=== PATIENT | male | born 1935 | race Caucasian/White ===

== ENCOUNTER → 2017-06-23 | Outpatient (REF) ==
[2017-06-23 19:40] LABS: HEMATOCRIT 34.3 % (42.0-52.0); HEMOGLOBIN 10.8 g/dl (14.0-18.0); MEAN CORPUSCULAR HEMOGLOBIN 29.1 pg (27.0-33.0); MEAN CORPUSCULAR HGB CONC 31.5 g/dl (32.0-36.5); MEAN CORPUSCULAR VOLUME 92.5 fl (80.0-96.0); PLATELET COUNT, AUTOMATED 235 10^3/uL (150-450); RED BLOOD COUNT 3.71 10^6/uL (4.30-6.10); RED CELL DISTRIBUTION WIDTH 15.5 % (11.5-14.5); WHITE BLOOD COUNT 7.6 10^3/uL (4.0-10.0)
[2017-06-23 21:00] LABS: ANION GAP 10 MEQ/L (8-16); BLOOD UREA NITROGEN 21 MG/DL (7-18); CALCIUM LEVEL 7.9 MG/DL (8.8-10.2); CARBON DIOXIDE LEVEL 28 MEQ/L (21-32); CHLORIDE LEVEL 107 MEQ/L (98-107); CREATININE FOR GFR 1.18 MG/DL (0.70-1.30); GLOMERULAR FILTRATION RATE > 60.0 (>35); GLUCOSE, FASTING 94 MG/DL (83-110); POTASSIUM SERUM 3.8 MEQ/L (3.5-5.1); SODIUM LEVEL 145 MEQ/L (136-145)
== END ==
DX: R05 Cough (principal)

== ENCOUNTER → 2017-06-28 | Outpatient (REF) | payer MEDICARE, MEDICAID ==
[2017-06-28 10:37] LABS: HEMATOCRIT 34.5 % (42.0-52.0); HEMOGLOBIN 10.9 g/dl (14.0-18.0); MEAN CORPUSCULAR HEMOGLOBIN 28.5 pg (27.0-33.0); MEAN CORPUSCULAR HGB CONC 31.6 g/dl (32.0-36.5); MEAN CORPUSCULAR VOLUME 90.1 fl (80.0-96.0); PLATELET COUNT, AUTOMATED 351 10^3/uL (150-450); RED BLOOD COUNT 3.83 10^6/uL (4.30-6.10); RED CELL DISTRIBUTION WIDTH 15.1 % (11.5-14.5); WHITE BLOOD COUNT 11.4 10^3/uL (4.0-10.0)
[2017-06-28 11:06] LABS: ANION GAP 6 MEQ/L (8-16); BLOOD UREA NITROGEN 26 MG/DL (7-18); CALCIUM LEVEL 8.1 MG/DL (8.8-10.2); CARBON DIOXIDE LEVEL 30 MEQ/L (21-32); CHLORIDE LEVEL 108 MEQ/L (98-107); CREATININE FOR GFR 1.24 MG/DL (0.70-1.30); GLOMERULAR FILTRATION RATE 59.7 (>35); GLUCOSE, FASTING 81 MG/DL (70-100); POTASSIUM SERUM 4.5 MEQ/L (3.5-5.1); SODIUM LEVEL 144 MEQ/L (136-145)
== END ==
DX: I50.9 Heart failure, unspecified (principal)
CPT/HCPCS: 80048

== ENCOUNTER → 2017-07-25 | Outpatient (REF) ==
[2017-07-25 11:01] LABS: HEMATOCRIT 36.1 % (42.0-52.0); HEMOGLOBIN 11.4 g/dl (14.0-18.0); MEAN CORPUSCULAR HEMOGLOBIN 28.1 pg (27.0-33.0); MEAN CORPUSCULAR HGB CONC 31.6 g/dl (32.0-36.5); MEAN CORPUSCULAR VOLUME 89.1 fl (80.0-96.0); PLATELET COUNT, AUTOMATED 298 10^3/uL (150-450); RED BLOOD COUNT 4.05 10^6/uL (4.30-6.10); RED CELL DISTRIBUTION WIDTH 15.6 % (11.5-14.5); WHITE BLOOD COUNT 11.3 10^3/uL (4.0-10.0)
[2017-07-25 11:16] LABS: ANION GAP 7 MEQ/L (8-16); BLOOD UREA NITROGEN 22 MG/DL (7-18); CALCIUM LEVEL 7.9 MG/DL (8.8-10.2); CARBON DIOXIDE LEVEL 27 MEQ/L (21-32); CHLORIDE LEVEL 109 MEQ/L (98-107); CREATININE FOR GFR 1.39 MG/DL (0.70-1.30); GLOMERULAR FILTRATION RATE 52.3 (>35); GLUCOSE, FASTING 79 MG/DL (70-100); POTASSIUM SERUM 4.4 MEQ/L (3.5-5.1); SODIUM LEVEL 143 MEQ/L (136-145)
== END ==
DX: I50.9 Heart failure, unspecified (principal)

== ENCOUNTER → 2017-08-08 | Outpatient (REF) | DX: G47.30 Sleep apnea, unspecified (principal) ==

== ENCOUNTER 2017-08-16 15:43 | Inpatient (IN) | payer MEDICARE, MEDICAID ==
[2017-08-16 17:30] LABS: BASO # 0.1 10^3/uL (0.0-0.2); BASO % 0.4 % (0.0-1.0); EOS # 0.4 10^3/uL (0.0-0.50); EOS % 2.1 % (0.0-3.0); HEMATOCRIT 34.3 % (42.0-52.0); IMMATURE GRANULOCYTE % 0.5 % (0-3.0); LYMPH % 11.9 % (24.0-44.0); MEAN CORPUSCULAR HEMOGLOBIN 28.6 pg (27.0-33.0); MEAN CORPUSCULAR HGB CONC 32.1 g/dl (32.0-36.5); MEAN CORPUSCULAR VOLUME 89.1 fl (80.0-96.0); MONO # 1.8 10^3/uL (0.0-0.8); MONO % 10.3 % (0.0-5.0); NEUTROPHILS # 12.8 10^3/uL (1.8-7.7); NEUTROPHILS % 74.8 % (36.0-66.0); PLATELET COUNT, AUTOMATED 282 10^3/uL (150-450); RED BLOOD COUNT 3.85 10^6/uL (4.30-6.10); WHITE BLOOD COUNT 17.1 10^3/uL (4.0-10.0)
[2017-08-16 17:43] LABS: ALBUMIN 3.1 GM/DL (3.2-5.2); ALBUMIN/GLOBULIN RATIO 0.94 (1.00-1.93); ALKALINE PHOSPHATASE 82 U/L (45-117); ALT/SGPT 14 U/L (12-78); ANION GAP 4 MEQ/L (8-16); AST/SGOT 12 U/L (7-37); BILIRUBIN,DIRECT 0.1 MG/DL (0.0-0.2); BILIRUBIN,TOTAL 0.5 MG/DL (0.2-1.0); BLOOD UREA NITROGEN 25 MG/DL (7-18); CALCIUM LEVEL 8.5 MG/DL (8.8-10.2); CARBON DIOXIDE LEVEL 31 MEQ/L (21-32); CHLORIDE LEVEL 106 MEQ/L (98-107); CREATININE FOR GFR 1.51 MG/DL (0.70-1.30); GLOMERULAR FILTRATION RATE 47.6 (>35); GLUCOSE, FASTING 92 MG/DL (70-100); LIPASE 117 U/L (73-393); POTASSIUM SERUM 4.3 MEQ/L (3.5-5.1); SODIUM LEVEL 141 MEQ/L (136-145); TOTAL PROTEIN 6.4 GM/DL (6.4-8.2); TROPONIN I < 0.02 NG/ML (< 0.10)
[2017-08-16 17:49] LABS: CK-MB VALUE MASS 1.6 NG/ML (0.0-3.6); CPK CREATINE PHOSPHOKINASE 75 U/L (39-308); FREE T4 0.84 NG/DL (0.76-1.46); MB/CK RELATIVE INDEX 2.13 (< OR =4); THYROID STIMULATING HORMONE 0.899 uIU/ML (0.358-3.740)
[2017-08-16 17:55] LABS: INR 1.05; PROTHROMBIN TIME 13.8 SECONDS (12.4-14.5)
[2017-08-16 17:56] LABS: PARTIAL THROMBOPLASTIN TIME 39.9 SECONDS (26.8-37.9)
[2017-08-16] MEDS: NS 1,000 ML IV ×2 (18:33→19:00)
[2017-08-16 18:49] LABS: KETONE, URINE AUTO RFX NEGATIVE (NEGATIVE); NITRITE, URINE AUTO RFX NEGATIVE (NEGATIVE); RBC, URINE AUTO RFX 3 /HPF (0-3); SPECIFIC GRAVITY UR AUTO RFX 1.003 (1.002-1.035); SQUAM EPITHELIAL CELL UR AURFX 0 /HPF (0-6); WBC, URINE AUTO RFX 6 /HPF (0-3); YEAST LIKE CELL URINE AUTO RFX SMALL
[2017-08-16 19:00] LABS: LEUKOCYTE ESTERASE UR AUTO RFX 2+ (NEGATIVE)
[2017-08-16] MEDS: GASTROGRAFIN SOLUTION 30ML PO ×2 (19:00→19:30)
[2017-08-16] MEDS ORDERED: ISOVUE-370 76% 100ML VIAL (Q9967) As Ordered (20:16)
[2017-08-16] MEDS: OMEPRAZOLE 20 MG CAP PO (21:00)
[2017-08-16] MEDS: GABAPENTIN 400 MG CAP PO (21:00)
[2017-08-16] MEDS: METOPROLOL TART 25 MG TABLET PO (21:00)
[2017-08-16] MEDS: VANCOMYCIN HCL 1,000 MG, VIAL MATE ADAPTER 1 EACH in D5W 250 ML IV (22:00)
[2017-08-16] MEDS: PIPERACILLIN/TAZOBACTAM SOD 3.375 GM in APPROPRIATE DILUENT 1 EA IV (22:15)
[2017-08-16] MEDS ORDERED: MOM 30ML SUSPENSION UDC PO (23:45)
[2017-08-16] MEDS ORDERED: ACETAMINOPHEN TAB 650MG DOSE (2X325MG) PO (23:45)
[2017-08-16] MEDS: SYMBICORT 160/4.5MCG INHALER 6GM INH (23:59)
[2017-08-17 00:14] LABS: C REACTIVE PROTEIN QUANTITATIV 7.66 MG/DL (0.00-0.30)
[2017-08-17 00:22] LABS: ERYTHROCYTE SEDIMENTATION RATE 28 mm/hr (0-20)
[2017-08-17 04:20] LABS: HEMATOCRIT 36.2 % (42.0-52.0); HEMOGLOBIN 11.6 g/dl (14.0-18.0); MEAN CORPUSCULAR HEMOGLOBIN 28.4 pg (27.0-33.0); MEAN CORPUSCULAR VOLUME 88.7 fl (80.0-96.0); PLATELET COUNT, AUTOMATED 279 10^3/uL (150-450); RED BLOOD COUNT 4.08 10^6/uL (4.30-6.10); RED CELL DISTRIBUTION WIDTH 15.9 % (11.5-14.5); WHITE BLOOD COUNT 19.4 10^3/uL (4.0-10.0)
[2017-08-17] MEDS: PIPERACILLIN/TAZOBACTAM SOD 3.375 GM in D5W MINI-BAG PLUS 50 ML IV ×4 (04:32→22:36)
[2017-08-17] MEDS: NS 1,000 ML IV ×2 (04:32→09:32)
[2017-08-17] MEDS: LORATADINE 10 MG TAB PO ×2 (04:32→22:37)
[2017-08-17 04:42] LABS: ANION GAP 5 MEQ/L (8-16); BLOOD UREA NITROGEN 22 MG/DL (7-18); CALCIUM LEVEL 8.3 MG/DL (8.8-10.2); CARBON DIOXIDE LEVEL 29 MEQ/L (21-32); CHLORIDE LEVEL 107 MEQ/L (98-107); CREATININE FOR GFR 1.39 MG/DL (0.70-1.30); GLOMERULAR FILTRATION RATE 52.3 (>35); GLUCOSE, FASTING 94 MG/DL (70-100); POTASSIUM SERUM 4.3 MEQ/L (3.5-5.1); SODIUM LEVEL 141 MEQ/L (136-145)
[2017-08-17] MEDS: TIOTROPIUM INHALER/CAPSULE (SPIRIVA) INH (07:55)
[2017-08-17] MEDS: SYMBICORT 160/4.5MCG INHALER 6GM INH ×2 (07:55→19:38)
[2017-08-17] MEDS: IPRATROPIUM 0.5MG/ALBUTEROL 2.5MG INH SOL UD 3ML (DUONEB)(J7620) INH ×4 (07:59→19:55)
[2017-08-17] MEDS: VANCOMYCIN HCL 1,000 MG, VIAL MATE ADAPTER 1 EACH in D5W 250 ML IV (09:20)
[2017-08-17] MEDS: OMEPRAZOLE 20 MG CAP PO ×2 (09:21→22:37)
[2017-08-17] MEDS: SUCRALFATE 1 GM TAB PO ×4 (09:21→22:37)
[2017-08-17] MEDS: FINASTERIDE 5 MG TAB PO (09:21)
[2017-08-17] MEDS: METOPROLOL TART 25 MG TABLET PO ×2 (09:22→22:37)
[2017-08-17] MEDS: GABAPENTIN 400 MG CAP PO ×3 (09:22→22:37)
[2017-08-17] MEDS: ASPIRIN 81 MG CHEW TABLET PO (09:22)
[2017-08-17] MEDS: ALBUTEROL SULFATE 2.5 MG/0.5 ML INH NEB SOLN NEB (10:14)
[2017-08-17] MEDS ORDERED: PILL CUTTER/CRUSHER XX (12:45)
[2017-08-18 02:15] LABS: VANCOMYCIN LEVEL TROUGH 15.9 UG/ML (10.0-20.0)
[2017-08-18] MEDS: VANCOMYCIN HCL 1,000 MG, VIAL MATE ADAPTER 1 EACH in D5W 250 ML IV ×2 (02:28→20:49)
[2017-08-18] MEDS: PIPERACILLIN/TAZOBACTAM SOD 3.375 GM in D5W MINI-BAG PLUS 50 ML IV ×2 (04:29→10:01)
[2017-08-18 07:23] LABS: HEMATOCRIT 34.9 % (42.0-52.0); HEMOGLOBIN 11.2 g/dl (14.0-18.0); MEAN CORPUSCULAR HEMOGLOBIN 28.2 pg (27.0-33.0); MEAN CORPUSCULAR HGB CONC 32.1 g/dl (32.0-36.5); MEAN CORPUSCULAR VOLUME 87.9 fl (80.0-96.0); PLATELET COUNT, AUTOMATED 288 10^3/uL (150-450); RED BLOOD COUNT 3.97 10^6/uL (4.30-6.10); RED CELL DISTRIBUTION WIDTH 15.9 % (11.5-14.5); WHITE BLOOD COUNT 16.4 10^3/uL (4.0-10.0)
[2017-08-18 07:45] LABS: ANION GAP 6 MEQ/L (8-16); BLOOD UREA NITROGEN 21 MG/DL (7-18); CALCIUM LEVEL 8.4 MG/DL (8.8-10.2); CARBON DIOXIDE LEVEL 25 MEQ/L (21-32); CHLORIDE LEVEL 108 MEQ/L (98-107); CREATININE FOR GFR 1.47 MG/DL (0.70-1.30); GLOMERULAR FILTRATION RATE 49.1 (>35); GLUCOSE, FASTING 93 MG/DL (70-100); SODIUM LEVEL 139 MEQ/L (136-145)
[2017-08-18] MEDS: IPRATROPIUM 0.5MG/ALBUTEROL 2.5MG INH SOL UD 3ML (DUONEB)(J7620) INH ×4 (08:22→20:09)
[2017-08-18] MEDS: ASPIRIN 81 MG CHEW TABLET PO (09:59)
[2017-08-18] MEDS: OMEPRAZOLE 20 MG CAP PO ×2 (09:59→20:49)
[2017-08-18] MEDS: METOPROLOL TART 25 MG TABLET PO ×2 (10:00→20:50)
[2017-08-18] MEDS: GABAPENTIN 400 MG CAP PO ×3 (10:00→20:50)
[2017-08-18] MEDS: SUCRALFATE 1 GM TAB PO ×4 (10:00→20:49)
[2017-08-18] MEDS: FINASTERIDE 5 MG TAB PO (10:01)
[2017-08-18] MEDS: TIOTROPIUM INHALER/CAPSULE (SPIRIVA) INH (11:00)
[2017-08-18] MEDS: SYMBICORT 160/4.5MCG INHALER 6GM INH ×2 (11:00→20:00)
[2017-08-18 13:10] LABS: CPK CREATINE PHOSPHOKINASE 38 U/L (39-308); MAGNESIUM LEVEL 2.3 MG/DL (1.8-2.4); MB/CK RELATIVE INDEX 2.63 (< OR =4); TROPONIN I < 0.02 NG/ML (< 0.10)
[2017-08-18] MEDS: POLYVINYL ALCOHOL OPHTH SOLN 15 ML(LIQUITEARS) OU (16:15)
[2017-08-18] MEDS: PIPERACILLIN/TAZOBACTAM SOD 3.375 GM in APPROPRIATE DILUENT 1 EA IV (16:15)
[2017-08-18] MEDS: LORATADINE 10 MG TAB PO (20:49)
[2017-08-19] MEDS: PIPERACILLIN/TAZOBACTAM SOD 3.375 GM in APPROPRIATE DILUENT 1 EA IV ×5 (00:57→22:09)
[2017-08-19 06:42] LABS: HEMATOCRIT 35.1 % (42.0-52.0); HEMOGLOBIN 11.1 g/dl (14.0-18.0); MEAN CORPUSCULAR HEMOGLOBIN 27.8 pg (27.0-33.0); MEAN CORPUSCULAR HGB CONC 31.6 g/dl (32.0-36.5); MEAN CORPUSCULAR VOLUME 87.8 fl (80.0-96.0); PLATELET COUNT, AUTOMATED 302 10^3/uL (150-450); RED CELL DISTRIBUTION WIDTH 15.9 % (11.5-14.5); WHITE BLOOD COUNT 15.2 10^3/uL (4.0-10.0)
[2017-08-19 06:58] LABS: ANION GAP 7 MEQ/L (8-16); BLOOD UREA NITROGEN 29 MG/DL (7-18); CALCIUM LEVEL 8.3 MG/DL (8.8-10.2); CARBON DIOXIDE LEVEL 27 MEQ/L (21-32); CHLORIDE LEVEL 107 MEQ/L (98-107); CREATININE FOR GFR 1.52 MG/DL (0.70-1.30); GLOMERULAR FILTRATION RATE 47.2 (>35); GLUCOSE, FASTING 90 MG/DL (70-100); POTASSIUM SERUM 3.9 MEQ/L (3.5-5.1); SODIUM LEVEL 141 MEQ/L (136-145)
[2017-08-19] MEDS: IPRATROPIUM 0.5MG/ALBUTEROL 2.5MG INH SOL UD 3ML (DUONEB)(J7620) INH ×4 (07:15→21:08)
[2017-08-19] MEDS: SYMBICORT 160/4.5MCG INHALER 6GM INH ×2 (07:16→20:00)
[2017-08-19] MEDS: TIOTROPIUM INHALER/CAPSULE (SPIRIVA) INH (07:16)
[2017-08-19] MEDS: GABAPENTIN 400 MG CAP PO ×3 (08:39→22:06)
[2017-08-19] MEDS: METOPROLOL TART 25 MG TABLET PO ×2 (08:39→22:07)
[2017-08-19] MEDS: OMEPRAZOLE 20 MG CAP PO ×2 (08:39→22:07)
[2017-08-19] MEDS: SUCRALFATE 1 GM TAB PO ×4 (08:40→22:06)
[2017-08-19] MEDS: FINASTERIDE 5 MG TAB PO (08:42)
[2017-08-19] MEDS: ASPIRIN 81 MG CHEW TABLET PO (08:43)
[2017-08-19] MEDS: traMADol 50 MG TAB PO ×2 (10:45→15:56)
[2017-08-19] MEDS: VANCOMYCIN HCL 1,000 MG, VIAL MATE ADAPTER 1 EACH in D5W 250 ML IV (16:40)
[2017-08-19] MEDS: LORATADINE 10 MG TAB PO (22:06)
[2017-08-20] MEDS: PIPERACILLIN/TAZOBACTAM SOD 3.375 GM in APPROPRIATE DILUENT 1 EA IV ×4 (04:07→21:28)
[2017-08-20 06:25] LABS: HEMATOCRIT 32.4 % (42.0-52.0); HEMOGLOBIN 10.6 g/dl (14.0-18.0); MEAN CORPUSCULAR HEMOGLOBIN 28.8 pg (27.0-33.0); MEAN CORPUSCULAR HGB CONC 32.7 g/dl (32.0-36.5); PLATELET COUNT, AUTOMATED 297 10^3/uL (150-450); RED BLOOD COUNT 3.68 10^6/uL (4.30-6.10); RED CELL DISTRIBUTION WIDTH 15.8 % (11.5-14.5); WHITE BLOOD COUNT 12.4 10^3/uL (4.0-10.0)
[2017-08-20 06:47] LABS: ANION GAP 9 MEQ/L (8-16); BLOOD UREA NITROGEN 28 MG/DL (7-18); CALCIUM LEVEL 8.5 MG/DL (8.8-10.2); CARBON DIOXIDE LEVEL 27 MEQ/L (21-32); CHLORIDE LEVEL 105 MEQ/L (98-107); CREATININE FOR GFR 1.42 MG/DL (0.70-1.30); GLOMERULAR FILTRATION RATE 51.1 (>35); GLUCOSE, FASTING 96 MG/DL (70-100); POTASSIUM SERUM 4.4 MEQ/L (3.5-5.1); SODIUM LEVEL 141 MEQ/L (136-145)
[2017-08-20] MEDS: IPRATROPIUM 0.5MG/ALBUTEROL 2.5MG INH SOL UD 3ML (DUONEB)(J7620) INH ×4 (07:16→21:08)
[2017-08-20] MEDS: TIOTROPIUM INHALER/CAPSULE (SPIRIVA) INH (07:17)
[2017-08-20] MEDS: SYMBICORT 160/4.5MCG INHALER 6GM INH ×2 (07:17→20:00)
[2017-08-20] MEDS: GABAPENTIN 400 MG CAP PO ×3 (08:43→21:28)
[2017-08-20] MEDS: FINASTERIDE 5 MG TAB PO (08:43)
[2017-08-20] MEDS: SUCRALFATE 1 GM TAB PO ×4 (08:43→21:34)
[2017-08-20] MEDS: METOPROLOL TART 25 MG TABLET PO ×2 (08:43→21:28)
[2017-08-20] MEDS: OMEPRAZOLE 20 MG CAP PO ×2 (08:43→21:28)
[2017-08-20] MEDS: ASPIRIN 81 MG CHEW TABLET PO (08:43)
[2017-08-20 08:49] LABS: VANCOMYCIN LEVEL TROUGH 24.8 UG/ML (10.0-20.0)
[2017-08-20] MEDS: traMADol 50 MG TAB PO ×2 (10:18→21:29)
[2017-08-20] MEDS: LORATADINE 10 MG TAB PO (21:29)
[2017-08-21] MEDS: PIPERACILLIN/TAZOBACTAM SOD 3.375 GM in APPROPRIATE DILUENT 1 EA IV ×4 (05:02→21:31)
[2017-08-21 06:49] LABS: HEMATOCRIT 33.8 % (42.0-52.0); HEMOGLOBIN 10.8 g/dl (14.0-18.0); MEAN CORPUSCULAR VOLUME 87.6 fl (80.0-96.0); PLATELET COUNT, AUTOMATED 357 10^3/uL (150-450); RED BLOOD COUNT 3.86 10^6/uL (4.30-6.10); RED CELL DISTRIBUTION WIDTH 15.8 % (11.5-14.5); WHITE BLOOD COUNT 12.4 10^3/uL (4.0-10.0)
[2017-08-21 07:10] LABS: ANION GAP 8 MEQ/L (8-16); BLOOD UREA NITROGEN 25 MG/DL (7-18); CALCIUM LEVEL 8.4 MG/DL (8.8-10.2); CARBON DIOXIDE LEVEL 27 MEQ/L (21-32); CHLORIDE LEVEL 106 MEQ/L (98-107); CREATININE FOR GFR 1.37 MG/DL (0.70-1.30); GLOMERULAR FILTRATION RATE 53.2 (>35); GLUCOSE, FASTING 91 MG/DL (70-100); POTASSIUM SERUM 4.1 MEQ/L (3.5-5.1); SODIUM LEVEL 141 MEQ/L (136-145)
[2017-08-21] MEDS: SYMBICORT 160/4.5MCG INHALER 6GM INH ×2 (07:10→20:00)
[2017-08-21] MEDS: IPRATROPIUM 0.5MG/ALBUTEROL 2.5MG INH SOL UD 3ML (DUONEB)(J7620) INH ×4 (07:10→19:59)
[2017-08-21] MEDS: TIOTROPIUM INHALER/CAPSULE (SPIRIVA) INH (07:10)
[2017-08-21] MEDS: SUCRALFATE 1 GM TAB PO ×4 (09:43→21:32)
[2017-08-21] MEDS: POLYVINYL ALCOHOL OPHTH SOLN 15 ML(LIQUITEARS) OU ×4 (09:43→21:33)
[2017-08-21] MEDS: VANCOMYCIN HCL 1,000 MG, VIAL MATE ADAPTER 1 EACH in D5W 250 ML IV (09:43)
[2017-08-21] MEDS: OMEPRAZOLE 20 MG CAP PO ×2 (09:44→21:32)
[2017-08-21] MEDS: traMADol 50 MG TAB PO ×2 (09:44→21:32)
[2017-08-21] MEDS: METOPROLOL TART 25 MG TABLET PO ×2 (09:44→21:33)
[2017-08-21] MEDS: ASPIRIN 81 MG CHEW TABLET PO (09:44)
[2017-08-21] MEDS: FINASTERIDE 5 MG TAB PO (09:44)
[2017-08-21] MEDS: GABAPENTIN 400 MG CAP PO ×3 (09:44→21:32)
[2017-08-21] MEDS: LORATADINE 10 MG TAB PO (21:31)
[2017-08-22] MEDS: PIPERACILLIN/TAZOBACTAM SOD 3.375 GM in APPROPRIATE DILUENT 1 EA IV (04:38)
[2017-08-22 06:50] LABS: MEAN CORPUSCULAR HEMOGLOBIN 27.8 pg (27.0-33.0); MEAN CORPUSCULAR HGB CONC 31.4 g/dl (32.0-36.5); MEAN CORPUSCULAR VOLUME 88.4 fl (80.0-96.0); PLATELET COUNT, AUTOMATED 357 10^3/uL (150-450); RED BLOOD COUNT 3.96 10^6/uL (4.30-6.10); RED CELL DISTRIBUTION WIDTH 15.4 % (11.5-14.5); WHITE BLOOD COUNT 12.4 10^3/uL (4.0-10.0)
[2017-08-22 07:06] LABS: ANION GAP 6 MEQ/L (8-16); BLOOD UREA NITROGEN 25 MG/DL (7-18); CALCIUM LEVEL 8.5 MG/DL (8.8-10.2); CARBON DIOXIDE LEVEL 28 MEQ/L (21-32); CHLORIDE LEVEL 106 MEQ/L (98-107); CREATININE FOR GFR 1.49 MG/DL (0.70-1.30); GLOMERULAR FILTRATION RATE 48.3 (>35); GLUCOSE, FASTING 83 MG/DL (70-100); POTASSIUM SERUM 4.2 MEQ/L (3.5-5.1); SODIUM LEVEL 140 MEQ/L (136-145)
[2017-08-22] MEDS: TIOTROPIUM INHALER/CAPSULE (SPIRIVA) INH (07:16)
[2017-08-22] MEDS: IPRATROPIUM 0.5MG/ALBUTEROL 2.5MG INH SOL UD 3ML (DUONEB)(J7620) INH ×4 (07:16→21:07)
[2017-08-22] MEDS: SYMBICORT 160/4.5MCG INHALER 6GM INH ×2 (07:16→21:05)
[2017-08-22] MEDS: ASPIRIN 81 MG CHEW TABLET PO (08:30)
[2017-08-22] MEDS: SUCRALFATE 1 GM TAB PO ×4 (08:30→20:55)
[2017-08-22] MEDS: VANCOMYCIN HCL 1,000 MG, VIAL MATE ADAPTER 1 EACH in D5W 250 ML IV ×2 (08:30→09:00)
[2017-08-22] MEDS: OMEPRAZOLE 20 MG CAP PO ×2 (08:31→20:55)
[2017-08-22] MEDS: GABAPENTIN 400 MG CAP PO ×3 (08:31→20:55)
[2017-08-22] MEDS: FINASTERIDE 5 MG TAB PO (08:31)
[2017-08-22] MEDS: METOPROLOL TART 25 MG TABLET PO ×2 (08:31→20:56)
[2017-08-22] MEDS: DALIRESP 500MCG PO (09:00)
[2017-08-22] MEDS: DOXYCYCLINE HYCLATE 100 MG TAB PO ×2 (10:53→20:55)
[2017-08-22] MEDS: LORATADINE 10 MG TAB PO (20:55)
[2017-08-22] MEDS: RESTASIS OU (21:00)
[2017-08-23 06:47] LABS: HEMATOCRIT 34.4 % (42.0-52.0); HEMOGLOBIN 11.1 g/dl (14.0-18.0); MEAN CORPUSCULAR HEMOGLOBIN 28.3 pg (27.0-33.0); MEAN CORPUSCULAR HGB CONC 32.3 g/dl (32.0-36.5); MEAN CORPUSCULAR VOLUME 87.8 fl (80.0-96.0); PLATELET COUNT, AUTOMATED 379 10^3/uL (150-450); RED BLOOD COUNT 3.92 10^6/uL (4.30-6.10); RED CELL DISTRIBUTION WIDTH 15.5 % (11.5-14.5); WHITE BLOOD COUNT 11.3 10^3/uL (4.0-10.0)
[2017-08-23 07:08] LABS: ANION GAP 6 MEQ/L (8-16); BLOOD UREA NITROGEN 28 MG/DL (7-18); CALCIUM LEVEL 8.6 MG/DL (8.8-10.2); CARBON DIOXIDE LEVEL 28 MEQ/L (21-32); CHLORIDE LEVEL 108 MEQ/L (98-107); CREATININE FOR GFR 1.36 MG/DL (0.70-1.30); GLOMERULAR FILTRATION RATE 53.7 (>35); GLUCOSE, FASTING 90 MG/DL (70-100); POTASSIUM SERUM 4.3 MEQ/L (3.5-5.1); SODIUM LEVEL 142 MEQ/L (136-145)
[2017-08-23] MEDS: SYMBICORT 160/4.5MCG INHALER 6GM INH ×2 (07:37→20:00)
[2017-08-23] MEDS: IPRATROPIUM 0.5MG/ALBUTEROL 2.5MG INH SOL UD 3ML (DUONEB)(J7620) INH ×4 (07:38→22:02)
[2017-08-23] MEDS: TIOTROPIUM INHALER/CAPSULE (SPIRIVA) INH (07:38)
[2017-08-23] MEDS: SUCRALFATE 1 GM TAB PO ×4 (08:05→20:43)
[2017-08-23] MEDS: GABAPENTIN 400 MG CAP PO ×3 (10:39→20:44)
[2017-08-23] MEDS: DOXYCYCLINE HYCLATE 100 MG TAB PO ×2 (10:40→20:44)
[2017-08-23] MEDS: FINASTERIDE 5 MG TAB PO (10:40)
[2017-08-23] MEDS: METOPROLOL TART 25 MG TABLET PO ×2 (10:40→20:45)
[2017-08-23] MEDS: DALIRESP 500MCG PO (10:41)
[2017-08-23] MEDS: OMEPRAZOLE 20 MG CAP PO ×2 (10:41→20:44)
[2017-08-23] MEDS: ASPIRIN 81 MG CHEW TABLET PO (10:41)
[2017-08-23] MEDS: RESTASIS OU ×2 (10:41→20:45)
[2017-08-23] MEDS: LORATADINE 10 MG TAB PO (20:44)
[2017-08-24] MEDS: SYMBICORT 160/4.5MCG INHALER 6GM INH (07:36)
[2017-08-24] MEDS: IPRATROPIUM 0.5MG/ALBUTEROL 2.5MG INH SOL UD 3ML (DUONEB)(J7620) INH (07:36)
[2017-08-24] MEDS: TIOTROPIUM INHALER/CAPSULE (SPIRIVA) INH (07:36)
[2017-08-24] MEDS: SUCRALFATE 1 GM TAB PO ×2 (07:54→12:23)
[2017-08-24 08:54] LABS: HEMATOCRIT 37.3 % (42.0-52.0); HEMOGLOBIN 11.9 g/dl (14.0-18.0); MEAN CORPUSCULAR HEMOGLOBIN 27.7 pg (27.0-33.0); MEAN CORPUSCULAR HGB CONC 31.9 g/dl (32.0-36.5); MEAN CORPUSCULAR VOLUME 86.9 fl (80.0-96.0); PLATELET COUNT, AUTOMATED 442 10^3/uL (150-450); RED BLOOD COUNT 4.29 10^6/uL (4.30-6.10); RED CELL DISTRIBUTION WIDTH 15.4 % (11.5-14.5); WHITE BLOOD COUNT 12.5 10^3/uL (4.0-10.0)
[2017-08-24] MEDS: ASPIRIN 81 MG CHEW TABLET PO (09:01)
[2017-08-24] MEDS: DOXYCYCLINE HYCLATE 100 MG TAB PO (09:01)
[2017-08-24] MEDS: OMEPRAZOLE 20 MG CAP PO (09:01)
[2017-08-24] MEDS: GABAPENTIN 400 MG CAP PO (09:02)
[2017-08-24] MEDS: METOPROLOL TART 25 MG TABLET PO (09:02)
[2017-08-24] MEDS: FINASTERIDE 5 MG TAB PO (09:03)
[2017-08-24] MEDS: RESTASIS OU (09:03)
[2017-08-24] MEDS: DALIRESP 500MCG PO (09:03)
[2017-08-24 09:22] LABS: ANION GAP 7 MEQ/L (8-16); BLOOD UREA NITROGEN 29 MG/DL (7-18); C REACTIVE PROTEIN QUANTITATIV 4.49 MG/DL (0.00-0.30); CALCIUM LEVEL 8.6 MG/DL (8.8-10.2); CARBON DIOXIDE LEVEL 28 MEQ/L (21-32); CHLORIDE LEVEL 106 MEQ/L (98-107); CREATININE FOR GFR 1.31 MG/DL (0.70-1.30); GLUCOSE, FASTING 82 MG/DL (70-100); POTASSIUM SERUM 4.3 MEQ/L (3.5-5.1); SODIUM LEVEL 141 MEQ/L (136-145)
== END 2017-08-24 13:07 | DRG 698 ==
LOC: M ED INP 08-17 01:28 → M MS5PR 08-17 03:15 → M ED 15:43
DX: T83.518A Infection and inflammatory reaction due to other urinary catheter, initial encounter (principal); J18.9 Pneumonia, unspecified organism; N39.0 Urinary tract infection, site not specified; Z66 Do not resuscitate; I12.9 Hypertensive chronic kidney disease with stage 1 through stage 4 chronic kidney disease, or unspecified chronic kidney disease; K21.9 Gastro-esophageal reflux disease without esophagitis; G62.9 Polyneuropathy, unspecified; Z99.81 Dependence on supplemental oxygen; B95.61 Methicillin susceptible Staphylococcus aureus infection as the cause of diseases classified elsewhere; Z87.891 Personal history of nicotine dependence; Y95 Nosocomial condition; Z79.899 Other long term (current) drug therapy; Z79.82 Long term (current) use of aspirin; Z88.1 Allergy status to other antibiotic agents; N18.3 Chronic kidney disease, stage 3 (moderate); Y82.9 Unspecified medical devices associated with adverse incidents

== ENCOUNTER 2017-10-16 18:20 | Emergency (ER) | payer MEDICARE, MEDICAID ==
[2017-10-16 18:16] LABS: HEMATOCRIT 34.3 % (42.0-52.0); HEMOGLOBIN 10.8 g/dl (13.5-17.5); MEAN CORPUSCULAR HGB CONC 31.5 g/dl (32.0-36.5); MEAN CORPUSCULAR VOLUME 88.9 fl (80.0-96.0); PLATELET COUNT, AUTOMATED 277 10^3/uL (150-450); RED BLOOD COUNT 3.86 10^6/uL (4.30-6.10); RED CELL DISTRIBUTION WIDTH 15.2 % (11.5-14.5)
[~2017-10-16 18:20] MED LIST: LIDOCAINE 2% 5ML JELLY UROJET As Ordered
[2017-10-16 18:38] LABS: ANION GAP 3 MEQ/L (8-16); BLOOD UREA NITROGEN 40 MG/DL (7-18); CALCIUM LEVEL 8.3 MG/DL (8.8-10.2); CARBON DIOXIDE LEVEL 29 MEQ/L (21-32); CHLORIDE LEVEL 112 MEQ/L (98-107); CPK CREATINE PHOSPHOKINASE 80 U/L (39-308); CREATININE FOR GFR 1.63 MG/DL (0.70-1.30); GLOMERULAR FILTRATION RATE 43.6 (>35); GLUCOSE, FASTING 91 MG/DL (70-100); POTASSIUM SERUM 4.2 MEQ/L (3.5-5.1); SODIUM LEVEL 144 MEQ/L (136-145); TROPONIN I < 0.02 NG/ML (< 0.10)
== END 2017-10-16 19:36 | disposition home or self-care (01) ==
LOC: M ED 18:20
DX: T83.011A Breakdown (mechanical) of indwelling urethral catheter, initial encounter (principal); R07.89 Other chest pain; N18.3 Chronic kidney disease, stage 3 (moderate); I12.9 Hypertensive chronic kidney disease with stage 1 through stage 4 chronic kidney disease, or unspecified chronic kidney disease; J44.9 Chronic obstructive pulmonary disease, unspecified; N40.0 Benign prostatic hyperplasia without lower urinary tract symptoms; Z79.899 Other long term (current) drug therapy; Z79.82 Long term (current) use of aspirin; Z79.51 Long term (current) use of inhaled steroids; Z88.1 Allergy status to other antibiotic agents
CPT/HCPCS: 93005

== ENCOUNTER 2017-10-17 04:14 | Emergency (ER) | payer MEDICARE, MEDICAID | END 2017-10-17 05:23 | disposition home or self-care (01) | LOC: M ED 04:14 | DX: T83.098A Other mechanical complication of other urinary catheter, initial encounter (principal); N28.9 Disorder of kidney and ureter, unspecified; J44.9 Chronic obstructive pulmonary disease, unspecified; N40.0 Benign prostatic hyperplasia without lower urinary tract symptoms; K21.9 Gastro-esophageal reflux disease without esophagitis; Z88.1 Allergy status to other antibiotic agents; Z79.899 Other long term (current) drug therapy; Z79.82 Long term (current) use of aspirin | CPT/HCPCS: 99283; G0463 ==

== ENCOUNTER 2017-10-27 17:56 | Emergency (ER) | payer MEDICARE, MEDICAID ==
[2017-10-27] MEDS ORDERED: LIDOCAINE 2% 5ML JELLY UROJET As Ordered (18:44)
[2017-10-27 19:37] LABS: KETONE, URINE AUTO RFX NEGATIVE (NEGATIVE); MUCUS, URINE RFX SMALL (NEGATIVE); NITRITE, URINE AUTO RFX NEGATIVE (NEGATIVE); RBC, URINE AUTO RFX 29 /HPF (0-3); SPECIFIC GRAVITY UR AUTO RFX 1.016 (1.002-1.035); SQUAM EPITHELIAL CELL UR AURFX 0 /HPF (0-6)
[2017-10-27 19:46] LABS: LEUKOCYTE ESTERASE UR AUTO RFX 3+ (NEGATIVE); WBC, URINE AUTO RFX 56 /HPF (0-3)
[2017-10-27] MEDS: CEPHALEXIN 500 MG CAP PO (20:35)
== END 2017-10-27 21:40 | disposition home or self-care (01) ==
LOC: M ED 17:56
DX: T83.091A Other mechanical complication of indwelling urethral catheter, initial encounter (principal); R33.9 Retention of urine, unspecified; N39.0 Urinary tract infection, site not specified; Y84.6 Urinary catheterization as the cause of abnormal reaction of the patient, or of later complication, without mention of misadventure at the time of the procedure; I10 Essential (primary) hypertension; E11.9 Type 2 diabetes mellitus without complications; J44.9 Chronic obstructive pulmonary disease, unspecified; G89.29 Other chronic pain; Z85.46 Personal history of malignant neoplasm of prostate; Z88.1 Allergy status to other antibiotic agents; Z79.899 Other long term (current) drug therapy; Z79.82 Long term (current) use of aspirin; Z79.51 Long term (current) use of inhaled steroids
CPT/HCPCS: 81001

== ENCOUNTER → 2018-01-11 | Outpatient (REF) | payer MEDICARE, MEDICAID ==
[2018-01-12 10:48] LABS: APPEARANCE, URINE CLOUDY (CLEAR); BACTERIA, URINE AUTO 3+ (NEGATIVE); BILIRUBIN, URINE AUTO NEGATIVE (NEGATIVE); BLOOD, URINE BLOOD 2+ (NEGATIVE); COLOR, URINE YELLOW (YELLOW); GLUCOSE, URINE (UA) AUTO NEGATIVE (NEGATIVE); KETONE, URINE AUTO NEGATIVE (NEGATIVE); LEUKOCYTE ESTERASE, URINE AUTO 3+ (NEGATIVE); MUCUS, URINE SMALL (NEGATIVE); NITRITE, URINE AUTO NEGATIVE (NEGATIVE); PROTEIN, URINE AUTO 1+ mg/dL (NEGATIVE); RBC, URINE AUTO 12 /HPF (0-3); SPECIFIC GRAVITY URINE AUTO 1.014 (1.002-1.035); SQUAMOUS EPITHELIAL CELL UR AU 0 /HPF (0-6); UROBILINOGEN, URINE AUTO 0.2 mg/dL (0.0-2.0); WBC, URINE AUTO TNTC /HPF (0-3)
== END ==
DX: N28.89 Other specified disorders of kidney and ureter (principal)
CPT/HCPCS: 81001

== ENCOUNTER 2018-01-23 05:18 | Inpatient (IN) | payer MEDICARE, MEDICAID ==
[2018-01-23 06:37] LABS: BASO # 0.1 10^3/uL (0.0-0.2); BASO % 0.3 % (0.0-1.0); EOS # 0.6 10^3/uL (0.0-0.50); EOS % 2.7 % (0.0-3.0); HEMOGLOBIN 12.5 g/dl (13.5-17.5); IMMATURE GRANULOCYTE % 0.7 % (0-3.0); LYMPH # 0.6 10^3/uL (1.5-4.5); LYMPH % 2.9 % (24.0-44.0); MEAN CORPUSCULAR HEMOGLOBIN 28.2 pg (27.0-33.0); MEAN CORPUSCULAR HGB CONC 32.9 g/dl (32.0-36.5); MEAN CORPUSCULAR VOLUME 85.6 fl (80.0-96.0); MONO % 10.4 % (0.0-5.0); NEUTROPHILS # 17.8 10^3/uL (1.8-7.7); PLATELET COUNT, AUTOMATED 296 10^3/uL (150-450); RED BLOOD COUNT 4.44 10^6/uL (4.30-6.10); RED CELL DISTRIBUTION WIDTH 15.2 % (11.5-14.5); WHITE BLOOD COUNT 21.4 10^3/uL (4.0-10.0)
[2018-01-23 06:50] LABS: ALBUMIN 3.3 GM/DL (3.2-5.2); ALBUMIN/GLOBULIN RATIO 1.03 (1.00-1.93); ALKALINE PHOSPHATASE 90 U/L (45-117); ALT/SGPT 18 U/L (12-78); ANION GAP 10 MEQ/L (8-16); AST/SGOT 15 U/L (7-37); BILIRUBIN,DIRECT 0.3 MG/DL (0.0-0.2); BLOOD UREA NITROGEN 37 MG/DL (7-18); CALCIUM LEVEL 8.5 MG/DL (8.8-10.2); CARBON DIOXIDE LEVEL 27 MEQ/L (21-32); CHLORIDE LEVEL 101 MEQ/L (98-107); CK-MB VALUE MASS 1.5 NG/ML (<3.6); CPK CREATINE PHOSPHOKINASE 124 U/L (39-308); CREATININE FOR GFR 1.56 MG/DL (0.70-1.30); GLOMERULAR FILTRATION RATE 45.7 (>35); GLUCOSE, FASTING 111 MG/DL (70-100); LIPASE 91 U/L (73-393); POTASSIUM SERUM 4.1 MEQ/L (3.5-5.1); SODIUM LEVEL 138 MEQ/L (136-145); TOTAL PROTEIN 6.5 GM/DL (6.4-8.2); TROPONIN I < 0.02 NG/ML (< 0.10)
[2018-01-23] MEDS: NS 500 ML IV (06:53)
[2018-01-23 07:12] LABS: APPEARANCE, URINE CLOUDY (CLEAR); BACTERIA, URINE AUTO 1+ (NEGATIVE); BILIRUBIN, URINE AUTO NEGATIVE (NEGATIVE); BLOOD, URINE BLOOD 2+ (NEGATIVE); COLOR, URINE YELLOW (YELLOW); GLUCOSE, URINE (UA) AUTO NEGATIVE (NEGATIVE); KETONE, URINE AUTO NEGATIVE (NEGATIVE); LEUKOCYTE ESTERASE, URINE AUTO 3+ (NEGATIVE); MUCUS, URINE SMALL (NEGATIVE); NITRITE, URINE AUTO NEGATIVE (NEGATIVE); PROTEIN, URINE AUTO 2+ mg/dL (NEGATIVE); RBC, URINE AUTO 5 /HPF (0-3); SPECIFIC GRAVITY URINE AUTO 1.017 (1.002-1.035); SQUAMOUS EPITHELIAL CELL UR AU 1 /HPF (0-6); UROBILINOGEN, URINE AUTO 0.2 mg/dL (0.0-2.0); WBC, URINE AUTO 49 /HPF (0-3)
[2018-01-23 07:17] LABS: MONO # 2.2 10^3/uL (0.0-0.8); POSITIVE DIFF POS FLAG
[2018-01-23 08:01] LABS: C REACTIVE PROTEIN QUANTITATIV 9.73 MG/DL (0.00-0.30)
[2018-01-23] MEDS: cefTRIAXone SOD 2 GM in D5W MINI-BAG PLUS 50 ML IV (08:10)
[2018-01-23] MEDS ORDERED: ALBUTEROL SULFATE 2.5 MG/0.5 ML INH NEB SOLN INH (09:45)
[2018-01-23] MEDS ORDERED: ONDANSETRON 4MG/2ML VIAL (J2405) IV (09:45)
[2018-01-23] MEDS: PIPERACILLIN/TAZOBACTAM SOD 3.375 GM in D5W MINI-BAG PLUS 50 ML IV ×3 (11:00→22:20)
[2018-01-23] MEDS: IPRATROPIUM 0.5MG/ALBUTEROL 2.5MG INH SOL UD 3ML (DUONEB)(J7620) NEB ×3 (12:25→20:04)
[2018-01-23] MEDS: NS 1,000 ML IV (13:15)
[2018-01-23] MEDS: VANCOMYCIN HCL 1,000 MG, VIAL MATE ADAPTER 1 EACH in D5W 250 ML IV (13:15)
[2018-01-23] MEDS: ENOXAPARIN 40 MG/0.4 ML SYRINGE (J1650) SC (13:16)
[2018-01-23] MEDS: ACETAMINOPHEN TAB 650MG DOSE (2X325MG) PO (13:16)
[2018-01-23] MEDS: guaiFENesin ER 600 MG TAB PO ×2 (13:16→20:20)
[2018-01-23 14:15] LABS: HEMATOCRIT 36.7 % (42.0-52.0); HEMOGLOBIN 12.1 g/dl (13.5-17.5); MEAN CORPUSCULAR HEMOGLOBIN 28.5 pg (27.0-33.0); MEAN CORPUSCULAR VOLUME 86.4 fl (80.0-96.0); PLATELET COUNT, AUTOMATED 243 10^3/uL (150-450); RED BLOOD COUNT 4.25 10^6/uL (4.30-6.10); RED CELL DISTRIBUTION WIDTH 15.4 % (11.5-14.5)
[2018-01-23] MEDS: VANCOMYCIN HCL 750 MG, VIAL MATE ADAPTER 1 EACH in D5W 250 ML IV (14:29)
[2018-01-23] MEDS: methylPREDNISolone INJ 40 MG/1 ML VIAL (J2920) IV ×2 (14:29→22:20)
[2018-01-23 14:36] LABS: ANION GAP 9 MEQ/L (8-16); BLOOD UREA NITROGEN 31 MG/DL (7-18); CALCIUM LEVEL 8.1 MG/DL (8.8-10.2); CARBON DIOXIDE LEVEL 27 MEQ/L (21-32); CHLORIDE LEVEL 102 MEQ/L (98-107); CREATININE FOR GFR 1.48 MG/DL (0.70-1.30); GLOMERULAR FILTRATION RATE 48.6 (>35); GLUCOSE, FASTING 144 MG/DL (70-100); POTASSIUM SERUM 3.5 MEQ/L (3.5-5.1); SODIUM LEVEL 138 MEQ/L (136-145)
[2018-01-23 14:40] LABS: LACTIC ACID SEPSIS PROTOCOL 1.1 MMOL/L (0.4-2.0)
[2018-01-24] MEDS: IPRATROPIUM 0.5MG/ALBUTEROL 2.5MG INH SOL UD 3ML (DUONEB)(J7620) NEB ×6 (00:09→21:17)
[2018-01-24] MEDS: methylPREDNISolone INJ 40 MG/1 ML VIAL (J2920) IV ×3 (05:18→23:00)
[2018-01-24] MEDS: PIPERACILLIN/TAZOBACTAM SOD 3.375 GM in D5W MINI-BAG PLUS 50 ML IV ×4 (05:19→23:00)
[2018-01-24] MEDS: guaiFENesin ER 600 MG TAB PO (09:00)
[2018-01-24 09:13] LABS: BASO % 0.2 % (0.0-1.0); EOS % 0.1 % (0.0-3.0); HEMATOCRIT 37.7 % (42.0-52.0); HEMOGLOBIN 12.3 g/dl (13.5-17.5); IMMATURE GRANULOCYTE % 0.6 % (0-3.0); LYMPH # 0.6 10^3/uL (1.5-4.5); LYMPH % 3.1 % (24.0-44.0); MEAN CORPUSCULAR HGB CONC 32.6 g/dl (32.0-36.5); MEAN CORPUSCULAR VOLUME 85.9 fl (80.0-96.0); MONO # 0.4 10^3/uL (0.0-0.8); MONO % 2.1 % (0.0-5.0); NEUTROPHILS # 16.9 10^3/uL (1.8-7.7); NEUTROPHILS % 93.9 % (36.0-66.0); PLATELET COUNT, AUTOMATED 284 10^3/uL (150-450); RED BLOOD COUNT 4.39 10^6/uL (4.30-6.10); RED CELL DISTRIBUTION WIDTH 15.4 % (11.5-14.5); WHITE BLOOD COUNT 17.9 10^3/uL (4.0-10.0)
[2018-01-24] MEDS ORDERED: guaiFENesin DM LIQ 10ML UD PO (09:15)
[2018-01-24] MEDS: ENOXAPARIN 40 MG/0.4 ML SYRINGE (J1650) SC (09:16)
[2018-01-24 09:44] LABS: ANION GAP 12 MEQ/L (8-16); BLOOD UREA NITROGEN 29 MG/DL (7-18); CALCIUM LEVEL 8.2 MG/DL (8.8-10.2); CARBON DIOXIDE LEVEL 25 MEQ/L (21-32); CHLORIDE LEVEL 107 MEQ/L (98-107); CREATININE FOR GFR 1.66 MG/DL (0.70-1.30); GLOMERULAR FILTRATION RATE 42.5 (>35); GLUCOSE, FASTING 142 MG/DL (70-100); MAGNESIUM LEVEL 2.2 MG/DL (1.8-2.4); POTASSIUM SERUM 3.3 MEQ/L (3.5-5.1); SODIUM LEVEL 144 MEQ/L (136-145)
[2018-01-24 12:43] LABS: CPK CREATINE PHOSPHOKINASE 80 U/L (39-308); TROPONIN I < 0.02 NG/ML (< 0.10)
[2018-01-24 12:44] LABS: CK-MB VALUE MASS 1.4 NG/ML (<3.6); MB/CK RELATIVE INDEX 1.75 (< OR =4)
[2018-01-24] MEDS: VANCOMYCIN HCL 1,000 MG, VIAL MATE ADAPTER 1 EACH in D5W 250 ML IV (13:07)
[2018-01-24] MEDS: POTASSIUM CHLORIDE 10 MEQ SR TABLET PO (13:07)
[2018-01-24] MEDS: NYSTATIN 100,000 UNITS/GM TOPICAL PWD 15 GM TOP ×2 (17:09→23:01)
[2018-01-24 23:46] LABS: CPK CREATINE PHOSPHOKINASE 72 U/L (39-308); POTASSIUM SERUM 3.5 MEQ/L (3.5-5.1); TROPONIN I < 0.02 NG/ML (< 0.10)
[2018-01-24 23:47] LABS: CK-MB VALUE MASS 1.8 NG/ML (<3.6)
[2018-01-25] MEDS: IPRATROPIUM 0.5MG/ALBUTEROL 2.5MG INH SOL UD 3ML (DUONEB)(J7620) NEB ×6 (00:35→20:33)
[2018-01-25] MEDS: PIPERACILLIN/TAZOBACTAM SOD 3.375 GM in D5W MINI-BAG PLUS 50 ML IV ×2 (05:28→11:15)
[2018-01-25] MEDS: methylPREDNISolone INJ 40 MG/1 ML VIAL (J2920) IV (05:28)
[2018-01-25] MEDS: ENOXAPARIN 40 MG/0.4 ML SYRINGE (J1650) SC (08:54)
[2018-01-25] MEDS: NYSTATIN 100,000 UNITS/GM TOPICAL PWD 15 GM TOP ×2 (08:55→20:21)
[2018-01-25 09:07] LABS: HEMATOCRIT 36.2 % (42.0-52.0); HEMOGLOBIN 11.8 g/dl (13.5-17.5); MEAN CORPUSCULAR HGB CONC 32.6 g/dl (32.0-36.5); PLATELET COUNT, AUTOMATED 334 10^3/uL (150-450); RED BLOOD COUNT 4.21 10^6/uL (4.30-6.10); RED CELL DISTRIBUTION WIDTH 15.7 % (11.5-14.5); WHITE BLOOD COUNT 21.8 10^3/uL (4.0-10.0)
[2018-01-25 09:14] LABS: ANION GAP 11 MEQ/L (8-16); BLOOD UREA NITROGEN 37 MG/DL (7-18); CALCIUM LEVEL 8.4 MG/DL (8.8-10.2); CARBON DIOXIDE LEVEL 25 MEQ/L (21-32); CHLORIDE LEVEL 108 MEQ/L (98-107); CREATININE FOR GFR 1.86 MG/DL (0.70-1.30); GLOMERULAR FILTRATION RATE 37.3 (>35); GLUCOSE, FASTING 181 MG/DL (70-100); POTASSIUM SERUM 3.4 MEQ/L (3.5-5.1); SODIUM LEVEL 144 MEQ/L (136-145)
[2018-01-25 09:15] LABS: C REACTIVE PROTEIN QUANTITATIV 9.18 MG/DL (0.00-0.30)
[2018-01-25] MEDS: FLUCONAZOLE 100 MG TAB PO (11:13)
[2018-01-25] MEDS ORDERED: SLF 3 ML SYR IV (11:15)
[2018-01-25] MEDS ORDERED: PILL CRUSHER/CUTTER 1 EACH XX (11:30)
[2018-01-25 12:10] LABS: VANCOMYCIN LEVEL TROUGH 15.7 UG/ML (10.0-20.0)
[2018-01-25] MEDS: VANCOMYCIN HCL 1,000 MG, VIAL MATE ADAPTER 1 EACH in D5W 250 ML IV (12:31)
[2018-01-25] MEDS ORDERED: POTASSIUM CHLORIDE 10 MEQ SR TABLET PO (15:00)
[2018-01-25] MEDS: METOPROLOL TART 25 MG TABLET PO ×2 (16:05→20:21)
[2018-01-25] MEDS: SLF 3 ML SYR IV ×2 (16:06→20:23)
[2018-01-25] MEDS: NS 1,000 ML IV (16:06)
[2018-01-25] MEDS: POTASSIUM CHLORIDE 10% LIQ 20 MEQ/15 ML UDC PO (16:26)
[2018-01-25] MEDS: PIPERACILLIN/TAZOBACTAM SOD 2.25 GM in D5W MINI-BAG PLUS 50 ML IV ×2 (17:25→23:41)
[2018-01-26] MEDS: IPRATROPIUM 0.5MG/ALBUTEROL 2.5MG INH SOL UD 3ML (DUONEB)(J7620) NEB ×6 (00:37→20:57)
[2018-01-26] MEDS: PIPERACILLIN/TAZOBACTAM SOD 2.25 GM in D5W MINI-BAG PLUS 50 ML IV ×4 (05:38→23:11)
[2018-01-26] MEDS: SLF 3 ML SYR IV ×3 (05:39→21:28)
[2018-01-26 05:41] LABS: HEMATOCRIT 34.6 % (42.0-52.0); HEMOGLOBIN 11.2 g/dl (13.5-17.5); MEAN CORPUSCULAR HEMOGLOBIN 28.2 pg (27.0-33.0); MEAN CORPUSCULAR HGB CONC 32.4 g/dl (32.0-36.5); MEAN CORPUSCULAR VOLUME 87.2 fl (80.0-96.0); PLATELET COUNT, AUTOMATED 325 10^3/uL (150-450); RED BLOOD COUNT 3.97 10^6/uL (4.30-6.10); RED CELL DISTRIBUTION WIDTH 15.7 % (11.5-14.5); WHITE BLOOD COUNT 17.1 10^3/uL (4.0-10.0)
[2018-01-26 06:08] LABS: ANION GAP 8 MEQ/L (8-16); BLOOD UREA NITROGEN 36 MG/DL (7-18); C REACTIVE PROTEIN QUANTITATIV 4.09 MG/DL (0.00-0.30); CALCIUM LEVEL 8.3 MG/DL (8.8-10.2); CARBON DIOXIDE LEVEL 25 MEQ/L (21-32); CHLORIDE LEVEL 113 MEQ/L (98-107); CREATININE FOR GFR 1.63 MG/DL (0.70-1.30); GLOMERULAR FILTRATION RATE 43.4 (>35); GLUCOSE, FASTING 88 MG/DL (70-100); POTASSIUM SERUM 3.5 MEQ/L (3.5-5.1); SODIUM LEVEL 146 MEQ/L (136-145)
[2018-01-26] MEDS: predniSONE 10 MG TAB PO (09:10)
[2018-01-26] MEDS: NYSTATIN 100,000 UNITS/GM TOPICAL PWD 15 GM TOP ×2 (09:10→21:28)
[2018-01-26] MEDS: ENOXAPARIN 40 MG/0.4 ML SYRINGE (J1650) SC (09:10)
[2018-01-26] MEDS: METOPROLOL TART 25 MG TABLET PO ×2 (09:11→20:02)
[2018-01-26] MEDS: FLUCONAZOLE 100 MG TAB PO (09:12)
[2018-01-26 11:28] LABS: MAGNESIUM LEVEL 2.1 MG/DL (1.8-2.4)
[2018-01-26] MEDS: VANCOMYCIN HCL 1,000 MG, VIAL MATE ADAPTER 1 EACH in D5W 250 ML IV (11:48)
[2018-01-26] MEDS: POTASSIUM CHLORIDE 10 MEQ SR TABLET PO (16:30)
[2018-01-27] MEDS: IPRATROPIUM 0.5MG/ALBUTEROL 2.5MG INH SOL UD 3ML (DUONEB)(J7620) NEB ×6 (04:00→21:01)
[2018-01-27] MEDS: PIPERACILLIN/TAZOBACTAM SOD 2.25 GM in D5W MINI-BAG PLUS 50 ML IV (05:31)
[2018-01-27] MEDS: SLF 3 ML SYR IV ×3 (05:32→21:23)
[2018-01-27 05:37] LABS: HEMATOCRIT 36.1 % (42.0-52.0); HEMOGLOBIN 11.6 g/dl (13.5-17.5); MEAN CORPUSCULAR HEMOGLOBIN 27.4 pg (27.0-33.0); MEAN CORPUSCULAR HGB CONC 32.1 g/dl (32.0-36.5); MEAN CORPUSCULAR VOLUME 85.3 fl (80.0-96.0); PLATELET COUNT, AUTOMATED 318 10^3/uL (150-450); RED BLOOD COUNT 4.23 10^6/uL (4.30-6.10); RED CELL DISTRIBUTION WIDTH 15.8 % (11.5-14.5); WHITE BLOOD COUNT 11.3 10^3/uL (4.0-10.0)
[2018-01-27 05:48] LABS: ANION GAP 9 MEQ/L (8-16); BLOOD UREA NITROGEN 33 MG/DL (7-18); CALCIUM LEVEL 8.4 MG/DL (8.8-10.2); CARBON DIOXIDE LEVEL 25 MEQ/L (21-32); CHLORIDE LEVEL 112 MEQ/L (98-107); CREATININE FOR GFR 1.54 MG/DL (0.70-1.30); GLOMERULAR FILTRATION RATE 46.4 (>35); GLUCOSE, FASTING 86 MG/DL (70-100); POTASSIUM SERUM 3.8 MEQ/L (3.5-5.1); SODIUM LEVEL 146 MEQ/L (136-145)
[2018-01-27] MEDS: ENOXAPARIN 40 MG/0.4 ML SYRINGE (J1650) SC (08:37)
[2018-01-27] MEDS: FLUCONAZOLE 100 MG TAB PO (08:37)
[2018-01-27] MEDS: predniSONE 10 MG TAB PO (08:38)
[2018-01-27] MEDS: METOPROLOL TART 25 MG TABLET PO ×2 (08:38→21:23)
[2018-01-27] MEDS: NYSTATIN 100,000 UNITS/GM TOPICAL PWD 15 GM TOP ×2 (08:40→21:23)
[2018-01-27] MEDS: CEFDINIR 300 MG CAP (OMNICEF) PO ×2 (10:42→21:23)
[2018-01-28] MEDS: IPRATROPIUM 0.5MG/ALBUTEROL 2.5MG INH SOL UD 3ML (DUONEB)(J7620) NEB ×7 (04:00→23:39)
[2018-01-28 05:19] LABS: HEMATOCRIT 35.4 % (42.0-52.0); HEMOGLOBIN 11.5 g/dl (13.5-17.5); MEAN CORPUSCULAR HEMOGLOBIN 27.6 pg (27.0-33.0); MEAN CORPUSCULAR HGB CONC 32.5 g/dl (32.0-36.5); MEAN CORPUSCULAR VOLUME 84.9 fl (80.0-96.0); PLATELET COUNT, AUTOMATED 322 10^3/uL (150-450); RED BLOOD COUNT 4.17 10^6/uL (4.30-6.10); RED CELL DISTRIBUTION WIDTH 15.6 % (11.5-14.5); WHITE BLOOD COUNT 13.5 10^3/uL (4.0-10.0)
[2018-01-28 05:36] LABS: ANION GAP 9 MEQ/L (8-16); BLOOD UREA NITROGEN 27 MG/DL (7-18); CALCIUM LEVEL 8.3 MG/DL (8.8-10.2); CARBON DIOXIDE LEVEL 24 MEQ/L (21-32); CHLORIDE LEVEL 112 MEQ/L (98-107); CREATININE FOR GFR 1.32 MG/DL (0.70-1.30); GLOMERULAR FILTRATION RATE 55.4 (>35); GLUCOSE, FASTING 85 MG/DL (70-100); POTASSIUM SERUM 3.8 MEQ/L (3.5-5.1); SODIUM LEVEL 145 MEQ/L (136-145)
[2018-01-28] MEDS: SLF 3 ML SYR IV ×3 (06:00→20:32)
[2018-01-28] MEDS: predniSONE 10 MG TAB PO (09:10)
[2018-01-28] MEDS: ENOXAPARIN 40 MG/0.4 ML SYRINGE (J1650) SC (09:10)
[2018-01-28] MEDS: FLUCONAZOLE 100 MG TAB PO (09:10)
[2018-01-28] MEDS: CEFDINIR 300 MG CAP (OMNICEF) PO ×2 (09:10→20:28)
[2018-01-28] MEDS: METOPROLOL TART 25 MG TABLET PO ×2 (09:11→20:28)
[2018-01-28] MEDS: NYSTATIN 100,000 UNITS/GM TOPICAL PWD 15 GM TOP ×2 (09:11→20:28)
[2018-01-29] MEDS: IPRATROPIUM 0.5MG/ALBUTEROL 2.5MG INH SOL UD 3ML (DUONEB)(J7620) NEB ×5 (04:00→20:40)
[2018-01-29 05:13] LABS: HEMATOCRIT 35.9 % (42.0-52.0); HEMOGLOBIN 11.7 g/dl (13.5-17.5); MEAN CORPUSCULAR HEMOGLOBIN 27.5 pg (27.0-33.0); MEAN CORPUSCULAR HGB CONC 32.6 g/dl (32.0-36.5); MEAN CORPUSCULAR VOLUME 84.5 fl (80.0-96.0); PLATELET COUNT, AUTOMATED 342 10^3/uL (150-450); RED BLOOD COUNT 4.25 10^6/uL (4.30-6.10); RED CELL DISTRIBUTION WIDTH 15.6 % (11.5-14.5); WHITE BLOOD COUNT 15.8 10^3/uL (4.0-10.0)
[2018-01-29 05:34] LABS: ANION GAP 8 MEQ/L (8-16); BLOOD UREA NITROGEN 35 MG/DL (7-18); CALCIUM LEVEL 8.1 MG/DL (8.8-10.2); CARBON DIOXIDE LEVEL 27 MEQ/L (21-32); CHLORIDE LEVEL 110 MEQ/L (98-107); CREATININE FOR GFR 1.41 MG/DL (0.70-1.30); GLOMERULAR FILTRATION RATE 51.4 (>35); GLUCOSE, FASTING 81 MG/DL (70-100); POTASSIUM SERUM 3.8 MEQ/L (3.5-5.1); SODIUM LEVEL 145 MEQ/L (136-145)
[2018-01-29] MEDS: SLF 3 ML SYR IV ×3 (06:00→21:46)
[2018-01-29] MEDS: FLUCONAZOLE 100 MG TAB PO (08:41)
[2018-01-29] MEDS: METOPROLOL TART 25 MG TABLET PO ×2 (08:42→21:46)
[2018-01-29] MEDS: predniSONE 10 MG TAB PO (08:42)
[2018-01-29] MEDS: CEFDINIR 300 MG CAP (OMNICEF) PO ×2 (08:42→21:45)
[2018-01-29] MEDS: NYSTATIN 100,000 UNITS/GM TOPICAL PWD 15 GM TOP ×2 (08:43→21:45)
[2018-01-29] MEDS: ENOXAPARIN 40 MG/0.4 ML SYRINGE (J1650) SC (08:43)
[2018-01-29] MEDS: SUCRALFATE SUSP 1GM/10ML UD PO ×3 (11:50→21:46)
[2018-01-30] MEDS: SLF 3 ML SYR IV (05:12)
[2018-01-30 05:36] LABS: HEMATOCRIT 37.1 % (42.0-52.0); HEMOGLOBIN 11.8 g/dl (13.5-17.5); MEAN CORPUSCULAR HEMOGLOBIN 27.2 pg (27.0-33.0); MEAN CORPUSCULAR HGB CONC 31.8 g/dl (32.0-36.5); MEAN CORPUSCULAR VOLUME 85.5 fl (80.0-96.0); PLATELET COUNT, AUTOMATED 391 10^3/uL (150-450); RED BLOOD COUNT 4.34 10^6/uL (4.30-6.10); RED CELL DISTRIBUTION WIDTH 15.9 % (11.5-14.5)
[2018-01-30 05:46] LABS: ANION GAP 7 MEQ/L (8-16); BLOOD UREA NITROGEN 43 MG/DL (7-18); CALCIUM LEVEL 8.2 MG/DL (8.8-10.2); CARBON DIOXIDE LEVEL 28 MEQ/L (21-32); CHLORIDE LEVEL 110 MEQ/L (98-107); CREATININE FOR GFR 1.53 MG/DL (0.70-1.30); GLOMERULAR FILTRATION RATE 46.7 (>35); GLUCOSE, FASTING 83 MG/DL (70-100); POTASSIUM SERUM 4.3 MEQ/L (3.5-5.1); SODIUM LEVEL 145 MEQ/L (136-145)
[2018-01-30] MEDS: IPRATROPIUM 0.5MG/ALBUTEROL 2.5MG INH SOL UD 3ML (DUONEB)(J7620) NEB ×5 (08:05→20:07)
[2018-01-30] MEDS: FLUCONAZOLE 100 MG TAB PO (08:26)
[2018-01-30] MEDS: predniSONE 10 MG TAB PO (08:26)
[2018-01-30] MEDS: CEFDINIR 300 MG CAP (OMNICEF) PO ×2 (08:26→20:35)
[2018-01-30] MEDS: SUCRALFATE SUSP 1GM/10ML UD PO ×4 (08:27→20:35)
[2018-01-30] MEDS: METOPROLOL TART 25 MG TABLET PO ×2 (08:27→20:35)
[2018-01-30] MEDS: NYSTATIN 100,000 UNITS/GM TOPICAL PWD 15 GM TOP ×2 (09:00→20:37)
[2018-01-30] MEDS: NS 1,000 ML IV (16:15)
[2018-01-31] MEDS: IPRATROPIUM 0.5MG/ALBUTEROL 2.5MG INH SOL UD 3ML (DUONEB)(J7620) NEB ×6 (03:46→19:58)
[2018-01-31 06:10] LABS: HEMATOCRIT 36.5 % (42.0-52.0); HEMOGLOBIN 11.7 g/dl (13.5-17.5); MEAN CORPUSCULAR HEMOGLOBIN 28.1 pg (27.0-33.0); MEAN CORPUSCULAR HGB CONC 32.1 g/dl (32.0-36.5); MEAN CORPUSCULAR VOLUME 87.5 fl (80.0-96.0); PLATELET COUNT, AUTOMATED 325 10^3/uL (150-450); RED BLOOD COUNT 4.17 10^6/uL (4.30-6.10); WHITE BLOOD COUNT 17.7 10^3/uL (4.0-10.0)
[2018-01-31 06:16] LABS: ANION GAP 9 MEQ/L (8-16); BLOOD UREA NITROGEN 40 MG/DL (7-18); CARBON DIOXIDE LEVEL 24 MEQ/L (21-32); CHLORIDE LEVEL 111 MEQ/L (98-107); CREATININE FOR GFR 1.36 MG/DL (0.70-1.30); GLOMERULAR FILTRATION RATE 53.5 (>35); GLUCOSE, FASTING 81 MG/DL (70-100); POTASSIUM SERUM 3.7 MEQ/L (3.5-5.1); SODIUM LEVEL 144 MEQ/L (136-145)
[2018-01-31] MEDS: SUCRALFATE SUSP 1GM/10ML UD PO ×4 (08:50→21:17)
[2018-01-31] MEDS: CEFDINIR 300 MG CAP (OMNICEF) PO ×2 (08:50→21:17)
[2018-01-31] MEDS: predniSONE 20 MG TAB PO (08:51)
[2018-01-31] MEDS: METOPROLOL TART 25 MG TABLET PO ×2 (08:51→21:17)
[2018-01-31] MEDS: FLUCONAZOLE 100 MG TAB PO (08:51)
[2018-01-31] MEDS: NYSTATIN 100,000 UNITS/GM TOPICAL PWD 15 GM TOP ×2 (08:52→21:18)
[2018-02-01] MEDS: IPRATROPIUM 0.5MG/ALBUTEROL 2.5MG INH SOL UD 3ML (DUONEB)(J7620) NEB ×3 (04:00→07:13)
[2018-02-01 06:34] LABS: HEMATOCRIT 39.4 % (42.0-52.0); HEMOGLOBIN 12.5 g/dl (13.5-17.5); MEAN CORPUSCULAR HEMOGLOBIN 27.6 pg (27.0-33.0); MEAN CORPUSCULAR HGB CONC 31.7 g/dl (32.0-36.5); PLATELET COUNT, AUTOMATED 359 10^3/uL (150-450); RED BLOOD COUNT 4.53 10^6/uL (4.30-6.10); RED CELL DISTRIBUTION WIDTH 15.9 % (11.5-14.5); WHITE BLOOD COUNT 16.8 10^3/uL (4.0-10.0)
[2018-02-01 06:47] LABS: ANION GAP 10 MEQ/L (8-16); BLOOD UREA NITROGEN 35 MG/DL (7-18); CALCIUM LEVEL 8.4 MG/DL (8.8-10.2); CARBON DIOXIDE LEVEL 26 MEQ/L (21-32); CHLORIDE LEVEL 109 MEQ/L (98-107); CREATININE FOR GFR 1.34 MG/DL (0.70-1.30); GLOMERULAR FILTRATION RATE 54.5 (>35); GLUCOSE, FASTING 76 MG/DL (70-100); POTASSIUM SERUM 4.2 MEQ/L (3.5-5.1); SODIUM LEVEL 145 MEQ/L (136-145)
[2018-02-01] MEDS: SUCRALFATE SUSP 1GM/10ML UD PO (07:54)
[2018-02-01] MEDS: METOPROLOL TART 25 MG TABLET PO (07:55)
[2018-02-01] MEDS: predniSONE 20 MG TAB PO (07:55)
[2018-02-01] MEDS: FLUCONAZOLE 100 MG TAB PO (07:55)
[2018-02-01] MEDS: CEFDINIR 300 MG CAP (OMNICEF) PO (07:55)
[2018-02-01] MEDS: NYSTATIN 100,000 UNITS/GM TOPICAL PWD 15 GM TOP (07:56)
== END 2018-02-01 11:03 | DRG 698 ==
LOC: M MSPAV 01-31 18:15 → M ED 05:18 → M ED INP 09:36 → M PCU 12:38
DX: T83.518A Infection and inflammatory reaction due to other urinary catheter, initial encounter (principal); A41.9 Sepsis, unspecified organism; J18.9 Pneumonia, unspecified organism; J44.1 Chronic obstructive pulmonary disease with (acute) exacerbation; N39.0 Urinary tract infection, site not specified; I47.2 Ventricular tachycardia; N18.3 Chronic kidney disease, stage 3 (moderate); K21.9 Gastro-esophageal reflux disease without esophagitis; I12.9 Hypertensive chronic kidney disease with stage 1 through stage 4 chronic kidney disease, or unspecified chronic kidney disease; D72.829 Elevated white blood cell count, unspecified; Z79.899 Other long term (current) drug therapy; R33.9 Retention of urine, unspecified; Z87.891 Personal history of nicotine dependence; Z79.82 Long term (current) use of aspirin; Z88.8 Allergy status to other drugs, medicaments and biological substances; Y83.8 Other surgical procedures as the cause of abnormal reaction of the patient, or of later complication, without mention of misadventure at the time of the procedure

== ENCOUNTER 2018-02-04 08:23 | Inpatient (IN) | payer MEDICARE, MEDICAID ==
[2018-02-04] MEDS: TIOTROPIUM INHALER/CAPSULE (SPIRIVA) INH (08:00)
[2018-02-04] MEDS: methylPREDNISolone INJ 125 MG/2 ML VIAL (J2930) IV (09:43)
[2018-02-04 09:47] LABS: BASO % 0.2 % (0.0-1.0); EOS # 0.1 10^3/uL (0.0-0.50); EOS % 0.5 % (0.0-3.0); HEMOGLOBIN 12.7 g/dl (13.5-17.5); IMMATURE GRANULOCYTE % 1.5 % (0-3.0); LYMPH % 8.4 % (24.0-44.0); MEAN CORPUSCULAR HEMOGLOBIN 27.6 pg (27.0-33.0); MEAN CORPUSCULAR HGB CONC 31.8 g/dl (32.0-36.5); MONO # 1.9 10^3/uL (0.0-0.8); MONO % 8.2 % (0.0-5.0); NEUTROPHILS # 18.9 10^3/uL (1.8-7.7); NEUTROPHILS % 81.2 % (36.0-66.0); PLATELET COUNT, AUTOMATED 243 10^3/uL (150-450); RED CELL DISTRIBUTION WIDTH 16.5 % (11.5-14.5); WHITE BLOOD COUNT 23.3 10^3/uL (4.0-10.0)
[2018-02-04 10:00] LABS: ANION GAP 8 MEQ/L (8-16); BLOOD UREA NITROGEN 40 MG/DL (7-18); CALCIUM LEVEL 8.6 MG/DL (8.8-10.2); CARBON DIOXIDE LEVEL 25 MEQ/L (21-32); CHLORIDE LEVEL 111 MEQ/L (98-107); CPK CREATINE PHOSPHOKINASE 42 U/L (39-308); CREATININE FOR GFR 1.49 MG/DL (0.70-1.30); GLOMERULAR FILTRATION RATE 48.2 (>35); GLUCOSE, FASTING 100 MG/DL (70-100); POTASSIUM SERUM 3.8 MEQ/L (3.5-5.1); SODIUM LEVEL 144 MEQ/L (136-145); TROPONIN I < 0.02 NG/ML (< 0.10)
[2018-02-04] MEDS: IPRATROPIUM 0.5MG/ALBUTEROL 2.5MG INH SOL UD 3ML (DUONEB)(J7620) NEB ×6 (10:04→23:22)
[2018-02-04 10:06] LABS: CK-MB VALUE MASS 2.9 NG/ML (<3.6); NT-PRO BNP 784 PG/ML (<450); THYROID STIMULATING HORMONE 0.723 uIU/ML (0.358-3.740)
[2018-02-04 10:10] LABS: ABG BASE EXCESS -0.7 (-2.0-2.0); ABG HCO3 22.1 MEQ/L (22.0-26.0); ABG O2 SATURATION 90.2 % (95.0-99.0); ABG PARTIAL PRESSURE CO2 31.4 mmHg (35.0-45.0); ABG PARTIAL PRESSURE O2 55.7 mmHg (75.0-100.0); ABG STANDARD HCO3 23.7 MEQ/L (22.0-26.0); ABG TOTAL CO2 23.1 MEQ/L (23.0-31.0); ABG pH (ARTERIAL) 7.466 UNITS (7.350-7.450)
[2018-02-04 10:24] LABS: LACTIC ACID SEPSIS PROTOCOL 1.6 MMOL/L (0.4-2.0)
[2018-02-04 13:30] LABS: CPK CREATINE PHOSPHOKINASE 31 U/L (39-308); TROPONIN I < 0.02 NG/ML (< 0.10)
[2018-02-04 13:31] LABS: CK-MB VALUE MASS 2.6 NG/ML (<3.6); MB/CK RELATIVE INDEX 8.38 (< OR =4)
[2018-02-04] MEDS ORDERED: ACETAMINOPHEN TAB 650MG DOSE (2X325MG) PO (14:30)
[2018-02-04] MEDS: CEFDINIR 300 MG CAP (OMNICEF) PO (16:42)
[2018-02-04] MEDS: FLUCONAZOLE 100 MG TAB PO (16:42)
[2018-02-04] MEDS: GABAPENTIN 400 MG CAP PO ×2 (16:42→21:58)
[2018-02-04] MEDS: FINASTERIDE 5 MG TAB PO (16:42)
[2018-02-04] MEDS: MOM 30ML SUSPENSION UDC PO (16:42)
[2018-02-04] MEDS: LORATADINE 10 MG TAB PO (16:42)
[2018-02-04] MEDS: ASPIRIN 81 MG ENTERIC TAB PO (16:43)
[2018-02-04] MEDS: SUCRALFATE 1 GM TAB PO (18:22)
[2018-02-04] MEDS: traMADol 50 MG TAB PO (18:22)
[2018-02-04] MEDS: FLUTICASONE PROP 0.05% NASAL SPRAY 16 GM (FLONASE) NARES (19:06)
[2018-02-04] MEDS: SYMBICORT 160/4.5MCG INHALER 6GM INH (19:13)
[2018-02-04] MEDS: METOPROLOL TART 12.5 MG PER 1/2 TAB PO (21:55)
[2018-02-04] MEDS: TAMSULOSIN 0.4 MG CAP PO (21:55)
[2018-02-04] MEDS: OMEPRAZOLE 20 MG CAP PO (21:56)
[2018-02-04] MEDS: NYSTATIN 100,000 UNITS/GM TOPICAL PWD 15 GM TOP (21:58)
[2018-02-04] MEDS: HEPARIN SOD (PORCINE) 5000 UNITS/ML VIAL SQ (21:59)
[2018-02-05] MEDS: traMADol 50 MG TAB PO (02:53)
[2018-02-05] MEDS: HEPARIN SOD (PORCINE) 5000 UNITS/ML VIAL SQ ×3 (05:41→21:09)
[2018-02-05] MEDS: TIOTROPIUM INHALER/CAPSULE (SPIRIVA) INH (07:17)
[2018-02-05] MEDS: SYMBICORT 160/4.5MCG INHALER 6GM INH ×2 (07:17→20:05)
[2018-02-05] MEDS: IPRATROPIUM 0.5MG/ALBUTEROL 2.5MG INH SOL UD 3ML (DUONEB)(J7620) NEB ×3 (07:19→23:11)
[2018-02-05] MEDS: ALBUTEROL 90 MCG/ACT 8GM HFA INHALER INH (07:19)
[2018-02-05 07:23] LABS: HEMOGLOBIN 12.2 g/dl (13.5-17.5); MEAN CORPUSCULAR HEMOGLOBIN 28.4 pg (27.0-33.0); PLATELET COUNT, AUTOMATED 222 10^3/uL (150-450); RED CELL DISTRIBUTION WIDTH 16.7 % (11.5-14.5); WHITE BLOOD COUNT 28.5 10^3/uL (4.0-10.0)
[2018-02-05 07:39] LABS: ANION GAP 8 MEQ/L (8-16); BLOOD UREA NITROGEN 41 MG/DL (7-18); CALCIUM LEVEL 8.8 MG/DL (8.8-10.2); CARBON DIOXIDE LEVEL 25 MEQ/L (21-32); CHLORIDE LEVEL 112 MEQ/L (98-107); CREATININE FOR GFR 1.37 MG/DL (0.70-1.30); GLOMERULAR FILTRATION RATE 53.1 (>35); GLUCOSE, FASTING 115 MG/DL (70-100); POTASSIUM SERUM 4.8 MEQ/L (3.5-5.1); SODIUM LEVEL 145 MEQ/L (136-145)
[2018-02-05] MEDS: SUCRALFATE 1 GM TAB PO ×3 (08:16→18:09)
[2018-02-05] MEDS: FINASTERIDE 5 MG TAB PO (08:16)
[2018-02-05] MEDS: predniSONE 10 MG TAB PO (08:16)
[2018-02-05] MEDS: CEFDINIR 300 MG CAP (OMNICEF) PO (08:17)
[2018-02-05] MEDS: GABAPENTIN 400 MG CAP PO ×3 (08:17→21:09)
[2018-02-05] MEDS: LORATADINE 10 MG TAB PO (08:17)
[2018-02-05] MEDS: OMEPRAZOLE 20 MG CAP PO ×2 (08:17→21:09)
[2018-02-05] MEDS: METOPROLOL TART 12.5 MG PER 1/2 TAB PO ×2 (08:17→21:09)
[2018-02-05] MEDS: ASPIRIN 81 MG ENTERIC TAB PO (08:17)
[2018-02-05] MEDS: FLUCONAZOLE 100 MG TAB PO (08:17)
[2018-02-05] MEDS: FLUTICASONE PROP 0.05% NASAL SPRAY 16 GM (FLONASE) NARES (08:18)
[2018-02-05] MEDS: NYSTATIN 100,000 UNITS/GM TOPICAL PWD 15 GM TOP ×2 (08:18→21:00)
[2018-02-05 08:22] LABS: REASON FOR REVIEW WBC/LEUKEMIA/BLAST; SLIDE REVIEW Report; SOURCE PERIPHERAL SMEAR
[2018-02-05] MEDS ORDERED: PILL CRUSHER/CUTTER 1 EACH XX (08:30)
[2018-02-05 10:39] LABS: C REACTIVE PROTEIN QUANTITATIV 5.02 MG/DL (0.00-0.30)
[2018-02-05] MEDS: TAMSULOSIN 0.4 MG CAP PO (21:09)
[2018-02-06] MEDS: HEPARIN SOD (PORCINE) 5000 UNITS/ML VIAL SQ ×3 (05:39→22:03)
[2018-02-06 06:46] LABS: HEMOGLOBIN 11.8 g/dl (13.5-17.5); MEAN CORPUSCULAR HEMOGLOBIN 27.8 pg (27.0-33.0); MEAN CORPUSCULAR HGB CONC 31.9 g/dl (32.0-36.5); MEAN CORPUSCULAR VOLUME 87.3 fl (80.0-96.0); PLATELET COUNT, AUTOMATED 212 10^3/uL (150-450); RED BLOOD COUNT 4.24 10^6/uL (4.30-6.10); RED CELL DISTRIBUTION WIDTH 17.1 % (11.5-14.5); WHITE BLOOD COUNT 21.5 10^3/uL (4.0-10.0)
[2018-02-06 07:07] LABS: ANION GAP 6 MEQ/L (8-16); BLOOD UREA NITROGEN 41 MG/DL (7-18); C REACTIVE PROTEIN QUANTITATIV 2.72 MG/DL (0.00-0.30); CALCIUM LEVEL 8.7 MG/DL (8.8-10.2); CARBON DIOXIDE LEVEL 26 MEQ/L (21-32); CHLORIDE LEVEL 109 MEQ/L (98-107); CREATININE FOR GFR 1.31 MG/DL (0.70-1.30); GLOMERULAR FILTRATION RATE 55.9 (>35); GLUCOSE, FASTING 105 MG/DL (70-100); POTASSIUM SERUM 4.4 MEQ/L (3.5-5.1); SODIUM LEVEL 141 MEQ/L (136-145)
[2018-02-06] MEDS: IPRATROPIUM 0.5MG/ALBUTEROL 2.5MG INH SOL UD 3ML (DUONEB)(J7620) NEB (07:22)
[2018-02-06] MEDS: TIOTROPIUM INHALER/CAPSULE (SPIRIVA) INH (07:22)
[2018-02-06] MEDS: SYMBICORT 160/4.5MCG INHALER 6GM INH ×2 (07:22→20:49)
[2018-02-06] MEDS: FLUCONAZOLE 100 MG TAB PO (08:44)
[2018-02-06] MEDS: SUCRALFATE 1 GM TAB PO ×3 (08:44→17:18)
[2018-02-06] MEDS: METOPROLOL TART 12.5 MG PER 1/2 TAB PO ×2 (08:47→20:47)
[2018-02-06] MEDS: predniSONE 10 MG TAB PO (08:48)
[2018-02-06] MEDS: FINASTERIDE 5 MG TAB PO (08:48)
[2018-02-06] MEDS: LORATADINE 10 MG TAB PO (08:48)
[2018-02-06] MEDS: OMEPRAZOLE 20 MG CAP PO ×2 (08:48→20:45)
[2018-02-06] MEDS: CEFDINIR 300 MG CAP (OMNICEF) PO (08:48)
[2018-02-06] MEDS: ASPIRIN 81 MG ENTERIC TAB PO (08:48)
[2018-02-06] MEDS: GABAPENTIN 400 MG CAP PO ×3 (08:49→20:45)
[2018-02-06] MEDS: NYSTATIN 100,000 UNITS/GM TOPICAL PWD 15 GM TOP ×2 (08:51→20:45)
[2018-02-06] MEDS ORDERED: LEVALBUTEROL 1.25 MG/0.5 ML CONCENTRATE NEB INH (11:30)
[2018-02-06] MEDS: FLUTICASONE PROP 0.05% NASAL SPRAY 16 GM (FLONASE) NARES (12:01)
[2018-02-06] MEDS: POTASSIUM CHLORIDE 10 MEQ SR TABLET PO (13:13)
[2018-02-06] MEDS: LEVALBUTEROL 1.25 MG/0.5 ML CONCENTRATE NEB NEB (13:33)
[2018-02-06 13:44] LABS: CK-MB VALUE MASS 1.9 NG/ML (<3.6); CPK CREATINE PHOSPHOKINASE 44 U/L (39-308); MAGNESIUM LEVEL 2.3 MG/DL (1.8-2.4); MB/CK RELATIVE INDEX 4.31 (< OR =4); TROPONIN I < 0.02 NG/ML (< 0.10)
[2018-02-06 14:50] LABS: CPK CREATINE PHOSPHOKINASE 47 U/L (39-308); TROPONIN I < 0.02 NG/ML (< 0.10)
[2018-02-06 14:51] LABS: CK-MB VALUE MASS 2.3 NG/ML (<3.6); MB/CK RELATIVE INDEX 4.89 (< OR =4); NT-PRO BNP 2109 PG/ML (<450)
[2018-02-06] MEDS: LEVALBUTEROL 1.25 MG/0.5 ML CONCENTRATE NEB INH ×2 (16:10→20:00)
[2018-02-06 18:54] LABS: CPK CREATINE PHOSPHOKINASE 40 U/L (39-308); MAGNESIUM LEVEL 2.4 MG/DL (1.8-2.4); TROPONIN I < 0.02 NG/ML (< 0.10)
[2018-02-06] MEDS: TAMSULOSIN 0.4 MG CAP PO (20:45)
[2018-02-06] MEDS: traMADol 50 MG TAB PO (22:02)
[2018-02-07] MEDS: LEVALBUTEROL 1.25 MG/0.5 ML CONCENTRATE NEB INH ×7 (00:26→23:32)
[2018-02-07] MEDS: HEPARIN SOD (PORCINE) 5000 UNITS/ML VIAL SQ (05:31)
[2018-02-07 06:06] LABS: HEMATOCRIT 36.6 % (42.0-52.0); HEMOGLOBIN 11.9 g/dl (13.5-17.5); MEAN CORPUSCULAR HEMOGLOBIN 28.3 pg (27.0-33.0); MEAN CORPUSCULAR HGB CONC 32.5 g/dl (32.0-36.5); MEAN CORPUSCULAR VOLUME 87.1 fl (80.0-96.0); PLATELET COUNT, AUTOMATED 198 10^3/uL (150-450); WHITE BLOOD COUNT 16.5 10^3/uL (4.0-10.0)
[2018-02-07 06:29] LABS: ANION GAP 6 MEQ/L (8-16); BLOOD UREA NITROGEN 40 MG/DL (7-18); C REACTIVE PROTEIN QUANTITATIV 1.24 MG/DL (0.00-0.30); CALCIUM LEVEL 8.6 MG/DL (8.8-10.2); CARBON DIOXIDE LEVEL 28 MEQ/L (21-32); CHLORIDE LEVEL 109 MEQ/L (98-107); CREATININE FOR GFR 1.25 MG/DL (0.70-1.30); GLUCOSE, FASTING 100 MG/DL (70-100); MAGNESIUM LEVEL 2.2 MG/DL (1.8-2.4); POTASSIUM SERUM 4.5 MEQ/L (3.5-5.1); SODIUM LEVEL 143 MEQ/L (136-145)
[2018-02-07] MEDS: GABAPENTIN 400 MG CAP PO ×3 (08:12→20:41)
[2018-02-07] MEDS: predniSONE 10 MG TAB PO (08:12)
[2018-02-07] MEDS: OMEPRAZOLE 20 MG CAP PO ×2 (08:15→20:41)
[2018-02-07] MEDS: FLUCONAZOLE 100 MG TAB PO (08:15)
[2018-02-07] MEDS: FINASTERIDE 5 MG TAB PO (08:15)
[2018-02-07] MEDS: CEFDINIR 300 MG CAP (OMNICEF) PO (08:15)
[2018-02-07] MEDS: METOPROLOL TART 12.5 MG PER 1/2 TAB PO ×2 (08:15→20:43)
[2018-02-07] MEDS: LORATADINE 10 MG TAB PO (08:15)
[2018-02-07] MEDS: SUCRALFATE 1 GM TAB PO ×3 (08:15→17:07)
[2018-02-07] MEDS: ASPIRIN 81 MG ENTERIC TAB PO (08:16)
[2018-02-07] MEDS: NYSTATIN 100,000 UNITS/GM TOPICAL PWD 15 GM TOP ×2 (08:17→20:43)
[2018-02-07] MEDS: FLUTICASONE PROP 0.05% NASAL SPRAY 16 GM (FLONASE) NARES (08:17)
[2018-02-07] MEDS: SYMBICORT 160/4.5MCG INHALER 6GM INH ×2 (08:20→19:16)
[2018-02-07] MEDS: TIOTROPIUM INHALER/CAPSULE (SPIRIVA) INH (08:20)
[2018-02-07] MEDS ORDERED: ENOXAPARIN 80 MG/0.8 ML SYRINGE (J1650) SC (09:45)
[2018-02-07] MEDS ORDERED: ISOVUE-370 76% 100ML VIAL (Q9967) As Ordered (10:05)
[2018-02-07] MEDS: methylPREDNISolone INJ 125 MG/2 ML VIAL (J2930) IV (10:29)
[2018-02-07] MEDS: FUROSEMIDE 20 MG/2 ML VIAL (J1940) IV (10:30)
[2018-02-07] MEDS: cefTRIAXone SOD 2 GM in D5W MINI-BAG PLUS 50 ML IV (10:31)
[2018-02-07] MEDS: ENOXAPARIN 80 MG/0.8 ML SYRINGE (J1650) SC ×2 (10:32→21:45)
[2018-02-07] MEDS: TAMSULOSIN 0.4 MG CAP PO (20:41)
[2018-02-07 21:34] LABS: ANION GAP 12 MEQ/L (8-16); BLOOD UREA NITROGEN 43 MG/DL (7-18); CALCIUM LEVEL 8.7 MG/DL (8.8-10.2); CARBON DIOXIDE LEVEL 24 MEQ/L (21-32); CHLORIDE LEVEL 106 MEQ/L (98-107); CREATININE FOR GFR 1.56 MG/DL (0.70-1.30); GLOMERULAR FILTRATION RATE 45.7 (>35); GLUCOSE, FASTING 149 MG/DL (70-100); MAGNESIUM LEVEL 2.1 MG/DL (1.8-2.4); POTASSIUM SERUM 4.5 MEQ/L (3.5-5.1); SODIUM LEVEL 142 MEQ/L (136-145)
[2018-02-08] MEDS: LEVALBUTEROL 1.25 MG/0.5 ML CONCENTRATE NEB INH ×6 (04:26→20:43)
[2018-02-08 06:20] LABS: ANION GAP 11 MEQ/L (8-16); BLOOD UREA NITROGEN 47 MG/DL (7-18); C REACTIVE PROTEIN QUANTITATIV 0.74 MG/DL (0.00-0.30); CALCIUM LEVEL 8.5 MG/DL (8.8-10.2); CARBON DIOXIDE LEVEL 25 MEQ/L (21-32); CHLORIDE LEVEL 108 MEQ/L (98-107); CREATININE FOR GFR 1.49 MG/DL (0.70-1.30); GLOMERULAR FILTRATION RATE 48.2 (>35); GLUCOSE, FASTING 122 MG/DL (70-100); POTASSIUM SERUM 4.5 MEQ/L (3.5-5.1); SODIUM LEVEL 144 MEQ/L (136-145)
[2018-02-08 06:24] LABS: HEMOGLOBIN 12.4 g/dl (13.5-17.5); MEAN CORPUSCULAR HEMOGLOBIN 28.2 pg (27.0-33.0); MEAN CORPUSCULAR HGB CONC 32.6 g/dl (32.0-36.5); MEAN CORPUSCULAR VOLUME 86.4 fl (80.0-96.0); PLATELET COUNT, AUTOMATED 236 10^3/uL (150-450); RED CELL DISTRIBUTION WIDTH 16.7 % (11.5-14.5); WHITE BLOOD COUNT 16.7 10^3/uL (4.0-10.0)
[2018-02-08 06:39] LABS: INR 1.06; PROTHROMBIN TIME 13.9 SECONDS (12.1-14.4)
[2018-02-08] MEDS: TIOTROPIUM INHALER/CAPSULE (SPIRIVA) INH (07:36)
[2018-02-08] MEDS: SYMBICORT 160/4.5MCG INHALER 6GM INH ×2 (07:36→20:43)
[2018-02-08] MEDS: SUCRALFATE 1 GM TAB PO ×3 (08:39→17:00)
[2018-02-08] MEDS: GABAPENTIN 400 MG CAP PO ×3 (08:39→21:23)
[2018-02-08] MEDS: OMEPRAZOLE 20 MG CAP PO ×2 (08:40→21:22)
[2018-02-08] MEDS: FLUCONAZOLE 100 MG TAB PO (08:40)
[2018-02-08] MEDS: FINASTERIDE 5 MG TAB PO (08:40)
[2018-02-08] MEDS: METOPROLOL TART 12.5 MG PER 1/2 TAB PO ×2 (08:40→21:23)
[2018-02-08] MEDS: ENOXAPARIN 80 MG/0.8 ML SYRINGE (J1650) SC ×2 (08:40→21:22)
[2018-02-08] MEDS: LORATADINE 10 MG TAB PO (08:40)
[2018-02-08] MEDS: FLUTICASONE PROP 0.05% NASAL SPRAY 16 GM (FLONASE) NARES (08:41)
[2018-02-08] MEDS: NYSTATIN 100,000 UNITS/GM TOPICAL PWD 15 GM TOP ×2 (08:41→21:23)
[2018-02-08] MEDS: cefTRIAXone SOD 2 GM in D5W MINI-BAG PLUS 50 ML IV (11:39)
[2018-02-08] MEDS: WARFARIN SOD 5 MG TAB PO (17:00)
[2018-02-08] MEDS: TAMSULOSIN 0.4 MG CAP PO (21:22)
[2018-02-08] MEDS: NS 1,000 ML IV (23:11)
[2018-02-09] MEDS: LEVALBUTEROL 1.25 MG/0.5 ML CONCENTRATE NEB INH ×5 (04:00→21:08)
[2018-02-09 06:24] LABS: HEMATOCRIT 36.8 % (42.0-52.0); HEMOGLOBIN 12.2 g/dl (13.5-17.5); MEAN CORPUSCULAR HEMOGLOBIN 28.2 pg (27.0-33.0); MEAN CORPUSCULAR HGB CONC 33.2 g/dl (32.0-36.5); MEAN CORPUSCULAR VOLUME 85.2 fl (80.0-96.0); PLATELET COUNT, AUTOMATED 206 10^3/uL (150-450); RED BLOOD COUNT 4.32 10^6/uL (4.30-6.10); RED CELL DISTRIBUTION WIDTH 16.8 % (11.5-14.5); WHITE BLOOD COUNT 12.8 10^3/uL (4.0-10.0)
[2018-02-09 06:41] LABS: ANION GAP 11 MEQ/L (8-16); BLOOD UREA NITROGEN 41 MG/DL (7-18); C REACTIVE PROTEIN QUANTITATIV 0.41 MG/DL (0.00-0.30); CALCIUM LEVEL 8.1 MG/DL (8.8-10.2); CARBON DIOXIDE LEVEL 23 MEQ/L (21-32); CHLORIDE LEVEL 110 MEQ/L (98-107); CREATININE FOR GFR 1.41 MG/DL (0.70-1.30); GLOMERULAR FILTRATION RATE 51.4 (>35); GLUCOSE, FASTING 95 MG/DL (70-100); POTASSIUM SERUM 4.4 MEQ/L (3.5-5.1); SODIUM LEVEL 144 MEQ/L (136-145)
[2018-02-09 06:43] LABS: INR 1.12; PROTHROMBIN TIME 14.6 SECONDS (12.1-14.4)
[2018-02-09] MEDS: TIOTROPIUM INHALER/CAPSULE (SPIRIVA) INH (07:49)
[2018-02-09] MEDS: SYMBICORT 160/4.5MCG INHALER 6GM INH ×2 (07:49→21:00)
[2018-02-09] MEDS: FLUCONAZOLE 100 MG TAB PO (09:02)
[2018-02-09] MEDS: GABAPENTIN 400 MG CAP PO ×3 (09:02→20:39)
[2018-02-09] MEDS: FINASTERIDE 5 MG TAB PO (09:02)
[2018-02-09] MEDS: SUCRALFATE 1 GM TAB PO ×3 (09:02→17:08)
[2018-02-09] MEDS: LORATADINE 10 MG TAB PO (09:02)
[2018-02-09] MEDS: METOPROLOL TART 12.5 MG PER 1/2 TAB PO ×2 (09:02→20:40)
[2018-02-09] MEDS: NYSTATIN 100,000 UNITS/GM TOPICAL PWD 15 GM TOP ×2 (09:03→20:41)
[2018-02-09] MEDS: OMEPRAZOLE 20 MG CAP PO ×2 (09:03→20:40)
[2018-02-09] MEDS: FLUTICASONE PROP 0.05% NASAL SPRAY 16 GM (FLONASE) NARES (09:03)
[2018-02-09] MEDS: ENOXAPARIN 80 MG/0.8 ML SYRINGE (J1650) SC ×2 (09:04→20:41)
[2018-02-09] MEDS: cefTRIAXone SOD 2 GM in D5W MINI-BAG PLUS 50 ML IV (10:14)
[2018-02-09] MEDS: WARFARIN SOD 7.5 MG TAB PO (17:09)
[2018-02-09 20:38] LABS: ANION GAP 8 MEQ/L (8-16); BLOOD UREA NITROGEN 40 MG/DL (7-18); CALCIUM LEVEL 8.1 MG/DL (8.8-10.2); CARBON DIOXIDE LEVEL 26 MEQ/L (21-32); CHLORIDE LEVEL 110 MEQ/L (98-107); CREATININE FOR GFR 1.34 MG/DL (0.70-1.30); GLOMERULAR FILTRATION RATE 54.5 (>35); GLUCOSE, FASTING 111 MG/DL (70-100); POTASSIUM SERUM 4.4 MEQ/L (3.5-5.1); SODIUM LEVEL 144 MEQ/L (136-145)
[2018-02-09] MEDS: TAMSULOSIN 0.4 MG CAP PO (20:39)
[2018-02-10] MEDS: traMADol 50 MG TAB PO ×3 (00:29→20:16)
[2018-02-10] MEDS: LEVALBUTEROL 1.25 MG/0.5 ML CONCENTRATE NEB INH ×6 (04:00→20:00)
[2018-02-10 06:10] LABS: HEMATOCRIT 37.2 % (42.0-52.0); HEMOGLOBIN 11.9 g/dl (13.5-17.5); MEAN CORPUSCULAR HEMOGLOBIN 27.5 pg (27.0-33.0); MEAN CORPUSCULAR VOLUME 86.1 fl (80.0-96.0); PLATELET COUNT, AUTOMATED 193 10^3/uL (150-450); RED BLOOD COUNT 4.32 10^6/uL (4.30-6.10); RED CELL DISTRIBUTION WIDTH 16.8 % (11.5-14.5)
[2018-02-10 06:20] LABS: INR 1.27; PROTHROMBIN TIME 16.1 SECONDS (12.1-14.4)
[2018-02-10 06:36] LABS: ANION GAP 10 MEQ/L (8-16); BLOOD UREA NITROGEN 34 MG/DL (7-18); C REACTIVE PROTEIN QUANTITATIV 1.31 MG/DL (0.00-0.30); CALCIUM LEVEL 8.2 MG/DL (8.8-10.2); CARBON DIOXIDE LEVEL 24 MEQ/L (21-32); CHLORIDE LEVEL 110 MEQ/L (98-107); CREATININE FOR GFR 1.22 MG/DL (0.70-1.30); GLOMERULAR FILTRATION RATE > 60.0 (>35); GLUCOSE, FASTING 90 MG/DL (70-100); POTASSIUM SERUM 4.6 MEQ/L (3.5-5.1); SODIUM LEVEL 144 MEQ/L (136-145)
[2018-02-10] MEDS: TIOTROPIUM INHALER/CAPSULE (SPIRIVA) INH (07:49)
[2018-02-10] MEDS: SYMBICORT 160/4.5MCG INHALER 6GM INH ×2 (07:49→20:38)
[2018-02-10] MEDS: SUCRALFATE 1 GM TAB PO ×3 (08:00→17:04)
[2018-02-10] MEDS: NYSTATIN 100,000 UNITS/GM TOPICAL PWD 15 GM TOP ×2 (08:53→20:04)
[2018-02-10] MEDS: ENOXAPARIN 80 MG/0.8 ML SYRINGE (J1650) SC ×2 (08:54→20:05)
[2018-02-10] MEDS: FLUCONAZOLE 100 MG TAB PO (08:55)
[2018-02-10] MEDS: GABAPENTIN 400 MG CAP PO ×3 (08:55→20:01)
[2018-02-10] MEDS: METOPROLOL TART 12.5 MG PER 1/2 TAB PO ×2 (08:57→20:03)
[2018-02-10] MEDS: CEFDINIR 300 MG CAP (OMNICEF) PO ×2 (08:57→20:03)
[2018-02-10] MEDS: LORATADINE 10 MG TAB PO (08:58)
[2018-02-10] MEDS: FLUTICASONE PROP 0.05% NASAL SPRAY 16 GM (FLONASE) NARES (08:58)
[2018-02-10] MEDS: OMEPRAZOLE 20 MG CAP PO ×2 (08:58→20:04)
[2018-02-10] MEDS: FINASTERIDE 5 MG TAB PO (08:58)
[2018-02-10] MEDS: TAMSULOSIN 0.4 MG CAP PO (20:00)
[2018-02-11] MEDS: LEVALBUTEROL 1.25 MG/0.5 ML CONCENTRATE NEB INH ×7 (04:00→23:36)
[2018-02-11 06:18] LABS: HEMATOCRIT 37.6 % (42.0-52.0); HEMOGLOBIN 11.9 g/dl (13.5-17.5); MEAN CORPUSCULAR HEMOGLOBIN 27.6 pg (27.0-33.0); MEAN CORPUSCULAR HGB CONC 31.6 g/dl (32.0-36.5); MEAN CORPUSCULAR VOLUME 87.2 fl (80.0-96.0); PLATELET COUNT, AUTOMATED 192 10^3/uL (150-450); RED BLOOD COUNT 4.31 10^6/uL (4.30-6.10); RED CELL DISTRIBUTION WIDTH 16.8 % (11.5-14.5); WHITE BLOOD COUNT 15.9 10^3/uL (4.0-10.0)
[2018-02-11 06:29] LABS: INR 1.38; PROTHROMBIN TIME 17.2 SECONDS (12.1-14.4)
[2018-02-11 06:35] LABS: ANION GAP 7 MEQ/L (8-16); BLOOD UREA NITROGEN 34 MG/DL (7-18); CALCIUM LEVEL 8.4 MG/DL (8.8-10.2); CARBON DIOXIDE LEVEL 28 MEQ/L (21-32); CHLORIDE LEVEL 105 MEQ/L (98-107); CREATININE FOR GFR 1.29 MG/DL (0.70-1.30); GLOMERULAR FILTRATION RATE 56.9 (>35); GLUCOSE, FASTING 100 MG/DL (70-100); POTASSIUM SERUM 4.9 MEQ/L (3.5-5.1); SODIUM LEVEL 140 MEQ/L (136-145)
[2018-02-11] MEDS: TIOTROPIUM INHALER/CAPSULE (SPIRIVA) INH (07:48)
[2018-02-11] MEDS: SYMBICORT 160/4.5MCG INHALER 6GM INH ×2 (07:49→21:42)
[2018-02-11] MEDS: CEFDINIR 300 MG CAP (OMNICEF) PO ×2 (08:10→20:33)
[2018-02-11] MEDS: GABAPENTIN 400 MG CAP PO ×3 (08:11→20:39)
[2018-02-11] MEDS: traMADol 50 MG TAB PO ×2 (08:11→20:34)
[2018-02-11] MEDS: METOPROLOL TART 12.5 MG PER 1/2 TAB PO ×2 (08:11→20:34)
[2018-02-11] MEDS: FINASTERIDE 5 MG TAB PO (08:12)
[2018-02-11] MEDS: LORATADINE 10 MG TAB PO (08:12)
[2018-02-11] MEDS: OMEPRAZOLE 20 MG CAP PO ×2 (08:12→20:34)
[2018-02-11] MEDS: FLUCONAZOLE 100 MG TAB PO (08:12)
[2018-02-11] MEDS: SUCRALFATE 1 GM TAB PO ×3 (08:12→17:16)
[2018-02-11] MEDS: NYSTATIN 100,000 UNITS/GM TOPICAL PWD 15 GM TOP ×2 (08:13→20:35)
[2018-02-11] MEDS: FLUTICASONE PROP 0.05% NASAL SPRAY 16 GM (FLONASE) NARES (08:13)
[2018-02-11] MEDS: ENOXAPARIN 80 MG/0.8 ML SYRINGE (J1650) SC ×2 (10:27→20:35)
[2018-02-11] MEDS: WARFARIN SOD 5 MG TAB PO (17:16)
[2018-02-11] MEDS: TAMSULOSIN 0.4 MG CAP PO (20:35)
[2018-02-12] MEDS: LEVALBUTEROL 1.25 MG/0.5 ML CONCENTRATE NEB INH ×4 (04:00→20:00)
[2018-02-12 07:18] LABS: BASO % 0.2 % (0.0-1.0); EOS # 0.4 10^3/uL (0.0-0.50); EOS % 2.6 % (0.0-3.0); HEMATOCRIT 37.3 % (42.0-52.0); HEMOGLOBIN 11.6 g/dl (13.5-17.5); IMMATURE GRANULOCYTE % 1.8 % (0-3.0); LYMPH # 1.8 10^3/uL (1.5-4.5); LYMPH % 12.9 % (24.0-44.0); MEAN CORPUSCULAR HEMOGLOBIN 27.7 pg (27.0-33.0); MEAN CORPUSCULAR HGB CONC 31.1 g/dl (32.0-36.5); MONO # 1.5 10^3/uL (0.0-0.8); MONO % 10.4 % (0.0-5.0); NEUTROPHILS # 10.1 10^3/uL (1.8-7.7); NEUTROPHILS % 72.1 % (36.0-66.0); PLATELET COUNT, AUTOMATED 170 10^3/uL (150-450); RED BLOOD COUNT 4.19 10^6/uL (4.30-6.10); WHITE BLOOD COUNT 14.1 10^3/uL (4.0-10.0)
[2018-02-12 07:30] LABS: INR 1.84; PROTHROMBIN TIME 21.6 SECONDS (12.1-14.4)
[2018-02-12 07:35] LABS: ALBUMIN 2.2 GM/DL (3.2-5.2); ALBUMIN/GLOBULIN RATIO 0.59 (1.00-1.93); ALKALINE PHOSPHATASE 78 U/L (45-117); ALT/SGPT 23 U/L (12-78); ANION GAP 8 MEQ/L (8-16); AST/SGOT 9 U/L (7-37); BILIRUBIN,TOTAL 0.3 MG/DL (0.2-1.0); BLOOD UREA NITROGEN 34 MG/DL (7-18); CALCIUM LEVEL 8.4 MG/DL (8.8-10.2); CARBON DIOXIDE LEVEL 27 MEQ/L (21-32); CHLORIDE LEVEL 108 MEQ/L (98-107); CREATININE FOR GFR 1.26 MG/DL (0.70-1.30); GLOMERULAR FILTRATION RATE 58.5 (>35); GLUCOSE, FASTING 98 MG/DL (70-100); POTASSIUM SERUM 4.7 MEQ/L (3.5-5.1); SODIUM LEVEL 143 MEQ/L (136-145); TOTAL PROTEIN 5.9 GM/DL (6.4-8.2)
[2018-02-12] MEDS: TIOTROPIUM INHALER/CAPSULE (SPIRIVA) INH (08:43)
[2018-02-12] MEDS: SYMBICORT 160/4.5MCG INHALER 6GM INH ×2 (08:43→21:01)
[2018-02-12] MEDS: OMEPRAZOLE 20 MG CAP PO ×2 (08:48→20:53)
[2018-02-12] MEDS: FLUCONAZOLE 100 MG TAB PO (08:48)
[2018-02-12] MEDS: ENOXAPARIN 80 MG/0.8 ML SYRINGE (J1650) SC ×2 (08:48→21:40)
[2018-02-12] MEDS: GABAPENTIN 400 MG CAP PO ×3 (08:49→20:53)
[2018-02-12] MEDS: SUCRALFATE 1 GM TAB PO ×3 (08:49→16:53)
[2018-02-12] MEDS: METOPROLOL TART 12.5 MG PER 1/2 TAB PO (08:49)
[2018-02-12] MEDS: LORATADINE 10 MG TAB PO (08:49)
[2018-02-12] MEDS: FINASTERIDE 5 MG TAB PO (08:49)
[2018-02-12] MEDS: CEFDINIR 300 MG CAP (OMNICEF) PO ×2 (08:49→20:53)
[2018-02-12] MEDS: NYSTATIN 100,000 UNITS/GM TOPICAL PWD 15 GM TOP ×2 (08:50→20:53)
[2018-02-12] MEDS: FLUTICASONE PROP 0.05% NASAL SPRAY 16 GM (FLONASE) NARES (08:50)
[2018-02-12 18:18] LABS: LACTIC ACID SEPSIS PROTOCOL 1.4 MMOL/L (0.4-2.0)
[2018-02-12] MEDS: TAMSULOSIN 0.4 MG CAP PO (20:53)
[2018-02-13] MEDS: LEVALBUTEROL 1.25 MG/0.5 ML CONCENTRATE NEB INH ×6 (03:38→20:00)
[2018-02-13 07:06] LABS: HEMATOCRIT 36.3 % (42.0-52.0); HEMOGLOBIN 11.7 g/dl (13.5-17.5); LYMPH % 11.6 % (24.0-44.0); MEAN CORPUSCULAR HEMOGLOBIN 28.1 pg (27.0-33.0); MEAN CORPUSCULAR HGB CONC 32.2 g/dl (32.0-36.5); MEAN CORPUSCULAR VOLUME 87.1 fl (80.0-96.0); NEUTROPHILS % 75.5 % (36.0-66.0); PLATELET COUNT, AUTOMATED 185 10^3/uL (150-450); RED BLOOD COUNT 4.17 10^6/uL (4.30-6.10); RED CELL DISTRIBUTION WIDTH 16.7 % (11.5-14.5); WHITE BLOOD COUNT 13.8 10^3/uL (4.0-10.0)
[2018-02-13 07:07] LABS: BASO % 0.1 % (0.0-1.0); EOS # 0.3 10^3/uL (0.0-0.50); EOS % 2.4 % (0.0-3.0); IMMATURE GRANULOCYTE % 1.4 % (0-3.0); LYMPH # 1.6 10^3/uL (1.5-4.5); MONO # 1.2 10^3/uL (0.0-0.8); NEUTROPHILS # 10.4 10^3/uL (1.8-7.7)
[2018-02-13 07:17] LABS: INR 2.21
[2018-02-13 07:56] LABS: ALBUMIN 2.3 GM/DL (3.2-5.2); ALKALINE PHOSPHATASE 105 U/L (45-117); ALT/SGPT 23 U/L (12-78); ANION GAP 8 MEQ/L (8-16); AST/SGOT 13 U/L (7-37); BILIRUBIN,TOTAL 0.2 MG/DL (0.2-1.0); BLOOD UREA NITROGEN 36 MG/DL (7-18); CALCIUM LEVEL 8.1 MG/DL (8.8-10.2); CARBON DIOXIDE LEVEL 26 MEQ/L (21-32); CHLORIDE LEVEL 109 MEQ/L (98-107); CREATININE FOR GFR 1.37 MG/DL (0.70-1.30); GLOMERULAR FILTRATION RATE 53.1 (>35); GLUCOSE, FASTING 92 MG/DL (70-100); POTASSIUM SERUM 4.4 MEQ/L (3.5-5.1); SODIUM LEVEL 143 MEQ/L (136-145); TOTAL PROTEIN 5.4 GM/DL (6.4-8.2)
[2018-02-13 08:31] LABS: ALBUMIN/GLOBULIN RATIO 1.35 (1.00-1.93)
[2018-02-13] MEDS: SYMBICORT 160/4.5MCG INHALER 6GM INH ×2 (08:40→21:00)
[2018-02-13] MEDS: TIOTROPIUM INHALER/CAPSULE (SPIRIVA) INH (08:40)
[2018-02-13] MEDS: LORATADINE 10 MG TAB PO (09:23)
[2018-02-13] MEDS: FLUCONAZOLE 100 MG TAB PO (09:23)
[2018-02-13] MEDS: CEFDINIR 300 MG CAP (OMNICEF) PO ×2 (09:23→22:05)
[2018-02-13] MEDS: FINASTERIDE 5 MG TAB PO (09:23)
[2018-02-13] MEDS: GABAPENTIN 400 MG CAP PO ×3 (09:23→22:06)
[2018-02-13] MEDS: OMEPRAZOLE 20 MG CAP PO ×2 (09:23→22:05)
[2018-02-13] MEDS: SUCRALFATE 1 GM TAB PO ×3 (09:23→17:01)
[2018-02-13] MEDS: NYSTATIN 100,000 UNITS/GM TOPICAL PWD 15 GM TOP ×2 (09:24→22:07)
[2018-02-13] MEDS: ENOXAPARIN 80 MG/0.8 ML SYRINGE (J1650) SC ×2 (09:24→22:05)
[2018-02-13] MEDS: FLUTICASONE PROP 0.05% NASAL SPRAY 16 GM (FLONASE) NARES (09:24)
[2018-02-13] MEDS: MOM 30ML SUSPENSION UDC PO (09:24)
[2018-02-13] MEDS: WARFARIN SOD 4 MG TAB PO (17:01)
[2018-02-13] MEDS: TAMSULOSIN 0.4 MG CAP PO (22:05)
[2018-02-13] MEDS: traMADol 50 MG TAB PO (22:06)
[2018-02-14] MEDS: LEVALBUTEROL 1.25 MG/0.5 ML CONCENTRATE NEB INH ×6 (04:00→20:00)
[2018-02-14 06:16] LABS: BASO % 0.1 % (0.0-1.0); EOS # 0.5 10^3/uL (0.0-0.50); EOS % 4.5 % (0.0-3.0); HEMATOCRIT 33.6 % (42.0-52.0); HEMOGLOBIN 10.8 g/dl (13.5-17.5); IMMATURE GRANULOCYTE % 1.5 % (0-3.0); LYMPH # 2.1 10^3/uL (1.5-4.5); LYMPH % 18.6 % (24.0-44.0); MEAN CORPUSCULAR HEMOGLOBIN 28.1 pg (27.0-33.0); MEAN CORPUSCULAR HGB CONC 32.1 g/dl (32.0-36.5); MEAN CORPUSCULAR VOLUME 87.5 fl (80.0-96.0); MONO # 1.2 10^3/uL (0.0-0.8); MONO % 10.4 % (0.0-5.0); NEUTROPHILS # 7.2 10^3/uL (1.8-7.7); NEUTROPHILS % 64.9 % (36.0-66.0); PLATELET COUNT, AUTOMATED 194 10^3/uL (150-450); RED BLOOD COUNT 3.84 10^6/uL (4.30-6.10); WHITE BLOOD COUNT 11.1 10^3/uL (4.0-10.0)
[2018-02-14 06:27] LABS: INR 2.61; PROTHROMBIN TIME 28.5 SECONDS (12.1-14.4)
[2018-02-14 06:45] LABS: ALBUMIN 2.1 GM/DL (3.2-5.2); ALBUMIN/GLOBULIN RATIO 0.55 (1.00-1.93); ALKALINE PHOSPHATASE 92 U/L (45-117); ALT/SGPT 19 U/L (12-78); ANION GAP 6 MEQ/L (8-16); AST/SGOT 10 U/L (7-37); BILIRUBIN,TOTAL 0.2 MG/DL (0.2-1.0); BLOOD UREA NITROGEN 34 MG/DL (7-18); CALCIUM LEVEL 8.4 MG/DL (8.8-10.2); CARBON DIOXIDE LEVEL 27 MEQ/L (21-32); CHLORIDE LEVEL 109 MEQ/L (98-107); GLOMERULAR FILTRATION RATE 56.4 (>35); GLUCOSE, FASTING 99 MG/DL (70-100); POTASSIUM SERUM 4.3 MEQ/L (3.5-5.1); SODIUM LEVEL 142 MEQ/L (136-145); TOTAL PROTEIN 5.9 GM/DL (6.4-8.2)
[2018-02-14] MEDS: SYMBICORT 160/4.5MCG INHALER 6GM INH ×2 (08:56→21:00)
[2018-02-14] MEDS: GABAPENTIN 400 MG CAP PO ×3 (09:04→21:05)
[2018-02-14] MEDS: CEFDINIR 300 MG CAP (OMNICEF) PO ×2 (09:04→21:05)
[2018-02-14] MEDS: OMEPRAZOLE 20 MG CAP PO ×2 (09:04→21:05)
[2018-02-14] MEDS: SUCRALFATE 1 GM TAB PO ×3 (09:04→17:00)
[2018-02-14] MEDS: FLUCONAZOLE 100 MG TAB PO (09:05)
[2018-02-14] MEDS: FLUTICASONE PROP 0.05% NASAL SPRAY 16 GM (FLONASE) NARES (09:05)
[2018-02-14] MEDS: LORATADINE 10 MG TAB PO (09:05)
[2018-02-14] MEDS: FINASTERIDE 5 MG TAB PO (09:05)
[2018-02-14] MEDS: NYSTATIN 100,000 UNITS/GM TOPICAL PWD 15 GM TOP ×2 (09:05→21:06)
[2018-02-14] MEDS: TIOTROPIUM INHALER/CAPSULE (SPIRIVA) INH (11:28)
[2018-02-14] MEDS: WARFARIN SOD 3 MG TAB PO (17:00)
[2018-02-14] MEDS: ONDANSETRON 4MG/2ML VIAL (J2405) IV (18:05)
[2018-02-14] MEDS: TAMSULOSIN 0.4 MG CAP PO (21:05)
[2018-02-14] MEDS: traMADol 50 MG TAB PO (21:07)
[2018-02-15] MEDS: LEVALBUTEROL 1.25 MG/0.5 ML CONCENTRATE NEB INH ×4 (00:41→10:54)
[2018-02-15 06:24] LABS: BASO % 0.3 % (0.0-1.0); EOS # 0.5 10^3/uL (0.0-0.50); EOS % 4.5 % (0.0-3.0); HEMATOCRIT 37.4 % (42.0-52.0); HEMOGLOBIN 11.7 g/dl (13.5-17.5); IMMATURE GRANULOCYTE % 1.2 % (0-3.0); LYMPH # 1.8 10^3/uL (1.5-4.5); LYMPH % 16.1 % (24.0-44.0); MEAN CORPUSCULAR HEMOGLOBIN 27.8 pg (27.0-33.0); MEAN CORPUSCULAR HGB CONC 31.3 g/dl (32.0-36.5); MEAN CORPUSCULAR VOLUME 88.8 fl (80.0-96.0); MONO # 1.1 10^3/uL (0.0-0.8); MONO % 9.9 % (0.0-5.0); NEUTROPHILS # 7.4 10^3/uL (1.8-7.7); PLATELET COUNT, AUTOMATED 180 10^3/uL (150-450); RED BLOOD COUNT 4.21 10^6/uL (4.30-6.10); RED CELL DISTRIBUTION WIDTH 16.8 % (11.5-14.5); WHITE BLOOD COUNT 10.9 10^3/uL (4.0-10.0)
[2018-02-15 06:37] LABS: INR 2.46; PROTHROMBIN TIME 27.2 SECONDS (12.1-14.4)
[2018-02-15 06:58] LABS: ALBUMIN 2.1 GM/DL (3.2-5.2); ALBUMIN/GLOBULIN RATIO 0.66 (1.00-1.93); ALKALINE PHOSPHATASE 104 U/L (45-117); ALT/SGPT 19 U/L (12-78); ANION GAP 5 MEQ/L (8-16); AST/SGOT 8 U/L (7-37); BILIRUBIN,TOTAL 0.2 MG/DL (0.2-1.0); BLOOD UREA NITROGEN 36 MG/DL (7-18); CARBON DIOXIDE LEVEL 28 MEQ/L (21-32); CHLORIDE LEVEL 107 MEQ/L (98-107); CREATININE FOR GFR 1.32 MG/DL (0.70-1.30); GLOMERULAR FILTRATION RATE 55.4 (>35); GLUCOSE, FASTING 109 MG/DL (70-100); POTASSIUM SERUM 4.9 MEQ/L (3.5-5.1); SODIUM LEVEL 140 MEQ/L (136-145); TOTAL PROTEIN 5.3 GM/DL (6.4-8.2)
[2018-02-15] MEDS: TIOTROPIUM INHALER/CAPSULE (SPIRIVA) INH (08:05)
[2018-02-15] MEDS: SYMBICORT 160/4.5MCG INHALER 6GM INH (08:05)
[2018-02-15] MEDS: CEFDINIR 300 MG CAP (OMNICEF) PO (08:43)
[2018-02-15] MEDS: FINASTERIDE 5 MG TAB PO (08:43)
[2018-02-15] MEDS: SUCRALFATE 1 GM TAB PO ×2 (08:43→11:10)
[2018-02-15] MEDS: NYSTATIN 100,000 UNITS/GM TOPICAL PWD 15 GM TOP (08:43)
[2018-02-15] MEDS: FLUTICASONE PROP 0.05% NASAL SPRAY 16 GM (FLONASE) NARES (08:43)
[2018-02-15] MEDS: LORATADINE 10 MG TAB PO (08:43)
[2018-02-15] MEDS: OMEPRAZOLE 20 MG CAP PO (08:43)
[2018-02-15] MEDS: GABAPENTIN 400 MG CAP PO (08:43)
[2018-02-15] MEDS: LIDOCAINE 2% 5ML JELLY UROJET TOP (11:32)
== END 2018-02-15 12:06 | DRG 175 ==
LOC: M MSPAV 02-05 09:40 → M ED 08:23 → M ED INP 14:19 → M MS5PR 15:55
DX: I26.99 Other pulmonary embolism without acute cor pulmonale (principal); J18.9 Pneumonia, unspecified organism; J44.1 Chronic obstructive pulmonary disease with (acute) exacerbation; I47.2 Ventricular tachycardia; N17.9 Acute kidney failure, unspecified; J96.11 Chronic respiratory failure with hypoxia; I13.0 Hypertensive heart and chronic kidney disease with heart failure and stage 1 through stage 4 chronic kidney disease, or unspecified chronic kidney disease; N18.3 Chronic kidney disease, stage 3 (moderate); N40.0 Benign prostatic hyperplasia without lower urinary tract symptoms; K21.9 Gastro-esophageal reflux disease without esophagitis; M54.5 Low back pain; Z79.01 Long term (current) use of anticoagulants; N28.1 Cyst of kidney, acquired; Z79.82 Long term (current) use of aspirin; Z79.899 Other long term (current) drug therapy; Z88.8 Allergy status to other drugs, medicaments and biological substances; Z87.891 Personal history of nicotine dependence; D72.829 Elevated white blood cell count, unspecified

== ENCOUNTER → 2018-02-19 | Outpatient (REF) ==
[2018-02-19 11:23] LABS: INR 4.39
== END ==
DX: Z79.01 Long term (current) use of anticoagulants (principal)

== ENCOUNTER → 2018-02-20 | Outpatient (REF) ==
[2018-02-20 10:59] LABS: HEMATOCRIT 35.8 % (42.0-52.0); HEMOGLOBIN 11.1 g/dl (13.5-17.5); MEAN CORPUSCULAR HEMOGLOBIN 28.2 pg (27.0-33.0); MEAN CORPUSCULAR VOLUME 91.1 fl (80.0-96.0); PLATELET COUNT, AUTOMATED 347 10^3/uL (150-450); RED BLOOD COUNT 3.93 10^6/uL (4.30-6.10); RED CELL DISTRIBUTION WIDTH 16.4 % (11.5-14.5); WHITE BLOOD COUNT 10.3 10^3/uL (4.0-10.0)
[2018-02-20 11:11] LABS: PROTHROMBIN TIME 35.2 SECONDS (12.1-14.4)
[2018-02-20 11:18] LABS: ANION GAP 9 MEQ/L (8-16); BLOOD UREA NITROGEN 32 MG/DL (7-18); CALCIUM LEVEL 8.1 MG/DL (8.8-10.2); CARBON DIOXIDE LEVEL 26 MEQ/L (21-32); CHLORIDE LEVEL 109 MEQ/L (98-107); CREATININE FOR GFR 1.44 MG/DL (0.70-1.30); GLOMERULAR FILTRATION RATE 50.1 (>35); GLUCOSE, FASTING 97 MG/DL (70-100); POTASSIUM SERUM 4.3 MEQ/L (3.5-5.1); SODIUM LEVEL 144 MEQ/L (136-145)
== END ==
DX: I10 Essential (primary) hypertension (principal); Z86.711 Personal history of pulmonary embolism

== ENCOUNTER → 2018-02-21 | Outpatient (REF) ==
[2018-02-21 09:59] LABS: INR 2.73; PROTHROMBIN TIME 29.5 SECONDS (12.1-14.4)
== END ==
DX: Z79.01 Long term (current) use of anticoagulants (principal)

== ENCOUNTER → 2018-02-22 | Outpatient (REF) ==
[2018-02-22 14:12] LABS: INR 2.57; PROTHROMBIN TIME 28.1 SECONDS (12.1-14.4)
== END ==
DX: Z79.01 Long term (current) use of anticoagulants (principal)

== ENCOUNTER → 2018-02-27 | Outpatient (REF) | payer MEDICARE, MEDICAID ==
[2018-02-27 09:52] LABS: HEMOGLOBIN 10.9 g/dl (13.5-17.5); MEAN CORPUSCULAR HEMOGLOBIN 27.7 pg (27.0-33.0); MEAN CORPUSCULAR HGB CONC 30.3 g/dl (32.0-36.5); MEAN CORPUSCULAR VOLUME 91.4 fl (80.0-96.0); PLATELET COUNT, AUTOMATED 704 10^3/uL (150-450); RED BLOOD COUNT 3.94 10^6/uL (4.30-6.10); RED CELL DISTRIBUTION WIDTH 16.6 % (11.5-14.5); WHITE BLOOD COUNT 9.9 10^3/uL (4.0-10.0)
[2018-02-27 10:31] LABS: ANION GAP 9 MEQ/L (8-16); BLOOD UREA NITROGEN 23 MG/DL (7-18); CALCIUM LEVEL 8.7 MG/DL (8.8-10.2); CARBON DIOXIDE LEVEL 25 MEQ/L (21-32); CHLORIDE LEVEL 112 MEQ/L (98-107); CREATININE FOR GFR 1.15 MG/DL (0.70-1.30); GLOMERULAR FILTRATION RATE > 60.0 (>35); GLUCOSE, FASTING 73 MG/DL (70-100); POTASSIUM SERUM 4.6 MEQ/L (3.5-5.1); SODIUM LEVEL 146 MEQ/L (136-145)
== END ==
DX: I10 Essential (primary) hypertension (principal)
CPT/HCPCS: 80048

== ENCOUNTER → 2018-03-01 | Outpatient (REF) ==
[2018-03-01 13:05] LABS: INR 1.43; PROTHROMBIN TIME 17.7 SECONDS (12.1-14.4)
== END ==
DX: J18.9 Pneumonia, unspecified organism (principal); I26.99 Other pulmonary embolism without acute cor pulmonale

== ENCOUNTER → 2018-03-13 | Outpatient (REF) ==
[2018-03-13 11:18] LABS: ANION GAP 6 MEQ/L (8-16); BLOOD UREA NITROGEN 25 MG/DL (7-18); CARBON DIOXIDE LEVEL 30 MEQ/L (21-32); CHLORIDE LEVEL 109 MEQ/L (98-107); GLOMERULAR FILTRATION RATE 51.8 (>35); GLUCOSE, FASTING 80 MG/DL (70-100); POTASSIUM SERUM 3.9 MEQ/L (3.5-5.1); SODIUM LEVEL 145 MEQ/L (136-145)
[2018-03-13 18:35] LABS: HEMATOCRIT 37.2 % (42.0-52.0); HEMOGLOBIN 11.5 g/dl (13.5-17.5); MEAN CORPUSCULAR HGB CONC 30.9 g/dl (32.0-36.5); MEAN CORPUSCULAR VOLUME 90.7 fl (80.0-96.0); PLATELET COUNT, AUTOMATED 283 10^3/uL (150-450); RED CELL DISTRIBUTION WIDTH 16.1 % (11.5-14.5)
[2018-03-13 19:41] LABS: NT-PRO BNP 311 PG/ML (<450)
== END ==
DX: R05 Cough (principal)

== ENCOUNTER → 2018-03-14 | Outpatient (REF) ==
[2018-03-14 13:40] LABS: HEMATOCRIT 32.7 % (42.0-52.0); HEMOGLOBIN 10.3 g/dl (13.5-17.5); MEAN CORPUSCULAR HEMOGLOBIN 28.2 pg (27.0-33.0); MEAN CORPUSCULAR HGB CONC 31.5 g/dl (32.0-36.5); MEAN CORPUSCULAR VOLUME 89.6 fl (80.0-96.0); PLATELET COUNT, AUTOMATED 233 10^3/uL (150-450); RED BLOOD COUNT 3.65 10^6/uL (4.30-6.10); RED CELL DISTRIBUTION WIDTH 16.4 % (11.5-14.5)
[2018-03-14 14:23] LABS: INFLUENZA A AMPLIFICATION NEGATIVE (NEGATIVE); INFLUENZA B AMPLIFICATION NEGATIVE (NEGATIVE)
== END ==
DX: D72.829 Elevated white blood cell count, unspecified (principal)

== ENCOUNTER → 2018-03-27 | Outpatient (REF) ==
[2018-03-27 10:22] LABS: HEMATOCRIT 35.2 % (42.0-52.0); HEMOGLOBIN 11.1 g/dl (13.5-17.5); MEAN CORPUSCULAR HEMOGLOBIN 28.1 pg (27.0-33.0); MEAN CORPUSCULAR HGB CONC 31.5 g/dl (32.0-36.5); MEAN CORPUSCULAR VOLUME 89.1 fl (80.0-96.0); PLATELET COUNT, AUTOMATED 273 10^3/uL (150-450); RED BLOOD COUNT 3.95 10^6/uL (4.30-6.10); RED CELL DISTRIBUTION WIDTH 16.3 % (11.5-14.5); WHITE BLOOD COUNT 11.1 10^3/uL (4.0-10.0)
[2018-03-27 10:42] LABS: ANION GAP 7 MEQ/L (8-16); BLOOD UREA NITROGEN 29 MG/DL (7-18); CALCIUM LEVEL 8.4 MG/DL (8.8-10.2); CARBON DIOXIDE LEVEL 28 MEQ/L (21-32); CHLORIDE LEVEL 110 MEQ/L (98-107); CREATININE FOR GFR 1.47 MG/DL (0.70-1.30); GLOMERULAR FILTRATION RATE 48.9 (>35); GLUCOSE, FASTING 109 MG/DL (70-100); POTASSIUM SERUM 4.1 MEQ/L (3.5-5.1); SODIUM LEVEL 145 MEQ/L (136-145)
== END ==
DX: I10 Essential (primary) hypertension (principal)

== ENCOUNTER → 2018-03-30 | Outpatient (REF) | payer MEDICARE, MEDICAID ==
[2018-03-30 12:53] LABS: APPEARANCE, URINE MANUAL CLOUDY (CLEAR); COLOR, URINE MANUAL DK YELLOW (YELLOW)
[2018-03-30 12:54] LABS: MICROSCOPIC INDICATED? MAN YES (NO)
[2018-03-30 12:55] LABS: BILIRUBIN, URINE MANUAL NEGATIVE (NEGATIVE); BLOOD URINE MANUAL POSITIVE (NEGATIVE); GLUCOSE, URINE (UA) MANUAL NEGATIVE (NEGATIVE); KETONE, URINE MANUAL NEGATIVE (NEGATIVE); LEUKOCYTE ESTERASE, URINE MAN POSITIVE (NEGATIVE); NITRITE, URINE MANUAL NEGATIVE (NEGATIVE); PROTEIN, URINE MANUAL 2+ mg/dL (NEGATIVE); SPECIFIC GRAVITY,URINE MANUAL 1.025 (1.002-1.035); UROBILINOGEN, URINE MANUAL NORMAL (NORMAL)
[2018-03-30 12:57] LABS: BACTERIA, URINE SMALL AMOUNT; MUCUS, URINE SMALL AMOUNT (NEGATIVE); WBC, URINE TNTC /hpf (0-3); YEAST, URINE MOD AMOUNT
[2018-03-30 12:59] LABS: SQUAMOUS EPITHELIAL CELL URINE NONE SEEN /hpf (SMALL AMT)
[2018-03-30 13:00] LABS: HYALINE CAST, URINE 0-1 /lpf (0-1); MICROSCOPIC EXAM UNSPUN
== END ==
LOC: M SMT 11:42
DX: R82.90 Unspecified abnormal findings in urine (principal)
CPT/HCPCS: 81000

== ENCOUNTER 2018-04-27 23:29 | Emergency (ER) | payer MEDICARE, MEDICAID ==
[2018-04-28 00:23] LABS: BASO # 0.1 10^3/uL (0.0-0.2); BASO % 0.7 % (0.0-1.0); EOS # 0.7 10^3/uL (0.0-0.50); EOS % 6.1 % (0.0-3.0); HEMATOCRIT 35.2 % (42.0-52.0); IMMATURE GRANULOCYTE % 0.6 % (0-3.0); LYMPH # 2.6 10^3/uL (1.5-4.5); LYMPH % 22.5 % (24.0-44.0); MEAN CORPUSCULAR HEMOGLOBIN 28.1 pg (27.0-33.0); MEAN CORPUSCULAR HGB CONC 31.3 g/dl (32.0-36.5); MONO # 1.2 10^3/uL (0.0-0.8); MONO % 10.2 % (0.0-5.0); NEUTROPHILS % 59.9 % (36.0-66.0); PLATELET COUNT, AUTOMATED 295 10^3/uL (150-450); RED BLOOD COUNT 3.91 10^6/uL (4.30-6.10); RED CELL DISTRIBUTION WIDTH 15.6 % (11.5-14.5); WHITE BLOOD COUNT 11.7 10^3/uL (4.0-10.0)
[2018-04-28 00:33] LABS: INR 1.51; PROTHROMBIN TIME 18.5 SECONDS (12.1-14.4)
[2018-04-28 00:34] LABS: PARTIAL THROMBOPLASTIN TIME 40.1 SECONDS (25.4-37.6)
[2018-04-28 00:55] LABS: ANION GAP 6 MEQ/L (8-16); BLOOD UREA NITROGEN 34 MG/DL (7-18); CALCIUM LEVEL 8.5 MG/DL (8.8-10.2); CARBON DIOXIDE LEVEL 28 MEQ/L (21-32); CHLORIDE LEVEL 112 MEQ/L (98-107); GLOMERULAR FILTRATION RATE 47.8 (>35); GLUCOSE, FASTING 100 MG/DL (70-100); POTASSIUM SERUM 4.9 MEQ/L (3.5-5.1); SODIUM LEVEL 146 MEQ/L (136-145)
[2018-04-28 01:32] LABS: APPEARANCE, URINE CLOUDY (CLEAR); BACTERIA, URINE AUTO 1+ (NEGATIVE); BILIRUBIN, URINE AUTO NEGATIVE (NEGATIVE); BLOOD, URINE BLOOD 3+ (NEGATIVE); COLOR, URINE YELLOW (YELLOW); GLUCOSE, URINE (UA) AUTO NEGATIVE (NEGATIVE); KETONE, URINE AUTO NEGATIVE (NEGATIVE); LEUKOCYTE ESTERASE, URINE AUTO 2+ (NEGATIVE); MUCUS, URINE SMALL (NEGATIVE); NITRITE, URINE AUTO NEGATIVE (NEGATIVE); PROTEIN, URINE AUTO 1+ mg/dL (NEGATIVE); RBC, URINE AUTO TNTC /HPF (0-3); SPECIFIC GRAVITY URINE AUTO 1.021 (1.002-1.035); SQUAMOUS EPITHELIAL CELL UR AU 0 /HPF (0-6); UROBILINOGEN, URINE AUTO 0.2 mg/dL (0.0-2.0); WBC, URINE AUTO 54 /HPF (0-3)
== END 2018-04-28 02:49 | disposition home or self-care (01) ==
LOC: M ED 23:29
DX: S30.812A Abrasion of penis, initial encounter (principal); Z96.0 Presence of urogenital implants; X58.XXXA Exposure to other specified factors, initial encounter; Y92.098 Other place in other non-institutional residence as the place of occurrence of the external cause; N18.9 Chronic kidney disease, unspecified; I48.91 Unspecified atrial fibrillation; N40.0 Benign prostatic hyperplasia without lower urinary tract symptoms; Z88.1 Allergy status to other antibiotic agents; Z79.899 Other long term (current) drug therapy; Z79.01 Long term (current) use of anticoagulants; Z79.82 Long term (current) use of aspirin; Z79.51 Long term (current) use of inhaled steroids
CPT/HCPCS: 80048

== ENCOUNTER 2018-08-03 05:58 | Emergency (ER) | payer MEDICARE, MEDICAID ==
[~2018-08-03] VITALS: Ht 170.2 cm; Wt 77.7 kg
[~2018-08-03 05:58] MED LIST changes: +ACET1TAB55 PO; +AMPI500C9 PO; +ASPI81CH PO; +CEFD300CAP PO; +COUM1TAB19 PO; +DALI1TAB2 PO; +DOXY100T PO; +FINA5TAB2 PO; +FLOM0.4C39; +FLOM0.4C39 PO; +FLON1SPR; +FLUC10TA PO; +GABA-845 PO; +HYDR12.55 PO; +IPRA0.00 INH; +KEFL500C17 PO; -LIDOCAINE 2% 5ML JELLY UROJET As Ordered; +LORA-243 PO; +LORA10TA3 PO; +MACR100C43 PO; +METO25TA4 PO; +MILK120011 PO; +NYST1POW9 TOP; +OMEP20CA3 PO; +OMEP40CA2 PO; +PRED10TA2 PO; +REST0.05 OU; +SPIR1CAP INH; +SUCR1TAB56 PO; +SULFAMETHOXAZOLE-TMP; +SYMB16INH INH; +TRAM50TA2 PO; +VENTAER INH; +VITMTA PO; +XARE15TA PO; +XARE20TA PO
[2018-08-03] MEDS ORDERED: ASPI81TAEC PO (06:50)
[2018-08-03] MEDS ORDERED: TUMS500C PO (06:50)
[2018-08-03] MEDS ORDERED: XARE15TA PO (06:50)
[2018-08-03 07:21] LABS: HEMATOCRIT 36.2 % (42.0-52.0); HEMOGLOBIN 11.6 g/dl (13.5-17.5); MEAN CORPUSCULAR HEMOGLOBIN 28.4 pg (27.0-33.0); MEAN CORPUSCULAR VOLUME 88.7 fl (80.0-96.0); PLATELET COUNT, AUTOMATED 257 10^3/uL (150-450); RED BLOOD COUNT 4.08 10^6/uL (4.30-6.10); WHITE BLOOD COUNT 11.6 10^3/uL (4.0-10.0)
[2018-08-03 07:35] LABS: INR 1.19; PROTHROMBIN TIME 15.3 SECONDS (12.1-14.4)
[2018-08-03 07:36] LABS: BILIRUBIN, URINE MANUAL OBSCURED (NEGATIVE); GLUCOSE, URINE (UA) MANUAL NEGATIVE (NEGATIVE); KETONE, URINE MANUAL OBSCURED mg/dL (NEGATIVE); UROBILINOGEN, URINE MANUAL OBSCURED mg/dl (NORMAL)
[2018-08-03 07:36] LABS: PARTIAL THROMBOPLASTIN TIME 37.1 SECONDS (25.4-37.6)
[2018-08-03 07:40] LABS: RBC, URINE TNTC /hpf (0-3)
[2018-08-03 07:42] LABS: AMORPHOUS SEDIMENT, URINE MOD AMOUNT (NEGATIVE); BACTERIA, URINE LARGE AMOUNT; HYALINE CAST, URINE NONE SEEN /lpf (0-1); RENAL EPITHELIAL CELLS, URINE SMALL AMOUNT /hpf; SQUAMOUS EPITHELIAL CELL URINE NONE SEEN /hpf (SMALL AMT); TRIPLE PHOSPHATE CRYSTAL,URINE MOD AMOUNT /hpf
[2018-08-03 07:42] LABS: CALCIUM LEVEL 8.3 MG/DL (8.8-10.2); CREATININE FOR GFR 1.39 MG/DL (0.70-1.30); GLOMERULAR FILTRATION RATE 52.2 (>35); POTASSIUM SERUM 4.3 MEQ/L (3.5-5.1)
[2018-08-03] MEDS ORDERED: MACR100C43 PO (07:57)
[2018-08-03 09:30] VITALS: BP 152/74
== END 2018-08-03 09:44 | disposition home or self-care (01) ==
LOC: M ED 05:58
DX: N39.0 Urinary tract infection, site not specified (principal); Z96.0 Presence of urogenital implants; J44.9 Chronic obstructive pulmonary disease, unspecified; I11.0 Hypertensive heart disease with heart failure; I50.9 Heart failure, unspecified; F03.90 Unspecified dementia, unspecified severity, without behavioral disturbance, psychotic disturbance, mood disturbance, and anxiety; K21.9 Gastro-esophageal reflux disease without esophagitis; Z79.899 Other long term (current) drug therapy; Z79.82 Long term (current) use of aspirin; Z88.1 Allergy status to other antibiotic agents; Z87.891 Personal history of nicotine dependence

== ENCOUNTER 2018-08-05 15:06 | Inpatient (IN) | payer MEDICARE, MEDICAID ==
[~2018-08-05] VITALS: Ht 170.2 cm; Wt 74.1 kg
[~2018-08-05 15:06] MED LIST changes: +ASPI81TAEC PO; +TUMS500C PO
[2018-08-05] MEDS ORDERED: KEFL500C17 PO (15:28)
[2018-08-05] MEDS ORDERED: MACR100C43 PO (16:04)
[2018-08-05] MEDS ORDERED: REST0.057 OU (16:04)
--- NOTE | 2018-08-05 16:07 | REP ---
Clinical: Cough and dyspnea. Comparison: 03/13/2018. Findings: Mediastinum and cardiac silhouette are normal. Trace bibasilar atelectasis and possible small left pleural reaction are suggested. No pneumothorax. Skeletal structures stable. Impression: Subtle bibasilar atelectasis and suspected small pleural reaction Electronically Signed by Edinson Hernandez MD 08/05/2018 03:58 P
[2018-08-05 16:32] LABS: BASO # 0.1 10^3/uL (0.0-0.2); BASO % 0.2 % (0.0-1.0); EOS # 0.3 10^3/uL (0.0-0.50); EOS % 0.8 % (0.0-3.0); HEMATOCRIT 39.5 % (42.0-52.0); HEMOGLOBIN 12.5 g/dl (13.5-17.5); LYMPH # 0.5 10^3/uL (1.5-4.5); LYMPH % 1.5 % (24.0-44.0); MEAN CORPUSCULAR HEMOGLOBIN 28.2 pg (27.0-33.0); MEAN CORPUSCULAR HGB CONC 31.6 g/dl (32.0-36.5); MONO # 1.6 10^3/uL (0.0-0.8); NEUTROPHILS % 91.6 % (36.0-66.0); PLATELET COUNT, AUTOMATED 251 10^3/uL (150-450); RED BLOOD COUNT 4.44 10^6/uL (4.30-6.10)
[2018-08-05] MEDS ORDERED: NS 2,340 ML in APPROPRIATE DILUENT 1 EA IV ONE (16:45)
[2018-08-05] MEDS: SYMBICORT 160/4.5MCG INHALER 6GM INH SCH (17:00)
[2018-08-05] MEDS ORDERED: cefTRIAXone SOD 2 GM in D5W MINI-BAG PLUS 50 ML IV ONE (17:00)
[2018-08-05 17:05] LABS: INFLUENZA A AMPLIFICATION NEGATIVE (NEGATIVE); INFLUENZA B AMPLIFICATION NEGATIVE (NEGATIVE)
[2018-08-05 17:09] LABS: NEUTROPHILS # 29.2 10^3/uL (1.8-7.7); WHITE BLOOD COUNT 31.9 10^3/uL (4.0-10.0)
[2018-08-05 17:11] LABS: ALBUMIN 3.3 GM/DL (3.2-5.2); ALT/SGPT 18 U/L (12-78); BILIRUBIN,DIRECT 0.2 MG/DL (0.0-0.2); BILIRUBIN,TOTAL 0.5 MG/DL (0.2-1.0); BLOOD UREA NITROGEN 33 MG/DL (7-18); CALCIUM LEVEL 8.3 MG/DL (8.8-10.2); CARBON DIOXIDE LEVEL 22 MEQ/L (21-32); CHLORIDE LEVEL 108 MEQ/L (98-107); CREATININE FOR GFR 1.92 MG/DL (0.70-1.30); GLUCOSE, FASTING 129 MG/DL (70-100); NT-PRO BNP 2596 PG/ML (<450); POTASSIUM SERUM 4.1 MEQ/L (3.5-5.1); SODIUM LEVEL 141 MEQ/L (136-145); THYROID STIMULATING HORMONE 0.336 uIU/ML (0.358-3.740); THYROXINE (T4) 7.9 UG/DL (4.5-12.0); TOTAL PROTEIN 6.1 GM/DL (6.4-8.2)
--- NOTE | 2018-08-05 17:37 | REP ---
Clinical: Fever. Technique: Axial noncontrast images from the thoracic inlet to the upper abdomen with coronal and sagittal re-formations. Findings: Chronic interstitial changes noted along with mild bibasilar atelectasis (left greater than right) and right middle lobe atelectasis. No significant effusion. No pneumothorax. Tracheobronchial tree is patent. No significant adenopathy. Atherosclerotic changes to the thoracic aorta and coronary arteries noted without cardiomegaly or pericardial effusion. Surrounding musculoskeletal structures are intact. Impression: Mild right middle lobe and bibasilar (left greater than right) atelectasis. Electronically Signed by Edinson Hernandez MD 08/05/2018 05:28 P
--- NOTE | 2018-08-05 17:45 | REP ---
Clinical: Fever. Technique: Axial noncontrast images from the lung bases to the pubic symphysis with coronal and sagittal re-formations. Comparison: 08/16/2017 Findings: Liver, spleen, pancreas, gallbladder, bilateral adrenal glands appear normal. These demonstrate hypodensities most compatible with cysts. There is a large 5.7 cm exophytic isointense lesion along the lateral margin of the left kidney which likely represents complex proteinaceous cyst and may be followed by ultrasound. The enteric system is without obstruction or acute inflammatory process. Colonic diverticulosis noted without acute diverticulitis. Dang catheter in collapsed bladder. Prostate gland is mildly enlarged. No ascites. No free air. No adenopathy. Atherosclerotic changes to the aorta and vasculature noted. Ischial skeletal structures demonstrate degenerative changes without focal osseous abnormality. Lung bases demonstrate mild right middle lobe and bibasilar atelectasis. Impression: 1. No obvious acute abdominopelvic pathology appreciated. 2. 5.7 cm left isointense renal lesion likely complex cyst may be followed by ultrasound. 3. Diverticulosis without acute diverticulitis. 4. No ascites, focal adenopathy, or inflammatory changes noted. 5. Further chronic changes as noted above. Electronically Signed by Edinson Hernandez MD 08/05/2018 05:36 P
[2018-08-05 17:59] LABS: CPK CREATINE PHOSPHOKINASE 97 U/L (39-308); MB/CK RELATIVE INDEX 1.96 (< OR =4); TROPONIN I < 0.02 NG/ML (< 0.10)
[2018-08-05] MEDS ORDERED: traMADol 50 MG TAB PO PRN (18:00)
[2018-08-05] MEDS ORDERED: CALCIUM CARBONATE 500 MG CHEW U/D PO PRN (18:00)
[2018-08-05] MEDS ORDERED: MOM 30ML SUSPENSION UDC PO PRN (18:00)
[2018-08-05] MEDS ORDERED: IPRATROPIUM 0.5MG/ALBUTEROL 2.5MG INH SOL UD 3ML (DUONEB)(J7620) INH PRN (18:00)
--- NOTE | 2018-08-05 20:07 | HPE ---
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 Patient was started on Macrobid on Monday, urinalysis and culture was sent and the cultures came back actually today positive for Proteus mirabilis greater than 100,000, sensitive to Rocephin. Patient was given a dose of IV Rocephin in the emergency room (ER). He is afebrile, vital signs are stable, and he will be admitted for further management. Patient denies any subjective feeling of fever, aches, or chills. He denies any abdominal pain, nausea, or vomiting. Again, past medical history of bilateral PE, history of non-oxygen dependent COPD, CKD stage III, hypertension, BPH requiring chronic indwelling Dang recently changed on 08/03/2018 by urology, gastroesophageal reflux disease (GERD), chronic low back pain. ALLERGIES: He has drug allergies to CLARITHROMYCIN and LEVOFLOXACIN. FAMILY HISTORY: Noncontributory. SOCIAL HISTORY: Patient denies tobacco, alcohol, or illicit drugs. MEDICATIONS: He takes at home are as follows: - Tylenol as needed - DuoNebs via nebulizer as needed - aspirin 81 mg orally daily - Symbicort two puffs inhaled twice daily - calcium carbonate 500 mg orally daily - finasteride 5 mg orally daily - fluticasone two sprays each nostril nightly - gabapentin 400 mg orally twice daily - metoprolol 12.5 mg orally twice daily - multivitamin one tablet orally daily - nitrofurantoin 100 mg orally twice daily - omeprazole 40 mg orally twice daily - rivaroxaban 50 mg orally at bedtime - roflumilast 500 mcg orally daily - sucralfate 1 gram orally three times a day - tamsulosin 0.8 mg orally at bedtime - tiotropium 18 mcg inhaled nightly - tramadol 50 mg orally three times a day as needed Review of systems is negative for all ten major systems except what is mentioned in history of present illness (HPI). Vital signs: Blood pressure is 94/55, heart rate is 60, regular, respiratory rate 18, temperature 98.4, oxygen saturation 96% on room air. Head is atraumatic, normocephalic. Neck is supple, no jugular venous distention (JVD). Lungs are clear to auscultation. S1, S2 audible, no murmurs appreciated. Abdomen is soft, positive bowel sounds. No pedal edema. Skin intact. Neurologic examination: Patient is awake, alert, oriented times two. LABORATORY DATA: Sodium 141, potassium 4.1, chloride 108, CO2 22, BUN 33, creatinine 1.92, glucose 129, lactic acid 3.7, troponin is pending, TSH is 0.336. Flu swab is negative. CT chest only showed bilateral atelectasis. IMPRESSION: 1. Urinary tract infection (UTI). 2. Generalized weakness. 3. Acute kidney injury (LYNNE). PLAN: Patient is to be admitted to medical/surgical floor. Will continue patient on IV Rocephin 1 gram daily. Will see how his appetite improves over the course of the next few days. As far as his acute kidney injury (LYNNE) is concerned, the patient is likely in acute kidney injury (LYNNE) from poor oral intake. Will give him IV fluids normal saline at 125 mL/hour. Will get a basic metabolic panel (BMP) in the morning and follow BUN and creatinine trends. Will continue all his preadmission medications and continue his care in the medical/surgical floor.
--- NOTE | 2018-08-05 20:10 | ECGEPIP ---
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
[2018-08-05 20:30] VITALS: BP 95/55
[2018-08-05] MEDS: METOPROLOL TART 12.5 MG PER 1/2 TAB PO SCH (21:00)
[2018-08-05] MEDS: TIOTROPIUM INHALER/CAPSULE (SPIRIVA) INH SCH (21:00)
[2018-08-05] MEDS: RIVAROXABAN 15 MG TAB (XARELTO) PO SCH (21:06)
[2018-08-05] MEDS: TAMSULOSIN 0.4 MG CAP PO SCH (21:06)
[2018-08-05] MEDS: NS 1,000 ML IV SCH (21:06)
[2018-08-05] MEDS: OMEPRAZOLE 20 MG CAP PO SCH (21:06)
[2018-08-05] MEDS: GABAPENTIN 400 MG CAP PO SCH (21:06)
[2018-08-05] MEDS: FLUTICASONE PROP 0.05% NASAL SPRAY 16 GM (FLONASE) SCH (22:26)
[2018-08-06] MEDS: NS 1,000 ML IV SCH (04:45)
[2018-08-06 06:00] VITALS: BP 117/68
[2018-08-06 06:13] LABS: BASO # 0.1 10^3/uL (0.0-0.2); BASO % 0.3 % (0.0-1.0); EOS # 0.9 10^3/uL (0.0-0.50); EOS % 4.6 % (0.0-3.0); HEMATOCRIT 33.5 % (42.0-52.0); HEMOGLOBIN 10.7 g/dl (13.5-17.5); LYMPH # 0.5 10^3/uL (1.5-4.5); LYMPH % 2.7 % (24.0-44.0); MEAN CORPUSCULAR HEMOGLOBIN 28.5 pg (27.0-33.0); MEAN CORPUSCULAR HGB CONC 31.9 g/dl (32.0-36.5); MEAN CORPUSCULAR VOLUME 89.3 fl (80.0-96.0); MONO # 1.4 10^3/uL (0.0-0.8); MONO % 6.9 % (0.0-5.0); NEUTROPHILS # 16.6 10^3/uL (1.8-7.7); NEUTROPHILS % 84.7 % (36.0-66.0); PLATELET COUNT, AUTOMATED 262 10^3/uL (150-450); RED BLOOD COUNT 3.75 10^6/uL (4.30-6.10); WHITE BLOOD COUNT 19.6 10^3/uL (4.0-10.0)
[2018-08-06 06:27] LABS: CALCIUM LEVEL 7.2 MG/DL (8.8-10.2); CREATININE FOR GFR 1.65 MG/DL (0.70-1.30); GLOMERULAR FILTRATION RATE 42.8 (>35); POTASSIUM SERUM 3.8 MEQ/L (3.5-5.1)
[2018-08-06] MEDS: SYMBICORT 160/4.5MCG INHALER 6GM INH SCH ×2 (08:40→21:01)
[2018-08-06] MEDS: TIOTROPIUM INHALER/CAPSULE (SPIRIVA) INH SCH (08:40)
[2018-08-06] MEDS: METOPROLOL TART 12.5 MG PER 1/2 TAB PO SCH ×2 (09:00→22:01)
[2018-08-06] MEDS: ASPIRIN 81 MG ENTERIC TAB PO SCH (09:17)
[2018-08-06] MEDS: FINASTERIDE 5 MG TAB PO SCH (09:17)
[2018-08-06] MEDS: MULTIVITAMINS/MINERALS THERAP 1 TAB PO SCH (09:17)
[2018-08-06] MEDS: cefTRIAXone SOD 1 GM in D5W MINI-BAG PLUS 50 ML IV SCH (09:17)
[2018-08-06] MEDS: OMEPRAZOLE 20 MG CAP PO SCH ×2 (09:18→21:59)
[2018-08-06] MEDS: GABAPENTIN 400 MG CAP PO SCH ×3 (09:18→21:59)
--- NOTE | 2018-08-06 13:31 | IPNPDOC ---
Text Note Date of Service The patient was seen on 08/06/18. NOTE SUBJECTIVE: pateint alert oriented to place and person, Complains of severe low back pain , says uses a brace for years which helps with the pain. He is from [facility]. He also complains of generalized abdominal soreness. Denies any SOB or cough, denies any nausea or vomiting . No fever this am . Had low grade temp last night. PHYSICAL EXAM: Vital signs: As Below Head is atraumatic, normocephalic. Neck is supple, no jugular venous distention (JVD). Lungs are clear to auscultation. Heart: S1, S2 audible, no murmurs appreciated. Abdomen is soft, positive bowel sounds. No pedal edema. Skin intact. Neurologic examination: Patient is awake, alert, oriented times two. Labs and Radiology: Reviewed. 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 Patient was started on Macrobid on Monday for an UTI after the martínez cath change on 08/02/18. Urinalysis and culture was sent and the cultures came back actually today positive for Proteus mirabilis greater than 100,000, sensitive to Rocephin. Patient was given a dose of IV ceftriaxone in [place] and sent to the ED. Pateint was admitted for UTI with sepsis. Urinary tract infection related to indwelling martínez catheter has recent catheter change on 08/02/18 urine culture form 08/03 growing Proteus was getting macrobid in [place] but then as resistent to macrobid. Pateint is allergic to levofloxacinand now with worsening creatinnine bactrim cannot be safely give so was sent to hospital continue ceftriazone. Sepsis as indicated by SBP< 100, some altered mentation but this is difficult to application consultant as patient has some dementia worsening kidney function, BPH with chronic indwelling martínez Martínez changed on 08/02/18. patient started with symptoms of UTi on 08/03/18 continue flomax and finasteride. COPD not in exacerbation continue nebs CKD stage 3 with baseline creatinine of about 1.5 now slight elevation from baseline probably due to the infection Hypotension with lactic acidosis on admission Lactate improved after hydration due to infection , sepsis all antihypertensives held H/o Bilateral Pulmonary embolism on xarelto GERD continue omeprazole Chronic back pain. continue tramadol and gabapentin Brace if available Dementia not on any meds. DVT prophylaxis patient on xarelto VS,Fishbone, I+O VS, Fishbone, I+O Laboratory Tests 08/05/18 16:24 Red Blood Count 4.44, Mean Corpuscular Volume 89.0, Mean Corpuscular Hemoglobin 28.2, Mean Corpuscular Hemoglobin Concent 31.6 L, Red Cell Distribution Width 15.8 H, Neutrophils (%) (Auto) 91.6 H, Lymphocytes (%) (Auto) 1.5 L, Monocytes (%) (Auto) 5.0, Eosinophils (%) (Auto) 0.8, Basophils (%) (Auto) 0.2, Neutrophils # (Auto) 29.2 H, Lymphocytes # (Auto) 0.5 L, Monocytes # (Auto) 1.6 H, Eosinophils # (Auto) 0.3, Basophils # (Auto) 0.1 Vital Signs Date Time Temp Pulse Resp B/P (MAP) Pulse Ox O2 Delivery O2 Flow Rate FiO2 08/05/18 21:00 114 95/55 08/05/18 20:30 100.1 17 91 08/05/18 17:51 Room Air I&O- Last 24 Hours up to 6 AM 08/06/18 06:00 Intake Total 2050 ml Output Total 200 ml Balance 1850 ml SCOOBY BANERJEE MD Aug 06, 2018 03:10
[2018-08-06 14:00] VITALS: BP 128/69
[2018-08-06] MEDS: TAMSULOSIN 0.4 MG CAP PO SCH (21:59)
[2018-08-06] MEDS: RIVAROXABAN 15 MG TAB (XARELTO) PO SCH (21:59)
[2018-08-06 22:00] VITALS: BP 133/72
[2018-08-06] MEDS: ACETAMINOPHEN TAB 650MG DOSE (2X325MG) PO PRN (22:00)
[2018-08-06] MEDS: FLUTICASONE PROP 0.05% NASAL SPRAY 16 GM (FLONASE) SCH (22:00)
[2018-08-07 05:35] LABS: BASO % 0.2 % (0.0-1.0); EOS # 1.1 10^3/uL (0.0-0.50); EOS % 9.6 % (0.0-3.0); HEMATOCRIT 31.7 % (42.0-52.0); HEMOGLOBIN 10.3 g/dl (13.5-17.5); LYMPH # 0.8 10^3/uL (1.5-4.5); LYMPH % 7.2 % (24.0-44.0); MEAN CORPUSCULAR HEMOGLOBIN 28.2 pg (27.0-33.0); MEAN CORPUSCULAR HGB CONC 32.5 g/dl (32.0-36.5); MEAN CORPUSCULAR VOLUME 86.8 fl (80.0-96.0); MONO % 8.4 % (0.0-5.0); NEUTROPHILS # 8.6 10^3/uL (1.8-7.7); NEUTROPHILS % 74.1 % (36.0-66.0); PLATELET COUNT, AUTOMATED 272 10^3/uL (150-450); RED BLOOD COUNT 3.65 10^6/uL (4.30-6.10); WHITE BLOOD COUNT 11.6 10^3/uL (4.0-10.0)
[2018-08-07 06:00] VITALS: BP 121/63
[2018-08-07 06:02] LABS: CALCIUM LEVEL 7.5 MG/DL (8.8-10.2); CREATININE FOR GFR 1.36 MG/DL (0.70-1.30); GLOMERULAR FILTRATION RATE 53.5 (>35); POTASSIUM SERUM 3.7 MEQ/L (3.5-5.1)
[2018-08-07] MEDS: SYMBICORT 160/4.5MCG INHALER 6GM INH SCH ×2 (08:03→21:19)
[2018-08-07] MEDS: TIOTROPIUM INHALER/CAPSULE (SPIRIVA) INH SCH (08:31)
[2018-08-07 09:00] VITALS: BP 122/62
[2018-08-07] MEDS: cefTRIAXone SOD 1 GM in D5W MINI-BAG PLUS 50 ML IV SCH (10:23)
[2018-08-07] MEDS: METOPROLOL TART 12.5 MG PER 1/2 TAB PO SCH ×2 (11:01→20:31)
[2018-08-07] MEDS: GABAPENTIN 400 MG CAP PO SCH ×3 (11:02→20:31)
[2018-08-07] MEDS: ASPIRIN 81 MG ENTERIC TAB PO SCH (11:02)
[2018-08-07] MEDS: OMEPRAZOLE 20 MG CAP PO SCH ×2 (11:03→20:31)
[2018-08-07] MEDS: MULTIVITAMINS/MINERALS THERAP 1 TAB PO SCH (11:04)
[2018-08-07] MEDS: FINASTERIDE 5 MG TAB PO SCH (11:04)
--- NOTE | 2018-08-07 13:18 | IPNPDOC ---
Date Seen The patient was seen on 08/07/18. Progress Note SUBJECTIVE: left hand iv infiltrated and pt c/o pain and requests removal. iv abx for uti continued. he denies any fever, dysuria, urgency , frequency or chills OBJECTIVE: PHYSICAL EXAM: Vital signs: As Below Head is atraumatic, normocephalic. Neck is supple, no jugular venous distention (JVD). Lungs are clear to auscultation. Heart: S1, S2 audible, no murmurs appreciated. Abdomen is soft, positive bowel sounds. No pedal edema. Skin intact. Neurologic examination: Patient is awake, alert, oriented times two. Labs and Radiology: Reviewed. 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 Patient was started on Macrobid on Monday for an UTI after the martínez cath change on 08/02/18. Urinalysis and culture was sent and the cultures came back actually today positive for Proteus mirabilis greater than 100,000, sensitive to Rocephin. Patient was given a dose of IV ceftriaxone in [place] and sent to the ED. Pateint was admitted for UTI with sepsis. Urinary tract infection related to indwelling martínez catheter has recent catheter change on 08/02/18 urine culture form 08/03 growing Proteus was getting macrobid in [place] but then as resistent to macrobid. Pateint is allergic to levofloxacinand now with worsening creatinnine bactrim cannot be safely give so was sent to hospital continue ceftriazone. Sepsis as indicated by SBP< 100, some altered mentation but this is difficult to dress designer as patient has some dementia worsening kidney function, BPH with chronic indwelling martínez Martínez changed on 08/02/18. patient started with symptoms of UTi on 08/03/18 continue flomax and finasteride. COPD not in exacerbation continue nebs CKD stage 3 with baseline creatinine of about 1.5 now slight elevation from baseline probably due to the infection Hypotension with lactic acidosis on admission Lactate improved after hydration due to infection , sepsis all antihypertensives held H/o Bilateral Pulmonary embolism on xarelto GERD continue omeprazole Chronic back pain. continue tramadol and gabapentin Brace if available Dementia not on any meds. IV infiltrated 08/07/18 replaced warm compression and elevate DVT prophylaxis patient on xarelto VS, I&O, 24H, Fishbone Vital Signs/I&O Vital Signs Date Time Temp Pulse Resp B/P (MAP) Pulse Ox O2 Delivery O2 Flow Rate FiO2 08/06/18 22:30 98.2 08/06/18 22:01 106 133/72 08/06/18 22:00 20 96 08/05/18 17:51 Room Air I&O- Last 24 Hours up to 6 AM 08/07/18 06:00 Intake Total 780 ml Output Total 725 ml Balance 55 ml Laboratory Data 24H LABS Laboratory Tests 2 08/06/18 05:41: Immature Granulocyte % (Auto) 0.8, White Blood Count 19.6H, Red Blood Count 3.75L, Hemoglobin 10.7L, Hematocrit 33.5L, Mean Corpuscular Volume 89.3, Mean Corpuscular Hemoglobin 28.5, Mean Corpuscular Hemoglobin Concent 31.9L, Red Cell Distribution Width 16.0H, Platelet Count 262, Neutrophils (%) (Auto) 84.7H, Lymphocytes (%) (Auto) 2.7L, Monocytes (%) (Auto) 6.9H, Eosinophils (%) (Auto) 4.6H, Basophils (%) (Auto) 0.3, Neutrophils # (Auto) 16.6H, Lymphocytes # (Auto) 0.5L, Monocytes # (Auto) 1.4H, Eosinophils # (Auto) 0.9H, Basophils # (Auto) 0.1, Nucleated Red Blood Cells % (auto) 0.0, Anion Gap 8, Glomerular Filtration Rate 42.8, Blood Urea Nitrogen 28H, Creatinine 1.65H, Sodium Level 145, Potassium Level 3.8, Chloride Level 113H, Carbon Dioxide Level 24, Calcium Level 7.2L CBC/BMP Laboratory Tests 08/06/18 05:41 Red Blood Count 3.75 L, Mean Corpuscular Volume 89.3, Mean Corpuscular Hemoglobin 28.5, Mean Corpuscular Hemoglobin Concent 31.9 L, Red Cell Distribution Width 16.0 H, Neutrophils (%) (Auto) 84.7 H, Lymphocytes (%) (Auto) 2.7 L, Monocytes (%) (Auto) 6.9 H, Eosinophils (%) (Auto) 4.6 H, Basophils (%) (Auto) 0.3, Neutrophils # (Auto) 16.6 H, Lymphocytes # (Auto) 0.5 L, Monocytes # (Auto) 1.4 H, Eosinophils # (Auto) 0.9 H, Basophils # (Auto) 0.1, Calcium Level 7.2 L Microbiology Microbiology 08/05/18 Blood Culture - Preliminary, Resulted No growth after 24 hours . All specim... 08/05/18 Blood Culture - Preliminary, Resulted No growth after 24 hours . All specim... GARCÍA GOLDBERG MD Aug 07, 2018 04:30
[2018-08-07 14:00] VITALS: BP 122/70
[2018-08-07] MEDS: RIVAROXABAN 15 MG TAB (XARELTO) PO SCH (20:30)
[2018-08-07] MEDS: TAMSULOSIN 0.4 MG CAP PO SCH (20:31)
[2018-08-07] MEDS: FLUTICASONE PROP 0.05% NASAL SPRAY 16 GM (FLONASE) SCH (20:32)
[2018-08-07 22:00] VITALS: BP 122/63
[2018-08-08 06:00] VITALS: BP 116/65
[2018-08-08 06:30] LABS: BASO % 0.4 % (0.0-1.0); EOS # 1.1 10^3/uL (0.0-0.50); EOS % 11.4 % (0.0-3.0); HEMATOCRIT 32.2 % (42.0-52.0); HEMOGLOBIN 10.4 g/dl (13.5-17.5); LYMPH # 1.3 10^3/uL (1.5-4.5); LYMPH % 13.1 % (24.0-44.0); MEAN CORPUSCULAR HEMOGLOBIN 28.3 pg (27.0-33.0); MEAN CORPUSCULAR HGB CONC 32.3 g/dl (32.0-36.5); MEAN CORPUSCULAR VOLUME 87.5 fl (80.0-96.0); MONO # 0.9 10^3/uL (0.0-0.8); NEUTROPHILS # 6.4 10^3/uL (1.8-7.7); NEUTROPHILS % 65.6 % (36.0-66.0); PLATELET COUNT, AUTOMATED 290 10^3/uL (150-450); RED BLOOD COUNT 3.68 10^6/uL (4.30-6.10); WHITE BLOOD COUNT 9.7 10^3/uL (4.0-10.0)
[2018-08-08 06:52] LABS: BLOOD UREA NITROGEN 21 MG/DL (7-18); CALCIUM LEVEL 8.3 MG/DL (8.8-10.2); CARBON DIOXIDE LEVEL 24 MEQ/L (21-32); CHLORIDE LEVEL 114 MEQ/L (98-107); CREATININE FOR GFR 1.17 MG/DL (0.70-1.30); GLOMERULAR FILTRATION RATE > 60.0 (>35); GLUCOSE, FASTING 87 MG/DL (70-100); POTASSIUM SERUM 3.9 MEQ/L (3.5-5.1); SODIUM LEVEL 145 MEQ/L (136-145)
[2018-08-08 07:55] VITALS: BP 130/76
[2018-08-08] MEDS: cefTRIAXone SOD 1 GM in D5W MINI-BAG PLUS 50 ML IV SCH (08:58)
[2018-08-08] MEDS: SYMBICORT 160/4.5MCG INHALER 6GM INH SCH ×2 (09:00→21:13)
[2018-08-08] MEDS: MULTIVITAMINS/MINERALS THERAP 1 TAB PO SCH (09:00)
[2018-08-08] MEDS: OMEPRAZOLE 20 MG CAP PO SCH ×2 (09:01→20:54)
[2018-08-08] MEDS: ASPIRIN 81 MG ENTERIC TAB PO SCH (09:01)
[2018-08-08] MEDS: FINASTERIDE 5 MG TAB PO SCH (09:01)
[2018-08-08] MEDS: GABAPENTIN 400 MG CAP PO SCH ×3 (09:01→20:54)
[2018-08-08] MEDS: METOPROLOL TART 12.5 MG PER 1/2 TAB PO SCH ×2 (09:06→20:54)
[2018-08-08] MEDS: NS 1,000 ML IV SCH ×2 (11:41→22:11)
--- NOTE | 2018-08-08 11:47 | IPNPDOC ---
Date Seen The patient was seen on 08/08/18. Progress Note SUBJECTIVE: not passed HSE by physical therapy "1-2 more sessions." Urine cx : proteus sensitive to augmentin, bactrim, levaquin, resistant to nitrofurantoin. allergic to levaquin, and acute kidney injury. therefore, bactrim cannot be used. pt is anxious to go back to assisted living, but concerned about recurrent UTI. left hand iv infiltrated 08/07/18 and pt c/o pain and requests removal. iv abx for uti continued. he denies any fever, dysuria, urgency , frequency or chills OBJECTIVE: PHYSICAL EXAM: Vital signs: As Below Head is atraumatic, normocephalic. Neck is supple, no jugular venous distention (JVD). Lungs are clear to auscultation. Heart: S1, S2 audible, no murmurs appreciated. Abdomen is soft, positive bowel sounds. No pedal edema. Skin intact. Neurologic examination: Patient is awake, alert, oriented times two. Labs and Radiology: Reviewed. 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 Patient was started on Macrobid on Monday for an UTI after the martínez cath change on 08/02/18. Urinalysis and culture was sent and the cultures came back actually today positive for Proteus mirabilis greater than 100,000, sensit petra to Rocephin. Patient was given a dose of IV ceftriaxone in [place] and sent to the ED. Pateint was admitted for UTI with sepsis. Urinary tract infection related to indwelling martínez catheter has recent catheter change on 08/02/18 urine culture form 08/03 growing Proteus was getting macrobid in [place] but then as resistent to macrobid. Pateint is allergic to levofloxacinand now with worsening creatinnine bactrim cannot be safely give so was sent to hospital continue ceftriazone. Sepsis as indicated by SBP< 100, some altered mentation but this is difficult to family sociologist as patient has some dementia worsening kidney function, BPH with chronic indwelling martínez Martínez changed on 08/02/18. patient started with symptoms of UTi on 08/03/18 continue flomax and finasteride. COPD not in exacerbation continue nebs CKD stage 3 with baseline creatinine of about 1.5 now slight elevation from baseline probably due to the infection Hypotension with lactic acidosis on admission Lactate improved after hydration due to infection , sepsis all antihypertensives held H/o Bilateral Pulmonary embolism on xarelto GERD continue omeprazole Chronic back pain. continue tramadol and gabapentin Brace if available Dementia not on any meds. IV infiltrated 08/07/18 replaced warm compression and elevate DVT prophylaxis patient on xarelto VS, I&O, 24H, Fishbone Vital Signs/I&O Vital Signs Date Time Temp Pulse Resp B/P (MAP) Pulse Ox O2 Delivery O2 Flow Rate FiO2 08/07/18 22:00 97.8 79 20 122/63 (82) 94 08/05/18 17:51 Room Air I&O- Last 24 Hours up to 6 AM 08/08/18 06:00 Intake Total 530 ml Output Total 900 ml Balance -370 ml Laboratory Data 24H LABS Laboratory Tests 2 08/08/18 06:10: Immature Granulocyte % (Auto) 0.5, White Blood Count 9.7, Red Blood Count 3.68L, Hemoglobin 10.4L, Hematocrit 32.2L, Mean Corpuscular Volume 87.5, Mean Corpus cular Hemoglobin 28.3, Mean Corpuscular Hemoglobin Concent 32.3, Red Cell Distribution Width 15.9H, Platelet Count 290, Neutrophils (%) (Auto) 65.6, Lymphocytes (%) (Auto) 13.1L, Monocytes (%) (Auto) 9.0H, Eosinophils (%) (Auto) 11.4H, Basophils (%) (Auto) 0.4, Neutrophils # (Auto) 6.4, Lymphocytes # (Auto) 1.3L, Monocytes # (Auto) 0.9H, Eosinophils # (Auto) 1.1H, Basophils # (Auto) 0.0, Nucleated Red Blood Cells % (auto) 0.0, Anion Gap 7L, Glomerular Filtration Rate > 60.0, Blood Urea Nitrogen 21H, Creatinine 1.17, Sodium Level 145, Potassium Level 3.9, Chloride Level 114H, Carbon Dioxide Level 24, Calcium Level 8.3L CBC/BMP Laboratory Tests 08/08/18 06:10 Red Blood Count 3.68 L, Mean Corpuscular Volume 87.5, Mean Corpuscular Hemoglobin 28.3, Mean Corpuscular Hemoglobin Concent 32.3, Red Cell Distribution Width 15.9 H, Neutrophils (%) (Auto) 65.6, Lymphocytes (%) (Auto) 13.1 L, Monocytes (%) (Auto) 9.0 H, Eosinophils (%) (Auto) 11.4 H, Basophils (%) (Auto) 0.4, Neutrophils # (Auto) 6.4, Lymphocytes # (Auto) 1.3 L, Monocytes # (Auto) 0.9 H, Eosinophils # (Auto) 1.1 H, Basophils # (Auto) 0.0, Calcium Level 8.3 L Microbiology Microbiology 08/05/18 Blood Culture - Preliminary, Resulted No Growth after 48 hours. All Specime... 08/05/18 Blood Culture - Preliminary, Resulted No Growth after 48 hours. All Specime... GARCÍA GOLDBERG MD Aug 08, 2018 07:32
[2018-08-08 14:00] VITALS: BP 131/70
[2018-08-08] MEDS: TAMSULOSIN 0.4 MG CAP PO SCH (20:54)
[2018-08-08] MEDS: RIVAROXABAN 15 MG TAB (XARELTO) PO SCH (20:54)
[2018-08-08] MEDS: FLUTICASONE PROP 0.05% NASAL SPRAY 16 GM (FLONASE) SCH (20:55)
[2018-08-08] MEDS: TIOTROPIUM INHALER/CAPSULE (SPIRIVA) INH SCH ×2 (21:13→21:14)
[2018-08-08 22:00] VITALS: BP 132/68
[2018-08-09 06:00] VITALS: BP 113/71
[2018-08-09 07:12] LABS: BASO # 0.1 10^3/uL (0.0-0.2); BASO % 0.4 % (0.0-1.0); EOS % 7.4 % (0.0-3.0); HEMATOCRIT 39.5 % (42.0-52.0); LYMPH # 0.8 10^3/uL (1.5-4.5); LYMPH % 6.3 % (24.0-44.0); MEAN CORPUSCULAR HEMOGLOBIN 27.9 pg (27.0-33.0); MEAN CORPUSCULAR HGB CONC 31.4 g/dl (32.0-36.5); MEAN CORPUSCULAR VOLUME 88.8 fl (80.0-96.0); MONO % 7.5 % (0.0-5.0); NEUTROPHILS # 10.4 10^3/uL (1.8-7.7); PLATELET COUNT, AUTOMATED 320 10^3/uL (150-450); RED BLOOD COUNT 4.45 10^6/uL (4.30-6.10); WHITE BLOOD COUNT 13.3 10^3/uL (4.0-10.0)
[2018-08-09 07:23] LABS: HEMOGLOBIN 12.4 g/dl (13.5-17.5)
[2018-08-09 07:38] LABS: BLOOD UREA NITROGEN 20 MG/DL (7-18); CALCIUM LEVEL 8.1 MG/DL (8.8-10.2); CARBON DIOXIDE LEVEL 24 MEQ/L (21-32); CHLORIDE LEVEL 115 MEQ/L (98-107); CREATININE FOR GFR 1.13 MG/DL (0.70-1.30); GLOMERULAR FILTRATION RATE > 60.0 (>35); GLUCOSE, FASTING 77 MG/DL (70-100); POTASSIUM SERUM 3.9 MEQ/L (3.5-5.1); SODIUM LEVEL 146 MEQ/L (136-145)
[2018-08-09] MEDS: METOPROLOL TART 12.5 MG PER 1/2 TAB PO SCH ×2 (09:00→22:30)
[2018-08-09] MEDS: NS 1,000 ML IV SCH (09:39)
[2018-08-09] MEDS: FINASTERIDE 5 MG TAB PO SCH (09:40)
[2018-08-09] MEDS: cefTRIAXone SOD 1 GM in D5W MINI-BAG PLUS 50 ML IV SCH (09:40)
[2018-08-09] MEDS: MULTIVITAMINS/MINERALS THERAP 1 TAB PO SCH (09:41)
[2018-08-09] MEDS: OMEPRAZOLE 20 MG CAP PO SCH ×2 (09:41→22:26)
[2018-08-09] MEDS: ASPIRIN 81 MG ENTERIC TAB PO SCH (09:41)
[2018-08-09] MEDS: GABAPENTIN 400 MG CAP PO SCH ×3 (09:41→22:31)
[2018-08-09] MEDS: SYMBICORT 160/4.5MCG INHALER 6GM INH SCH ×2 (10:22→21:45)
--- NOTE | 2018-08-09 13:05 | IPNPDOC ---
Date Seen The patient was seen on 08/09/18. Progress Note SUBJECTIVE: c/o profuse diarrhea this morning upon awakening, soiling his bedsheets and clothes. no abdominal pain, fever, chills, no nausea/vomiting. discharge postponed. OBJECTIVE: PHYSICAL EXAM: Vital signs: As Below Head is atraumatic, normocephalic. Neck is supple, no jugular venous distention (JVD). Lungs are clear to auscultation. Heart: S1, S2 audible, no murmurs appreciated. Abdomen is soft, positive bowel sounds. No pedal edema. Skin intact. Neurologic examination: Patient is awake, alert, oriented times two. Labs and Radiology: Reviewed. 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 Patient was started on Macrobid on Monday for an UTI after the martínez cath change on 08/02/18. Urinalysis and culture was sent and the cultures came back actually today positive for Proteus mirabilis greater than 100,000, sensitive to Rocephin. Patient was given a dose of IV ceftriaxone in [place] and sent to the ED. Pateint was admitted for UTI with sepsis. diarrhea ddx: antibiotic induced vs. cdiff bacid and yogurt tid w meals and hs pcr cdiff po vanco q6hrs x 7days Urinary tract infection related to indwelling martínez catheter has recent catheter change on 08/02/18 urine culture form 08/03 growing Proteus was getting macrobid in [place] but then as resistent to macrobid. Pateint is allergic to levofloxacinand now with worsening creatinnine bactrim cannot be safely give so was sent to hospital continue ceftriazone. Sepsis as indicated by SBP< 100, some altered mentation but this is difficult to justice court judge as patient has some dementia worsening kidney function, BPH with chronic indwelling martínez Martínez changed on 08/02/18. patient started with symptoms of UTi on 08/03/18 continue flomax and finasteride. COPD not in exacerbation continue nebs CKD stage 3 with baseline creatinine of about 1.5 now slight elevation from baseline probably due to the infection Hypotension with lactic acidosis on admission Lactate improved after hydration due to infection , sepsis all antihypertensives held H/o Bilateral Pulmonary embolism on xarelto GERD continue omeprazole Chronic back pain. continue tramadol and gabapentin Brace if available Dementia not on any meds. IV infiltrated 08/07/18 replaced warm compression and elevate DVT prophylaxis patient on xarelto VS, I&O, 24H, Fishbone Vital Signs/I&O Vital Signs Date Time Temp Pulse Resp B/P (MAP) Pulse Ox O2 Delivery O2 Flow Rate FiO2 08/09/18 09:00 85 113/71 08/09/18 06:00 98.4 18 95 08/05/18 17:51 Room Air I&O- Last 24 Hours up to 6 AM 08/09/18 06:00 Intake Total 1800 ml Output Total 1300 ml Balance 500 ml Laboratory Data 24H LABS Laboratory Tests 2 08/09/18 06:51: Immature Granulocyte % (Auto) 0.4, White Blood Count 13.3H, Red Blood Count 4.45, Hemoglobin 12.4#L, Hematocrit 39.5L, Mean Corpuscular Volume 88.8, Mean Corpuscular Hemoglobin 27.9, Mean Corpuscular Hemoglobin Concent 31.4L, Red Cell Distribution Width 16.0H, Platelet Count 320, Neutrophils (%) (Auto) 78.0H, Lymphocytes (%) (Auto) 6.3L, Monocytes (%) (Auto) 7.5H, Eosinophils (%) (Auto) 7.4H, Basophils (%) (Auto) 0.4, Neutrophils # (Auto) 10.4H, Lymphocytes # (Auto) 0.8L, Monocytes # (Auto) 1.0H, Eosinophils # (Auto) 1.0H, Basophils # (Auto) 0.1, Nucleated Red Blood Cells % (auto) 0.0, Anion Gap 7L, Glomerular Filtration Rate > 60.0, Blood Urea Nitrogen 20H, Creatinine 1.13, Sodium Level 146H, Potassium Level 3.9, Chloride Level 115H, Carbon Dioxide Level 24, Calcium Level 8.1L CBC/BMP Laboratory Tests 08/09/18 06:51 Red Blood Count 4.45, Mean Corpuscular Volume 88.8, Mean Corpuscular Hemoglobin 27.9, Mean Corpuscular Hemoglobin Concent 31.4 L, Red Cell Distribution Width 16.0 H, Neutrophils (%) (Auto) 78.0 H, Lymphocytes (%) (Auto) 6.3 L, Monocytes (%) (Auto) 7.5 H, Eosinophils (%) (Auto) 7.4 H, Basophils (%) (Auto) 0.4, Neutrophils # (Auto) 10.4 H, Lymphocytes # (Auto) 0.8 L, Monocytes # (Auto) 1.0 H, Eosinophils # (Auto) 1.0 H, Basophils # (Auto) 0.1, Calcium Level 8.1 L Microbiology Microbiology 08/05/18 Blood Culture - Preliminary, Resulted No Growth after 72 hours. All specime... 08/05/18 Blood Culture - Preliminary, Resulted No Growth after 72 hours. All specime... GARCÍA GOLDBERG MD Aug 09, 2018 13:05
[2018-08-09] MEDS: LACTOBACILLUS ACIDOPHILUS CAP (BACID) PO SCH ×3 (13:53→22:30)
[2018-08-09 14:00] VITALS: BP 138/77
[2018-08-09 17:58] LABS: CLOSTRIDIUM DIFFICILE PCR NEGATIVE (NEGATIVE)
[2018-08-09] MEDS: TIOTROPIUM INHALER/CAPSULE (SPIRIVA) INH SCH (21:00)
[2018-08-09 22:00] VITALS: BP 138/68
[2018-08-09] MEDS: TAMSULOSIN 0.4 MG CAP PO SCH (22:31)
[2018-08-09] MEDS: FLUTICASONE PROP 0.05% NASAL SPRAY 16 GM (FLONASE) SCH (22:31)
[2018-08-09] MEDS: RIVAROXABAN 15 MG TAB (XARELTO) PO SCH (22:31)
[2018-08-09] MEDS: ACETAMINOPHEN TAB 650MG DOSE (2X325MG) PO PRN (22:37)
[2018-08-10 06:00] VITALS: BP 146/70
[2018-08-10 06:25] LABS: BASO # 0.1 10^3/uL (0.0-0.2); BASO % 0.9 % (0.0-1.0); EOS # 1.1 10^3/uL (0.0-0.50); EOS % 11.6 % (0.0-3.0); HEMATOCRIT 33.5 % (42.0-52.0); HEMOGLOBIN 10.8 g/dl (13.5-17.5); LYMPH # 1.7 10^3/uL (1.5-4.5); LYMPH % 18.8 % (24.0-44.0); MEAN CORPUSCULAR HEMOGLOBIN 28.6 pg (27.0-33.0); MEAN CORPUSCULAR HGB CONC 32.2 g/dl (32.0-36.5); MEAN CORPUSCULAR VOLUME 88.9 fl (80.0-96.0); MONO % 11.3 % (0.0-5.0); NEUTROPHILS # 5.3 10^3/uL (1.8-7.7); NEUTROPHILS % 56.9 % (36.0-66.0); PLATELET COUNT, AUTOMATED 304 10^3/uL (150-450); RED BLOOD COUNT 3.77 10^6/uL (4.30-6.10); WHITE BLOOD COUNT 9.2 10^3/uL (4.0-10.0)
[2018-08-10 06:52] LABS: BLOOD UREA NITROGEN 23 MG/DL (7-18); CALCIUM LEVEL 7.6 MG/DL (8.8-10.2); CARBON DIOXIDE LEVEL 22 MEQ/L (21-32); CHLORIDE LEVEL 116 MEQ/L (98-107); CREATININE FOR GFR 1.15 MG/DL (0.70-1.30); GLOMERULAR FILTRATION RATE > 60.0 (>35); GLUCOSE, FASTING 81 MG/DL (70-100); POTASSIUM SERUM 3.5 MEQ/L (3.5-5.1); SODIUM LEVEL 145 MEQ/L (136-145)
[2018-08-10] MEDS: OMEPRAZOLE 20 MG CAP PO SCH (07:40)
[2018-08-10] MEDS: ASPIRIN 81 MG ENTERIC TAB PO SCH (07:40)
[2018-08-10] MEDS: LACTOBACILLUS ACIDOPHILUS CAP (BACID) PO SCH (07:40)
[2018-08-10] MEDS ORDERED: BACT800T5 PO (07:40)
[2018-08-10] MEDS: FINASTERIDE 5 MG TAB PO SCH (07:40)
[2018-08-10] MEDS: GABAPENTIN 400 MG CAP PO SCH (07:40)
[2018-08-10] MEDS: MULTIVITAMINS/MINERALS THERAP 1 TAB PO SCH (07:40)
[2018-08-10 07:41] VITALS: BP 146/70
[2018-08-10] MEDS: METOPROLOL TART 12.5 MG PER 1/2 TAB PO SCH (07:41)
[2018-08-10] MEDS: cefTRIAXone SOD 1 GM in D5W MINI-BAG PLUS 50 ML IV SCH (07:41)
[2018-08-10] MEDS: TIOTROPIUM INHALER/CAPSULE (SPIRIVA) INH SCH (07:59)
[2018-08-10] MEDS: SYMBICORT 160/4.5MCG INHALER 6GM INH SCH (08:00)
--- NOTE | 2018-08-10 14:04 | DS.PDOC ---
Discharge Summary General Date of Admission Aug 05, 2018 at 17:54 Date of Discharge 08/10/18 Discharge Summary DISCHARGE DIAGNOSES: diarrhea antibiotic induced Urinary tract infection related to indwelling martínez catheter Sepsis BPH with chronic indwelling martínez COPD CKD stage 3 with baseline creatinine of about 1.5 Hypotension with lactic acidosis on admission H/o Bilateral Pulmonary embolism GERD Chronic back pain. 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 Patient was started on Macrobid on Monday for an UTI after the martínez cath change on 08/02/18. Urinalysis and culture was sent and the cultures came back actually today positive for Proteus mirabilis greater than 100,000, sensitive to Rocephin. Patient was given a dose of IV [place] in [place] and sent to the ED. Pateint was admitted for UTI with sepsis. HOSPITAL COURSE: diarrhea, resolved ddx: antibiotic induced vs. cdiff bacid and yogurt tid w meals and hs pcr cdiff negative Urinary tract infection related to indwelling martínez catheter has recent catheter change on 08/02/18 urine culture form 08/03 growing Proteus was getting macrobid in [place] but then as resistent to macrobid. Pateint is allergic to levofloxacinand now with worsening creatinnine bactrim cannot be safely give so was sent to hospital continue ceftriazone. 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 patient started with symptoms of UTi on 08/03/18 continue flomax and finasteride. COPD not in exacerbation continue nebs CKD stage 3 with baseline creatinine of about 1.5 now slight elevation from baseline probably due to the infection Hypotension with lactic acidosis on admission Lactate improved after hydration due to infection , sepsis all antihypertensives held H/o Bilateral Pulmonary embolism on xarelto GERD continue omeprazole Chronic back pain. continue tramadol and gabapentin Brace if available Dementia not on any meds. IV infiltrated 08/07/18 replaced warm compression and elevate DVT prophylaxis patient on xarelto DISCHARGE PHYSICAL EXAM: Vital signs: As Below Head is atraumatic, normocephalic. Neck is supple, no jugular venous distention (JVD). Lungs are clear to auscultation. Heart: S1, S2 audible, no murmurs appreciated. Abdomen is soft, positive bowel sounds. No pedal edema. Skin intact. Neurologic examination: Patient is awake, alert, oriented times two. DISCHARGE Labs, MICROBIOLOGY and Radiology: PLS SEE BELOW TIME SPENT ON DISCHARGE: 30 MIN Vital Signs/I&Os Vital Signs Date Time Temp Pulse Resp B/P (MAP) Pulse Ox O2 Delivery O2 Flow Rate FiO2 08/10/18 07:41 67 146/70 08/10/18 06:00 98.3 20 96 08/05/18 17:51 Room Air I&O- Last 24 Hours up to 6 AM 08/10/18 06:00 Intake Total 1480 ml Output Total 950 ml Balance 530 ml Laboratory Data Labs 24H Laboratory Tests 2 08/09/18 17:01: Stool Clostridium difficile Result NEGATIVE, Clostridium difficile (PCR)(LAB) NEGATIVE 08/10/18 06:13: Immature Granulocyte % (Auto) 0.5, White Blood Count 9.2, Red Blood Count 3.77L, Hemoglobin 10.8L, Hematocrit 33.5L, Mean Corpuscular Volume 88.9, Mean Co rpuscular Hemoglobin 28.6, Mean Corpuscular Hemoglobin Concent 32.2, Red Cell Distribution Width 16.1H, Platelet Count 304, Neutrophils (%) (Auto) 56.9, Lymphocytes (%) (Auto) 18.8L, Monocytes (%) (Auto) 11.3H, Eosinophils (%) (Auto) 11.6H, Basophils (%) (Auto) 0.9, Neutrophils # (Auto) 5.3, Lymphocytes # (Auto) 1.7, Monocytes # (Auto) 1.0H, Eosinophils # (Auto) 1.1H, Basophils # (Auto) 0.1, Nucleated Red Blood Cells % (auto) 0.0, Anion Gap 7L, Glomerular Filtration Rate > 60.0, Blood Urea Nitrogen 23H, Creatinine 1.15, Sodium Level 145, Potassium Level 3.5, Chloride Level 116H, Carbon Dioxide Level 22, Calcium Level 7.6L CBC/BMP Laboratory Tests 08/10/18 06:13 Red Blood Count 3.77 L, Mean Corpuscular Volume 88.9, Mean Corpuscular Hemoglobin 28.6, Mean Corpuscular Hemoglobin Concent 32.2, Red Cell Distribution Width 16.1 H, Neutrophils (%) (Auto) 56.9, Lymphocytes (%) (Auto) 18.8 L, Monocytes (%) (Auto) 11.3 H, Eosinophils (%) (Auto) 11.6 H, Basophils (%) (Auto) 0.9, Neutrophils # (Auto) 5.3, Lymphocytes # (Auto) 1.7, Monocytes # (Auto) 1.0 H, Eosinophils # (Auto) 1.1 H, Basophils # (Auto) 0.1, Calcium Level 7.6 L Microbiology Microbiology 08/05/18 Blood Culture - Preliminary, Resulted No Growth after 72 hours. All specime... 08/05/18 Blood Culture - Preliminary, Resulted No Growth after 72 hours. All specime... 08/09/18 Urine Culture - Final, Complete Discharge Medications Scheduled (Restasis Multidose) 0.05 % Emu, 1 DROP OU BID, (Reported) Albuterol/Ipratropium (Ipratropium [place]/Albut 0.5-2.5 (3) mg/3Ml) 1 Zelda Zelda, 1 NEB INH QID, (Reported) 0000, 0600, 1200, 1800 Aspirin (Aspirin EC) 81 Mg Tabec, 81 MG PO DAILY, (Reported) Budesonide/Formoterol (Symbicort 160-4.5 Mcg/Act) 60 Puff/Inhaler Aers, 2 PUFF INH BID, (Reported) 0900, 1700 Finasteride (Finasteride) 5 Mg Tab, 5 MG PO DAILY, (Reported) Fluticasone Propionate (Flonase Allergy Relief) 50 Mcg/Act Spr, 2 SPRAYS NA QHS, (Reported) Gabapentin (Gabapentin) 400 Mg Cap, 400 MG PO TID, (Reported) Metoprolol Tartrate (Metoprolol Tartrate) 25 Mg Tab, 12.5 MG PO BID, (Reported) Multivitamins *[facility]OCK[facility]* (Thera M Plus *[facility]*) 1 Tab Tab, 1 TAB PO DAILY, (Reported) Nitrofurantoin Monohydrate Mac (Macrobid) 100 Mg Cap, 100 MG PO BID, (Reported) FOR 7 DAYS, STARTED 3/2 Omeprazole (Omeprazole) 40 Mg Cap, 40 MG PO BID, (Reported) 0600, 1600 Rivaroxaban (Xarelto) 15 Mg Tab, 15 MG PO QHS, (Reported) Roflumilast (Daliresp) 500 Mcg Tab, 500 MCG PO DAILY, (Reported) Sucralfate (Sucralfate) 1 Gm Tab, 1 GM PO TID, (Reported) 0600, 1200, 1600 Tamsulosin Hydrochloride (Flomax) 0.4 Mg Cap, 0.8 MG PO QHS, (Reported) Tiotropium [place] Monohydrate (Spiriva Handihaler) 18 Mcg Cap, 1 CAP INH QHS, (Reported) Trimethoprim/Sulfamethoxazole (Bactrim Ds 800-160 mg) 1 Tab Tab, 1 TAB PO BID Scheduled PRN Acetaminophen (Acetaminophen) 325 Mg Tab, 650 MG PO Q4H PRN for PAIN, (Reported) Albuterol/Ipratropium (Ipratropium [place]/Albut 0.5-2.5 (3) mg/3Ml) 1 Zelda Zelda, 1 NEB INH for SHORTNESS OF BREATH, (Reported) Calcium Carbonate (Tums) 500 Mg Chw, 500 MG PO DAILY PRN for GERD, (Reported) Milk Of Magnesia (Milk of Magnesia) 1,200 Mg/15 Ml Leia, 30 ML PO DAILY PRN for CONSTIPATION, (Reported) Tramadol HCl (Tramadol HCl) 50 Mg Tab, 50 MG PO TID PRN for PAIN, (Reported) Allergies Coded Allergies: Clarithromycin (Verified Allergy, Unknown, unknown, 01/23/18) Levofloxacin (Verified Allergy, Unknown, unknown, 01/23/18) GARCÍA GOLDBERG MD Aug 10, 2018 14:04
== END 2018-08-10 11:55 | DRG 698 ==
LOC: M ED 15:06 → EDBD 15:06 → M ED INP 17:54 → M MSPAV 20:22
PROVIDERS: ADMIT Internal Medicine; ATTEND General Practice
DX: T83.511A Infection and inflammatory reaction due to indwelling urethral catheter, initial encounter (principal); A41.9 Sepsis, unspecified organism; E87.2 Acidosis; N17.9 Acute kidney failure, unspecified; N18.3 Chronic kidney disease, stage 3 (moderate); F03.90 Unspecified dementia, unspecified severity, without behavioral disturbance, psychotic disturbance, mood disturbance, and anxiety; K21.9 Gastro-esophageal reflux disease without esophagitis; M54.5 Low back pain; J44.9 Chronic obstructive pulmonary disease, unspecified; N40.0 Benign prostatic hyperplasia without lower urinary tract symptoms; R19.7 Diarrhea, unspecified; N39.0 Urinary tract infection, site not specified; I95.9 Hypotension, unspecified; Z86.711 Personal history of pulmonary embolism; I12.9 Hypertensive chronic kidney disease with stage 1 through stage 4 chronic kidney disease, or unspecified chronic kidney disease; B96.4 Proteus (mirabilis) (morganii) as the cause of diseases classified elsewhere; Z79.899 Other long term (current) drug therapy; Z79.82 Long term (current) use of aspirin; Z88.1 Allergy status to other antibiotic agents; Z88.8 Allergy status to other drugs, medicaments and biological substances; Y84.6 Urinary catheterization as the cause of abnormal reaction of the patient, or of later complication, without mention of misadventure at the time of the procedure

== ENCOUNTER → 2018-10-25 | Outpatient (REF) | payer MEDICARE, MEDICAID ==
[~2018-10-25] MED LIST changes: -ASPI81CH PO; +ASPI81CH49 PO; +BACT800T5 PO; +REST0.057 OU
== END ==
LOC: M LAB REF 16:34
PROVIDERS: ATTEND Internal Medicine
DX: J44.1 Chronic obstructive pulmonary disease with (acute) exacerbation (principal)
CPT/HCPCS: 51701; 86140; G0463

== ENCOUNTER 2018-11-30 20:01 | Emergency (ER) | payer MEDICARE, MEDICAID ==
[~2018-11-30 20:01] MED LIST changes: -OMEP20CA3 PO; +OMEP20CA4 PO
[2018-11-30] MEDS ORDERED: ACET1TAB55 PO (20:45)
[2018-11-30] MEDS ORDERED: AMLO5TAB6 PO (20:45)
[2018-11-30 22:22] VITALS: BP 140/69
== END 2018-11-30 22:26 | disposition home or self-care (01) ==
LOC: M ED 20:01
DX: T83.091A Other mechanical complication of indwelling urethral catheter, initial encounter (principal); Y73.2 Prosthetic and other implants, materials and accessory gastroenterology and urology devices associated with adverse incidents; R33.9 Retention of urine, unspecified; N32.89 Other specified disorders of bladder; I11.9 Hypertensive heart disease without heart failure; J44.9 Chronic obstructive pulmonary disease, unspecified; N40.0 Benign prostatic hyperplasia without lower urinary tract symptoms; K21.9 Gastro-esophageal reflux disease without esophagitis; Z88.1 Allergy status to other antibiotic agents; Z79.899 Other long term (current) drug therapy; Z79.51 Long term (current) use of inhaled steroids; Z79.01 Long term (current) use of anticoagulants; Z79.82 Long term (current) use of aspirin

== ENCOUNTER → 2018-12-03 | Outpatient (REF) | payer MEDICARE, MEDICAID ==
[~2018-12-03] MED LIST changes: +AMLO5TAB6 PO; +OMEP20CA3 PO; -OMEP20CA4 PO
[2018-12-03 18:03] LABS: APPEARANCE, URINE TURBID (CLEAR); BACTERIA, URINE AUTO 2+ (NEGATIVE); BILIRUBIN, URINE AUTO NEGATIVE (NEGATIVE); BLOOD, URINE BLOOD 2+ (NEGATIVE); COLOR, URINE YELLOW (YELLOW); GLUCOSE, URINE (UA) AUTO NEGATIVE (NEGATIVE); KETONE, URINE AUTO NEGATIVE (NEGATIVE); LEUKOCYTE ESTERASE, URINE AUTO 3+ (NEGATIVE); NITRITE, URINE AUTO POSITIVE (NEGATIVE); PROTEIN, URINE AUTO 1+ mg/dL (NEGATIVE); RBC, URINE AUTO 83 /HPF (0-3); SPECIFIC GRAVITY URINE AUTO 1.013 (1.002-1.035); SQUAMOUS EPITHELIAL CELL UR AU 0 /HPF (0-6); UROBILINOGEN, URINE AUTO 0.2 mg/dL (0.0-2.0); WBC, URINE AUTO TNTC /HPF (0-3)
== END ==
LOC: M SMT 17:03
PROVIDERS: ATTEND Nurse Practitioner Women's Health
DX: R30.0 Dysuria (principal)

== ENCOUNTER → 2018-12-28 | Outpatient (REF) | payer MEDICARE, MEDICAID ==
[~2018-12-28] MED LIST changes: -OMEP20CA3 PO; +OMEP20CA4 PO
== END ==
LOC: M SMT 16:53
PROVIDERS: ATTEND Nurse Practitioner Women's Health
DX: N39.0 Urinary tract infection, site not specified (principal)

== ENCOUNTER → 2019-01-31 | Outpatient (REF) | payer MEDICARE, MEDICAID | LOC: M SMT 14:55 | PROVIDERS: ATTEND Nurse Practitioner Family | DX: R31.9 Hematuria, unspecified (principal) ==

== ENCOUNTER → 2019-02-15 | Outpatient (REF) | payer MEDICARE, MEDICAID | LOC: M LAB REF 16:48 | PROVIDERS: ATTEND Internal Medicine | DX: R05 Cough (principal) ==

== ENCOUNTER → 2019-02-20 | Outpatient (CLI) | payer MEDICARE, MEDICAID ==
--- NOTE | 2019-02-20 12:44 | REP ---
PA and lateral chest: Comparison is 08/16/2017. The right hemidiaphragm is elevated. This is unchanged. There is a loop of colon interposed between the right hemidiaphragm and dome of the liver. There is atelectasis in the right lower lobe adjacent to the right hemidiaphragm. The lung pak otherwise clear. Cardiac size normal. The hoda, mediastinum and skeletal structures are unremarkable. There is an unusual curvilinear density superimposed over the upper mid abdomen on the frontal view the of uncertain significance, possibly artifact from gowning. Impression: Atelectasis adjacent to the dome of the right hemidiaphragm. Elevated right hemidiaphragm. Electronically Signed by Gaston Ochoa MD 02/20/2019 12:35 P
== END ==
LOC: M SMT 10:02
PROVIDERS: ATTEND Internal Medicine
DX: R05 Cough (principal)

== ENCOUNTER → 2019-03-14 | Outpatient (REF) | payer MEDICARE, MEDICAID ==
[~2019-03-14] MED LIST changes: +LEVA1TAB2 PO; -OMEP40CA2 PO; +OMEP40CA97 PO; +TORS10TA3 PO; +TYLE650T38 PO
[2019-03-14 13:37] LABS: APPEARANCE, URINE TURBID (CLEAR); BACTERIA, URINE AUTO 1+ (NEGATIVE); BILIRUBIN, URINE AUTO NEGATIVE (NEGATIVE); BLOOD, URINE BLOOD 3+ (NEGATIVE); COLOR, URINE YELLOW (YELLOW); GLUCOSE, URINE (UA) AUTO NEGATIVE (NEGATIVE); KETONE, URINE AUTO NEGATIVE (NEGATIVE); LEUKOCYTE ESTERASE, URINE AUTO 2+ (NEGATIVE); NITRITE, URINE AUTO NEGATIVE (NEGATIVE); PROTEIN, URINE AUTO 2+ mg/dL (NEGATIVE); RBC, URINE AUTO 75 /HPF (0-3); SPECIFIC GRAVITY URINE AUTO 1.018 (1.002-1.035); SQUAMOUS EPITHELIAL CELL UR AU 4 /HPF (0-6); UROBILINOGEN, URINE AUTO 0.2 mg/dL (0.0-2.0); WBC, URINE AUTO TNTC /HPF (0-3)
== END ==
LOC: M LAB REF 12:47
PROVIDERS: ATTEND Nurse Practitioner Family
DX: N25.89 Other disorders resulting from impaired renal tubular function (principal)
CPT/HCPCS: 51702; 81001; 87088; 87186; G0463

== ENCOUNTER 2019-03-21 09:42 | Emergency (ER) | payer MEDICARE, MEDICAID ==
[~2019-03-21 09:42] MED LIST changes: -LEVA1TAB2 PO; -TORS10TA3 PO; -TYLE650T38 PO
[2019-03-21] MEDS ORDERED: LEVA1TAB2 PO (10:43)
[2019-03-21] MEDS ORDERED: TORS10TA3 PO (10:43)
[2019-03-21] MEDS ORDERED: TYLE650T38 PO (10:43)
[2019-03-21 10:53] LABS: BASO # 0.1 10^3/uL (0.0-0.2); BASO % 0.4 % (0.0-1.0); EOS # 0.4 10^3/uL (0.0-0.5); EOS % 2.8 % (0.0-3.0); HEMATOCRIT 37.5 % (42.0-52.0); HEMOGLOBIN 11.7 g/dl (13.5-17.5); LYMPH # 2.4 10^3/uL (1.5-5.0); LYMPH % 17.4 % (24.0-44.0); MEAN CORPUSCULAR HEMOGLOBIN 28.5 pg (27.0-33.0); MEAN CORPUSCULAR HGB CONC 31.2 g/dl (32.0-36.5); MEAN CORPUSCULAR VOLUME 91.2 fl (80.0-96.0); MONO # 1.1 10^3/uL (0.0-0.8); MONO % 8.2 % (0.0-5.0); NEUTROPHILS # 9.7 10^3/uL (1.5-8.5); NEUTROPHILS % 70.5 % (36.0-66.0); PLATELET COUNT, AUTOMATED 491 10^3/uL (150-450); RED BLOOD COUNT 4.11 10^6/uL (4.30-6.10); WHITE BLOOD COUNT 13.8 10^3/uL (4.0-10.0)
[2019-03-21 11:23] LABS: ALBUMIN 3.1 GM/DL (3.2-5.2); ALT/SGPT 17 U/L (12-78); BILIRUBIN,DIRECT < 0.1 MG/DL (0.0-0.2); BILIRUBIN,TOTAL 0.2 MG/DL (0.2-1.0); BLOOD UREA NITROGEN 34 MG/DL (7-18); CALCIUM LEVEL 8.8 MG/DL (8.8-10.2); CARBON DIOXIDE LEVEL 26 MEQ/L (21-32); CHLORIDE LEVEL 110 MEQ/L (98-107); CK-MB VALUE MASS 3.2 NG/ML (<3.6); CPK CREATINE PHOSPHOKINASE 149 U/L (39-308); CREATININE FOR GFR 1.66 MG/DL (0.70-1.30); FREE T4 0.93 NG/DL (0.76-1.46); GLOMERULAR FILTRATION RATE 42.4 (>35); GLUCOSE, FASTING 92 MG/DL (70-100); LIPASE 80 U/L (73-393); MB/CK RELATIVE INDEX 2.15 (< OR =4); NT-PRO BNP 380 PG/ML (<450); POTASSIUM SERUM 3.5 MEQ/L (3.5-5.1); SODIUM LEVEL 142 MEQ/L (136-145); THYROID STIMULATING HORMONE 0.861 uIU/ML (0.358-3.740); TOTAL PROTEIN 6.3 GM/DL (6.4-8.2); TROPONIN I < 0.02 NG/ML (< 0.10)
--- NOTE | 2019-03-21 11:25 | REP ---
Single view chest: 03/21/2019. Indication: Chest pain. Comparison: 02/20/2019. Findings: Compared to last month study, no significant changes are present. Elevation of the right hemidiaphragm and bibasilar atelectasis are redemonstrated. No significant pleural fluid is present. There is no pneumothorax detected. Cardiac silhouette is unremarkable. Impression: No acute changes compared to last month. Electronically Signed by Daniele Gallardo DO 03/21/2019 11:17 A
[2019-03-21 12:32] LABS: INR 1.22; PROTHROMBIN TIME 15.1 SECONDS (11.8-14.0)
[2019-03-21 12:33] LABS: PARTIAL THROMBOPLASTIN TIME 38.6 SECONDS (25.0-38.4)
--- NOTE | 2019-03-21 15:42 | ECGEPIP ---
[facility] [place] - ED Test Date: 2019-03-21 Pat Name: MIC CASTRO Department: Room: - Gender: Male Meterman: : 1935 Requested By: Maddie Vergara Order Number: [id number] Reading MD: Betsy Coppola Measurements Intervals [place] Rate: 83 P: 15 ME: 166 QRS: -28 QRSD: 88 T: 0 QT: 372 QTc: 438 Interpretive Statements SINUS RHYTHM INFERIOR MYOCARDIAL INFARCTION, PROBABLY OLD NSTTW abnormalities DECREASED RATE 08/05/18 Electronically Signed on 03-21-2019 15:41:46 EDT by Betsy Coppola
[2019-03-21 17:03] LABS: CK-MB VALUE MASS 2.8 NG/ML (<3.6); CPK CREATINE PHOSPHOKINASE 122 U/L (39-308); TROPONIN I < 0.02 NG/ML (< 0.10)
[2019-03-21 18:17] VITALS: BP 158/81
--- NOTE | 2019-03-22 19:37 | ECGEPIP ---
[facility] - ED Test Date: 2019-03-21 Pat Name: MIC CASTRO Department: Room: - Gender: Male Molder Shoulder Pad: : 1935 Requested By: Maddie Vergara Order Number: [id number] Reading MD: Maddie Vergara Measurements Intervals [place] Rate: 73 P: 16 DC: 168 QRS: -24 QRSD: 80 T: -5 QT: 379 QTc: 420 Interpretive Statements SINUS RHYTHM INFERIOR MYOCARDIAL INFARCTION, PROBABLY OLD NONSPECIFIC ST T WAVE CHANGES DELAYED R WAVE PROGRESSION CW 03/21/[address] T WAVE CHANGES Electronically Signed on 03-22-2019 19:36:42 EDT by Maddie Vergara
== END 2019-03-21 18:23 | disposition home or self-care (01) ==
LOC: EDBD 09:42 → M ED 09:42
DX: R68.84 Jaw pain (principal); M79.602 Pain in left arm; I25.10 Atherosclerotic heart disease of native coronary artery without angina pectoris; I50.9 Heart failure, unspecified; I10 Essential (primary) hypertension; F03.90 Unspecified dementia, unspecified severity, without behavioral disturbance, psychotic disturbance, mood disturbance, and anxiety; J44.9 Chronic obstructive pulmonary disease, unspecified; K21.9 Gastro-esophageal reflux disease without esophagitis; Z87.448 Personal history of other diseases of urinary system; Z87.891 Personal history of nicotine dependence; Z79.82 Long term (current) use of aspirin; Z79.899 Other long term (current) drug therapy; Z88.1 Allergy status to other antibiotic agents; Z88.8 Allergy status to other drugs, medicaments and biological substances

== ENCOUNTER 2019-05-11 17:11 | Inpatient (IN) | payer MEDICARE, MEDICAID ==
[~2019-05-11] VITALS: Ht 170.2 cm; Wt 66.1 kg
[2019-05-11] MEDS: GABAPENTIN 400 MG CAP PO SCH (01:59)
[2019-05-11] MEDS: FLUTICASONE PROP 0.05% NASAL SPRAY 16 GM (FLONASE) SCH (02:06)
[~2019-05-11 17:11] MED LIST changes: +LEVA1TAB2 PO; +OMEP-172 PO; -OMEP20CA4 PO; +TORS10TA3 PO; +TYLE650T38 PO
[2019-05-11 18:06] LABS: BASO # 0.1 10^3/uL (0.0-0.2); BASO % 0.3 % (0.0-1.0); EOS % 0.2 % (0.0-3.0); HEMATOCRIT 36.8 % (42.0-52.0); HEMOGLOBIN 11.2 g/dl (13.5-17.5); LYMPH # 1.8 10^3/uL (1.5-5.0); LYMPH % 6.7 % (24.0-44.0); MEAN CORPUSCULAR HEMOGLOBIN 27.7 pg (27.0-33.0); MEAN CORPUSCULAR HGB CONC 30.4 g/dl (32.0-36.5); MEAN CORPUSCULAR VOLUME 91.1 fl (80.0-96.0); MONO % 9.3 % (0.0-5.0); NEUTROPHILS # 21.9 10^3/uL (1.5-8.5); NEUTROPHILS % 82.9 % (36.0-66.0); PLATELET COUNT, AUTOMATED 332 10^3/uL (150-450); RED BLOOD COUNT 4.04 10^6/uL (4.30-6.10); WHITE BLOOD COUNT 26.5 10^3/uL (4.0-10.0)
--- NOTE | 2019-05-11 18:29 | ECGEPIP ---
[facility] - ED Test Date: 2019-05-11 Pat Name: MIC CASTRO Department: Room: - Gender: Male Warp Tester: kelechi : 1935 Requested By: JESUS Martinez PA-C Order Number: [id number] Reading MD: Betsy Coppola Measurements Intervals [place] Rate: 86 P: 31 ME: 168 QRS: -29 QRSD: 77 T: 3 QT: 371 QTc: 445 Interpretive Statements SINUS RHYTHM INFERIOR MYOCARDIAL INFARCTION, PROBABLY OLD NSTTW abnormalities INCREASED RATE 03/21/19 Electronically Signed on 05-11-2019 18:29:33 EST by Betsy Coppola
[2019-05-11 18:33] LABS: ALBUMIN 3.3 GM/DL (3.2-5.2); ALT/SGPT 16 U/L (12-78); BILIRUBIN,DIRECT 0.1 MG/DL (0.0-0.2); BILIRUBIN,TOTAL 0.4 MG/DL (0.2-1.0); CK-MB VALUE MASS 2.5 NG/ML (<3.6); CPK CREATINE PHOSPHOKINASE 54 U/L (39-308); LIPASE 58 U/L (73-393); MB/CK RELATIVE INDEX 4.63 (< OR =4); NT-PRO BNP 1529 PG/ML (<450); TOTAL PROTEIN 6.2 GM/DL (6.4-8.2); TROPONIN I < 0.02 NG/ML (< 0.10)
[2019-05-11 18:35] LABS: MONO # 2.5 10^3/uL (0.0-0.8)
[2019-05-11] MEDS ORDERED: cefTRIAXone SOD 1 GM in D5W MINI-BAG PLUS 50 ML IV ONE (20:00)
[2019-05-11] MEDS ORDERED: NS 1,000 ML IV ONE (20:00)
[2019-05-11] MEDS ORDERED: MAALOX 30 ML SUSP *UDC PO PRN (21:15)
[2019-05-11] MEDS ORDERED: MOM 30ML SUSPENSION UDC PO PRN (21:15)
--- NOTE | 2019-05-11 22:15 | HPEPDOC ---
[facility] Medical History & Physical Date of Admission May 11, 2019 Date of Service: May 11, 2019 Primary Care Physician: JANINA HERRERA DO Attending Physician: HANS BOGGS MD History and Physical TIME OF SERVICE: 9:25 PM CHIEF COMPLAINT: Lower extremity weakness HISTORY OF PRESENT ILLNESS: This is an 83-year-old male who presents with complaints of bilateral lower extremity weakness. He reports that his "legs felt like rubber". He lives at [facility] and was sent here by because he was unable to get out of bed without assistance. At his baseline he uses a walker to ambulate. He does admit to feeling a bit congested. He denies having fevers, chills, runny nose, worseni ng of his chronic cough, chest pain, headaches, or any other acute complaints complaints. 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 Does not smoke FAMILY HISTORY: He denies having family history of diabetes, lung problems, or CAD ALLERGIES: Please see below. HOME MEDICATIONS: Please see below. PHYSICAL EXAMINATION: VITAL SIGNS: Please see below GEN: well nourished / well developed/ NAD INTEGUMENT: not flushed/ not jaundice HEENT: normocephalic / atraumatic / lips acyanotic /mucus membranes slightly dry/ sclera anicteric CVS: RRR/NMRG/ no lower extremity edema LUNGS: lungs are clear to auscultation bilaterally on room air / able to speak full sentences without stopping to take a breath / no coughing / ABDOMEN: bowel sounds are present / the abdomen is soft & not tender with palpation MSK/EXTREMITIES: range of motion intact in all 4 extremities / strength -5 out of 5 except in the left lower extremity where it is -4/5 NEURO: speech is not dysarthric PSYCH: alert and oriented / able to understand and answer questions after repeated questioning LABORATORY DATA: See below. IMAGING: Chest x-ray today appears to be cephalization of the pulmonary vasculature, otherwise has no acute process. The final read is pending MICROBIOLOGY: Please see below. ASSESSMENT: Mr. Flannery is an 83-year-old with a past medical history of COPD, CKD 3, BPH, history of PEs, chronic lower back pain with unsteady gait will be admitted for management of UTI and evaluation of weakness. PLAN: 1. Weakness, likely due to UTI Despite having an elevated lactic acid he did not meet the criteria to be diagnosed with sepsis Plan: Continue ceftriaxone/follow-up urine cultures and blood cultures from/PT eval 2. Stable COPD Plan: Symbicort, DuoNeb's, Spiriva, roflumilast 3. CKD 3 / BPH with chronic indwelling Dang Plan: Continue with Dang 4. Mild dementia ? He had difficulty answering questions Plan: May require hearing test which can be done on outpatient basis 5. History of bilateral PE Plan: Xarelto 6 GERD Plan: PPI No need for DVT prophylaxis and since he is on Xarelto Disposition likely back to shelter after one to midnight stay Vital Signs Vital Signs Date Time Temp Pulse Resp B/P (MAP) Pulse Ox O2 Delivery O2 Flow Rate FiO2 05/11/19 21:30 65 14 125/63 (83) 95 Room Air 05/11/19 17:21 98.2 Laboratory Data Labs 24H Laboratory Tests 2 05/11/19 17:55: Urine Color YELLOW, Urine Appearance CLOUDYH, Urine pH 5.0, Urine Specific [place] 1.017, Urine Protein 1+H, Urine Glucose (UA) NEGATIVE, Urine Ketones NEGATIVE, Urine Blood 2+H, Urine Nitrite POSITIVEH, Urine Bilirubin NEGATIVE, Urine Urobilinogen 0.2, Urine Leukocyte Esterase 3+H, Urine WBC (Auto) 152H, Urine RBC (Auto) 11H, Urine Hyaline Casts (Auto) 2, Urine Bacteria (Auto) 2+H, Urine Squamous Epithelial Cells 0, Urine Amorphous Sediment SMALLH, Urine Mucus (Auto) SMALL, Urine Sperm (Auto) , Lactic Acid Level 3.3*H 05/11/19 17:56: Immature Granulocyte % (Auto) 0.6, Neutrophils (%) (Auto) 82.9H, Lymphocytes (%) (Auto) 6.7L, Monocytes (%) (Auto) 9.3H, Eosinophils (%) (Auto) 0.2, Basophils (%) (Auto) 0.3, Neutrophils # (Auto) 21.9H, Lymphocytes # (Auto) 1.8, Monocytes # (Auto) 2.5H, Eosinophils # (Auto) 0.0, Basophils # (Auto) 0.1, Nucleated Red Blood Cells % (auto) 0.0, Total Bilirubin 0.4, Direct Bilirubin 0.1, Aspartate Amino Transf (AST/SGOT) 7, Alanine Aminotransferase (ALT/SGPT) 16, Alkaline Phosphatase 69, Total Creatine Kinase 54, Creatine Kinase MB 2.5, Creatine Kinase MB Relative Index 4.63H, Troponin I < 0.02, SS-Rki-[id number]-Type Natriuretic Peptide 1529H, Total Protein 6.2L, Albumin 3.3, Albumin/Globulin Ratio 1.14, Lipase 58L 05/11/19 17:57: POC Glucose (Misc Panel) 116H, POC Sodium (Misc Panel) 143, POC Potassium (Misc Panel) 3.4L, POC Chloride (Misc Panel) 103, POC Total CO2 (Misc Panel) 28.0H, POC Blood Urea Nitrogen (Misc Panel 31H, POC Ionized Calcium (Misc Panel) 4.7, POC Creatinine (Misc Panel) 1.8H, POC Hematocrit (Misc Panel) 34.0L CBC/BMP Laboratory Tests 05/11/19 17:56 Microbiology Microbiology 05/11/19 Blood Culture, Received Pending 05/11/19 Blood Culture, Received Pending 05/11/19 Urine Culture, Received Pending Home Medications Scheduled Acetaminophen (Acetaminophen) 325 Mg Tablet, 650 MG PO TID 0800,1400, 2000 Aspirin (Aspirin EC) 81 Mg Tabec, 81 MG PO DAILY Budesonide/Formoterol (Symbicort 160-4.5 Mcg Inhaler) 60 Puff/Inhaler Aers, 2 PUFF INH BID 0900, 1700 Cefepime in Iso-Osm Dextrose (Cefepime 1 gm Injection) 1 Gm/50 Ml Froz.piggy, 1 GM IV BID Cyclosporine (Restasis Multidose) 0.05 % Emu, 1 DROP OU BID Fluticasone Propionate (Flonase Allergy Relief) 50 Mcg/Act Spr, 2 SPRAYS NA QHS Gabapentin (Gabapentin) 400 Mg Cap, 400 MG PO TID Ipratropium/Albuterol Sulfate (Iprat-Albut 0.5-3(2.5) mg/3 ml) 1 Zelda Zelda, 1 NEB INH QID 0000, 0600, 1200, 1800 Multivitamins (Thera M Plus Tablet) 1 Tab Tab, 1 TAB PO DAILY Omeprazole (Omeprazole) 40 Mg Cap, 40 MG PO BID 0600, 1600 Rivaroxaban (Xarelto) 15 Mg Tab, 15 MG PO QHS Roflumilast (Daliresp) 500 Mcg Tab, 500 MCG PO DAILY Sucralfate (Sucralfate) 1 Gm Tab, 1 GM PO TID 0600, 1200, 1600 Tiotropium [place] (Spiriva) 18 Mcg Cap, 1 CAP INH QHS Torsemide (Torsemide) 10 Mg Tablet, 10 MG PO DAILY Scheduled PRN Acetaminophen (Tylenol 8 Hour) 650 Mg Tablet.er, 650 MG PO Q8H PRN for PAIN Allergies Coded Allergies: clarithromycin (Verified Adverse Reaction, Mild, diarrhea, 05/17/19) levofloxacin (Verified Adverse Reaction, Mild, tendinopathy, 05/17/19) A-FIB/CHADSVASC A-FIB History Current/History of A-Fib/PAF?: No Current PO Anticoag Therapy: No HANS BOGGS MD May 11, 2019 22:15
[2019-05-11 22:35] VITALS: BP 126/51
[2019-05-12] MEDS: TIOTROPIUM INHALER/CAPSULE (SPIRIVA) INH SCH ×2 (01:16→20:29)
[2019-05-12] MEDS: RIVAROXABAN 15 MG TAB (XARELTO) PO SCH ×2 (02:07→20:02)
[2019-05-12] MEDS: SUCRALFATE 1 GM TAB PO SCH ×3 (05:30→16:41)
[2019-05-12] MEDS: OMEPRAZOLE 20 MG CAP PO SCH ×2 (05:30→16:40)
[2019-05-12 06:00] VITALS: BP 125/53
[2019-05-12 06:34] LABS: HEMATOCRIT 31.7 % (42.0-52.0); MEAN CORPUSCULAR HGB CONC 31.5 g/dl (32.0-36.5); MEAN CORPUSCULAR VOLUME 88.8 fl (80.0-96.0); PLATELET COUNT, AUTOMATED 293 10^3/uL (150-450); RED BLOOD COUNT 3.57 10^6/uL (4.30-6.10); WHITE BLOOD COUNT 19.9 10^3/uL (4.0-10.0)
[2019-05-12 07:04] LABS: CALCIUM LEVEL 8.3 MG/DL (8.8-10.2); CREATININE FOR GFR 1.29 MG/DL (0.70-1.30); GLOMERULAR FILTRATION RATE 56.8 (>35); POTASSIUM SERUM 3.2 MEQ/L (3.5-5.1)
[2019-05-12] MEDS: IPRATROPIUM 0.5MG/ALBUTEROL 2.5MG INH SOL UD 3ML (DUONEB)(J7620) INH SCH ×3 (08:31→20:00)
[2019-05-12] MEDS: SYMBICORT 160/4.5MCG INHALER 6GM INH SCH ×2 (09:00→20:29)
--- NOTE | 2019-05-12 09:46 | REP ---
CHEST AP LATERAL: 05/11/2019. COMPARISON: AP chest 03/21/2019, two-view 02/20/2019. CLINICAL HISTORY: Weakness, cough, hypotension. Two-view show eventration of the diaphragms anteriorly on both sides, more on the right than left. Appears to be some calcification paramedian to the left of midline that may be a pericardial calcification, unchanged. A zipper density overlies the heart on this study. There is left ventricular configuration and some left atrial enlargement. The aorta is mildly tortuous. Airway intact. Some basilar linear atelectatic change. This is on the left and a small amount of chronic left pleural thickening at the CP angle. No definite effusion. Colonic interposition noted on the right with bowel loops under the diaphragm interposed between it and the liver as anatomic variation. Demineralization. Degenerative changes in the spine. IMPRESSION: 1. Some mild cardiomegaly with left atrial and ventricular enlargement. 2. Some chronic basilar fibrotic changes and lateral pleural thickening of CP angle with some linear atelectatic or fibrotic change, left base. 3. Eventration of the diaphragms anteriorly on both sides, right slightly greater than left. No definite acute infiltrate, effusion, or edema. Electronically Signed by Perfecto Vann MD 05/12/2019 10:21 A
[2019-05-12] MEDS: GABAPENTIN 400 MG CAP PO SCH ×3 (10:00→20:02)
[2019-05-12] MEDS: ASPIRIN 81 MG ENTERIC TAB PO SCH (10:01)
[2019-05-12] MEDS: TORSEMIDE 10 MG TABLET PO SCH (10:01)
--- NOTE | 2019-05-12 14:02 | IPNPDOC ---
Text Note Date of Service The patient was seen on 05/12/19. NOTE SUBJECTIVE: -No acute complaints this AM, looking forward to returning to [facility] -PT was just arriving in his room when I got there PHYSICAL EXAMINATION: VITAL SIGNS: HDS and afebrile, see below GEN: well nourished / well developed/ NAD HEENT: normocephalic / atraumatic / MMM CVS: RRR /No MRG/ no lower extremity edema LUNGS: lungs are clear to auscultation bilaterally on room air / able to speak in full sentences without stopping to take a breath / no coughing ABDOMEN: bowel sounds are normoactive / the abdomen is soft & not tender with palpation MSK/EXTREMITIES: range of motion intact in all 4 extremities / strength -5 out of 5 except in the left lower extremity where it remains -4/5 NEURO: speech is not dysarthric PSYCH: alert and oriented / able to understand and answer questions after repeated questioning LABORATORY DATA: See below. IMAGING: Chest x-ray with some pulmonary congestion MICROBIOLOGY: Please see below. ASSESSMENT: 83-year-old man with COPD, CKD 3, BPH, history of PEs, chronic lower back pain who presented with acute weakness and unsteady gait and found to have a UTI with ongoing PT evaluation. PLAN: 1. Weakness, likely due to UTI. -continue ceftriaxone and follow-up urine cultures and blood cultures - PT eval and treat 2. Stable COPD -continue Symbicort, DuoNeb's, Spiriva, roflumilast 3. CKD 3 / BPH with chronic indwelling Dang - Continue with Dang 4. Mild dementia? -Doing well this morning, monitor 5. History of bilateral PE -continue Xarelto 6 GERD -continue his home PPI DVT prophylaxis: on Xarelto Disposition: likely back to [facility] tomorrow VS,Fishbone, I+O VS, Fishbone, I+O Laboratory Tests 05/11/19 17:56 05/12/19 05:50 Vital Signs Date Time Temp Pulse Resp B/P (MAP) Pulse Ox O2 Delivery O2 Flow Rate FiO2 05/12/19 06:00 98.2 80 18 125/53 (77) 99 Room Air I&O- Last 24 Hours up to 6 AM 05/12/19 06:00 Intake Total 1290 ml Output Total 450 ml Balance 840 ml LEI ALSTON MD May 12, 2019 09:54
[2019-05-12 16:00] VITALS: BP 122/54
[2019-05-12] MEDS ORDERED: POTASSIUM CHLORIDE 10 MEQ SR TABLET PO ONE (20:00)
[2019-05-12] MEDS: FLUTICASONE PROP 0.05% NASAL SPRAY 16 GM (FLONASE) SCH (20:02)
[2019-05-12] MEDS: cefTRIAXone SOD 1 GM in D5W MINI-BAG PLUS 50 ML IV SCH (20:02)
[2019-05-12 22:00] VITALS: BP 144/75
[2019-05-13] MEDS: SUCRALFATE 1 GM TAB PO SCH ×3 (05:48→16:45)
[2019-05-13] MEDS: OMEPRAZOLE 20 MG CAP PO SCH ×2 (05:48→16:46)
[2019-05-13] MEDS: ACETAMINOPHEN TAB 650MG DOSE (2X325MG) PO PRN ×2 (05:56→20:12)
[2019-05-13 06:00] VITALS: BP 137/73
[2019-05-13 06:47] LABS: HEMATOCRIT 33.9 % (42.0-52.0); HEMOGLOBIN 10.8 g/dl (13.5-17.5); MEAN CORPUSCULAR HEMOGLOBIN 28.1 pg (27.0-33.0); MEAN CORPUSCULAR HGB CONC 31.9 g/dl (32.0-36.5); MEAN CORPUSCULAR VOLUME 88.3 fl (80.0-96.0); PLATELET COUNT, AUTOMATED 314 10^3/uL (150-450); RED BLOOD COUNT 3.84 10^6/uL (4.30-6.10)
[2019-05-13 07:10] LABS: CALCIUM LEVEL 8.5 MG/DL (8.8-10.2); CREATININE FOR GFR 1.33 MG/DL (0.70-1.30); GLOMERULAR FILTRATION RATE 54.8 (>35); POTASSIUM SERUM 3.9 MEQ/L (3.5-5.1)
[2019-05-13] MEDS: IPRATROPIUM 0.5MG/ALBUTEROL 2.5MG INH SOL UD 3ML (DUONEB)(J7620) INH SCH ×4 (08:00→21:13)
[2019-05-13] MEDS: SYMBICORT 160/4.5MCG INHALER 6GM INH SCH ×2 (08:34→17:00)
[2019-05-13] MEDS: TORSEMIDE 10 MG TABLET PO SCH (09:31)
[2019-05-13] MEDS: ASPIRIN 81 MG ENTERIC TAB PO SCH (09:31)
[2019-05-13] MEDS: GABAPENTIN 400 MG CAP PO SCH ×3 (09:31→20:12)
[2019-05-13 14:00] VITALS: BP 140/71
--- NOTE | 2019-05-13 19:21 | IPNPDOC ---
Date Seen The patient was seen on 05/13/19. Progress Note SUBJECTIVE: Patient offered no complaints today. No acute events reported overnight. Afebrile with downtrending leukocytosis WBC 19->18. OBJECTIVE PHYSICAL EXAMINATION: VITAL SIGNS: Please see below. General: Alert Eyes: Normal sclera HENT: Atraumatic Cardiovascular: Normal rate, normal rhythm. Pulmonary: Clear to auscultation b/l, no wheezing GI: Soft, nontender, nondistended Skin: Warm and dry Neuro: CN grossly intact. No focal deficits. Psych: oriented x 3 LABORATORY DATA, IMAGING STUDIES, MICROBIOLOGY: Please see below. DVT prophylaxis ordered?: On Xarelto ASSESSMENT AND PLAN: 1. Weakness - Likely 2/2 UTI. c/w Rocephin until discharge. - Urine culture + Pseudomonas. - Still with significant leukocytosis but downtrending WBC 18 today. - c/w PT. 2. COPD - c/w home meds and Nebs PRN. 3. CKD 3 and BPH - chronic indwelling martínez catheter. Recent change about 1 week prior. 4. hx b/l PE - c/w Xarelto 5. GERD - c/w PPI DISPOSITION: [facility] once medically cleared, waiting for leukocytosis to further improve, still very elevated. VS, I&O, 24H, Fishbone Vital Signs/I&O Vital Signs Date Time Temp Pulse Resp B/P (MAP) Pulse Ox O2 Delivery O2 Flow Rate FiO2 05/13/19 14:00 97.8 73 17 140/71 (94) 98 Room Air I&O- Last 24 Hours up to 6 AM 05/13/19 06:00 Intake Total 1180 ml Output Total 1950 ml Balance -770 ml Laboratory Data 24H LABS Laboratory Tests 2 05/13/19 06:32: Nucleated Red Blood Cells % (auto) 0.0, Anion Gap 7L, Glomerular Filtration Rate 54.8, Calcium Level 8.5L CBC/BMP Laboratory Tests 05/13/19 06:32 Microbiology Microbiology 05/11/19 Blood Culture - Preliminary, Resulted No growth after 24 hours . All specim... 05/11/19 Blood Culture - Preliminary, Resulted No growth after 24 hours . All specim... 05/11/19 Urine Culture - Final, Complete Pseudomonas Aeruginosa ULISES OBRIEN MD May 13, 2019 19:21
[2019-05-13] MEDS: FLUTICASONE PROP 0.05% NASAL SPRAY 16 GM (FLONASE) SCH (20:12)
[2019-05-13] MEDS: RIVAROXABAN 15 MG TAB (XARELTO) PO SCH (20:12)
[2019-05-13] MEDS: cefTRIAXone SOD 1 GM in D5W MINI-BAG PLUS 50 ML IV SCH (20:13)
[2019-05-13] MEDS: TIOTROPIUM INHALER/CAPSULE (SPIRIVA) INH SCH (21:13)
[2019-05-13 22:00] VITALS: BP 138/70
[2019-05-14 05:57] LABS: HEMATOCRIT 33.5 % (42.0-52.0); HEMOGLOBIN 10.4 g/dl (13.5-17.5); MEAN CORPUSCULAR VOLUME 90.3 fl (80.0-96.0); PLATELET COUNT, AUTOMATED 314 10^3/uL (150-450); RED BLOOD COUNT 3.71 10^6/uL (4.30-6.10); WHITE BLOOD COUNT 13.3 10^3/uL (4.0-10.0)
[2019-05-14 06:00] VITALS: BP 102/57
[2019-05-14 06:20] LABS: CALCIUM LEVEL 8.7 MG/DL (8.8-10.2); CREATININE FOR GFR 1.35 MG/DL (0.70-1.30); GLOMERULAR FILTRATION RATE 53.9 (>35); POTASSIUM SERUM 3.6 MEQ/L (3.5-5.1)
[2019-05-14] MEDS: SUCRALFATE 1 GM TAB PO SCH ×3 (06:35→17:06)
[2019-05-14] MEDS: OMEPRAZOLE 20 MG CAP PO SCH ×2 (06:36→17:06)
[2019-05-14] MEDS: SYMBICORT 160/4.5MCG INHALER 6GM INH SCH ×2 (07:27→17:00)
[2019-05-14] MEDS: IPRATROPIUM 0.5MG/ALBUTEROL 2.5MG INH SOL UD 3ML (DUONEB)(J7620) INH SCH ×4 (07:27→20:00)
[2019-05-14] MEDS: ASPIRIN 81 MG ENTERIC TAB PO SCH (08:19)
[2019-05-14] MEDS: TORSEMIDE 10 MG TABLET PO SCH (08:19)
[2019-05-14] MEDS: GABAPENTIN 400 MG CAP PO SCH ×3 (08:19→20:52)
[2019-05-14] MEDS: CEFEPIME HCL 2 GM in D5W MINI-BAG PLUS 50 ML IV SCH (12:30)
[2019-05-14] MEDS ORDERED: CEFE1INJ2 IV (13:30)
[2019-05-14 14:00] VITALS: BP 143/64
[2019-05-14] MEDS ORDERED: LIDOCAINE 1% MDV 20ML VIAL As Ordered ONE (15:12)
[2019-05-14 16:41] LABS: C REACTIVE PROTEIN QUANTITATIV 7.61 MG/DL (0.00-0.30)
[2019-05-14 20:00] VITALS: BP 130/74
--- NOTE | 2019-05-14 20:02 | IPNPDOC ---
Date Seen The patient was seen on 05/14/19. Progress Note SUBJECTIVE: Patient states that he feels well. Afebrile overnight. WBC 18->13 today. OBJECTIVE PHYSICAL EXAMINATION: VITAL SIGNS: Please see below. General: Alert Eyes: Normal sclera HENT: Atraumatic Cardiovascular: Normal rate, normal rhythm. Pulmonary: Clear to auscultation b/l, no wheezing GI: Soft, nontender, nondistended Skin: Warm and dry Neuro: CN grossly intact. No focal deficits. Psych: oriented x 3 LABORATORY DATA, IMAGING STUDIES, MICROBIOLOGY: Please see below. DVT prophylaxis ordered?: On Xarelto ASSESSMENT AND PLAN: 1. Weakness with UTI - Likely 2/2 UTI. Previously on Rocephin. Urine culture + pseudomonas. - Abx changed to cefepime and urinary catheter changed out today 05/14. - Discussed with urology, will f/u in 4 weeks. - Patient has allergy to Levaquin. To place PICC for prolong IV Abx, tentatively discharge tomorrow. 2. COPD - c/w home meds and Nebs PRN. 3. CKD 3 and BPH - chronic indwelling martínez catheter. Recent change about 1 week prior. 4. hx b/l PE - c/w Xarelto 5. GERD - c/w PPI DISPOSITION: [facility] likely tomorrow when PICC placed. [facility] Vital Signs/I&O Vital Signs Date Time Temp Pulse Resp B/P (MAP) Pulse Ox O2 Delivery O2 Flow Rate FiO2 05/14/19 15:42 83 18 95 Room Air 05/14/19 14:53 98.5 05/14/19 14:00 143/64 (90) I&O- Last 24 Hours up to 6 AM 05/14/19 06:00 Intake Total 1270 ml Output Total 400 ml Balance 870 ml Laboratory Data 24H LABS Laboratory Tests 2 05/14/19 05:24: Nucleated Red Blood Cells % (auto) 0.0, Anion Gap 7L, Glomerular Filtration Rate 53.9, Calcium Level 8.7L, C-Reactive Protein, Quantitative 7.61H 05/14/19 18:18: Urine Color YELLOW, Urine Appearance CLOUDYH, Urine pH 5.0, Urine Specific [place] 1.012, Urine Protein NEGATIVE, Urine Glucose (UA) NEGATIVE, Urine Ketones NEGATIVE, Urine Blood 1+H, Urine Nitrite NEGATIVE, Urine Bilirubin NEGATIVE, Urine Urobilinogen 0.2, Urine Leukocyte Esterase 3+H, Urine WBC (Auto) 40H, Urine RBC (Auto) 5H, Urine Hyaline Casts (Auto) 2, Urine Bacteria (Auto) 1+H, Urine Squamous Epithelial Cells 0, Urine Mucus (Auto) SMALL, Urine Sperm (Auto) CBC/BMP Laboratory Tests 05/14/19 05:24 Microbiology Microbiology 05/14/19 Urine Culture, Received Pending 05/11/19 Blood Culture - Preliminary, Resulted No Growth after 48 hours. All Specime... 05/11/19 Blood Culture - Preliminary, Resulted No Growth after 72 hours. All specime... 05/11/19 Urine Culture - Final, Complete Pseudomonas Aeruginosa ULISES OBRIEN MD May 14, 2019 20:02
[2019-05-14] MEDS: RIVAROXABAN 15 MG TAB (XARELTO) PO SCH (20:52)
[2019-05-14] MEDS: ACETAMINOPHEN TAB 650MG DOSE (2X325MG) PO PRN (20:53)
[2019-05-14] MEDS: FLUTICASONE PROP 0.05% NASAL SPRAY 16 GM (FLONASE) SCH (20:53)
--- NOTE | 2019-05-14 22:14 | CR ---
DATE OF CONSULTATION: 05/14/2019 INFECTIOUS DISEASE CONSULTATION Asked to consult by hospitalist for urinary tract infection and antibiotic choice. HISTORY OF PRESENT ILLNESS: Mr. Flannery is an 83-year-old gentleman with a history of BPH, urinary retention with a chronic Dang catheter. The patient had his catheters changed on 05/09/2019 and a couple days later he developed sudden onset of weakness with bilateral lower extremity difficulty getting out of his bed. He lives at the [facility] where he is mostly independent, uses a walker because of chronic back pain and a history of fall, but for the most part he is independent. He denied having any fever or chills, runny nose, any worsening of his chronic cough. No chest pain. No headache. No dysuria, hematuria or flank pain. The patient has chronic back pain. He had no nausea, vomiting or diarrhea. PAST MEDICAL HISTORY: Significant for chronic obstructive pulmonary disease(COPD), chronic kidney disease, stage III, BPH with a chronic indwelling Dang catheter for urinary retention. He follows up at Dr. Jordan's office and had his catheter changed on 05/09/2019. History of recurrent urinary tract infection (UTIs). Bilateral pulmonary emboli (PEs), on Xarelto. Moderate aortic valve sclerosis without stenosis, gastroesophageal reflux disease. SOCIAL HISTORY: He lives at the [facility]. He does not smoke or drink. His daughter, Pura, is his healthcare proxy. She was called. ALLERGIES: LEVAQUIN is listed as tendinopathy - the patient is not allergic to Levaquin; he stated he has taken it in the past but not does not know why it is listed as an allergy. BIAXIN - he has abdominal pain, which is also not an allergy. PHYSICAL EXAMINATION: On physical exam, he is a healthy, pleasant gentleman, definitely slightly demented, forgetful, asked me about my name three times, in no acute distress. Temperature is 98.6, pulse 83, respirations 17, blood pressure 130/74, oxygen saturation 95% on room air. Maximum temperature (T max) 98.2 on admission. Heart: Normal S1, S2 with a systolic ejection murmur 2/6 at the left upper sternal border. Lungs: Clear without wheezes, rales or rhonchi. Abdomen: Soft, nontender, no hepatosplenomegaly. Back: No costovertebral angle (CVA) or lumbosacral tenderness. Extremities: No clubbing, cyanosis or edema. Back: Mild lumbosacral tenderness. He has difficulty getting from a laying down position to sitting without pain. Neurologic Exam: Alert, oriented times three, moves all extremities, appropriate. Chest x-ray showed some cephalization. No acute infiltrate. Blood cultures were negative. Urine culture had more than 100,000 Pseudomonas, which were sensitive to levofloxacin and all other antibiotics listed, cefepime, meropenem, Zosyn, with culture more than 100,000 colonies. Urinalysis had 152 white cells, +3 leukocyte esterase, positive nitrite. MEDICATIONS: Cefepime 2 grams IV every 12 hours. The patient had received ceftriaxone on 05/12/2019 and 05/13/2019, which has no coverage for Pseudomonas, but the patient clinically improved in spite of being on antibiotic that has no coverage. Symbicort two puffs twice a day, torsemide 10 mg by mouth daily, albuterol/Atrovent nebs every 6 hours as needed, Carafate 1 gram by mouth three times a day, Tylenol as needed, Milk of Magnesia as needed, fluticasone propionate two sprays inhaled daily, gabapentin 400 mg by mouth three times a day, Xarelto 15 mg by mouth nightly and Spiriva HandiHaler 18 mcg, inhalation nightly. LABORATORY: White count on admission was 26.5, 82% neutrophils, 7% lymphocytes, 9% monocytes. Today, white count was 13.3, hemoglobin 10.4, hematocrit 33.5, platelets 314. Sodium 142, potassium 3.6, chloride 107, bicarbonate 28, BUN 23, creatinine 1.35, glucose 92, calcium 8.7, CRP 7.61, BNP 1520, lipase 58, AST 7, ALT 16. IMPRESSION: This is an 83-year-old gentleman who has a history of recurrent urinary tract infection, BPH and urinary retention with a Dang catheter, who was admitted 48 hours after his catheter was changed with leukocytosis. The patient had a white count of 26,000. He was treated with Rocephin, which has no cover for Pseudomonas, and his white count improved to 13.3 and resolution of his weakness. His lactic acid on admission was 3.3 with a followup within 4 hours was 0.7. I am not sure if this patient had a symptomatic urinary tract infection with leukocytosis as he clinically improved 48 hours later without really any appropriate antibiotics for Pseudomonas. Also, the patient has tendinopathy with quinolones, but this is not a contraindication for a short course of Levaquin. He already had a peripherally inserted central catheter (PICC) line placed today. Plan would be do a urine culture to see if he still has Pseudomonas in his urine. I would treat him with a very short course of antibiotic as he did not bacteremia. He is currently asymptomatic. His white count is only 13.3. He could be discharged to the [facility] tomorrow with cefepime or ceftazidime 1 gram IV every 12 hours for a 7-day course or he could be on Levaquin for a 7-day course as well as his allergy is only a tendinopathy which is not really an allergy. I also discussed the case with his daughter who does not recall his allergy to Levaquin. Thank you for the consultation. Edited 05/14/2019 wes
[2019-05-15] MEDS: CEFEPIME HCL 2 GM in D5W MINI-BAG PLUS 50 ML IV SCH ×2 (01:53→12:15)
[2019-05-15] MEDS ORDERED: SODIUM CHLORIDE 0.9% INJ 10 ML SYR IV PRN (05:00)
[2019-05-15 05:20] VITALS: BP 130/74
[2019-05-15] MEDS: SUCRALFATE 1 GM TAB PO SCH ×2 (05:43→12:01)
[2019-05-15] MEDS: OMEPRAZOLE 20 MG CAP PO SCH (05:43)
[2019-05-15] MEDS ORDERED: SODIUM CHLORIDE 0.9% INJ 10 ML SYR IV SCH (06:00)
[2019-05-15 07:05] LABS: HEMATOCRIT 34.9 % (42.0-52.0); MEAN CORPUSCULAR HEMOGLOBIN 27.9 pg (27.0-33.0); MEAN CORPUSCULAR HGB CONC 31.5 g/dl (32.0-36.5); MEAN CORPUSCULAR VOLUME 88.6 fl (80.0-96.0); PLATELET COUNT, AUTOMATED 340 10^3/uL (150-450); RED BLOOD COUNT 3.94 10^6/uL (4.30-6.10); WHITE BLOOD COUNT 13.3 10^3/uL (4.0-10.0)
--- NOTE | 2019-05-15 07:10 | REPVR ---
PROCEDURE INFORMATION: Exam: US Retroperitoneal Limited, Kidneys Exam date and time: 05/14/2019 6:31 AM Age: 83 years old Clinical history: Condition or disease; Other: UTI; Additional info: UTI pseudomonas TECHNIQUE: Imaging protocol: Real-time ultrasound of the retroperitoneum with image documentation. Examination was focused on the kidneys. COMPARISON: CT ABD PELVIS W/O CONTRAST 08/05/2018 5:09 PM FINDINGS: Right kidney: The right kidney measures 8.5 cm in its cephalocaudad dimension and 4.3 x 5.2 cm in diameter. Upper pole cyst measuring 12 mm. No mass or hydronephrosis. Left kidney: The left kidney measures 9.0 cm in its cephalocaudad dimension and 4.8 x 3.7 cm in diameter. Cyst measuring 4.7 x 4.8 x 4.6 cm. No mass or hydronephrosis. Bladder: The bladder is collapsed due to a Dang catheter. IMPRESSION: 1. Bilateral renal cysts measuring up to 4.8 cm on the left. 2. Otherwise negative renal sonogram. No hydronephrosis. Electronically signed by: Parmjit Leon On 05/15/2019 07:10:30 AM
[2019-05-15] MEDS: SYMBICORT 160/4.5MCG INHALER 6GM INH SCH (07:19)
[2019-05-15] MEDS: IPRATROPIUM 0.5MG/ALBUTEROL 2.5MG INH SOL UD 3ML (DUONEB)(J7620) INH SCH ×2 (07:19→11:19)
[2019-05-15 07:29] LABS: CREATININE FOR GFR 1.43 MG/DL (0.70-1.30); GLOMERULAR FILTRATION RATE 50.4 (>35); POTASSIUM SERUM 3.5 MEQ/L (3.5-5.1)
[2019-05-15] MEDS: TORSEMIDE 10 MG TABLET PO SCH (08:18)
[2019-05-15] MEDS: GABAPENTIN 400 MG CAP PO SCH (08:19)
[2019-05-15] MEDS: ASPIRIN 81 MG ENTERIC TAB PO SCH (08:19)
[2019-05-15] MEDS: ACETAMINOPHEN TAB 650MG DOSE (2X325MG) PO PRN (08:19)
--- NOTE | 2019-05-15 08:56 | DS.PDOC ---
Discharge Summary General Date of Admission May 11, 2019 at 21:09 Date of Discharge 05/15/19 Discharge Summary PROCEDURES PERFORMED DURING STAY: [None]. ADMITTING DIAGNOSES: 1. Weakness likely 2/2 chronic indwelling martínez catheter associated UTI- Pseudomonas 2. Lactic acidosis on admission s/p IVF and repeat labs 3. COPD 4. CKD 3 5. Mild dementia 6. hx b/l PE on Xarelto 7. GERD DISCHARGE DIAGNOSES: 1. Weakness likely 2/2 chronic indwelling martínez catheter associated UTI- Pseudomonas 2. Lactic acidosis on admission s/p IVF and repeat labs 3. COPD 4. CKD 3 5. Mild dementia 6. hx b/l PE on Xarelto 7. GERD COMPLICATIONS/CHIEF COMPLAINT: Uti, Weakness Of Lower Extremity. HISTORY OF PRESENT ILLNESS: "Is is an 83-year-old male who presents with complaints of bilateral lower extremity weakness. He reports that his "legs felt like rubber". He lives at [facility] and was sent here by because he was unable to get out of bed without assistance. At his baseline he uses a walker to ambulate. He does admit to feeling a bit congested. He denies having fevers, chills, runny nose, worsening of his chronic cough, chest pain, headaches, or any other acute complaints complaints." HOSPITAL COURSE: Patient was treated for UTI initially with Rocephin. Urine culture subsequently grew Pseudomonas a. and antibiotics was switched to cefepime. Urology were contacted, recommended changing martínez and complete course of Abx per ID recommendations and to follow up in 4 weeks. Was seen by ID and recommended 7 day course of IV Abx vs. Levaquin. Given documented allergy to Levaquin listed as tendinopathy, opt to use IV abx given risk of tendon rupture and other potential side effects in patients with advanced age. Patient had been working with PT with improvement. Will discharge patient back to [facility] and to f/u PCP and Urology. DISCHARGE MEDICATIONS: Please see below. ALLERGIES: Please see below. PHYSICAL EXAMINATION ON DISCHARGE: VITAL SIGNS: Please see below. General: Alert Eyes: Normal sclera HENT: Atraumatic Cardiovascular: Normal rate, normal rhythm. Pulmonary: Clear to auscultation b/l, no wheezing GI: Soft, nontender, nondistended Skin: Warm and dry Neuro: CN grossly intact. No focal deficits. LABORATORY DATA: Please see below. IMAGING: CXR- IMPRESSION: 1. Some mild cardiomegaly with left atrial and ventricular enlargement. 2. Some chronic basilar fibrotic changes and lateral pleural thickening of CP angle with some linear atelectatic or fibrotic change, left base. 3. Eventration of the diaphragms anteriorly on both sides, right slightly greater than left. No definite acute infiltrate, effusion, or edema. Renal US- IMPRESSION: 1. Bilateral renal cysts measuring up to 4.8 cm on the left. 2. Otherwise negative renal sonogram. No hydronephrosis. ACTIVITY: [As tolerated]. DIET: 2G Sodium diet DISCHARGE PLAN: complete 7 day course of IV cefepime f/u Urine culture F/u PCP within 1 week and urology in 4 weeks DISPOSITION: [facility]. DISCHARGE INSTRUCTIONS: complete 7 day course of IV cefepime f/u Urine culture F/u PCP within 1 week and urology in 4 weeks ITEMS TO FOLLOWUP ON ON OUTPATIENT: Urine culture DISCHARGE CONDITION: [Stable]. TIME SPENT ON DISCHARGE: 40 minutes. Vital Signs/I&Os Vital Signs Date Time Temp Pulse Resp B/P (MAP) Pulse Ox O2 Delivery O2 Flow Rate FiO2 05/15/19 05:20 98.2 78 18 130/74 (92) 93 Room Air I&O- Last 24 Hours up to 6 AM 05/15/19 06:00 Intake Total 1070 ml Output Total 275 ml Balance 795 ml Laboratory Data Labs 24H Laboratory Tests 2 05/14/19 18:18: Urine Color YELLOW, Urine Appearance CLOUDYH, Urine pH 5.0, Urine Specific [place] 1.012, Urine Protein NEGATIVE, Urine Glucose (UA) NEGATIVE, Urine Ketones NEGATIVE, Urine Blood 1+H, Urine Nitrite NEGATIVE, Urine Bilirubin NEGATIVE, Urine Urobilinogen 0.2, Urine Leukocyte Esterase 3+H, Urine WBC (Auto) 40H, Urine RBC (Auto) 5H, Urine Hyaline Casts (Auto) 2, Urine Bacteria (Auto) 1+H, Urine Squamous Epithelial Cells 0, Urine Mucus (Auto) SMALL, Urine Sperm (Auto) 05/15/19 06:54: Nucleated Red Blood Cells % (auto) 0.0, Anion Gap 6L, Glomerular Filtration Rate 50.4, Calcium Level 9.0 CBC/BMP Laboratory Tests 05/15/19 06:54 Microbiology Microbiology 05/14/19 Urine Culture, Received Pending 05/11/19 Blood Culture - Preliminary, Resulted No Growth after 72 hours. All specime... 05/11/19 Blood Culture - Preliminary, Resulted No Growth after 72 hours. All specime... 05/11/19 Urine Culture - Final, Complete Pseudomonas Aeruginosa Discharge Medications Scheduled Acetaminophen (Acetaminophen) 325 Mg Tablet, 650 MG PO TID, (Reported) 0800,1400, 2000 Aspirin (Aspirin EC) 81 Mg Tabec, 81 MG PO DAILY, (Reported) Budesonide/Formoterol (Symbicort 160-4.5 Mcg Inhaler) 60 Puff/Inhaler Aers, 2 PUFF INH BID, (Reported) 0900, 1700 Cefepime in Iso-Osm Dextrose (Cefepime 1 gm Injection) 1 Gm/50 Ml Froz.piggy, 1 GM IV BID Cyclosporine (Restasis Multidose) 0.05 % Emu, 1 DROP OU BID, (Reported) Fluticasone Propionate (Flonase Allergy Relief) 50 Mcg/Act Spr, 2 SPRAYS NA QHS, (Reported) Gabapentin (Gabapentin) 400 Mg Cap, 400 MG PO TID, (Reported) Ipratropium/Albuterol Sulfate (Iprat-Albut 0.5-3(2.5) mg/3 ml) 1 Zelda Zelda, 1 NEB INH QID, (Reported) 0000, 0600, 1200, 1800 Multivitamins (Thera M Plus Tablet) 1 Tab Tab, 1 TAB PO DAILY, (Reported) Omeprazole (Omeprazole) 40 Mg Cap, 40 MG PO BID, (Reported) 0600, 1600 Rivaroxaban (Xarelto) 15 Mg Tab, 15 MG PO QHS, (Reported) Roflumilast (Daliresp) 500 Mcg Tab, 500 MCG PO DAILY, (Reported) Sucralfate (Sucralfate) 1 Gm Tab, 1 GM PO TID, (Reported) 0600, 1200, 1600 Tiotropium Sharples (Spiriva) 18 Mcg Cap, 1 CAP INH QHS, (Reported) Torsemide (Torsemide) 10 Mg Tablet, 10 MG PO DAILY, (Reported) Scheduled PRN Acetaminophen (Tylenol 8 Hour) 650 Mg Tablet.er, 650 MG PO Q8H PRN for PAIN, (Reported) Allergies Coded Allergies: clarithromycin (Verified Allergy, Unknown, 05/11/19) levofloxacin (Verified Allergy, Unknown, 05/11/19) ULISES OBRIEN MD May 15, 2019 08:56
--- NOTE | 2019-05-15 10:30 | REP ---
Procedure: PICC line insertion with Mirna The procedure was performed under the direct supervision of Dr. Yan. The risks and benefits of the procedure were explained to the patient and informed consent was obtained. The right basilic vein was localized using ultrasound guidance. The skin was prepped and draped in a sterile fashion. 2% lidocaine was used as a local anesthetic. Using ultrasound guidance the basilic vein was cannulated and a 0.018 guidewire was inserted and advanced to the SVC using fluoroscopic guidance. The needle was removed and a 4.5 Singaporean dilator and peel-away sheath was inserted over the guide wire. A 4.5 Singaporean single lumen catheter was cut to length of 38 cm. The dilator was removed and the catheter was inserted over the guide wire with the tip ending in the SVC. The peel-away sheath was removed and the catheter was flushed with heparinized saline as per Hospital protocol. The catheter was affixed to the skin and a sterile dressing was applied. The patient tolerated the procedure well and there were no immediate complications. 0.2 minutes of fluoro time was utilized for this procedure. Electronically Signed by ONEYDA Law 05/14/2019 04:05 P Electronically Signed by Gaston Yan MD 05/15/2019 10:20 A
== END 2019-05-15 13:45 | DRG 699 ==
LOC: EDBD 17:11 → M ED 17:11 → M ED INP 21:09 → M MS5PR 22:28
PROVIDERS: ADMIT Internal Medicine; ATTEND Student in an Organized Health Care Education/Training Program
PROC: 02HV33Z Insertion of Infusion Device into Superior Vena Cava, Percutaneous Approach (ICD-10-PCS; principal; 2019-05-14 15:00)
DX: T83.511A Infection and inflammatory reaction due to indwelling urethral catheter, initial encounter (principal); E87.2 Acidosis; J44.9 Chronic obstructive pulmonary disease, unspecified; N18.3 Chronic kidney disease, stage 3 (moderate); N40.1 Benign prostatic hyperplasia with lower urinary tract symptoms; N39.0 Urinary tract infection, site not specified; K21.9 Gastro-esophageal reflux disease without esophagitis; F03.90 Unspecified dementia, unspecified severity, without behavioral disturbance, psychotic disturbance, mood disturbance, and anxiety; B96.5 Pseudomonas (aeruginosa) (mallei) (pseudomallei) as the cause of diseases classified elsewhere; Z86.711 Personal history of pulmonary embolism; Z79.82 Long term (current) use of aspirin; Z79.899 Other long term (current) drug therapy; Z88.8 Allergy status to other drugs, medicaments and biological substances; Y83.3 Surgical operation with formation of external stoma as the cause of abnormal reaction of the patient, or of later complication, without mention of misadventure at the time of the procedure

== ENCOUNTER → 2019-05-21 | Outpatient (REF) ==
[~2019-05-21] MED LIST changes: +CEFE1INJ2 IV
[2019-05-21 12:27] LABS: HEMATOCRIT 38.4 % (42.0-52.0); HEMOGLOBIN 11.6 g/dl (13.5-17.5); MEAN CORPUSCULAR HEMOGLOBIN 27.5 pg (27.0-33.0); MEAN CORPUSCULAR HGB CONC 30.2 g/dl (32.0-36.5); PLATELET COUNT, AUTOMATED 417 10^3/uL (150-450); RED BLOOD COUNT 4.22 10^6/uL (4.30-6.10); WHITE BLOOD COUNT 13.3 10^3/uL (4.0-10.0)
[2019-05-21 12:52] LABS: CALCIUM LEVEL 8.9 MG/DL (8.8-10.2); CREATININE FOR GFR 1.95 MG/DL (0.70-1.30); GLOMERULAR FILTRATION RATE 35.2 (>35)
== END ==
PROVIDERS: ATTEND Internal Medicine
DX: I48.91 Unspecified atrial fibrillation (principal)

== ENCOUNTER → 2019-05-23 | Outpatient (REF) ==
[2019-05-23 10:27] LABS: CALCIUM LEVEL 9.3 MG/DL (8.8-10.2); CREATININE FOR GFR 2.01 MG/DL (0.70-1.30); POTASSIUM SERUM 4.3 MEQ/L (3.5-5.1)
== END ==
PROVIDERS: ATTEND Physician Assistant
DX: N18.9 Chronic kidney disease, unspecified (principal)

== ENCOUNTER → 2019-05-28 | Outpatient (REF) ==
[2019-05-28 14:16] LABS: HEMATOCRIT 36.9 % (42.0-52.0); HEMOGLOBIN 11.2 g/dl (13.5-17.5); MEAN CORPUSCULAR HEMOGLOBIN 28.1 pg (27.0-33.0); MEAN CORPUSCULAR HGB CONC 30.4 g/dl (32.0-36.5); MEAN CORPUSCULAR VOLUME 92.5 fl (80.0-96.0); PLATELET COUNT, AUTOMATED 450 10^3/uL (150-450); RED BLOOD COUNT 3.99 10^6/uL (4.30-6.10)
[2019-05-28 14:34] LABS: CALCIUM LEVEL 9.5 MG/DL (8.8-10.2); CREATININE FOR GFR 1.66 MG/DL (0.70-1.30); GLOMERULAR FILTRATION RATE 42.4 (>35); POTASSIUM SERUM 4.3 MEQ/L (3.5-5.1)
== END ==
PROVIDERS: ATTEND Internal Medicine
DX: I48.91 Unspecified atrial fibrillation (principal)

== ENCOUNTER → 2019-07-24 | Outpatient (REF) | payer MEDICARE, MEDICAID ==
[~2019-07-24] MED LIST changes: +MACR100C42 PO; +MILKSUS3 PO; -OMEP-172 PO; +OMEP1CAP73 PO
[2019-07-24 09:27] LABS: BASO # 0.1 10^3/uL (0.0-0.2); BASO % 0.6 % (0.0-1.0); EOS # 0.2 10^3/uL (0.0-0.5); EOS % 1.4 % (0.0-3.0); HEMOGLOBIN 11.2 g/dl (13.5-17.5); LYMPH # 1.3 10^3/uL (1.5-5.0); LYMPH % 12.3 % (24.0-44.0); MEAN CORPUSCULAR HEMOGLOBIN 27.2 pg (27.0-33.0); MONO # 1.3 10^3/uL (0.0-0.8); MONO % 12.3 % (0.0-5.0); NEUTROPHILS # 7.7 10^3/uL (1.5-8.5); NEUTROPHILS % 72.9 % (36.0-66.0); PLATELET COUNT, AUTOMATED 305 10^3/uL (150-450); RED BLOOD COUNT 4.12 10^6/uL (4.30-6.10); WHITE BLOOD COUNT 10.6 10^3/uL (4.0-10.0)
[2019-07-24 10:06] LABS: ALBUMIN 3.3 GM/DL (3.2-5.2); BILIRUBIN,TOTAL 0.3 MG/DL (0.2-1.0); CALCIUM LEVEL 8.7 MG/DL (8.8-10.2); CREATININE FOR GFR 1.85 MG/DL (0.70-1.30); GLOMERULAR FILTRATION RATE 37.4 (>35); POTASSIUM SERUM 4.2 MEQ/L (3.5-5.1); TOTAL PROTEIN 6.2 GM/DL (6.4-8.2)
== END ==
PROVIDERS: ATTEND Nurse Practitioner Family
DX: D64.9 Anemia, unspecified (principal); N39.0 Urinary tract infection, site not specified; N18.3 Chronic kidney disease, stage 3 (moderate)

== ENCOUNTER → 2019-07-24 | Outpatient (REF) | payer MEDICARE, MEDICAID ==
[2019-07-24 22:14] LABS: APPEARANCE, URINE TURBID (CLEAR); BACTERIA, URINE AUTO NEGATIVE (NEGATIVE); BILIRUBIN, URINE AUTO NEGATIVE (NEGATIVE); BLOOD, URINE BLOOD 2+ (NEGATIVE); COLOR, URINE YELLOW (YELLOW); GLUCOSE, URINE (UA) AUTO NEGATIVE (NEGATIVE); KETONE, URINE AUTO NEGATIVE (NEGATIVE); LEUKOCYTE ESTERASE, URINE AUTO 3+ (NEGATIVE); MUCUS, URINE SMALL (NEGATIVE); NITRITE, URINE AUTO POSITIVE (NEGATIVE); PROTEIN, URINE AUTO 1+ mg/dL (NEGATIVE); RBC, URINE AUTO 18 /HPF (0-3); SPECIFIC GRAVITY URINE AUTO 1.015 (1.002-1.035); SQUAMOUS EPITHELIAL CELL UR AU 0 /HPF (0-6); UROBILINOGEN, URINE AUTO 0.2 mg/dL (0.0-2.0); WBC, URINE AUTO TNTC /HPF (0-3)
== END ==
PROVIDERS: ATTEND Nurse Practitioner Family
DX: D64.9 Anemia, unspecified (principal); N39.0 Urinary tract infection, site not specified; N18.3 Chronic kidney disease, stage 3 (moderate)

== ENCOUNTER 2019-07-28 15:21 | Inpatient (IN) | payer MEDICARE, MEDICAID ==
[~2019-07-28] VITALS: Ht 170.2 cm; Wt 67.1 kg
[~2019-07-28 15:21] MED LIST changes: -MACR100C42 PO; -MILKSUS3 PO
[2019-07-28] MEDS ORDERED: NS 500 ML IV ONE (15:45)
[2019-07-28 15:56] LABS: BASO # 0.1 10^3/uL (0.0-0.2); BASO % 0.3 % (0.0-1.0); EOS # 0.8 10^3/uL (0.0-0.5); EOS % 2.4 % (0.0-3.0); HEMATOCRIT 36.1 % (42.0-52.0); HEMOGLOBIN 11.3 g/dl (13.5-17.5); LYMPH # 0.9 10^3/uL (1.5-5.0); LYMPH % 2.6 % (24.0-44.0); MEAN CORPUSCULAR HEMOGLOBIN 26.5 pg (27.0-33.0); MEAN CORPUSCULAR HGB CONC 31.3 g/dl (32.0-36.5); MEAN CORPUSCULAR VOLUME 84.5 fl (80.0-96.0); MONO # 1.3 10^3/uL (0.0-0.8); MONO % 3.7 % (0.0-5.0); NEUTROPHILS % 89.8 % (36.0-66.0); PLATELET COUNT, AUTOMATED 404 10^3/uL (150-450); RED BLOOD COUNT 4.27 10^6/uL (4.30-6.10)
[2019-07-28] MEDS ORDERED: MACR100C42 PO (16:06)
[2019-07-28] MEDS ORDERED: MILKSUS3 PO (16:06)
--- NOTE | 2019-07-28 16:06 | REP ---
Portable chest, 03:46 p.m., single AP view with the patient semi upright: Comparison is the sitting AP and lateral chest of 05/11/2019. 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 The lung pak are clear. Cardiac size is normal. The hoda, mediastinum, skeletal structures are unremarkable except for degenerative changes in the shoulders. Impression: No acute cardiopulmonary findings. Bilateral diaphragmatic eventration. Electronically Signed by Gaston Ochoa MD 07/28/2019 03:57 P
--- NOTE | 2019-07-28 16:18 | REPVR ---
PROCEDURE INFORMATION: Exam: CT Head Without Contrast Exam date and time: 07/28/2019 3:41 PM Age: 83 years old Clinical indication: Other: Weakness TECHNIQUE: Imaging protocol: Computed tomography of the head without contrast. Radiation optimization: All CT scans at this facility use at least one of these dose optimization techniques: automated exposure control; mA and/or kV adjustment per patient size (includes targeted exams where dose is matched to clinical indication); or iterative reconstruction. COMPARISON: No relevant prior studies available. FINDINGS: Brain: There is moderate, diffuse parenchymal volume loss. There is moderate diffuse heterogeneity of the white matter attenuation, consistent with chronic white matter ischemic changes. The cortical/white matter interfaces are preserved throughout the brain. There is no evidence of intracranial hemorrhage. Ventricles: The ventricular system demonstrates moderate diffuse compensatory enlargement. Bones/joints: No acute fractures of the skull are identified. Sinuses: The visualized paranasal sinuses are clear. Mastoid air cells: The visualized mastoid air cells are clear. Soft tissues: The soft tissues appear unremarkable. Vasculature: Atherosclerotic calcifications are seen in the cerebral arteries at the skull base. IMPRESSION: 1. Diffuse parenchymal volume loss and associated enlargement of the ventricles. Low attenuation in the white matter most consistent with chronic small vessel ischemic disease. 2. No evidence of acute infarct, hemorrhage, or mass lesion. Electronically signed by: Latricia Duffy On 07/28/2019 16:17:51 PM
[2019-07-28 16:19] LABS: ALBUMIN 3.3 GM/DL (3.2-5.2); ALT/SGPT 20 U/L (12-78); BILIRUBIN,DIRECT 0.2 MG/DL (0.0-0.2); BILIRUBIN,TOTAL 0.5 MG/DL (0.2-1.0); BLOOD UREA NITROGEN 39 MG/DL (7-18); CALCIUM LEVEL 8.8 MG/DL (8.8-10.2); CARBON DIOXIDE LEVEL 25 MEQ/L (21-32); CHLORIDE LEVEL 105 MEQ/L (98-107); CK-MB VALUE MASS 2.6 NG/ML (<3.6); CPK CREATINE PHOSPHOKINASE 62 U/L (39-308); CREATININE FOR GFR 2.37 MG/DL (0.70-1.30); FREE T4 1.13 NG/DL (0.76-1.46); GLOMERULAR FILTRATION RATE 28.1 (>35); GLUCOSE, FASTING 84 MG/DL (70-100); LIPASE 607 U/L (73-393); MB/CK RELATIVE INDEX 4.19 (< OR =4); POTASSIUM SERUM 4.1 MEQ/L (3.5-5.1); SODIUM LEVEL 138 MEQ/L (136-145); THYROID STIMULATING HORMONE 0.925 uIU/ML (0.358-3.740); TOTAL PROTEIN 6.4 GM/DL (6.4-8.2); TROPONIN I < 0.02 NG/ML (< 0.10)
[2019-07-28 16:24] LABS: INR 1.31
[2019-07-28 16:25] LABS: PARTIAL THROMBOPLASTIN TIME 47.3 SECONDS (25.0-38.4)
[2019-07-28 16:43] LABS: NEUTROPHILS # 30.3 10^3/uL (1.5-8.5)
[2019-07-28 16:44] LABS: WHITE BLOOD COUNT 33.8 10^3/uL (4.0-10.0)
[2019-07-28] MEDS ORDERED: NS 1,390 ML in IV 1 EA IV ONE (17:00)
[2019-07-28] MEDS ORDERED: cefTRIAXone SOD 2 GM in D5W MINI-BAG PLUS 50 ML IV ONE (17:00)
[2019-07-28 17:12] LABS: APPEARANCE, URINE TURBID (CLEAR); BACTERIA, URINE AUTO 3+ (NEGATIVE); BILIRUBIN, URINE AUTO NEGATIVE (NEGATIVE); BLOOD, URINE BLOOD 2+ (NEGATIVE); COLOR, URINE AMBER (YELLOW); GLUCOSE, URINE (UA) AUTO NEGATIVE (NEGATIVE); GRANULAR CAST, URINE AUTO 4 /LPF; KETONE, URINE AUTO NEGATIVE (NEGATIVE); LEUKOCYTE ESTERASE, URINE AUTO 2+ (NEGATIVE); MUCUS, URINE SMALL (NEGATIVE); NITRITE, URINE AUTO NEGATIVE (NEGATIVE); PROTEIN, URINE AUTO 3+ mg/dL (NEGATIVE); RBC, URINE AUTO 9 /HPF (0-3); SPECIFIC GRAVITY URINE AUTO 1.017 (1.002-1.035); SQUAMOUS EPITHELIAL CELL UR AU 1 /HPF (0-6); UROBILINOGEN, URINE AUTO 0.2 mg/dL (0.0-2.0); WBC, URINE AUTO 67 /HPF (0-3)
--- NOTE | 2019-07-28 17:19 | REP ---
CT of the abdomen pelvis without IV or bowel contrast for generalized abdominal pain: Comparisons are the abdomen/pelvis CT dated 08/05/2098 and renal ultrasound dated 05/15/2019. The visualized lung pak demonstrate pericardial calcification along the inferomedial and inferior margins of the heart. This is unchanged from the prior study. The visualized lung pak otherwise are. dependent atelectasis but are otherwise unremarkable. The unenhanced hepatic parenchyma, gallbladder, pancreas and spleen are unremarkable. The adrenals are unremarkable. There is a 5.7 cm right renal exophytic Bosniak type 1 cyst. On the comparison CT this cyst measured 5.7 cm. On the comparison ultrasound of this cyst measured 4.7 cm. The abdominal aorta demonstrates an aneurysm distally measuring 3.3 cm in diameter. This measured 3.1 cm previously. There is no periaortic hematoma. The bowel and mesentery are unremarkable. There is a tiny fat containing umbilical hernia. Pelvis: There is a bladder catheter. The prostate is enlarged but unchanged. There is no ascites or adenopathy. There is multilevel degenerative disc disease in the lumbar spine. There is descending colon -/sigmoid colon diverticulosis without diverticulitis. Impression: Enlarged prostate. Bladder catheter. The Exophytic large left renal cyst, not significantly changed. Pericardial calcification. No hydronephrosis. No renal, ureteral or bladder calculi. Diverticulosis without diverticulitis. To 3.3 cm distal abdominal aortic aneurysm without periaortic hematoma. Electronically Signed by Gaston Ochoa MD 07/28/2019 05:10 P
[2019-07-28 17:23] LABS: INFLUENZA A AMPLIFICATION NEGATIVE (NEGATIVE); INFLUENZA B AMPLIFICATION NEGATIVE (NEGATIVE)
[2019-07-28] MEDS ORDERED: MOM 30ML SUSPENSION UDC PO PRN (18:30)
--- NOTE | 2019-07-28 18:43 | HPEPDOC ---
[facility] Medical History & Physical Date of Admission Jul 28, 2019 Date of Service: Jul 28, 2019 Attending Physician: CARRIE MERCADO MD History and Physical CHIEF COMPLAINT: Sent from facility for fever and dizziness HISTORY OF PRESENT ILLNESS: 83-year-old male with past medical history of COPD, BPH, urinary retention, status post chronic Dang, recurrent UTIs, pulmonary embolism (on Xarelto), GERD and chronic kidney disease presents from facility with weakness, dizziness and fever. Patient reports feeling like this for the past week, worsening over the past 2-3 days, to the point that he could not get out of bed earlier today. He has a history of recurrent UTIs, usually presents similarly with significant fatigue and dizziness. Patient had a urine culture done 3 days ago which grew pansensitive Escherichia coli, has had a UTI in May 2019, which grew Pseudomonas. In the ED, patient was found to have significantly elevated white count, elevated lactate, slightly hypotensive and labs consistent with acute on chronic kidney disease. Patient was given IV fluids and antibiotics. Patient comfortable in bed at this time, reports slight improvement in dizziness, having penile discomfort because Dang was changed in the ED, poor historian, unknown if secondary to current infection or baseline. Most of the information was obtained from ED staff and chart review. Patient denies any shortness of breath, chest pain, nausea, vomiting or diarrhea. 10 point review of system is negative except for above PAST MEDICAL HISTORY: 1. COPD. 2. Chronic kidney disease. 3. Urinary retention. 4. Pulmonary embolism. 5. Recurrent UTIs. 6. BPH. 7. GERD PAST SURGICAL HISTORY: 1. Patient unsure. SOCIAL HISTORY: Previous smoker, quit many years ago. Denies alcohol use. Denies drug use FAMILY HISTORY: Father had [place] ALLERGIES: Please see below. HOME MEDICATIONS: Please see below. PHYSICAL EXAMINATION: VITAL SIGNS: Please see below. GENERAL: No distress HEENT: Normocephalic, atraumatic, dry mucous membranes NECK: Supple CARDIOVASCULAR EXAMINATION: S1, S2, no murmurs RESPIRATORY EXAMINATION: Clear to auscultation, no wheezing ABDOMINAL EXAMINATION: Soft, mild diffuse abdominal tenderness, nondistended, positive bowel sounds EXTREMITIES: Range of motion intact SKIN: No rash NEUROLOGICAL EXAMINATION: no focal deficits PSYCHIATRIC EXAMINATION: Calm and cooperative LABORATORY DATA: See below. IMAGING: CT abdomen and pelvis without acute pathology, no hydronephrosis MICROBIOLOGY: Please see below. ASSESSMENT: 83-year-old male with multiple medical comorbidities, is being admi tted for sepsis secondary to UTI. PLAN: 1. Sepsis secondary to UTI. History of recurrent UTIs, status post IV fluid bolus in the ED, continue maintenance fluids, recent urine culture grew pansensitive Escherichia coli, previous cultures grew Pseudomonas, continue cefepime, urine and blood cultures pending, lactate elevated, will trend. 2. COPD Stable, continue home regimen 3. Pulmonary embolism. Continue Xarelto 15 mg at bedtime 4. Acute on chronic kidney disease Likely due to poor oral intake, fever and home diuretics, CT abdomen and pelvis without hydronephrosis, status post IV fluid bolus in the ED, continue management, as well as, will monitor. 5. GERD. Continue Protonix and Carafate. 6. BPH. History of urinary retention, has chronic Dang catheter, switched in the ED. DVT prophylaxis: On Xarelto GI prophylaxis: Home PPI and Carafate Vital Signs Vital Signs Date Time Temp Pulse Resp B/P (MAP) Pulse Ox O2 Delivery O2 Flow Rate FiO2 07/28/19 18:04 99.3 74 20 119/76 (90) 100 Room Air Laboratory Data Labs 24H Laboratory Tests 2 07/28/19 15:41: Immature Granulocyte % (Auto) 1.2, Neutrophils (%) (Auto) 89.8H, Lymphocytes (%) (Auto) 2.6L, Monocytes (%) (Auto) 3.7, Eosinophils (%) (Auto) 2.4, Basophils (%) (Auto) 0.3, Neutrophils # (Auto) 30.3H, Lymphocytes # (Auto) 0.9L, Monocytes # (Auto) 1.3H, Eosinophils # (Auto) 0.8H, Basophils # (Auto) 0.1, Nucleated Red Blood Cells % (auto) 0.0, Prothrombin Time 16.0H, Prothromb Time International Ratio 1.31, Activated Partial Thromboplast Time 47.3H, Anion Gap 8, Glomerular Filtration Rate 28.1L, Lactic Acid Level 2.6*H, Calcium Level 8.8, Total Bilirubin 0.5, Direct Bilirubin 0.2, Aspartate Amino Transf (AST/SGOT) 16, Alanine Aminotransferase (ALT/SGPT) 20, Alkaline Phosphatase 90, Total Creatine Kinase 62, Creatine Kinase MB 2.6, Creatine Kinase MB Relative Index 4.19H, Troponin I < 0.02, Total Protein 6.4, Albumin 3.3, Albumin/Globulin Ratio 1.06, Lipase 607H, Thyroid Stimulating Hormone (TSH) 0.925, Free Thyroxine 1.13, Influenza Type A (RT-PCR) NEGATIVE, Influenza Type B (RT-PCR) NEGATIVE 07/28/19 16:49: Urine Color CECILIO, Urine Appearance TURBIDH, Urine pH 5.0, Urine Specific [place] 1.017, Urine Protein 3+H, Urine Glucose (Auto)(UA) NEGATIVE, Urine Ketones (Auto) NEGATIVE, Urine Blood 2+H, Urine Nitrite NEGATIVE, Urine Bilirubin NEGATIVE, Urine Urobilinogen 0.2, Urine Leukocyte Esterase (Auto) 2+H, Urine WBC (Auto) 67H, Urine RBC (Auto) 9H, Urine Hyaline Casts (Auto) 15, Urine Bacteria (Auto) 3+H, Urine Squamous Epithelial Cells 1, Urine Granular Casts (Auto) 4, Urine Mucus (Auto) SMALL, Urine Yeast-Like Cells (Auto) LARGEH, Urine Sperm (Auto) CBC/BMP Laboratory Tests 07/28/19 15:41 Microbiology Microbiology 07/28/19 Urine Culture, Received Pending 07/28/19 Blood Culture, Received Pending 07/28/19 Blood Culture, Received Pending Home Medications Scheduled Acetaminophen (Acetaminophen) 325 Mg Tablet, 650 MG PO TID 0800,1400, 2000 Budesonide/Formoterol (Symbicort 160-4.5 Mcg Inhaler) 60 Puff/Inhaler Aers, 2 PUFF INH BID 0900, 1700 Cyclosporine (Restasis Multidose) 0.05 % Emu, 1 DROP OU BID 2ND @ 1700 Fluticasone Propionate (Flonase Allergy Relief) 50 Mcg/Act Spr, 2 SPRAYS NA QHS Gabapentin (Gabapentin) 400 Mg Cap, 400 MG PO TID Ipratropium/Albuterol Sulfate (Iprat-Albut 0.5-3(2.5) mg/3 ml) 1 Zelda Zelda, 1 NEB INH QID 0000, 0600, 1200, 1800 Multivitamins (Thera M Plus Tablet) 1 Tab Tab, 1 TAB PO DAILY Nitrofurantoin Macrocrystal (Macrodantin) 100 Mg Capsule, 100 MG PO BID STARTED ON 07/27/19 Omeprazole (Omeprazole) 40 Mg Cap, 40 MG PO BID 0600, 1600 Rivaroxaban (Xarelto) 15 Mg Tab, 15 MG PO QHS Roflumilast (Daliresp) 500 Mcg Tab, 500 MCG PO DAILY Sucralfate (Sucralfate) 1 Gm Tab, 1 GM PO TID 0600, 1200, 1600 Tiotropium [place] (Spiriva) 18 Mcg Cap, 1 CAP INH QHS Torsemide (Torsemide) 10 Mg Tablet, 10 MG PO DAILY Scheduled PRN Magnesium Hydroxide (Milk of Magnesia) 400 Mg/5 Ml Oral.susp, 10 ML PO DAILY PRN for CONSTIPATION Allergies Coded Allergies: clarithromycin (Verified Adverse Reaction, Mild, diarrhea, 05/17/19) levofloxacin (Verified Adverse Reaction, Mild, tendinopathy, 05/17/19) A-FIB/CHADSVASC A-FIB History Current/History of A-Fib/PAF?: CARRIE Odell MD Jul 28, 2019 18:43
[2019-07-28] MEDS: NS 1,000 ML IV SCH (19:31)
[2019-07-28] MEDS: IPRATROPIUM 0.5MG/ALBUTEROL 2.5MG INH SOL UD 3ML (DUONEB)(J7620) INH SCH (20:00)
[2019-07-28] MEDS ORDERED: NS 1,000 ML IV SCH (20:30)
[2019-07-28] MEDS: FLUTICASONE PROP 0.05% NASAL SPRAY 16 GM (FLONASE) SCH (21:00)
--- NOTE | 2019-07-28 21:01 | ECGEPIP ---
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
[2019-07-28] MEDS: GABAPENTIN 400 MG CAP PO SCH (23:01)
[2019-07-28] MEDS: RIVAROXABAN 15 MG TAB (XARELTO) PO SCH (23:01)
[2019-07-28] MEDS: CEFEPIME HCL 1 GM in D5W MINI-BAG PLUS 50 ML IV SCH (23:02)
[2019-07-28] MEDS: OMEPRAZOLE 20 MG CAP PO SCH (23:02)
[2019-07-28] MEDS: ACETAMINOPHEN TAB 650MG DOSE (2X325MG) PO SCH (23:04)
[2019-07-28] MEDS: SUCRALFATE 1 GM TAB PO SCH (23:04)
[2019-07-28] MEDS ORDERED: NOREPINEPHRINE BITARTRATE 8 MG in D5W 492 ML IV SCH (23:45)
[2019-07-29] VITALS (23 sets, daily range): BP systolic 82–113; BP diastolic 49–62
[2019-07-29] MEDS: TIOTROPIUM INHALER/CAPSULE (SPIRIVA) INH SCH ×2 (01:54→08:22)
[2019-07-29] MEDS: SYMBICORT 160/4.5MCG INHALER 6GM INH SCH ×3 (01:54→20:30)
[2019-07-29] MEDS: NS 1,000 ML IV SCH (04:00)
[2019-07-29 05:49] LABS: HEMATOCRIT 28.2 % (42.0-52.0); MEAN CORPUSCULAR HGB CONC 31.9 g/dl (32.0-36.5); MEAN CORPUSCULAR VOLUME 84.7 fl (80.0-96.0); PLATELET COUNT, AUTOMATED 370 10^3/uL (150-450); RED BLOOD COUNT 3.33 10^6/uL (4.30-6.10)
[2019-07-29 06:14] LABS: ALBUMIN 2.4 GM/DL (3.2-5.2); BILIRUBIN,TOTAL 0.2 MG/DL (0.2-1.0); CREATININE FOR GFR 1.79 MG/DL (0.70-1.30); GLOMERULAR FILTRATION RATE 38.9 (>35); MAGNESIUM LEVEL 1.7 MG/DL (1.8-2.4); TOTAL PROTEIN 5.4 GM/DL (6.4-8.2)
[2019-07-29] MEDS ORDERED: MAG SULF 1GM/100ML (MAG RUN) 1 GM in IV 1 EA IV ONE ×2 (06:30→09:00)
--- NOTE | 2019-07-29 07:31 | IPNPDOC ---
Date Seen The patient was seen on 07/29/19. Progress Note INDICATION: Hypotension PROCEDURE PACKING CHECKER: Dr. Mercado CONSENT: The procedure was performed emergently and the permission was implied because of the emergent nature. PROCEDURE SUMMARY: My hands were washed immediately prior to the procedure. I wore a surgical cap, mask with protective eyewear, full gown and sterile gloves throughout the procedure. The patient was placed in Trendelenburg position. Right chest region was prepped using chlorhexidine scrub and draped in sterile fashion using a full drape and sterile probe cover employed. The medial and lateral heads of the sternocleidomastoid muscle were identified as was the carotid pulse. The Internal Jugular vein was identified using the ultrasound. Anesthesia was achieved over the vein using 1% lidocaine. Using real-time out of plane guidance, the introducer needle was inserted into the Internal Jugular vein under direct ultrasound visualization. Venous blood was withdrawn. The syringe was removed and a guidewire was advanced into the introducer needle. The guidewire was visualized in the Internal Jugular Vein by ultrasound. A small incision was made at the skin surface with a scalpel and the introducer needle was exchanged for a dilator over the guidewire. After appropriate dilation was obtained, the dilator was exchanged over the wire for a 20 cm central venous catheter. The wire was removed and the catheter was sutured in place at 16 cm. A sterile sorbaview shield was placed over the catheter at the insertion site. The patient tolerated the procedure without any hemodynamic compromise. At time of procedure completion, all ports aspirated and flushed properly. Post-procedure chest x-ray shows appropriate placement. Estimated blood loss is <5 ml. VS, I&O, 24H, Fishbone Vital Signs/I&O Vital Signs Date Time Temp Pulse Resp B/P (MAP) Pulse Ox O2 Delivery O2 Flow Rate FiO2 07/29/19 06:01 86 113/59 (77) Room Air 07/29/19 04:01 98.1 20 96 I&O- Last 24 Hours up to 6 AM 07/29/19 06:00 Intake Total 2716 ml Output Total 1200 ml Balance 1516 ml Laboratory Data 24H LABS Laboratory Tests 2 07/28/19 15:41: Immature Granulocyte % (Auto) 1.2, Neutrophils (%) (Auto) 89.8H, Lymphocytes (%) (Auto) 2.6L, Monocytes (%) (Auto) 3.7, Eosinophils (%) (Auto) 2.4, Basophils (%) (Auto) 0.3, Neutrophils # (Auto) 30.3H, Lymphocytes # (Auto) 0.9L, Monocytes # (Auto) 1.3H, Eosinophils # (Auto) 0.8H, Basophils # (Auto) 0.1, Nucleated Red Blood Cells % (auto) 0.0, Prothrombin Time 16.0H, Prothromb Time International Ratio 1.31, Activated Partial Thromboplast Time 47.3H, Anion Gap 8, Glomerular Filtration Rate 28.1L, Lactic Acid Level 2.6*H, Calcium Level 8.8, Total Bilirubin 0.5, Direct Bilirubin 0.2, Aspartate Amino Transf (AST/SGOT) 16, Alanine Aminotransferase (ALT/SGPT) 20, Alkaline Phosphatase 90, Total Creatine Kinase 62, Creatine Kinase MB 2.6, Creatine Kinase MB Relative Index 4.19H, Troponin I < 0.02, Total Protein 6.4, Albumin 3.3, Albumin/Globulin Ratio 1.06, Lipase 607H, Thyroid Stimulating Hormone (TSH) 0.925, Free Thyroxine 1.13, Influenza Type A (RT-PCR) NEGATIVE, Influenza Type B (RT-PCR) NEGATIVE 07/28/19 16:49: Urine Color CECILIO, Urine Appearance TURBIDH, Urine pH 5.0, Urine Specific [place] 1.017, Urine Protein 3+H, Urine Glucose (Auto)(UA) NEGATIVE, Urine Ketones (Auto) NEGATIVE, Urine Blood 2+H, Urine Nitrite NEGATIVE, Urine Bilirubin NEGATIVE, Urine Urobilinogen 0.2, Urine Leukocyte Esterase (Auto) 2+H, Urine WBC (Auto) 67H, Urine RBC (Auto) 9H, Urine Hyaline Casts (Auto) 15, Urine Bacteria (Auto) 3+H, Urine Squamous Epithelial Cells 1, Urine Granular Casts (Auto) 4, Urine Mucus (Auto) SMALL, Urine Yeast-Like Cells (Auto) LARGEH, Urine Sperm (Auto) 07/28/19 20:06: Lactic Acid Followup at 4 Hours 1.5 07/29/19 05:33: Nucleated Red Blood Cells % (auto) 0.0, Anion Gap 6L, Glomerular Filtration Rate 38.9, Calcium Level 8.0L, Total Bilirubin 0.2#, Aspartate Amino Transf (AST/SGOT) 9, Alanine Aminotransferase (ALT/SGPT) 14, Alkaline Phosphatase 68, Total Protein 5.4L, Albumin 2.4#L, Albumin/Globulin Ratio 0.80L, Magnesium Level 1.7L CBC/BMP Laboratory Tests 07/28/19 15:41 07/29/19 05:33 Microbiology Microbiology 07/28/19 Urine Culture, Received Pending 07/28/19 Blood Culture, Received Pending 07/28/19 Blood Culture, Received Pending CARRIE MERCADO MD Jul 29, 2019 07:31
--- NOTE | 2019-07-29 07:40 | REP ---
Portable chest, 12:24 a.m., single AP view with the patient semi upright: Comparison is 07/28/2019. There has been interval placement of a right IJ central venous catheter with the tip in the superior vena cava in satisfactory position. The patient is rotated. The left hemidiaphragm is obscured, suggestive of a left pleural effusion/infiltrate. The right cardiac margin is obscured by patient rotation. Cardiac size cannot be assessed. Right lung is clear. Impression: New IJ central venous catheter with the tip in the superior vena cava. The patient is rotated. Left hemidiaphragm is obscured, artifact from patient rotation versus left lower lobe infiltrate/effusion. Electronically Signed by Gaston Ochoa MD 07/29/2019 07:31 A
[2019-07-29] MEDS ORDERED: POTASSIUM CHLORIDE 10 MEQ SR TABLET PO SCH (08:00)
[2019-07-29] MEDS: IPRATROPIUM 0.5MG/ALBUTEROL 2.5MG INH SOL UD 3ML (DUONEB)(J7620) INH SCH ×4 (08:00→20:00)
[2019-07-29] MEDS: KCL 20MEQ IN 100ML SWI (KRUN) 20 MEQ in IV 1 EA IV SCH ×4 (08:12→09:06)
[2019-07-29] MEDS: CEFEPIME HCL 1 GM in D5W MINI-BAG PLUS 50 ML IV SCH ×2 (08:16→22:04)
[2019-07-29] MEDS: OMEPRAZOLE 20 MG CAP PO SCH ×2 (08:16→22:03)
[2019-07-29] MEDS: ASPIRIN 81 MG ENTERIC TAB PO SCH (08:16)
[2019-07-29] MEDS: GABAPENTIN 400 MG CAP PO SCH ×3 (08:16→22:03)
[2019-07-29] MEDS: SUCRALFATE 1 GM TAB PO SCH ×3 (08:16→17:05)
[2019-07-29] MEDS: MULTIVITAMINS/MINERALS THERAP 1 TAB PO SCH (08:16)
[2019-07-29] MEDS: ACETAMINOPHEN TAB 650MG DOSE (2X325MG) PO SCH ×3 (08:26→22:03)
[2019-07-29] MEDS ORDERED: POTASSIUM CHLORIDE 10 MEQ SR TABLET PO ONE (09:00)
--- NOTE | 2019-07-29 16:30 | IPNPDOC ---
Date Seen The patient was seen on 07/29/19. Progress Note HISTORY OF PRESENT ILLNESS: 83-year-old male with past medical history of COPD, BPH, urinary retention, status post chronic Dang, recurrent UTIs, pulmonary embolism (on Xarelto), GERD and chronic kidney disease presents from facility with weakness, dizziness and fever. Patient reports feeling like this for the past week, worsening over the past 2-3 days, to the point that he could not get out of bed earlier today. He has a history of recurrent UTIs, usually presents similarly with significant fatigue and dizziness. Patient had a urine culture done 3 days ago which grew pansensitive Escherichia coli, has had a UTI in May 2019, which grew Pseudomonas. In the ED, patient was found to have significantly elevated white count, elevated lactate, slightly hypotensive and labs consistent with acute on chronic kidney disease. Patient was given IV fluids and antibiotics. Patient comfortable in bed at this time, reports slight improvement in dizziness, having penile discomfort because Dang was changed in the ED, poor historian, unknown if secondary to current infection or baseline. Most of the information was obtained from ED staff and chart review. Patient denies any shortness of breath, chest pain, nausea, vomiting or diarrhea. 07/29/19 Patient developed septic shock overnight, central line was placed in the right IJ and Levothroid was started, remained in ICU overnight, currently on 3 mcg/m of Levophed. Significant clinical improvement from last night, reports chronic pain, no other complaints at this time. He denies any short of breath, chest pain, nausea, vomiting or diarrhea. 10 point review of system is negative except for above PHYSICAL EXAMINATION: VITAL SIGNS: Please see below. GENERAL: No distress HEENT: Normocephalic, atraumatic, moist mucous membranes NECK: Supple CARDIOVASCULAR EXAMINATION: S1, S2, no murmurs RESPIRATORY EXAMINATION: Clear to auscultation, no wheezing ABDOMINAL EXAMINATION: Soft, nontender, nondistended, positive bowel sounds EXTREMITIES: Range of motion intact SKIN: No rash NEUROLOGICAL EXAMINATION: no focal deficits PSYCHIATRIC EXAMINATION: Calm and cooperative LABORATORY DATA: See below. IMAGING: CT abdomen and pelvis without acute pathology, no hydronephrosis MICROBIOLOGY: Please see below. ASSESSMENT: 83-year-old male with multiple medical comorbidities, is being admitted for sepsis secondary to UTI. PLAN: 1. Septic shock, likely secondary to UTI History of recurrent UTIs, failed IV fluid resuscitation, started on the Levophed overnight via right IJ central line, currently on low-dose of 3 mcg/m, will attempt to titrate off and downgrade to MedSurg if blood pressure remains stable off of Levothroid, urine cultures and blood cultures pending, continue cefepime. 2. COPD Stable, continue home regimen 3. Pulmonary embolism. Continue Xarelto 15 mg at bedtime 4. Acute on chronic kidney disease Likely due to poor oral intake, fever and home diuretics, CT abdomen and pelvis without hydronephrosis, resolved with IV fluids, creatinine back to baseline, will monitor. 5. GERD. Continue Protonix and Carafate. 6. BPH. History of urinary retention, has chronic Dang catheter, switched in the ED. DVT prophylaxis: On Xarelto GI prophylaxis: Home PPI and Carafate VS, I&O, 24H, Fishbone Vital Signs/I&O Vital Signs Date Time Temp Pulse Resp B/P (MAP) Pulse Ox O2 Delivery O2 Flow Rate FiO2 07/29/19 15:00 84 17 100/56 (71) 95 Room Air 07/29/19 12:00 98.2 I&O- Last 24 Hours up to 6 AM 07/29/19 05:59 Intake Total 2511 ml Output Total 1050 ml Balance 1461 ml Laboratory Data 24H LABS Laboratory Tests 2 07/28/19 16:49: Urine Color CECILIO, Urine Appearance TURBIDH, Urine pH 5.0, Urine Specific [place] 1.017, Urine Protein 3+H, Urine Glucose (Auto)(UA) NEGATIVE, Urine Ketones (Auto) NEGATIVE, Urine Blood 2+H, Urine Nitrite NEGATIVE, Urine Bilirubin NEGATIVE, Urine Urobilinogen 0.2, Urine Leukocyte Esterase (Auto) 2+H, Urine WBC (Auto) 67H, Urine RBC (Auto) 9H, Urine Hyaline Casts (Auto) 15, Urine Bacteria (Auto) 3+H, Urine Squamous Epithelial Cells 1, Urine Granular Casts (Auto) 4, Urine Mucus (Auto) SMALL, Urine Yeast-Like Cells (Auto) LARGEH, Urine Sperm (Auto) 07/28/19 20:06: Lactic Acid Followup at 4 Hours 1.5 07/29/19 05:33: Nucleated Red Blood Cells % (auto) 0.0, Anion Gap 6L, Glomerular Filtration Rate 38.9, Calcium Level 8.0L, Magnesium Level 1.7L, Total Bilirubin 0.2#, Aspartate Amino Transf (AST/SGOT) 9, Alanine Aminotransferase (ALT/SGPT) 14, Alkaline Phosphatase 68, Total Protein 5.4L, Albumin 2.4#L, Albumin/Globulin Ratio 0.80L CBC/BMP Laboratory Tests 07/29/19 05:33 Microbiology Microbiology 07/28/19 Urine Culture - Final, Complete Yeast Like Organism 07/28/19 Blood Culture, Received Pending 07/28/19 Blood Culture - Preliminary, Resulted No growth after 24 hours . All specim... CARRIE MERCADO MD Jul 29, 2019 16:30
[2019-07-29] MEDS: FLUTICASONE PROP 0.05% NASAL SPRAY 16 GM (FLONASE) SCH (21:00)
[2019-07-29] MEDS: RIVAROXABAN 15 MG TAB (XARELTO) PO SCH (22:03)
[2019-07-29] MEDS ORDERED: SODIUM CHLORIDE 0.9% INJ 10 ML SYR IV PRN (22:30)
[2019-07-30 06:00] VITALS: BP 100/63
[2019-07-30] MEDS ORDERED: SODIUM CHLORIDE 0.9% INJ 10 ML SYR IV SCH (06:00)
[2019-07-30] MEDS: TIOTROPIUM INHALER/CAPSULE (SPIRIVA) INH SCH (07:49)
[2019-07-30] MEDS: SYMBICORT 160/4.5MCG INHALER 6GM INH SCH ×2 (07:49→20:31)
[2019-07-30] MEDS: IPRATROPIUM 0.5MG/ALBUTEROL 2.5MG INH SOL UD 3ML (DUONEB)(J7620) INH SCH ×4 (07:50→20:00)
[2019-07-30] MEDS: CEFEPIME HCL 1 GM in D5W MINI-BAG PLUS 50 ML IV SCH ×2 (08:49→21:55)
[2019-07-30] MEDS: SUCRALFATE 1 GM TAB PO SCH ×3 (08:49→16:31)
[2019-07-30] MEDS: MULTIVITAMINS/MINERALS THERAP 1 TAB PO SCH (08:50)
[2019-07-30] MEDS: ASPIRIN 81 MG ENTERIC TAB PO SCH (08:50)
[2019-07-30] MEDS: GABAPENTIN 400 MG CAP PO SCH ×3 (08:50→21:55)
[2019-07-30] MEDS: ACETAMINOPHEN TAB 650MG DOSE (2X325MG) PO SCH ×3 (08:50→21:57)
[2019-07-30] MEDS: OMEPRAZOLE 20 MG CAP PO SCH ×2 (08:51→21:56)
[2019-07-30 09:32] LABS: HEMATOCRIT 32.2 % (42.0-52.0); HEMOGLOBIN 10.1 g/dl (13.5-17.5); MEAN CORPUSCULAR HEMOGLOBIN 26.9 pg (27.0-33.0); MEAN CORPUSCULAR HGB CONC 31.4 g/dl (32.0-36.5); MEAN CORPUSCULAR VOLUME 85.9 fl (80.0-96.0); PLATELET COUNT, AUTOMATED 230 10^3/uL (150-450); RED BLOOD COUNT 3.75 10^6/uL (4.30-6.10)
[2019-07-30 10:35] LABS: CALCIUM LEVEL 8.7 MG/DL (8.8-10.2); CREATININE FOR GFR 1.44 MG/DL (0.70-1.30); MAGNESIUM LEVEL 2.4 MG/DL (1.8-2.4); PHOSPHORUS LEVEL 2.1 MG/DL (2.5-4.9); POTASSIUM SERUM 4.3 MEQ/L (3.5-5.1)
[2019-07-30] MEDS: K-PHOS NEUTRAL 250MG TABLET (SOD.PHOSPHATE/POT.PHOSPHATE) PO SCH ×3 (12:21→21:55)
[2019-07-30 14:00] VITALS: BP 123/64
--- NOTE | 2019-07-30 20:01 | IPNPDOC ---
Date Seen The patient was seen on 07/30/19. Progress Note HISTORY OF PRESENT ILLNESS: 83-year-old male with past medical history of COPD, BPH, urinary retention, status post chronic Dang, recurrent UTIs, pulmonary embolism (on Xarelto), GERD and chronic kidney disease presents from facility with weakness, dizziness and fever. Patient reports feeling like this for the past week, worsening over the past 2-3 days, to the point that he could not get out of bed earlier today. He has a history of recurrent UTIs, usually presents similarly with significant fatigue and dizziness. Patient had a urine culture done 3 days ago which grew pansensitive Escherichia coli, has had a UTI in May 2019, which grew Pseudomonas. In the ED, patient was found to have significantly elevated white count, elevated lactate, slightly hypotensive and labs consistent with acute on chronic kidney disease. Patient was given IV fluids and antibiotics. Patient comfortable in bed at this time, reports slight improvement in dizziness, having penile discomfort because Dang was changed in the ED, poor historian, unknown if secondary to current infection or baseline. Most of the information was obtained from ED staff and chart review. Patient denies any shortness of breath, chest pain, nausea, vomiting or diarrhea. 07/29/19 Patient developed septic shock overnight, central line was placed in the right IJ and Levothroid was started, remained in ICU overnight, currently on 3 mcg/m of Levophed. Significant clinical improvement from last night, reports chronic pain, no other complaints at this time. He denies any short of breath, chest pain, nausea, vomiting or diarrhea. 07/30/19 Patient with significant clinical improvement, nearly at baseline, without complaints at this time. 10 point review of system is negative except for above PHYSICAL EXAMINATION: VITAL SIGNS: Please see below. GENERAL: No distress HEENT: Normocephalic, atraumatic, moist mucous membranes NECK: RIJ in place CARDIOVASCULAR EXAMINATION: S1, S2, no murmurs RESPIRATORY EXAMINATION: Clear to auscultation, no wheezing ABDOMINAL EXAMINATION: Soft, nontender, nondistended, positive bowel sounds EXTREMITIES: Range of motion intact SKIN: No rash NEUROLOGICAL EXAMINATION: no focal deficits PSYCHIATRIC EXAMINATION: Calm and cooperative LABORATORY DATA: See below. MICROBIOLOGY: Please see below. ASSESSMENT: 83-year-old male with multiple medical comorbidities, is being admitted for sepsis secondary to UTI. PLAN: 1. Septic shock, likely secondary to UTI Now resolved w/ IV fluids (temporarily required vasopressors), history of recurrent UTIs, has previously grown Pseudomonas, urine cultures growing yeast and blood cultures negative, continue cefepime. 2. COPD Stable, continue home regimen 3. Pulmonary embolism. Continue Xarelto 15 mg at bedtime 4. Acute on chronic kidney disease Likely due to poor oral intake, fever and diuretics, CT abdomen and pelvis without hydronephrosis, resolved with IV fluids, creatinine at baseline, will monitor. 5. GERD. Continue Protonix and Carafate. 6. BPH. History of urinary retention, has chronic Dang catheter, switched in the ED. DVT prophylaxis: On Xarelto GI prophylaxis: Home PPI and Carafate VS, I&O, 24H, Fishbone Vital Signs/I&O Vital Signs Date Time Temp Pulse Resp B/P (MAP) Pulse Ox O2 Delivery O2 Flow Rate FiO2 07/30/19 14:00 96.2 102 17 123/64 (83) 100 Room Air I&O- Last 24 Hours up to 6 AM 07/30/19 05:59 Intake Total 1365 ml Output Total 1465 ml Balance -100 ml Laboratory Data 24H LABS Laboratory Tests 2 07/30/19 09:22: Nucleated Red Blood Cells % (auto) 0.0, Anion Gap 7L, Glomerular Filtration Rate 50.0, Calcium Level 8.7L, Phosphorus Level 2.1L, Magnesium Level 2.4 CBC/BMP Laboratory Tests 07/30/19 09:22 Microbiology Microbiology 07/28/19 Urine Culture - Final, Complete Yeast Like Organism 07/28/19 Blood Culture - Preliminary, Resulted No Growth after 48 hours. All Specime... 07/28/19 Blood Culture - Preliminary, Resulted No Growth after 48 hours. All Specime... CARRIE MERCADO MD Jul 30, 2019 20:01
[2019-07-30] MEDS: FLUTICASONE PROP 0.05% NASAL SPRAY 16 GM (FLONASE) SCH (21:00)
[2019-07-30] MEDS: RIVAROXABAN 15 MG TAB (XARELTO) PO SCH (21:56)
[2019-07-30 22:00] VITALS: BP 98/48
[2019-07-31 05:38] LABS: HEMATOCRIT 28.8 % (42.0-52.0); HEMOGLOBIN 9.2 g/dl (13.5-17.5); MEAN CORPUSCULAR HEMOGLOBIN 26.9 pg (27.0-33.0); MEAN CORPUSCULAR HGB CONC 31.9 g/dl (32.0-36.5); MEAN CORPUSCULAR VOLUME 84.2 fl (80.0-96.0); RED BLOOD COUNT 3.42 10^6/uL (4.30-6.10); WHITE BLOOD COUNT 11.2 10^3/uL (4.0-10.0)
[2019-07-31 05:39] LABS: PLATELET COUNT, AUTOMATED 346 10^3/uL (150-450)
[2019-07-31 06:00] VITALS: BP 128/69
[2019-07-31 06:01] LABS: BLOOD UREA NITROGEN 24 MG/DL (7-18); CALCIUM LEVEL 8.3 MG/DL (8.8-10.2); CARBON DIOXIDE LEVEL 25 MEQ/L (21-32); CHLORIDE LEVEL 115 MEQ/L (98-107); CREATININE FOR GFR 1.14 MG/DL (0.70-1.30); GLOMERULAR FILTRATION RATE > 60.0 (>35); GLUCOSE, FASTING 87 MG/DL (70-100); POTASSIUM SERUM 3.9 MEQ/L (3.5-5.1); SODIUM LEVEL 142 MEQ/L (136-145)
[2019-07-31] MEDS: IPRATROPIUM 0.5MG/ALBUTEROL 2.5MG INH SOL UD 3ML (DUONEB)(J7620) INH SCH ×2 (07:31→11:27)
[2019-07-31] MEDS: SYMBICORT 160/4.5MCG INHALER 6GM INH SCH (07:33)
[2019-07-31] MEDS: ASPIRIN 81 MG ENTERIC TAB PO SCH (08:52)
[2019-07-31] MEDS: SUCRALFATE 1 GM TAB PO SCH ×2 (08:52→12:59)
[2019-07-31] MEDS: MULTIVITAMINS/MINERALS THERAP 1 TAB PO SCH (08:53)
[2019-07-31] MEDS: ACETAMINOPHEN TAB 650MG DOSE (2X325MG) PO SCH (08:53)
[2019-07-31] MEDS: OMEPRAZOLE 20 MG CAP PO SCH (08:53)
[2019-07-31] MEDS: GABAPENTIN 400 MG CAP PO SCH (08:53)
[2019-07-31] MEDS: CEFEPIME HCL 1 GM in D5W MINI-BAG PLUS 50 ML IV SCH (09:00)
[2019-07-31] MEDS ORDERED: BACT800T5 PO (11:01)
--- NOTE | 2019-07-31 15:06 | DS.PDOC ---
Discharge Summary General Date of Admission Jul 28, 2019 at 18:26 Date of Discharge 07/31/19 Attending Physician: CARRIE MERCADO MD Discharge Summary PROCEDURES PERFORMED DURING STAY: None. ADMITTING DIAGNOSES: 1. Acute kidney injury, UTI. DISCHARGE DIAGNOSES: 1. Acute kidney injury, UTI. COMPLICATIONS/CHIEF COMPLAINT: Alhaji;Bph;Copd;Pe;Urinary Retention;Uti. HISTORY OF PRESENT ILLNESS: 9-year-old male with past medical history of recurrent UTIs, BPH, urinary retention, status post chronic Dang catheter was admitted for UTI and acute kidney injury. Acute kidney injury, resolved with IV fluids, creatinine back to baseline. Dang catheter was exchanged in the emergency department, cultures negative, recent cultures grew pansensitive Escherichia coli, patient will be discharged on oral antibiotics to complete his regimen. Patient is clinically back to his baseline, evaluated by physical therapy and cleared for discharge back to [facility]. Hemodynamically stable for discharge at this time. HOSPITAL COURSE: As above. DISCHARGE MEDICATIONS: Please see below. ALLERGIES: Please see below. PHYSICAL EXAMINATION: VITAL SIGNS: Please see below. GENERAL: No distress HEENT: Normocephalic, atraumatic, moist mucous membranes NECK: Supple CARDIOVASCULAR EXAMINATION: S1, S2, no murmurs RESPIRATORY EXAMINATION: Clear to auscultation, no wheezing ABDOMINAL EXAMINATION: Soft, nontender, nondistended, positive bowel sounds EXTREMITIES: Range of motion intact SKIN: No rash NEUROLOGICAL EXAMINATION: Alert and oriented 3, no focal deficits PSYCHIATRIC EXAMINATION: Calm and cooperative LABORATORY DATA: Please see below. PROGNOSIS: Fair ACTIVITY: As tolerated. DIET: Cardiac DISCHARGE PLAN: Follow with PCP in 1-2 weeks DISPOSITION: [facility]. DISCHARGE INSTRUCTIONS: 1. As above. DISCHARGE CONDITION: Stable. TIME SPENT ON DISCHARGE: Greater than 32 minutes. Vital Signs/I&Os Vital Signs Date Time Temp Pulse Resp B/P (MAP) Pulse Ox O2 Delivery O2 Flow Rate FiO2 07/31/19 06:00 97.9 75 18 128/69 (88) 99 Room Air I&O- Last 24 Hours up to 6 AM 07/31/19 06:00 Intake Total 480 ml Output Total 1400 ml Balance -920 ml Laboratory Data Labs 24H Laboratory Tests 2 07/31/19 05:17: Nucleated Red Blood Cells % (auto) 0.0, Anion Gap 2L, Glomerular Filtration Rate > 60.0, Calcium Level 8.3L CBC/BMP Laboratory Tests 07/31/19 05:17 Microbiology Microbiology 07/28/19 Urine Culture - Final, Complete Yeast Like Organism 07/28/19 Blood Culture - Preliminary, Resulted No Growth after 48 hours. All Specime... 07/28/19 Blood Culture - Preliminary, Resulted No Growth after 48 hours. All Specime... Discharge Medications Scheduled Acetaminophen (Acetaminophen) 325 Mg Tablet, 650 MG PO TID, (Reported) 0800,1400, 2000 Aspirin (Aspirin EC) 81 Mg Tabec, 81 MG PO DAILY, (Reported) Budesonide/Formoterol (Symbicort 160-4.5 Mcg Inhaler) 60 Puff/Inhaler Aers, 2 PUFF INH BID, (Reported) 0900, 1700 Cyclosporine (Restasis Multidose) 0.05 % Emu, 1 DROP OU BID, (Reported) 2ND @ 1700 Fluticasone Propionate (Flonase Allergy Relief) 50 Mcg/Act Spr, 2 SPRAYS NA QHS, (Reported) Gabapentin (Gabapentin) 400 Mg Cap, 400 MG PO TID, (Reported) Ipratropium/Albuterol Sulfate (Iprat-Albut 0.5-3(2.5) mg/3 ml) 1 Zelda Zelda, 1 NEB INH QID, (Reported) 0000, 0600, 1200, 1800 Multivitamins (Thera M Plus Tablet) 1 Tab Tab, 1 TAB PO DAILY, (Reported) Nitrofurantoin Macrocrystal (Macrodantin) 100 Mg Capsule, 100 MG PO BID, (Reported) STARTED ON 07/27/19 Omeprazole (Omeprazole) 40 Mg Cap, 40 MG PO BID, (Reported) 0600, 1600 Rivaroxaban (Xarelto) 15 Mg Tab, 15 MG PO QHS, (Reported) Roflumilast (Daliresp) 500 Mcg Tab, 500 MCG PO DAILY, (Reported) Sucralfate (Sucralfate) 1 Gm Tab, 1 GM PO TID, (Reported) 0600, 1200, 1600 Sulfamethoxazole/Trimethoprim (Bactrim Ds Tablet) 1 Each Tablet, 1 TAB PO BID Tiotropium Hanna (Spiriva) 18 Mcg Cap, 1 CAP INH QHS, (Reported) Torsemide (Torsemide) 10 Mg Tablet, 10 MG PO DAILY, (Reported) Scheduled PRN Magnesium Hydroxide (Milk of Magnesia) 400 Mg/5 Ml Oral.susp, 10 ML PO DAILY PRN for CONSTIPATION, (Reported) Allergies Coded Allergies: clarithromycin (Verified Adverse Reaction, Mild, diarrhea, 05/17/19) levofloxacin (Verified Adverse Reaction, Mild, tendinopathy, 05/17/19) CARRIE MERCADO MD Jul 31, 2019 15:06
[2019-08-01] MEDS ORDERED: BACT800T5 PO (11:43)
== END 2019-07-31 13:33 | DRG 871 ==
LOC: EDBD 15:21 → M ED 15:21 → M ED INP 18:26 → ENRESERV 23:32 → M ICU 07-29 00:38 → M MSPAV 07-29 19:30
PROVIDERS: ADMIT Internal Medicine; ATTEND Internal Medicine
PROC: 02HV33Z Insertion of Infusion Device into Superior Vena Cava, Percutaneous Approach (ICD-10-PCS; principal; 2019-07-29)
DX: A41.9 Sepsis, unspecified organism (principal); R65.21 Severe sepsis with septic shock; N39.0 Urinary tract infection, site not specified; N17.9 Acute kidney failure, unspecified; J44.9 Chronic obstructive pulmonary disease, unspecified; N40.0 Benign prostatic hyperplasia without lower urinary tract symptoms; R33.9 Retention of urine, unspecified; Z79.899 Other long term (current) drug therapy; Z79.82 Long term (current) use of aspirin; Z88.8 Allergy status to other drugs, medicaments and biological substances; K21.9 Gastro-esophageal reflux disease without esophagitis; Z79.01 Long term (current) use of anticoagulants; Z86.711 Personal history of pulmonary embolism; N18.9 Chronic kidney disease, unspecified; B96.29 Other Escherichia coli [E. coli] as the cause of diseases classified elsewhere; Z87.891 Personal history of nicotine dependence

== ENCOUNTER 2019-08-01 10:49 | Inpatient (IN) | payer MEDICARE, MEDICAID ==
[~2019-08-01] VITALS: Ht 170.2 cm; Wt 67.1 kg
[2019-08-01] MEDS: SYMBICORT 160/4.5MCG INHALER 6GM INH SCH ×2 (08:00→19:33)
[~2019-08-01 10:49] MED LIST changes: +MACR100C42 PO; +MILKSUS3 PO
[2019-08-01] MEDS ORDERED: NS 500 ML IV ONE (11:15)
[2019-08-01 11:37] LABS: HEMATOCRIT 33.7 % (42.0-52.0); HEMOGLOBIN 10.6 g/dl (13.5-17.5); MEAN CORPUSCULAR HGB CONC 31.5 g/dl (32.0-36.5); MEAN CORPUSCULAR VOLUME 85.8 fl (80.0-96.0); PLATELET COUNT, AUTOMATED 391 10^3/uL (150-450); RED BLOOD COUNT 3.93 10^6/uL (4.30-6.10)
[2019-08-01] MEDS ORDERED: BACT800T5 PO (11:43)
[2019-08-01 11:44] LABS: WHITE BLOOD COUNT 32.7 10^3/uL (4.0-10.0)
--- NOTE | 2019-08-01 12:00 | REP ---
PORTABLE CHEST X-RAY: SINGLE VIEW. HISTORY: Hypotension. COMPARISON STUDY: July 29, 2019 FINDINGS: Monitoring electrodes are seen. The radiograph is exposed at a somewhat lordotic angle. There is a blunting of the left lateral pleural angle, which appears to be unchanged. There is colonic bowel loop under the right hemidiaphragm, also unchanged. No new focal infiltrate is seen. Heart is not enlarged. Pulmonary vasculature is not increased. IMPRESSION: Blunted left pleural angle, question small effusion, unchanged. Otherwise no acute disease. Electronically Signed by Karan Shepard MD 08/01/2019 02:33 P
[2019-08-01 12:03] LABS: ATYPICAL LYMPH 1 % (0-5); BLOOD UREA NITROGEN 28 MG/DL (7-18); CALCIUM LEVEL 8.8 MG/DL (8.8-10.2); CARBON DIOXIDE LEVEL 26 MEQ/L (21-32); CHLORIDE LEVEL 109 MEQ/L (98-107); CK-MB VALUE MASS 2.2 NG/ML (<3.6); CPK CREATINE PHOSPHOKINASE 53 U/L (39-308); CREATININE FOR GFR 1.65 MG/DL (0.70-1.30); EOSINOPHILS 3 % (0-3); GLOMERULAR FILTRATION RATE 42.7 (>35); GLUCOSE, FASTING 79 MG/DL (70-100); LYMPHOCYTES 3 % (16-44); MB/CK RELATIVE INDEX 4.15 (< OR =4); MONOCYTES 3 % (0-5); NEUTROPHILS 89 % (28-66); POIKILOCYTOSIS 1+; POTASSIUM SERUM 4.2 MEQ/L (3.5-5.1); SODIUM LEVEL 143 MEQ/L (136-145); TROPONIN I < 0.02 NG/ML (< 0.10)
[2019-08-01 12:04] LABS: OVALOCYTES 1+; SCHISTOCYTES 1+
[2019-08-01 12:05] LABS: ANISOCYTOSIS 1+
[2019-08-01 12:06] LABS: PLATELET ESTIMATE NORMAL (NORMAL)
[2019-08-01] MEDS ORDERED: CEFEPIME HCL 2 GM in D5W MINI-BAG PLUS 50 ML IV ONE (12:15)
[2019-08-01] MEDS ORDERED: NS 2,010 ML in IV 1 EA IV ONE (12:15)
[2019-08-01 12:41] LABS: ALBUMIN 2.8 GM/DL (3.2-5.2); ALT/SGPT 16 U/L (12-78); AMYLASE 95 U/L (25-115); BILIRUBIN,DIRECT 0.1 MG/DL (0.0-0.2); BILIRUBIN,TOTAL 0.5 MG/DL (0.2-1.0); C REACTIVE PROTEIN QUANTITATIV 6.89 MG/DL (0.00-0.30); TOTAL PROTEIN 5.7 GM/DL (6.4-8.2)
[2019-08-01 12:53] LABS: INR 1.2
[2019-08-01 12:54] LABS: PARTIAL THROMBOPLASTIN TIME 26.2 SECONDS (25.0-38.4)
[2019-08-01] MEDS ORDERED: MOM 30ML SUSPENSION UDC PO PRN (13:15)
[2019-08-01] MEDS: GABAPENTIN 400 MG CAP PO SCH ×3 (14:04→20:12)
[2019-08-01] MEDS: ACETAMINOPHEN 325 MG TAB PO SCH ×2 (14:05→16:00)
--- NOTE | 2019-08-01 14:08 | HPEPDOC ---
[facility] Medical History & Physical Date of Admission Aug 01, 2019 Date of Service: Aug 01, 2019 Attending Physician: CARRIE MERCADO MD History and Physical CHIEF COMPLAINT: Sent from facility for fever and dizziness HISTORY OF PRESENT ILLNESS: 83-year-old male with past medical history of COPD, BPH, urinary retention, status post chronic Dang, recurrent UTIs, pulmonary embolism (on Xarelto), GERD and chronic kidney disease presents from assisted living with fatigue and weakness. Patient was just admitted for UTI, acute on chronic kidney disease and discharged yesterday to assisted living. It seems the patient has not had anything to eat or drink since then, felt fatigued in the morning, low blood pressure and sent to the hospital. Patient with systolic blood pressure in the 80s, acute kidney injury and elevated white count in the ED. Patient received IV fluid bolus antibiotics. Patient is comfortable and in bed, no complaints other than feeling fatigued, denies shortness of breath, c hest pain, nausea, vomiting, abdominal pain or diarrhea. 10 point review of system is negative except for above PAST MEDICAL HISTORY: 1. COPD. 2. Chronic kidney disease. 3. Urinary retention. 4. Pulmonary embolism. 5. Recurrent UTIs. 6. BPH. 7. GERD PAST SURGICAL HISTORY: 1. Patient unsure. SOCIAL HISTORY: Previous smoker, quit many years ago. Denies alcohol use. Denies drug use FAMILY HISTORY: Father had ID ALLERGIES: Please see below. HOME MEDICATIONS: Please see below. PHYSICAL EXAMINATION: VITAL SIGNS: Please see below. GENERAL: No distress HEENT: Normocephalic, atraumatic, dry mucous membranes NECK: Supple CARDIOVASCULAR EXAMINATION: S1, S2, no murmurs RESPIRATORY EXAMINATION: Diminished in the bases, scattered rhonchi, no wheezing ABDOMINAL EXAMINATION: Soft, nontender, nondistended, positive bowel sounds EXTREMITIES: Range of motion intact SKIN: No rash NEUROLOGICAL EXAMINATION: no focal deficits PSYCHIATRIC EXAMINATION: Calm and cooperative LABORATORY DATA: See below. MICROBIOLOGY: Please see below. ASSESSMENT: 83-year-old male with multiple medical comorbidities, is being admitted for acute kidney injury and dehydration. PLAN: 1. Acute kidney injury Secondary to dehydration from poor oral intake, status post IV fluid bolus in the ED, continue maintenance fluids, will monitor renal function. 2. COPD Stable, continue home regimen 3. Pulmonary embolism. Continue Xarelto 15 mg at bedtime 4. Recurrent UTIs. Currently being treated for UTI, continue cefepime. 5. GERD. Continue Protonix and Carafate. 6. BPH. History of urinary retention, has chronic Dang catheter, switched a few days ago. DVT prophylaxis: On Xarelto GI prophylaxis: Home PPI and Carafate Vital Signs Vital Signs Date Time Temp Pulse Resp B/P (MAP) Pulse Ox O2 Delivery O2 Flow Rate FiO2 08/01/19 13:19 79 95 08/01/19 13:15 95/50 (65) 08/01/19 11:46 Room Air 08/01/19 11:11 98.8 19 Laboratory Data Labs 24H Laboratory Tests 2 08/01/19 11:20: Neutrophils (%) (Auto) , Neutrophils # (Auto) , Nucleated Red Blood Cells % (auto) 0.0, Neutrophils 89H, Band Neutrophils 1, Lymphocytes (Manual) 3L, Monocytes (Manual) 3, Eosinophils (Manual) 3, Atypical Lymphocytes 1, Poikilocytosis 1+, Anisocytosis 1+, Schistocytes 1+, Ovalocytes 1+, Platelet Estimate NORMAL, Anion Gap 8, Glomerular Filtration Rate 42.7, Lactic Acid Level 2.6*H, Calcium Level 8.8, Total Bilirubin 0.5, Direct Bilirubin 0.1, Aspartate Amino Transf (AST/SGOT) 13, Alanine Aminotransferase (ALT/SGPT) 16, Alkaline Phosphatase 77, Total Creatine Kinase 53, Creatine Kinase MB 2.2, Creatine Kinase MB Relative Index 4.15H, Troponin I < 0.02, C-Reactive Protein, Quantitative 6.89H, Total Protein 5.7L, Albumin 2.8L, Albumin/Globulin Ratio 0.97L, Amylase Level 95 08/01/19 12:13: Prothrombin Time 15.0H, Prothromb Time International Ratio 1.20, Activated Partial Thromboplast Time 26.2 CBC/BMP Laboratory Tests 08/01/19 11:20 Microbiology Microbiology 08/01/19 Blood Culture, Received Pending 08/01/19 Blood Culture, Received Pending Home Medications Scheduled Acetaminophen (Acetaminophen) 325 Mg Tablet, 650 MG PO TID 0800,1400, 2000 Aspirin (Aspirin EC) 81 Mg Tabec, 81 MG PO DAILY Budesonide/Formoterol (Symbicort 160-4.5 Mcg Inhaler) 60 Puff/Inhaler Aers, 2 PUFF INH BID 0900, 1700 Cyclosporine (Restasis Multidose) 0.05 % Emu, 1 DROP OU BID 2ND @ 1700 Fluticasone Propionate (Flonase Allergy Relief) 50 Mcg/Act Spr, 2 SPRAYS NA QHS Gabapentin (Gabapentin) 400 Mg Cap, 400 MG PO TID Ipratropium/Albuterol Sulfate (Iprat-Albut 0.5-3(2.5) mg/3 ml) 1 Zelda Zelda, 1 NEB INH QID 0000, 0600, 1200, 1800 Multivitamins (Thera M Plus Tablet) 1 Tab Tab, 1 TAB PO DAILY Nitrofurantoin Macrocrystal (Macrodantin) 100 Mg Capsule, 100 MG PO BID STARTED ON 07/31/19 FOR 3 DAYS Omeprazole (Omeprazole) 40 Mg Cap, 40 MG PO BID 0600, 1600 Rivaroxaban (Xarelto) 15 Mg Tab, 15 MG PO QHS Roflumilast (Daliresp) 500 Mcg Tab, 500 MCG PO DAILY Sucralfate (Sucralfate) 1 Gm Tab, 1 GM PO TID 0600, 1200, 1600 Sulfamethoxazole/Trimethoprim (Bactrim Ds Tablet) 1 Each Tablet, 1 TAB PO BID START 08/01/19 FOR 4 DAYS Tiotropium Kinsman (Spiriva) 18 Mcg Cap, 1 CAP INH QHS Torsemide (Torsemide) 10 Mg Tablet, 10 MG PO DAILY Scheduled PRN Magnesium Hydroxide (Milk of Magnesia) 400 Mg/5 Ml Oral.susp, 10 ML PO DAILY PRN for CONSTIPATION Allergies Coded Allergies: clarithromycin (Verified Adverse Reaction, Mild, diarrhea, 08/01/19) levofloxacin (Verified Adverse Reaction, Mild, tendinopathy, 08/01/19) A-FIB/CHADSVASC A-FIB History Current/History of A-Fib/PAF?: No CARRIE MERCADO MD Aug 01, 2019 13:36
[2019-08-01] MEDS: NS 1,000 ML IV SCH (14:56)
[2019-08-01] MEDS: SUCRALFATE 1 GM TAB PO SCH ×2 (16:20→20:11)
[2019-08-01] MEDS: TIOTROPIUM INHALER/CAPSULE (SPIRIVA) INH SCH (19:33)
[2019-08-01] MEDS: IPRATROPIUM 0.5MG/ALBUTEROL 2.5MG INH SOL UD 3ML (DUONEB)(J7620) INH SCH (19:33)
[2019-08-01] MEDS: RIVAROXABAN 15 MG TAB (XARELTO) PO SCH (20:12)
[2019-08-01] MEDS: ACETAMINOPHEN TAB 650MG DOSE (2X325MG) PO SCH (20:12)
[2019-08-01] MEDS: OMEPRAZOLE 20 MG CAP PO SCH (20:12)
[2019-08-01] MEDS: FLUTICASONE PROP 0.05% NASAL SPRAY 16 GM (FLONASE) SCH (20:13)
[2019-08-01 22:00] VITALS: BP 113/60
--- NOTE | 2019-08-01 23:07 | ECGEPIP ---
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
[2019-08-02] MEDS: NS 1,000 ML IV SCH (01:45)
[2019-08-02 06:00] VITALS: BP 113/61
[2019-08-02 06:06] LABS: HEMATOCRIT 28.1 % (42.0-52.0); MEAN CORPUSCULAR HEMOGLOBIN 27.4 pg (27.0-33.0); MEAN CORPUSCULAR VOLUME 85.7 fl (80.0-96.0); PLATELET COUNT, AUTOMATED 324 10^3/uL (150-450); RED BLOOD COUNT 3.28 10^6/uL (4.30-6.10); WHITE BLOOD COUNT 23.3 10^3/uL (4.0-10.0)
[2019-08-02 06:35] LABS: ALBUMIN 2.2 GM/DL (3.2-5.2); BILIRUBIN,TOTAL 0.3 MG/DL (0.2-1.0); CALCIUM LEVEL 7.7 MG/DL (8.8-10.2); CREATININE FOR GFR 1.35 MG/DL (0.70-1.30); GLOMERULAR FILTRATION RATE 53.9 (>35); MAGNESIUM LEVEL 1.7 MG/DL (1.8-2.4); POTASSIUM SERUM 3.5 MEQ/L (3.5-5.1); TOTAL PROTEIN 5.2 GM/DL (6.4-8.2)
[2019-08-02] MEDS: SYMBICORT 160/4.5MCG INHALER 6GM INH SCH ×2 (07:44→19:37)
[2019-08-02] MEDS: ACETAMINOPHEN TAB 650MG DOSE (2X325MG) PO SCH ×3 (07:56→20:42)
[2019-08-02] MEDS: ASPIRIN 81 MG ENTERIC TAB PO SCH (07:57)
[2019-08-02] MEDS: OMEPRAZOLE 20 MG CAP PO SCH ×2 (07:57→20:40)
[2019-08-02] MEDS: SUCRALFATE 1 GM TAB PO SCH ×3 (07:57→20:39)
[2019-08-02] MEDS: GABAPENTIN 400 MG CAP PO SCH ×3 (07:57→20:40)
[2019-08-02] MEDS: MAG SULF 1GM/100ML (MAG RUN) 1 GM in IV 1 EA IV SCH ×2 (07:57→09:34)
[2019-08-02] MEDS: MULTIVITAMINS/MINERALS THERAP 1 TAB PO SCH (07:58)
[2019-08-02] MEDS ORDERED: POTASSIUM CHLORIDE 10 MEQ SR TABLET PO ONE (08:00)
[2019-08-02] MEDS: IPRATROPIUM 0.5MG/ALBUTEROL 2.5MG INH SOL UD 3ML (DUONEB)(J7620) INH SCH ×4 (08:20→19:37)
[2019-08-02] MEDS ORDERED: CEFEPIME HCL 2 GM in D5W MINI-BAG PLUS 50 ML IV SCH ×2 (09:00→09:38)
[2019-08-02] MEDS: CEFEPIME HCL 2 GM in D5W MINI-BAG PLUS 50 ML IV SCH (11:00)
--- NOTE | 2019-08-02 12:38 | IPNPDOC ---
Date Seen The patient was seen on 08/02/19. Progress Note SUBJECTIVE: 83-year-old male with past medical history of COPD, BPH, urinary retention, status post chronic Dang, recurrent UTIs, pulmonary embolism (on Xarelto), GERD and chronic kidney disease presents from assisted living with fatigue and weakness. Patient was just admitted for UTI, acute on chronic kidney disease and discharged yesterday to assisted living. It seems the patient has not had anything to eat or drink since then, felt fatigued in the morning, low blood pressure and sent to the hospital. Patient with systolic blood pressure in the 80s, acute kidney injury and elevated white count in the ED. Patient received IV fluid bolus antibiotics. Patient is comfortable and in bed, no complaints other than feeling fatigued, denies shortness of breath, chest pain, nausea, vomiting, abdominal pain or diarrhea. 08/02/19 Patient seen in the morning, comfortable in chair, no acute events overnight, without any complaints at this time. Patient with increased oral intake, blood pressures have remained stable. 10 point review of system is negative except for above PHYSICAL EXAMINATION: VITAL SIGNS: Please see below. GENERAL: No distress HEENT: Normocephalic, atraumatic, moist mucous membranes NECK: Supple CARDIOVASCULAR EXAMINATION: S1, S2, no murmurs RESPIRATORY EXAMINATION: Diminished in the bases, scattered rhonchi, no wheezing ABDOMINAL EXAMINATION: Soft, nontender, nondistended, positive bowel sounds EXTREMITIES: Range of motion intact SKIN: No rash NEUROLOGICAL EXAMINATION: no focal deficits PSYCHIATRIC EXAMINATION: Calm and cooperative LABORATORY DATA: See below. MICROBIOLOGY: Please see below. ASSESSMENT: 83-year-old male with multiple medical comorbidities, is being admitted for acute kidney injury and dehydration. PLAN: 1. Acute kidney injury Secondary to dehydration from poor oral intake, improved with IV fluids, IV fluids discontinued, will monitor with oral intake. Patient is not an ideal candidate for assisted living, social studies department chair arranging half-way facility placement. 2. COPD Stable, continue home regimen 3. Pulmonary embolism. Continue Xarelto 15 mg at bedtime 4. Recurrent UTIs. Currently being treated for UTI, continue cefepime. 5. GERD. Continue Protonix and Carafate. 6. BPH. History of urinary retention, has chronic Dang catheter, switched a few days ago. DVT prophylaxis: On Xarelto GI prophylaxis: Home PPI and Carafate VS, I&O, 24H, Fishbone Vital Signs/I&O Vital Signs Date Time Temp Pulse Resp B/P (MAP) Pulse Ox O2 Delivery O2 Flow Rate FiO2 08/02/19 09:00 2.0 08/02/19 06:00 98.3 89 18 113/61 (78) 95 Room Air I&O- Last 24 Hours up to 6 AM 08/02/19 05:59 Intake Total 2450 ml Output Total 1650 ml Balance 800 ml Laboratory Data 24H LABS Laboratory Tests 2 08/01/19 15:57: Lactic Acid Followup at 4 Hours 1.5 08/02/19 05:43: Nucleated Red Blood Cells % (auto) 0.0, Anion Gap 7L, Glomerular Filtration Rate 53.9, Calcium Level 7.7L, Magnesium Level 1.7L, Total Bilirubin 0.3, Aspartate Amino Transf (AST/SGOT) 6L, Alanine Aminotransferase (ALT/SGPT) 12, Alkaline Phosphatase 62, Total Protein 5.2L, Albumin 2.2#L, Albumin/Globulin Ratio 0.73L CBC/BMP Laboratory Tests 08/02/19 05:43 Microbiology Microbiology 08/01/19 Blood Culture - Preliminary, Resulted No growth after 24 hours . All specim... 08/01/19 Blood Culture - Preliminary, Resulted No growth after 24 hours . All specim... CARRIE MERCADO MD Aug 02, 2019 12:38
[2019-08-02 14:00] VITALS: BP 114/62
[2019-08-02] MEDS: TIOTROPIUM INHALER/CAPSULE (SPIRIVA) INH SCH (19:37)
[2019-08-02] MEDS: RIVAROXABAN 15 MG TAB (XARELTO) PO SCH (20:39)
[2019-08-02] MEDS: FLUTICASONE PROP 0.05% NASAL SPRAY 16 GM (FLONASE) SCH (20:42)
[2019-08-02 22:00] VITALS: BP 127/68
[2019-08-03 06:00] VITALS: BP 134/71
[2019-08-03 06:11] LABS: HEMATOCRIT 29.3 % (42.0-52.0); HEMOGLOBIN 9.1 g/dl (13.5-17.5); MEAN CORPUSCULAR HEMOGLOBIN 26.8 pg (27.0-33.0); MEAN CORPUSCULAR HGB CONC 31.1 g/dl (32.0-36.5); MEAN CORPUSCULAR VOLUME 86.4 fl (80.0-96.0); PLATELET COUNT, AUTOMATED 356 10^3/uL (150-450); RED BLOOD COUNT 3.39 10^6/uL (4.30-6.10)
[2019-08-03 06:34] LABS: CALCIUM LEVEL 8.3 MG/DL (8.8-10.2); CREATININE FOR GFR 1.26 MG/DL (0.70-1.30); GLOMERULAR FILTRATION RATE 58.3 (>35); POTASSIUM SERUM 3.7 MEQ/L (3.5-5.1)
[2019-08-03] MEDS: IPRATROPIUM 0.5MG/ALBUTEROL 2.5MG INH SOL UD 3ML (DUONEB)(J7620) INH SCH ×4 (07:14→21:00)
[2019-08-03] MEDS: SYMBICORT 160/4.5MCG INHALER 6GM INH SCH ×2 (07:14→19:36)
[2019-08-03] MEDS: ACETAMINOPHEN TAB 650MG DOSE (2X325MG) PO SCH ×3 (09:38→22:02)
[2019-08-03] MEDS: ASPIRIN 81 MG ENTERIC TAB PO SCH (09:38)
[2019-08-03] MEDS: OMEPRAZOLE 20 MG CAP PO SCH ×2 (09:38→22:00)
[2019-08-03] MEDS: MULTIVITAMINS/MINERALS THERAP 1 TAB PO SCH (09:38)
[2019-08-03] MEDS: GABAPENTIN 400 MG CAP PO SCH ×3 (09:38→22:01)
[2019-08-03] MEDS: CEFEPIME HCL 2 GM in D5W MINI-BAG PLUS 50 ML IV SCH (09:39)
[2019-08-03] MEDS: SUCRALFATE 1 GM TAB PO SCH ×3 (09:39→22:01)
[2019-08-03] MEDS ORDERED: LIDOCAINE 2% 5ML JELLY UROJET TOP PRN (11:45)
[2019-08-03 14:00] VITALS: BP 128/74
[2019-08-03] MEDS: TIOTROPIUM INHALER/CAPSULE (SPIRIVA) INH SCH (19:36)
--- NOTE | 2019-08-03 21:55 | IPNPDOC ---
Date Seen The patient was seen on 08/03/19. Progress Note SUBJECTIVE: 83-year-old male with past medical history of COPD, BPH, urinary retention, status post chronic Dang, recurrent UTIs, pulmonary embolism (on Xarelto), GERD and chronic kidney disease presents from assisted living with fatigue and weakness. Patient was just admitted for UTI, acute on chronic kidney disease and discharged yesterday to assisted living. It seems the patient has not had anything to eat or drink since then, felt fatigued in the morning, low blood pressure and sent to the hospital. Patient with systolic blood pressure in the 80s, acute kidney injury and elevated white count in the ED. Patient received IV fluid bolus antibiotics. Patient is comfortable and in bed, no complaints other than feeling fatigued, denies shortness of breath, chest pain, nausea, vomiting, abdominal pain or diarrhea. 08/02/19 Patient seen in the morning, comfortable in chair, no acute events overnight, without any complaints at this time. Patient with increased oral intake, blood pressures have remained stable. 08/03/19 Patient comfortable in bed, no acute events overnight, no new complaints. 10 point review of system is negative except for above PHYSICAL EXAMINATION: VITAL SIGNS: Please see below. GENERAL: No distress HEENT: Normocephalic, atraumatic, moist mucous membranes NECK: Supple CARDIOVASCULAR EXAMINATION: S1, S2, no murmurs RESPIRATORY EXAMINATION: Diminished in the bases, scattered rhonchi, no wheezing ABDOMINAL EXAMINATION: Soft, nontender, nondistended, positive bowel sounds EXTREMITIES: Range of motion intact SKIN: No rash NEUROLOGICAL EXAMINATION: no focal deficits PSYCHIATRIC EXAMINATION: Calm and cooperative LABORATORY DATA: See below. MICROBIOLOGY: Please see below. ASSESSMENT: 83-year-old male with multiple medical comorbidities, is being admit molly for acute kidney injury and dehydration. PLAN: 1. Acute kidney injury Secondary to dehydration from poor oral intake, resolved with IV fluids, will monitor with oral intake. Patient is not an ideal candidate for assisted living, social media marketing specialist arranging [facility] facility placement. 2. COPD Stable, continue home regimen 3. Pulmonary embolism. Continue Xarelto 15 mg at bedtime 4. Recurrent UTIs. Currently being treated for UTI, continue cefepime. 5. GERD. Continue Protonix and Carafate. 6. BPH. History of urinary retention, has chronic Dang catheter, switched a few days ago. DVT prophylaxis: On Xarelto GI prophylaxis: Home PPI and Carafate VS, I&O, 24H, Fishbone Vital Signs/I&O Vital Signs Date Time Temp Pulse Resp B/P (MAP) Pulse Ox O2 Delivery O2 Flow Rate FiO2 08/03/19 14:00 97.2 78 16 128/74 (92) 94 Room Air 08/03/19 07:30 2.0 I&O- Last 24 Hours up to 6 AM 08/03/19 05:59 Intake Total 1090 ml Output Total 1100 ml Balance -10 ml Laboratory Data 24H LABS Laboratory Tests 2 08/03/19 05:47: Nucleated Red Blood Cells % (auto) 0.0, Anion Gap 5L, Glomerular Filtration Rate 58.3, Calcium Level 8.3L CBC/BMP Laboratory Tests 08/03/19 05:47 Microbiology Microbiology 08/01/19 Blood Culture - Preliminary, Resulted No Growth after 48 hours. All Specime... 08/01/19 Blood Culture - Preliminary, Resulted No Growth after 48 hours. All Specime... CARRIE MERCADO MD Aug 03, 2019 21:55
[2019-08-03 22:00] VITALS: BP 137/66
[2019-08-03] MEDS: RIVAROXABAN 15 MG TAB (XARELTO) PO SCH (22:00)
[2019-08-03] MEDS: FLUTICASONE PROP 0.05% NASAL SPRAY 16 GM (FLONASE) SCH (22:01)
[2019-08-04 05:59] LABS: HEMATOCRIT 28.6 % (42.0-52.0); HEMOGLOBIN 9.1 g/dl (13.5-17.5); MEAN CORPUSCULAR HGB CONC 31.8 g/dl (32.0-36.5); MEAN CORPUSCULAR VOLUME 84.9 fl (80.0-96.0); PLATELET COUNT, AUTOMATED 396 10^3/uL (150-450); RED BLOOD COUNT 3.37 10^6/uL (4.30-6.10); WHITE BLOOD COUNT 12.1 10^3/uL (4.0-10.0)
[2019-08-04 06:00] VITALS: BP 150/73
[2019-08-04 06:27] LABS: BLOOD UREA NITROGEN 22 MG/DL (7-18); CALCIUM LEVEL 8.8 MG/DL (8.8-10.2); CARBON DIOXIDE LEVEL 27 MEQ/L (21-32); CHLORIDE LEVEL 111 MEQ/L (98-107); CREATININE FOR GFR 1.12 MG/DL (0.70-1.30); GLOMERULAR FILTRATION RATE > 60.0 (>35); GLUCOSE, FASTING 89 MG/DL (70-100); POTASSIUM SERUM 3.8 MEQ/L (3.5-5.1); SODIUM LEVEL 141 MEQ/L (136-145)
[2019-08-04] MEDS: IPRATROPIUM 0.5MG/ALBUTEROL 2.5MG INH SOL UD 3ML (DUONEB)(J7620) INH SCH ×4 (07:05→19:46)
[2019-08-04] MEDS: SYMBICORT 160/4.5MCG INHALER 6GM INH SCH ×2 (08:33→19:47)
[2019-08-04] MEDS: CEFEPIME HCL 2 GM in D5W MINI-BAG PLUS 50 ML IV SCH (09:00)
[2019-08-04] MEDS: ACETAMINOPHEN TAB 650MG DOSE (2X325MG) PO SCH ×3 (09:23→21:49)
[2019-08-04] MEDS: MULTIVITAMINS/MINERALS THERAP 1 TAB PO SCH (09:23)
[2019-08-04] MEDS: ASPIRIN 81 MG ENTERIC TAB PO SCH (09:24)
[2019-08-04] MEDS: OMEPRAZOLE 20 MG CAP PO SCH ×2 (09:24→21:48)
[2019-08-04] MEDS: SUCRALFATE 1 GM TAB PO SCH ×3 (09:24→21:47)
[2019-08-04] MEDS: GABAPENTIN 400 MG CAP PO SCH ×3 (09:24→21:47)
--- NOTE | 2019-08-04 10:11 | IPNPDOC ---
Date Seen The patient was seen on 08/04/19. Progress Note SUBJECTIVE: 83-year-old male with past medical history of COPD, BPH, urinary retention, status post chronic Dang, recurrent UTIs, pulmonary embolism (on Xarelto), GERD and chronic kidney disease presents from assisted living with fatigue and weakness. Patient was just admitted for UTI, acute on chronic kidney disease and discharged yesterday to assisted living. It seems the patient has not had anything to eat or drink since then, felt fatigued in the morning, low blood pressure and sent to the hospital. Patient with systolic blood pressure in the 80s, acute kidney injury and elevated white count in the ED. Patient received IV fluid bolus antibiotics. Patient is comfortable and in bed, no complaints other than feeling fatigued, denies shortness of breath, chest pain, nausea, vomiting, abdominal pain or diarrhea. 08/02/19 Patient seen in the morning, comfortable in chair, no acute events overnight, without any complaints at this time. Patient with increased oral intake, blood pressures have remained stable. 08/03/19 Patient comfortable in bed, no acute events overnight, no new complaints. 08/04/19 No acute events overnight, no compressive, tolerated Breakfast, Comfortable in Bed. 10 point review of system is negative except for above PHYSICAL EXAMINATION: VITAL SIGNS: Please see below. GENERAL: No distress HEENT: Normocephalic, atraumatic, moist mucous membranes NECK: Supple CARDIOVASCULAR EXAMINATION: S1, S2, no murmurs RESPIRATORY EXAMINATION: scattered rhonchi, no wheezing ABDOMINAL EXAMINATION: Soft, nontender, nondistended, positive bowel sounds EXTREMITIES: Range of motion intact SKIN: No rash NEUROLOGICAL EXAMINATION: no focal deficits PSYCHIATRIC EXAMINATION: Calm and cooperative LABORATORY DATA: See below. MICROBIOLOGY: Please see below. ASSESSMENT: 83-year-old male with multiple medical comorbidities, is being admitted for acute kidney injury and dehydration. PLAN: 1. Acute kidney injury Secondary to dehydration from poor oral intake, resolved with IV fluids, creatinine at baseline, oral intake is adequate. Patient is not an ideal candidate for assisted living, social service worker arranging senior care facility placement. 2. COPD Stable, continue home regimen 3. Pulmonary embolism. Continue Xarelto 15 mg at bedtime 4. Recurrent UTI Completed treatment with cefepime 5. GERD. Continue Protonix and Carafate. 6. BPH. History of urinary retention, has chronic Dang catheter, switched a few days ago. DVT prophylaxis: On Xarelto GI prophylaxis: Home PPI and Carafate VS, I&O, 24H, Fishbone Vital Signs/I&O Vital Signs Date Time Temp Pulse Resp B/P (MAP) Pulse Ox O2 Delivery O2 Flow Rate FiO2 08/04/19 07:30 2.0 08/04/19 06:00 97.1 69 19 150/73 (98) 96 Room Air I&O- Last 24 Hours up to 6 AM 08/04/19 06:00 Intake Total 640 ml Output Total 2500 ml Balance -1860 ml Laboratory Data 24H LABS Laboratory Tests 2 08/04/19 05:26: Nucleated Red Blood Cells % (auto) 0.0, Anion Gap 3L, Glomerular Filtration Rate > 60.0, Calcium Level 8.8 CBC/BMP Laboratory Tests 08/04/19 05:26 Microbiology Microbiology 08/01/19 Blood Culture - Preliminary, Resulted No Growth after 48 hours. All Specime... 08/01/19 Blood Culture - Preliminary, Resulted No Growth after 48 hours. All Specime... CARRIE MERCADO MD Aug 04, 2019 10:11
[2019-08-04 14:00] VITALS: BP 120/59
[2019-08-04] MEDS: TIOTROPIUM INHALER/CAPSULE (SPIRIVA) INH SCH (19:46)
[2019-08-04] MEDS: FLUTICASONE PROP 0.05% NASAL SPRAY 16 GM (FLONASE) SCH (21:49)
[2019-08-04] MEDS: RIVAROXABAN 15 MG TAB (XARELTO) PO SCH (21:49)
[2019-08-04 22:00] VITALS: BP 118/68
[2019-08-05 06:00] VITALS: BP 154/81
[2019-08-05] MEDS: SYMBICORT 160/4.5MCG INHALER 6GM INH SCH (07:41)
[2019-08-05] MEDS: IPRATROPIUM 0.5MG/ALBUTEROL 2.5MG INH SOL UD 3ML (DUONEB)(J7620) INH SCH ×2 (07:42→11:01)
[2019-08-05] MEDS: ACETAMINOPHEN TAB 650MG DOSE (2X325MG) PO SCH (08:33)
[2019-08-05] MEDS: ASPIRIN 81 MG ENTERIC TAB PO SCH (08:34)
[2019-08-05] MEDS: OMEPRAZOLE 20 MG CAP PO SCH (08:34)
[2019-08-05] MEDS: MULTIVITAMINS/MINERALS THERAP 1 TAB PO SCH (08:34)
[2019-08-05] MEDS: SUCRALFATE 1 GM TAB PO SCH (08:34)
[2019-08-05] MEDS: GABAPENTIN 400 MG CAP PO SCH (08:34)
== END 2019-08-05 12:10 | DRG 683 ==
LOC: EDBD 10:49 → M ED 10:49 → M ED INP 13:07 → ENRESERVDT 14:02 → ENRESERVTM 14:02 → M MSPAV 14:44
PROVIDERS: ADMIT Internal Medicine; ATTEND Internal Medicine
DX: N17.9 Acute kidney failure, unspecified (principal); N39.0 Urinary tract infection, site not specified; J44.9 Chronic obstructive pulmonary disease, unspecified; K21.9 Gastro-esophageal reflux disease without esophagitis; N40.0 Benign prostatic hyperplasia without lower urinary tract symptoms; N18.3 Chronic kidney disease, stage 3 (moderate); R33.9 Retention of urine, unspecified; Z79.01 Long term (current) use of anticoagulants; Z86.711 Personal history of pulmonary embolism; Z87.891 Personal history of nicotine dependence; E86.0 Dehydration; Z79.82 Long term (current) use of aspirin; Z79.899 Other long term (current) drug therapy; Z88.8 Allergy status to other drugs, medicaments and biological substances

== ENCOUNTER → 2019-08-08 | Outpatient (REF) ==
[2019-08-08 13:27] LABS: PERCENT SATURATION 12.6 % (19.7-50.0)
== END ==
PROVIDERS: ATTEND Internal Medicine
DX: D64.9 Anemia, unspecified (principal)

== ENCOUNTER → 2019-08-12 | Outpatient (REF) ==
[2019-08-12 10:59] LABS: HEMATOCRIT 34.9 % (42.0-52.0); MEAN CORPUSCULAR HGB CONC 31.5 g/dl (32.0-36.5); MEAN CORPUSCULAR VOLUME 85.5 fl (80.0-96.0); PLATELET COUNT, AUTOMATED 535 10^3/uL (150-450); RED BLOOD COUNT 4.08 10^6/uL (4.30-6.10); WHITE BLOOD COUNT 11.1 10^3/uL (4.0-10.0)
[2019-08-12 11:29] LABS: CALCIUM LEVEL 9.2 MG/DL (8.8-10.2); CREATININE FOR GFR 1.53 MG/DL (0.70-1.30); GLOMERULAR FILTRATION RATE 46.6 (>35); POTASSIUM SERUM 4.2 MEQ/L (3.5-5.1)
== END ==
PROVIDERS: ATTEND Physician Assistant
DX: Z79.01 Long term (current) use of anticoagulants (principal)

== ENCOUNTER → 2019-09-20 | Outpatient (REF) | payer MEDICARE, MEDICAID, OTHER ==
[2019-09-20 15:08] LABS: PERCENT SATURATION 15.4 % (19.7-50.0)
== END ==
LOC: M LAB REF 14:32
PROVIDERS: ATTEND Internal Medicine
DX: D64.9 Anemia, unspecified (principal)

== ENCOUNTER → 2019-10-24 | Outpatient (REF) | payer MEDICARE, MEDICAID, OTHER ==
[2019-10-25 17:07] LABS: APPEARANCE, URINE CLOUDY (CLEAR); BACTERIA, URINE AUTO NEGATIVE (NEGATIVE); BILIRUBIN, URINE AUTO NEGATIVE (NEGATIVE); BLOOD, URINE BLOOD 2+ (NEGATIVE); COLOR, URINE YELLOW (YELLOW); GLUCOSE, URINE (UA) AUTO NEGATIVE (NEGATIVE); KETONE, URINE AUTO NEGATIVE (NEGATIVE); LEUKOCYTE ESTERASE, URINE AUTO 3+ (NEGATIVE); MUCUS, URINE SMALL (NEGATIVE); NITRITE, URINE AUTO NEGATIVE (NEGATIVE); PROTEIN, URINE AUTO NEGATIVE (NEGATIVE); RBC, URINE AUTO 11 /HPF (0-3); SPECIFIC GRAVITY URINE AUTO 1.009 (1.002-1.035); SQUAMOUS EPITHELIAL CELL UR AU 0 /HPF (0-6); UROBILINOGEN, URINE AUTO 0.2 mg/dL (0.0-2.0); WBC, URINE AUTO TNTC /HPF (0-3)
== END ==
LOC: M SMT 16:39
PROVIDERS: ATTEND Urology
DX: N28.89 Other specified disorders of kidney and ureter (principal)

== ENCOUNTER → 2020-01-15 | Outpatient (REF) | payer MEDICARE, MEDICAID ==
[~2020-01-15] MED LIST changes: +AMLO1TAB24 PO; -AMLO5TAB6 PO; +BREO1INH INH; +FERR1TAB8 PO; +GABA-1171 PO; +PRED5TA PO
[2020-03-24 14:24] LABS: APPEARANCE, URINE TURBID (CLEAR); BACTERIA, URINE AUTO 2+ (NEGATIVE); BILIRUBIN, URINE AUTO NEGATIVE (NEGATIVE); BLOOD, URINE BLOOD 2+ (NEGATIVE); COLOR, URINE YELLOW (YELLOW); GLUCOSE, URINE (UA) AUTO NEGATIVE (NEGATIVE); KETONE, URINE AUTO NEGATIVE (NEGATIVE); LEUKOCYTE ESTERASE, URINE AUTO 3+ (NEGATIVE); NITRITE, URINE AUTO POSITIVE (NEGATIVE); PROTEIN, URINE AUTO 1+ mg/dL (NEGATIVE); RBC, URINE AUTO 9 /HPF (0-3); SPECIFIC GRAVITY URINE AUTO 1.016 (1.002-1.035); SQUAMOUS EPITHELIAL CELL UR AU 0 /HPF (0-6); UROBILINOGEN, URINE AUTO 0.2 mg/dL (0.0-2.0); WBC, URINE AUTO TNTC /HPF (0-3)
== END ==
PROVIDERS: ATTEND Internal Medicine
DX: N39.0 Urinary tract infection, site not specified (principal)

== ENCOUNTER → 2020-01-17 | Outpatient (REF) | payer MEDICARE, MEDICAID ==
[2020-02-21 03:13] LABS: BACTERIA, URINE AUTO 1+ (NEGATIVE); MUCUS, URINE SMALL (NEGATIVE); RBC, URINE AUTO 5 /HPF (0-3); SQUAMOUS EPITHELIAL CELL UR AU 0 /HPF (0-6); WBC, URINE AUTO 130 /HPF (0-3)
== END ==
PROVIDERS: ATTEND Internal Medicine
DX: N39.0 Urinary tract infection, site not specified (principal)

== ENCOUNTER → 2020-01-22 | Outpatient (REF) | payer MEDICARE, MEDICAID ==
[2020-01-22 18:52] LABS: BASO # 0.1 10^3/uL (0.0-0.2); BASO % 0.5 % (0.0-1.0); EOS # 1.2 10^3/uL (0.0-0.5); EOS % 5.3 % (0.0-3.0); HEMATOCRIT 38.2 % (42.0-52.0); HEMOGLOBIN 11.9 g/dl (13.5-17.5); LYMPH # 1.1 10^3/uL (1.5-5.0); LYMPH % 4.9 % (24.0-44.0); MEAN CORPUSCULAR HEMOGLOBIN 29.2 pg (27.0-33.0); MEAN CORPUSCULAR HGB CONC 31.2 g/dl (32.0-36.5); MEAN CORPUSCULAR VOLUME 93.6 fl (80.0-96.0); MONO # 0.9 10^3/uL (0.0-0.8); MONO % 4.2 % (0.0-5.0); NEUTROPHILS # 18.3 10^3/uL (1.5-8.5); NEUTROPHILS % 84.2 % (36.0-66.0); PLATELET COUNT, AUTOMATED 520 10^3/uL (150-450); RED BLOOD COUNT 4.08 10^6/uL (4.30-6.10); WHITE BLOOD COUNT 21.7 10^3/uL (4.0-10.0)
== END ==
LOC: M LAB REF 16:36
PROVIDERS: ATTEND Internal Medicine
DX: M15.9 Polyosteoarthritis, unspecified (principal); D72.829 Elevated white blood cell count, unspecified

== ENCOUNTER → 2020-03-03 | Outpatient (REF) | payer MEDICARE, MEDICAID | LOC: M LAB REF 16:27 | PROVIDERS: ATTEND Internal Medicine | DX: N18.3 Chronic kidney disease, stage 3 (moderate) (principal) ==

== ENCOUNTER 2020-03-29 08:44 | Emergency (ER) | payer MEDICARE, MEDICAID ==
[~2020-03-29] VITALS: Ht 170.2 cm; Wt 58.1 kg
[~2020-03-29 08:44] MED LIST changes: -BREO1INH INH; -FERR1TAB8 PO; -GABA-1171 PO; -PRED5TA PO
[2020-03-29] MEDS ORDERED: NS 500 ML IV ONE (09:15)
--- NOTE | 2020-03-29 09:20 | REP ---
INDICATION: DYSPNEA/COUGH COMPARISON: 08/01/2019 TECHNIQUE: Portable AP view of the chest FINDINGS: Examination is limited by portable technique, underpenetration, and positioning. The mediastinum and cardiac silhouette are within normal limits and stable. The lung pak demonstrate chronic changes including chronic pleuroparenchymal changes along the diaphragmatic surfaces and costophrenic angles. Minimal basilar atelectasis and small pleural effusions cannot definitively be excluded. No pneumothorax. Skeletal structures are intact. IMPRESSION: Relatively chronic appearing changes. Cannot exclude subtle basilar atelectasis or small pleural effusions. <Electronically signed by Edinson Hernandez > 03/29/20 0930
[2020-03-29 09:25] LABS: BASO # 0.1 10^3/uL (0.0-0.2); BASO % 0.4 % (0.0-1.0); EOS # 0.4 10^3/uL (0.0-0.5); EOS % 2.6 % (0.0-3.0); HEMATOCRIT 39.1 % (42.0-52.0); HEMOGLOBIN 12.1 g/dl (13.5-17.5); LYMPH # 3.8 10^3/uL (1.5-5.0); LYMPH % 26.8 % (24.0-44.0); MEAN CORPUSCULAR HEMOGLOBIN 28.9 pg (27.0-33.0); MEAN CORPUSCULAR HGB CONC 30.9 g/dl (32.0-36.5); MEAN CORPUSCULAR VOLUME 93.5 fl (80.0-96.0); MONO # 1.2 10^3/uL (0.0-0.8); MONO % 8.5 % (0.0-5.0); NEUTROPHILS # 8.7 10^3/uL (1.5-8.5); NEUTROPHILS % 61.2 % (36.0-66.0); PLATELET COUNT, AUTOMATED 390 10^3/uL (150-450); RED BLOOD COUNT 4.18 10^6/uL (4.30-6.10); WHITE BLOOD COUNT 14.3 10^3/uL (4.0-10.0)
[2020-03-29] MEDS ORDERED: ISOVUE-370 76% 100ML VIAL As Ordered ONE ×2 (09:43→10:02)
[2020-03-29 09:54] LABS: ALBUMIN 3.6 GM/DL (3.2-5.2); BILIRUBIN,DIRECT 0.1 MG/DL (0.0-0.2); BILIRUBIN,TOTAL 0.5 MG/DL (0.2-1.0); THYROID STIMULATING HORMONE 1.08 uIU/ML (0.358-3.740); THYROXINE (T4) 7.5 UG/DL (4.5-12.0); TOTAL PROTEIN 6.6 GM/DL (6.4-8.2)
[2020-03-29] MEDS ORDERED: BREO1INH INH (10:18)
[2020-03-29] MEDS ORDERED: GABA-1171 PO (10:18)
[2020-03-29] MEDS ORDERED: PRED5TA PO (10:18)
[2020-03-29] MEDS ORDERED: FERR1TAB8 PO (10:18)
--- NOTE | 2020-03-29 10:26 | REP ---
INDICATION: chest pain COMPARISON: 08/05/2018. TECHNIQUE: Axial contrast enhanced images from the thoracic inlet to the upper abdomen using pulmonary embolus technique with multiplanar re-formations. 75 ml Isovue 370 intravenous contrast material administered without complication. This CT examination was performed using the following dose reduction techniques: Automated exposure control, adjustment of mA and/or kv according to the patient's size, and use of iterative reconstruction technique. FINDINGS: The thoracic aorta demonstrates moderate atherosclerotic changes including partially calcified mural thrombus. The ascending thoracic aorta measures 3.7 cm maximal diameter suggesting mild aneurysmal dilatation. There is no evidence for dissection. No cardiomegaly. Atherosclerotic changes to the coronary arteries are also identified. No pericardial effusion. Pulmonary vasculature is grossly normal and without obvious embolus. Lung pak demonstrate mild left basilar atelectasis. Diffuse chronic age-related interstitial changes noted. No adenopathy. Tracheobronchial tree is patent. Surrounding musculoskeletal structures are intact. IMPRESSION: 1. Atherosclerotic changes to the thoracic aorta with ascending thoracic aorta measuring 3.7 cm maximal diameter suggesting mild aneurysmal dilatation. No dissection. 2. Mild left basilar atelectasis. <Electronically signed by Edinson Hernandez > 03/29/20 [id number]
--- NOTE | 2020-03-29 10:31 | REP ---
INDICATION: abd pain. COMPARISON: 07/28/2019 TECHNIQUE: Axial contrast-enhanced images from the lung bases to the pubic symphysis using 100 cc Isovue 370 intravenous contrast material. Axial and coronal reformations obtained. This CT examination was performed using the following dose reduction techniques: Automated exposure control, adjustment of mA and/or kv according to the patient's size, and the use of iterative reconstruction technique. FINDINGS: Liver, spleen, pancreas, gallbladder, bilateral adrenal glands and right kidney are essentially normal/stable. Left kidney includes stable 5.5 cm simple exophytic cyst unchanged. The enteric system including stomach, small, and large bowel appears normal. No evidence for obstruction or acute inflammatory process. Sigmoid diverticulosis without acute diverticulitis identified. Pelvis demonstrates Dang catheter in collapsed bladder and prostatomegaly with mass effect on the base of the bladder noted. No ascites. No free air. No intraperitoneal or retroperitoneal adenopathy. Musculoskeletal structures demonstrate age-related degenerative changes without acute osseous abnormality. The aorta demonstrates moderate to advanced partially calcified atherosclerotic changes along with mild focal infrarenal ectasia measuring 2.6 cm diameter. No aortic dissection. IMPRESSION: 1. Atherosclerotic changes to the abdominal aorta with focal infrarenal ectasia measuring 2.6 cm maximal diameter. 2. No further acute abdominopelvic pathology is appreciated. Chronic stable changes as described above. 3. No ascites. No adenopathy. No acute focal inflammatory stranding. No free air. <Electronically signed by Edinson Hernandez > 03/29/20 [id number]
[2020-03-29 13:30] VITALS: BP 165/79
--- NOTE | 2020-03-29 15:37 | ECGEPIP ---
[facility] Test Date: 2020-03-29 Pat Name: MIC CASTRO Department: Room: - Gender: Male [place]: [place] : 1935 Requested By: PAM BHAKTA Order Number: [id number] Reading MD: Ravi Bejarano Measurements Intervals [place] Rate: 67 P: 53 CT: 160 QRS: -29 QRSD: 88 T: 2 QT: 393 QTc: 417 Interpretive Statements SINUS RHYTHM WITH SINUS ARRHYTHMIA INFERIOR MYOCARDIAL INFARCTION, PROBABLY OLD Electronically Signed on 03-29-2020 15:37:21 EDT by Ravi Bejarano
--- NOTE | 2020-03-31 08:58 | ECGEPIP ---
[facility] - ED Test Date: 2020-03-29 Pat Name: MIC CASTRO Department: Room: - Gender: Male [employer]: : 1935 Requested By: PAM BHAKTA Order Number: [id number] Reading MD: Betsy Coppola Measurements Intervals [place] Rate: 66 P: 11 CA: 160 QRS: -22 QRSD: 80 T: 15 QT: 383 QTc: 402 Interpretive Statements SINUS RHYTHM INFERIOR MYOCARDIAL INFARCTION, PROBABLY OLD DECREASED RATE 08/01/19 Electronically Signed on 03-31-2020 8:58:07 EDT by Betsy Coppola
== END 2020-03-29 13:48 | disposition home or self-care (01) ==
LOC: EDBD 08:44 → M ED 08:44
DX: R07.89 Other chest pain (principal); R06.02 Shortness of breath; J98.11 Atelectasis; I25.2 Old myocardial infarction; J44.9 Chronic obstructive pulmonary disease, unspecified; K21.9 Gastro-esophageal reflux disease without esophagitis; N40.0 Benign prostatic hyperplasia without lower urinary tract symptoms; N18.9 Chronic kidney disease, unspecified; Z86.718 Personal history of other venous thrombosis and embolism; Z87.891 Personal history of nicotine dependence; Z88.1 Allergy status to other antibiotic agents; Z79.899 Other long term (current) drug therapy; Z79.82 Long term (current) use of aspirin
CPT/HCPCS: 71045; 71275; 74177; 80047; 80076; 83605; 83880; 84436; 84443; 84484; 85025; 87040; 93005; 93041; 94760; 96360; 99285; Q9967

== ENCOUNTER → 2020-05-15 | Outpatient (REF) | payer MEDICARE, MEDICAID ==
[~2020-05-15] MED LIST changes: +BREO1INH INH; +FERR1TAB8 PO; +GABA-1171 PO; +PRED5TA PO
== END ==
PROVIDERS: ATTEND Internal Medicine
DX: Z20.828 Contact with and (suspected) exposure to other viral communicable diseases (principal)

== ENCOUNTER → 2020-05-20 | Outpatient (REF) | payer MEDICARE, MEDICAID ==
[2020-05-20 17:17] LABS: INFLUENZA A AMPLIFICATION NEGATIVE (NEGATIVE); INFLUENZA B AMPLIFICATION NEGATIVE (NEGATIVE)
== END ==
PROVIDERS: ATTEND Internal Medicine
DX: Z20.828 Contact with and (suspected) exposure to other viral communicable diseases (principal)
CPT/HCPCS: 87502; U0003

== ENCOUNTER → 2020-05-25 | Outpatient (REF) | payer MEDICARE, MEDICAID | PROVIDERS: ATTEND Internal Medicine | DX: Z20.828 Contact with and (suspected) exposure to other viral communicable diseases (principal) ==

== ENCOUNTER → 2020-06-08 | Outpatient (REF) | payer MEDICARE, MEDICAID | PROVIDERS: ATTEND Internal Medicine | DX: Z11.52 Encounter for screening for COVID-19 (principal) ==

== ENCOUNTER → 2020-06-15 | Outpatient (REF) | payer MEDICARE, MEDICAID | PROVIDERS: ATTEND Internal Medicine | DX: Z20.822 Contact with and (suspected) exposure to COVID-19 (principal) ==

== ENCOUNTER → 2020-06-22 | Outpatient (REF) | payer MEDICARE, MEDICAID | PROVIDERS: ATTEND Internal Medicine | DX: Z20.822 Contact with and (suspected) exposure to COVID-19 (principal) ==

== ENCOUNTER → 2020-06-29 | Outpatient (REF) | payer MEDICARE, MEDICAID | PROVIDERS: ATTEND Internal Medicine | DX: Z20.822 Contact with and (suspected) exposure to COVID-19 (principal) ==

== ENCOUNTER → 2020-07-06 | Outpatient (REF) | payer MEDICARE, MEDICAID | PROVIDERS: ATTEND Internal Medicine | DX: Z20.822 Contact with and (suspected) exposure to COVID-19 (principal) ==

== ENCOUNTER → 2020-07-13 | Outpatient (REF) | payer MEDICARE, MEDICAID | PROVIDERS: ATTEND Internal Medicine | DX: Z20.822 Contact with and (suspected) exposure to COVID-19 (principal) ==

== ENCOUNTER → 2020-07-20 | Outpatient (REF) | payer MEDICARE, MEDICAID | PROVIDERS: ATTEND Internal Medicine | DX: Z20.822 Contact with and (suspected) exposure to COVID-19 (principal) ==

== ENCOUNTER → 2020-09-10 | Outpatient (REF) | payer MEDICARE, MEDICAID ==
[~2020-09-10] MED LIST changes: +ASPI-569 PO; -ASPI81TAEC PO
[2020-09-10 17:51] LABS: APPEARANCE, URINE CLOUDY (CLEAR); BACTERIA, URINE AUTO 1+ (NEGATIVE); BILIRUBIN, URINE AUTO NEGATIVE (NEGATIVE); BLOOD, URINE BLOOD 3+ (NEGATIVE); COLOR, URINE YELLOW (YELLOW); GLUCOSE, URINE (UA) AUTO NEGATIVE (NEGATIVE); KETONE, URINE AUTO NEGATIVE (NEGATIVE); LEUKOCYTE ESTERASE, URINE AUTO 3+ (NEGATIVE); MUCUS, URINE SMALL (NEGATIVE); NITRITE, URINE AUTO POSITIVE (NEGATIVE); PROTEIN, URINE AUTO 1+ mg/dL (NEGATIVE); RBC, URINE AUTO 93 /HPF (0-3); SPECIFIC GRAVITY URINE AUTO 1.015 (1.002-1.035); SQUAMOUS EPITHELIAL CELL UR AU 0 /HPF (0-6); UROBILINOGEN, URINE AUTO 0.2 mg/dL (0.0-2.0); WBC, URINE AUTO TNTC /HPF (0-3)
== END ==
LOC: M SMT 17:04
PROVIDERS: ATTEND Nurse Practitioner Women's Health
DX: N28.89 Other specified disorders of kidney and ureter (principal)

== ENCOUNTER → 2020-10-14 | Outpatient (CLI) | payer MEDICARE, MEDICAID ==
[~2020-10-14] MED LIST changes: +GABA-283 PO; -GABA-845 PO
--- NOTE | 2020-10-14 11:44 | REP ---
INDICATION: PAIN. COMPARISON: None. TECHNIQUE: Three views of the shoulder were performed. FINDINGS: The acromioclavicular relationship is within normal limits. Asymmetric AC joint space narrowing is seen with marginal osteophytosis. There is superior subluxation of the humeral head within the glenohumeral joint. There is no acute fracture or destructive osseous lesion. IMPRESSION: Chronic changes as described above. <Electronically signed by Chadd Church > 10/14/20 [id number]
--- NOTE | 2020-10-14 11:45 | REP ---
INDICATION: PAIN. COMPARISON: None. TECHNIQUE: Two views FINDINGS: There is no acute fracture or destructive osseous lesion. IMPRESSION: No acute abnormality <Electronically signed by Chadd Church > 10/14/20 [id number]
== END ==
LOC: M RAD 10:35
PROVIDERS: ATTEND Internal Medicine
DX: M25.511 Pain in right shoulder (principal)

== ENCOUNTER 2020-11-01 16:27 | Emergency (ER) | payer MEDICARE, MEDICAID ==
[~2020-11-01] VITALS: Ht 157.5 cm; Wt 57.3 kg
[2020-11-01] MEDS ORDERED: ASCO500T PO (18:04)
[2020-11-01] MEDS ORDERED: QC A650T3 PO (18:04)
[2020-11-01] MEDS ORDERED: TUMS750C5 PO (18:04)
[2020-11-01] MEDS ORDERED: DICL1GEL3 TOP (18:04)
[2020-11-01] MEDS ORDERED: GABA250S6 PO (18:04)
[2020-11-01] MEDS ORDERED: MOBI4TAB PO (18:04)
[2020-11-01] MEDS ORDERED: D32000TA2 PO (18:04)
--- NOTE | 2020-11-01 18:19 | REP ---
INDICATION: fall COMPARISON: 03/29/2020 TECHNIQUE: PA and lateral. FINDINGS: The mediastinum and cardiac silhouette are normal. The lung pak demonstrate chronic changes. Superimposed left lower lobe atelectasis excluded. No obvious effusion or pneumothorax. Skeletal structures are grossly intact. The skeletal structures are intact and normal. IMPRESSION: Possible left lower lobe infiltrate/atelectasis. <Electronically signed by Edinson Hernandez > 11/01/20 [id number]
--- NOTE | 2020-11-01 18:26 | REPVR ---
PROCEDURE INFORMATION: Exam: CT Head Without Contrast Exam date and time: 11/01/2020 5:51 PM Age: 85 years old Clinical indication: Injury or trauma; Fall; Blunt trauma (contusions or hematomas); Additional info: Fall on thinners TECHNIQUE: Imaging protocol: Computed tomography of the head without contrast. Radiation optimization: All CT scans at this facility use at least one of these dose optimization techniques: automated exposure control; mA and/or kV adjustment per patient size (includes targeted exams where dose is matched to clinical indication); or iterative reconstruction. COMPARISON: CT Head without contrast 07/28/2019 3:39 PM FINDINGS: Brain: There is moderate age related parenchymal volume loss. White matter changes are demonstrated in the subcortical, centrum semiovale and periventricular white matter consistent with chronic age related small vessel ischemic changes. There is moderate diffuse cerebellar atrophy. Cerebral ventricles: The degree of ventricular dilatation is normal for age and/or degree of atrophy present. Paranasal sinuses: Visualized sinuses are unremarkable. No fluid levels. Mastoid air cells: Visualized mastoid air cells are well aerated. Vasculature: Atherosclerotic calcifications are demonstrated in the intracranial carotid arteries bilaterally as well as in the vertebral basilar system. Bones/joints: Unremarkable. No acute fracture. Soft tissues: Unremarkable. IMPRESSION: 1. There is moderate age related parenchymal volume loss. White matter changes are demonstrated in the subcortical, centrum semiovale and periventricular white matter consistent with chronic age related small vessel ischemic changes. 2. The degree of ventricular dilatation is normal for age and/or degree of atrophy present. 3. There is moderate diffuse cerebellar atrophy. 4. No acute intracranial findings. Electronically signed by: Shade Shukla On 11/01/2020 18:26:24 PM
[2020-11-01] MEDS ORDERED: BOOSTRIX/ADACEL VACCINE (DIPHTH/PERTUSS/ACELL/TETANUS) 0.5ML SYR IM ONE (18:30)
--- NOTE | 2020-11-01 18:32 | REPVR ---
PROCEDURE INFORMATION: Exam: CT Cervical Spine Without Contrast Exam date and time: 11/01/2020 5:51 PM Age: 85 years old Clinical indication: Injury or trauma; Fall; Blunt trauma; Additional info: Fall on thinners TECHNIQUE: Imaging protocol: Computed tomography images of the cervical spine without contrast. Radiation optimization: All CT scans at this facility use at least one of these dose optimization techniques: automated exposure control; mA and/or kV adjustment per patient size (includes targeted exams where dose is matched to clinical indication); or iterative reconstruction. COMPARISON: No relevant prior studies available. FINDINGS: Bones/joints: No acute fracture. Normal alignment. Discs/Spinal canal/Neural foramina: Disc space narrowing at C3-C4 through C6-C7 with intervertebral osteophytes. Moderate to severe bilateral foraminal narrowing at C4, C5 and C6 secondary to osteophytic encroachment. Disc osteophyte complexes demonstrated at C3-C4 through C6-C7 with mild mid cord impingement at C3-C4, C4-C5 and moderate mid cord impingement at C5-C6 and C6-C7. Lungs: Lung apices are normal. Soft tissues: Unremarkable. IMPRESSION: Degenerative spondylosis as described above. No acute findings. Electronically signed by: Shade Shukla On 11/01/2020 18:32:51 PM
[2020-11-01 19:14] VITALS: O2SAT 97
[2020-11-01 19:15] VITALS: BP 159/77
--- NOTE | 2020-11-01 19:31 | REP ---
INDICATION: trauma COMPARISON: None. TECHNIQUE: Portable internal rotation, external rotation, and Y view. FINDINGS: Age-related osteopenia and degenerative changes are appreciated. No obvious acute fracture or dislocation. Surrounding soft tissues are grossly within normal limits. IMPRESSION: Osteopenia and degenerative changes. No acute fracture or dislocation. <Electronically signed by Edinson Hernandez > 11/01/20 [id number]
--- NOTE | 2020-11-01 21:44 | REPVR ---
PROCEDURE INFORMATION: Exam: XR Right Elbow Exam date and time: 11/01/2020 6:14 PM Age: 85 years old Clinical indication: Other: Fall TECHNIQUE: Imaging protocol: XR Right elbow. Views: 3 or more views. COMPARISON: CR Humerus RIGHT 10/14/2020 10:48 AM FINDINGS: Bones/joints: Normal. Soft tissues: Normal. IMPRESSION: No acute findings. Electronically signed by: Shade Shukla On 11/01/2020 21:43:49 PM
--- NOTE | 2020-11-02 08:11 | ED PDOC ---
Post-Departure Follow-Up radiology repor tfaxed to Betsy Mendiola MD November 02, 2020 08:11
== END 2020-11-01 20:03 | disposition home or self-care (01) ==
LOC: EDBD 16:27 → M ED 16:27 → EDSEX 16:27 → M ED 20:03
DX: S41.111A Laceration without foreign body of right upper arm, initial encounter (principal); S50.01XA Contusion of right elbow, initial encounter; W01.0XXA Fall on same level from slipping, tripping and stumbling without subsequent striking against object, initial encounter; M47.812 Spondylosis without myelopathy or radiculopathy, cervical region; E11.9 Type 2 diabetes mellitus without complications; I11.0 Hypertensive heart disease with heart failure; I50.9 Heart failure, unspecified; F03.90 Unspecified dementia, unspecified severity, without behavioral disturbance, psychotic disturbance, mood disturbance, and anxiety; J44.9 Chronic obstructive pulmonary disease, unspecified; Z88.1 Allergy status to other antibiotic agents; Y92.129 Unspecified place in nursing home as the place of occurrence of the external cause; Y93.9 Activity, unspecified; Y99.9 Unspecified external cause status

== ENCOUNTER → 2020-11-06 | Outpatient (REF) | payer MEDICARE, MEDICAID ==
[~2020-11-06] MED LIST changes: +ASCO500T PO; +D32000TA2 PO; +DICL1GEL3 TOP; +GABA250S6 PO; +MOBI4TAB PO; +QC A650T3 PO; +TUMS750C5 PO
== END ==
LOC: M LAB REF 15:40
PROVIDERS: ATTEND Internal Medicine
DX: N18.30 Chronic kidney disease, stage 3 unspecified (principal); D64.9 Anemia, unspecified; S50.811D Abrasion of right forearm, subsequent encounter

== ENCOUNTER → 2021-03-04 | Outpatient (REF) | payer MEDICARE, MEDICAID ==
[~2021-03-04] MED LIST changes: +OMEP40CA4 PO; -OMEP40CA97 PO
[2021-03-04 17:50] LABS: PERCENT SATURATION 27.4 % (19.7-50.0)
== END ==
LOC: M LAB REF 16:25
PROVIDERS: ATTEND Internal Medicine
DX: D50.9 Iron deficiency anemia, unspecified (principal)

== ENCOUNTER → 2021-05-17 | Outpatient (REF) | payer MEDICARE, MEDICAID ==
[2021-05-17 20:22] LABS: ATYPICAL LYMPH 4 % (0-5); LYMPHOCYTES 16 % (16-44); MONOCYTES 7 % (0-5); NEUTROPHILS 73 % (28-66)
[2021-05-17 20:23] LABS: ANISOCYTOSIS 1+
[2021-05-17 20:24] LABS: POIKILOCYTOSIS 1+
[2021-05-17 20:27] LABS: BURR CELLS 1+; PLATELET ESTIMATE NORMAL (NORMAL)
== END ==
LOC: M LAB REF 16:26
PROVIDERS: ATTEND Internal Medicine
DX: D72.829 Elevated white blood cell count, unspecified (principal)

== ENCOUNTER → 2021-05-18 | Outpatient (CLI) | payer MEDICARE, MEDICAID ==
--- NOTE | 2021-05-18 16:53 | REP ---
INDICATION: COUGH AND CONGESTION COMPARISON: 11/01/2020 TECHNIQUE: PA and lateral. FINDINGS: Mediastinum and cardiac silhouette are normal. Lung pak demonstrate chronic appearing changes although subtle lingular atelectasis cannot be exclude. No obvious focal consolidation, effusion, or pneumothorax. IMPRESSION: Chronic appearing changes. Trace lingular atelectasis versus scarring cannot be excluded. <Electronically signed by Edinson Hernandez > 05/18/21 [id number]
== END ==
LOC: M RAD 16:25
PROVIDERS: ATTEND Internal Medicine
DX: R05.9 Cough, unspecified (principal); R09.81 Nasal congestion

== ENCOUNTER → 2021-07-29 | Outpatient (CLI) | payer MEDICARE, MEDICAID ==
[~2021-07-29] MED LIST changes: +ISOVUE-300 61% 50ML VIAL As Ordered ONE; +LIDOCAINE 1% MDV 20ML VIAL As Ordered ONE; +methylPREDNISolone SUSP 40MG/ML 1ML VIAL (DEPO MEDROL) As Ordered ONE
== END ==
LOC: M RADPRO 14:20
PROVIDERS: ATTEND Physician Assistant
DX: M19.011 Primary osteoarthritis, right shoulder (principal)

== ENCOUNTER → 2021-08-23 | Outpatient (CLI) | payer MEDICARE, MEDICAID, OTHER ==
[~2021-08-23] MED LIST changes: -ISOVUE-300 61% 50ML VIAL As Ordered ONE; -LIDOCAINE 1% MDV 20ML VIAL As Ordered ONE; -methylPREDNISolone SUSP 40MG/ML 1ML VIAL (DEPO MEDROL) As Ordered ONE
== END ==
PROVIDERS: ATTEND Internal Medicine
DX: R05.9 Cough, unspecified (principal)

== ENCOUNTER → 2021-08-25 | Outpatient (REF) | PROVIDERS: ATTEND Internal Medicine | DX: J44.9 Chronic obstructive pulmonary disease, unspecified (principal); Z53.9 Procedure and treatment not carried out, unspecified reason ==

== ENCOUNTER → 2021-08-25 | Outpatient (REF) | payer MEDICAID, MEDICARE, OTHER ==
[2021-08-25 10:20] LABS: HEMATOCRIT 42.4 % (42.0-52.0); HEMOGLOBIN 13.6 g/dl (13.5-17.5); MEAN CORPUSCULAR HGB CONC 32.1 g/dl (32.0-36.5); MEAN CORPUSCULAR VOLUME 93.4 fl (80.0-96.0); PLATELET COUNT, AUTOMATED 463 10^3/uL (150-450); RED BLOOD COUNT 4.54 10^6/uL (4.30-6.10); WHITE BLOOD COUNT 12.4 10^3/uL (4.0-10.0)
[2021-08-25 10:40] LABS: BLOOD UREA NITROGEN 34 MG/DL (7-18); GLUCOSE, FASTING 93 MG/DL (70-100)
[2021-08-25 10:41] LABS: CALCIUM LEVEL 9.3 MG/DL (8.8-10.2); CARBON DIOXIDE LEVEL 30 MEQ/L (21-32); CHLORIDE LEVEL 107 MEQ/L (98-107); GLOMERULAR FILTRATION RATE > 60.0 (>35); SODIUM LEVEL 141 MEQ/L (136-145)
== END ==
PROVIDERS: ATTEND Internal Medicine
DX: J44.9 Chronic obstructive pulmonary disease, unspecified (principal)

== ENCOUNTER → 2021-09-01 | Outpatient (REF) ==
[2021-09-01 11:02] LABS: HEMATOCRIT 41.2 % (42.0-52.0); HEMOGLOBIN 13.4 g/dl (13.5-17.5); MEAN CORPUSCULAR HEMOGLOBIN 30.2 pg (27.0-33.0); MEAN CORPUSCULAR HGB CONC 32.5 g/dl (32.0-36.5); MEAN CORPUSCULAR VOLUME 92.8 fl (80.0-96.0); PLATELET COUNT, AUTOMATED 532 10^3/uL (150-450); RED BLOOD COUNT 4.44 10^6/uL (4.30-6.10); WHITE BLOOD COUNT 15.2 10^3/uL (4.0-10.0)
[2021-09-01 11:28] LABS: BLOOD UREA NITROGEN 47 MG/DL (7-18); CALCIUM LEVEL 9.5 MG/DL (8.8-10.2); CARBON DIOXIDE LEVEL 32 MEQ/L (21-32); CHLORIDE LEVEL 105 MEQ/L (98-107); CREATININE FOR GFR 1.07 MG/DL (0.70-1.30); GLOMERULAR FILTRATION RATE > 60.0 (>35); GLUCOSE, FASTING 85 MG/DL (70-100); POTASSIUM SERUM 4.5 MEQ/L (3.5-5.1); SODIUM LEVEL 141 MEQ/L (136-145)
== END ==
PROVIDERS: ATTEND Internal Medicine
DX: Z79.899 Other long term (current) drug therapy (principal)

== ENCOUNTER → 2021-09-22 | Outpatient (REF) | payer MEDICARE, MEDICAID, OTHER | PROVIDERS: ATTEND Internal Medicine | DX: E55.9 Vitamin D deficiency, unspecified (principal) ==

== ENCOUNTER → 2021-09-27 | Outpatient (REF) | payer MEDICARE, MEDICAID ==
[2021-09-27 12:53] LABS: BLOOD UREA NITROGEN 37 MG/DL (7-18); CARBON DIOXIDE LEVEL 28 MEQ/L (21-32); CHLORIDE LEVEL 106 MEQ/L (98-107); CREATININE FOR GFR 1.21 MG/DL (0.70-1.30); GLOMERULAR FILTRATION RATE > 60.0 (>35); GLUCOSE, FASTING 96 MG/DL (70-100); SODIUM LEVEL 142 MEQ/L (136-145)
== END ==
PROVIDERS: ATTEND Internal Medicine
DX: I10 Essential (primary) hypertension (principal)

== ENCOUNTER → 2021-09-27 | Outpatient (REF) | payer MEDICARE, MEDICAID ==
[2021-09-27 12:08] LABS: BASO # 0.1 10^3/uL (0.0-0.2); BASO % 0.5 % (0.0-1.0); EOS # 0.4 10^3/uL (0.0-0.5); EOS % 2.5 % (0.0-3.0); HEMATOCRIT 41.6 % (42.0-52.0); LYMPH # 1.7 10^3/uL (1.5-5.0); LYMPH % 10.2 % (24.0-44.0); MEAN CORPUSCULAR HGB CONC 31.3 g/dl (32.0-36.5); MEAN CORPUSCULAR VOLUME 96.1 fl (80.0-96.0); MONO # 1.4 10^3/uL (0.0-0.8); MONO % 8.6 % (2.0-8.0); NEUTROPHILS # 12.9 10^3/uL (1.5-8.5); NEUTROPHILS % 77.5 % (36.0-66.0); PLATELET COUNT, AUTOMATED 439 10^3/uL (150-450); RED BLOOD COUNT 4.33 10^6/uL (4.30-6.10); WHITE BLOOD COUNT 16.7 10^3/uL (4.0-10.0)
== END ==
PROVIDERS: ATTEND Internal Medicine
DX: D72.829 Elevated white blood cell count, unspecified (principal); I10 Essential (primary) hypertension

== ENCOUNTER 2021-10-27 22:00 | Emergency (ER) | payer MEDICARE, MEDICAID ==
[~2021-10-27] VITALS: Ht 152.4 cm; Wt 54.5 kg
[2021-10-27 22:22] VITALS: BP 159/102
[2021-10-27] MEDS ORDERED: TIOT18INH INH (22:49)
[2021-10-27] MEDS ORDERED: BISA10SU PR (22:49)
[2021-10-27] MEDS ORDERED: ACET-897 PO (22:49)
[2021-10-27] MEDS ORDERED: PRED25TA PO (22:49)
[2021-10-27] MEDS ORDERED: FLEEENE12 PR (22:49)
[2021-10-27] MEDS ORDERED: TUMS500C PO (22:49)
[2021-10-27] MEDS ORDERED: ERGO500029 PO (22:49)
[2021-10-27] MEDS ORDERED: TRAM50TA2 PO (22:49)
[2021-10-27] MEDS ORDERED: HOME MED LIST COMPLETE! XX SCH (22:55)
[2021-10-28] MEDS ORDERED: LIDOCAINE W/EPINEPHRINE 1% 20ML VIAL SC ONE (02:20)
[2021-10-28] MEDS ORDERED: BOOSTRIX/ADACEL VACCINE (DIPHTH/PERTUSS/ACELL/TETANUS) 0.5ML SYR IM ONE (03:05)
== END 2021-10-28 04:46 | disposition home or self-care (01) ==
LOC: M ED 22:00
DX: S81.811A Laceration without foreign body, right lower leg, initial encounter (principal); W26.8XXA Contact with other sharp object(s), not elsewhere classified, initial encounter; Y92.129 Unspecified place in nursing home as the place of occurrence of the external cause; Y93.9 Activity, unspecified; Y99.9 Unspecified external cause status; I48.91 Unspecified atrial fibrillation; Z79.01 Long term (current) use of anticoagulants; Z79.899 Other long term (current) drug therapy; Z88.2 Allergy status to sulfonamides; Z88.8 Allergy status to other drugs, medicaments and biological substances

== ENCOUNTER → 2021-11-03 | Outpatient (REF) | payer MEDICARE, MEDICAID ==
[~2021-11-03] MED LIST changes: +ACET-897 PO; +BISA10SU PR; +ERGO500029 PO; +FLEEENE12 PR; +PRED25TA PO; +TIOT18INH INH
[2021-11-03 12:20] LABS: HEMATOCRIT 37.1 % (42.0-52.0); HEMOGLOBIN 11.6 g/dl (13.5-17.5); MEAN CORPUSCULAR HEMOGLOBIN 30.2 pg (27.0-33.0); MEAN CORPUSCULAR HGB CONC 31.3 g/dl (32.0-36.5); MEAN CORPUSCULAR VOLUME 96.6 fl (80.0-96.0); PLATELET COUNT, AUTOMATED 394 10^3/uL (150-450); RED BLOOD COUNT 3.84 10^6/uL (4.30-6.10)
[2021-11-03 12:41] LABS: BLOOD UREA NITROGEN 44 MG/DL (7-18); CALCIUM LEVEL 9.9 MG/DL (8.8-10.2); CARBON DIOXIDE LEVEL 28 MEQ/L (21-32); CHLORIDE LEVEL 108 MEQ/L (98-107); CREATININE FOR GFR 1.22 MG/DL (0.70-1.30); GLOMERULAR FILTRATION RATE > 60.0 (>35); GLUCOSE, FASTING 100 MG/DL (70-100); SODIUM LEVEL 142 MEQ/L (136-145)
== END ==
PROVIDERS: ATTEND Internal Medicine
DX: E55.9 Vitamin D deficiency, unspecified (principal)

== ENCOUNTER → 2021-12-01 | Outpatient (REF) | payer MEDICARE, MEDICAID | PROVIDERS: ATTEND Internal Medicine | DX: N39.0 Urinary tract infection, site not specified (principal); Z16.12 Extended spectrum beta lactamase (ESBL) resistance ==

== ENCOUNTER → 2021-12-24 | Outpatient (REF) | payer MEDICARE, MEDICAID | PROVIDERS: ATTEND Internal Medicine | DX: N39.0 Urinary tract infection, site not specified (principal); Z16.12 Extended spectrum beta lactamase (ESBL) resistance ==

== ENCOUNTER → 2021-12-29 | Outpatient (REF) | payer MEDICARE, MEDICAID ==
[2021-12-29 12:22] LABS: BASO # 0.1 10^3/uL (0.0-0.2); BASO % 0.5 % (0.0-1.0); EOS # 0.4 10^3/uL (0.0-0.5); EOS % 1.9 % (0.0-3.0); HEMATOCRIT 39.7 % (42.0-52.0); HEMOGLOBIN 12.7 g/dl (13.5-17.5); LYMPH # 1.6 10^3/uL (1.5-5.0); LYMPH % 8.6 % (24.0-44.0); MEAN CORPUSCULAR HEMOGLOBIN 30.1 pg (27.0-33.0); MEAN CORPUSCULAR VOLUME 94.1 fl (80.0-96.0); MONO % 8.8 % (2.0-8.0); NEUTROPHILS # 15.1 10^3/uL (1.5-8.5); NEUTROPHILS % 79.5 % (36.0-66.0); PLATELET COUNT, AUTOMATED 392 10^3/uL (150-450); RED BLOOD COUNT 4.22 10^6/uL (4.30-6.10); WHITE BLOOD COUNT 18.9 10^3/uL (4.0-10.0)
[2021-12-29 12:25] LABS: MONO # 1.7 10^3/uL (0.0-0.8)
== END ==
PROVIDERS: ATTEND Internal Medicine
DX: N39.0 Urinary tract infection, site not specified (principal)

== ENCOUNTER → 2022-01-24 | Outpatient (REF) | payer MEDICARE, MEDICAID | PROVIDERS: ATTEND Nurse Practitioner Family | DX: N39.0 Urinary tract infection, site not specified (principal); Z16.12 Extended spectrum beta lactamase (ESBL) resistance ==

== ENCOUNTER → 2022-02-09 | Outpatient (REF) | payer MEDICARE, MEDICAID ==
[2022-02-09 12:03] LABS: HEMATOCRIT 42.8 % (42.0-52.0); HEMOGLOBIN 13.6 g/dl (13.5-17.5); MEAN CORPUSCULAR HEMOGLOBIN 29.8 pg (27.0-33.0); MEAN CORPUSCULAR HGB CONC 31.8 g/dl (32.0-36.5); MEAN CORPUSCULAR VOLUME 93.7 fl (80.0-96.0); PLATELET COUNT, AUTOMATED 347 10^3/uL (150-450); RED BLOOD COUNT 4.57 10^6/uL (4.30-6.10); WHITE BLOOD COUNT 14.4 10^3/uL (4.0-10.0)
[2022-02-09 12:57] LABS: BLOOD UREA NITROGEN 46 MG/DL (7-18); CALCIUM LEVEL 9.2 MG/DL (8.8-10.2); CARBON DIOXIDE LEVEL 25 MEQ/L (21-32); CHLORIDE LEVEL 105 MEQ/L (98-107); CREATININE FOR GFR 0.96 MG/DL (0.70-1.30); GLOMERULAR FILTRATION RATE > 60.0 (>35); GLUCOSE, FASTING 75 MG/DL (70-100); POTASSIUM SERUM 4.5 MEQ/L (3.5-5.1); SODIUM LEVEL 138 MEQ/L (136-145)
== END ==
PROVIDERS: ATTEND Internal Medicine
DX: D64.9 Anemia, unspecified (principal)

== ENCOUNTER 2022-02-11 18:21 | Emergency (ER) | payer MEDICARE, MEDICAID ==
[~2022-02-11] VITALS: Ht 167.6 cm; Wt 61.4 kg
[2022-02-11] MEDS ORDERED: LIDOCAINE 2% 5ML JELLY UROJET TOP ONE (19:15)
[2022-02-11] MEDS ORDERED: ACETAMINOPHEN TAB 650MG DOSE (2X325MG) PO ONE (20:05)
[2022-02-11] MEDS ORDERED: traMADol 50 MG TAB PO ONE (20:05)
[2022-02-11 20:51] VITALS: BP 129/72
== END 2022-02-11 22:09 | disposition home or self-care (01) ==
LOC: EDBD 18:21 → M ED 18:21
DX: T83.098A Other mechanical complication of other urinary catheter, initial encounter (principal); K21.9 Gastro-esophageal reflux disease without esophagitis; J44.9 Chronic obstructive pulmonary disease, unspecified; C61 Malignant neoplasm of prostate; F03.90 Unspecified dementia, unspecified severity, without behavioral disturbance, psychotic disturbance, mood disturbance, and anxiety; Z88.1 Allergy status to other antibiotic agents; Z79.2 Long term (current) use of antibiotics; Z79.899 Other long term (current) drug therapy

== ENCOUNTER 2022-02-27 09:30 | Emergency (ER) | payer MEDICARE, MEDICAID ==
[~2022-02-27] VITALS: Ht 167.6 cm; Wt 54.0 kg
[2022-02-27 10:23] LABS: BASO # 0.1 10^3/uL (0.0-0.2); BASO % 0.4 % (0.0-1.0); EOS # 0.1 10^3/uL (0.0-0.5); EOS % 0.3 % (0.0-3.0); HEMATOCRIT 40.4 % (42.0-52.0); HEMOGLOBIN 12.9 g/dl (13.5-17.5); LYMPH # 1.7 10^3/uL (1.5-5.0); LYMPH % 8.8 % (24.0-44.0); MEAN CORPUSCULAR HEMOGLOBIN 29.3 pg (27.0-33.0); MEAN CORPUSCULAR HGB CONC 31.9 g/dl (32.0-36.5); MEAN CORPUSCULAR VOLUME 91.8 fl (80.0-96.0); NEUTROPHILS # 15.2 10^3/uL (1.5-8.5); NEUTROPHILS % 79.8 % (36.0-66.0); PLATELET COUNT, AUTOMATED 374 10^3/uL (150-450)
[2022-02-27] MEDS ORDERED: ISOVUE-370 76% 100ML VIAL As Ordered ONE (10:26)
[2022-02-27 10:49] LABS: MONO # 1.9 10^3/uL (0.0-0.8)
[2022-02-27] MEDS ORDERED: cefTRIAXone SOD 1 GM in D5W MINI-BAG PLUS 50 ML IV ONE (10:55)
[2022-02-27] MEDS ORDERED: BACT800T5 PO (12:08)
[2022-02-27 12:22] VITALS: BP 119/68
== END 2022-02-27 12:47 | disposition home or self-care (01) ==
LOC: M ED 09:30
DX: N39.0 Urinary tract infection, site not specified (principal); R10.31 Right lower quadrant pain; I25.2 Old myocardial infarction; I10 Essential (primary) hypertension; Z95.5 Presence of coronary angioplasty implant and graft; Z88.1 Allergy status to other antibiotic agents; Z79.82 Long term (current) use of aspirin; Z79.899 Other long term (current) drug therapy; Z79.811 Long term (current) use of aromatase inhibitors
CPT/HCPCS: 74177; 80047; 81000; 81015; 85025; 87040; 87088; 87186; 96374; 99284; J0696; Q9967

== ENCOUNTER → 2022-05-11 | Outpatient (REF) | payer MEDICARE, MEDICAID ==
[2022-05-11 12:22] LABS: HEMATOCRIT 40.2 % (42.0-52.0); HEMOGLOBIN 12.5 g/dl (13.5-17.5); MEAN CORPUSCULAR HEMOGLOBIN 29.5 pg (27.0-33.0); MEAN CORPUSCULAR HGB CONC 31.1 g/dl (32.0-36.5); MEAN CORPUSCULAR VOLUME 94.8 fl (80.0-96.0); PLATELET COUNT, AUTOMATED 423 10^3/uL (150-450); RED BLOOD COUNT 4.24 10^6/uL (4.30-6.10); WHITE BLOOD COUNT 16.9 10^3/uL (4.0-10.0)
[2022-05-11 12:47] LABS: BLOOD UREA NITROGEN 49 MG/DL (9-23); CARBON DIOXIDE LEVEL 27 MMOL/L (20-31); CHLORIDE LEVEL 106 MMOL/L (98-107); CREATININE FOR GFR 0.99 MG/DL (0.70-1.30); GLOMERULAR FILTRATION RATE > 60.0 (>35); GLUCOSE, FASTING 97 MG/DL (74-106); POTASSIUM SERUM 4.2 MMOL/L (3.5-5.1); SODIUM LEVEL 142 MMOL/L (136-145)
== END ==
PROVIDERS: ATTEND Nurse Practitioner Family
DX: D64.9 Anemia, unspecified (principal)

== ENCOUNTER → 2022-06-26 | Outpatient (REF) | payer MEDICARE, MEDICAID ==
[2022-06-26 13:37] LABS: HEMATOCRIT 41.2 % (42.0-52.0); HEMOGLOBIN 12.9 g/dl (13.5-17.5); MEAN CORPUSCULAR HEMOGLOBIN 29.4 pg (27.0-33.0); MEAN CORPUSCULAR HGB CONC 31.3 g/dl (32.0-36.5); MEAN CORPUSCULAR VOLUME 93.8 fl (80.0-96.0); PLATELET COUNT, AUTOMATED 274 10^3/uL (150-450); RED BLOOD COUNT 4.39 10^6/uL (4.30-6.10); WHITE BLOOD COUNT 13.6 10^3/uL (4.0-10.0)
[2022-06-26 13:40] LABS: APPEARANCE, URINE MANUAL CLOUDY (CLEAR); COLOR, URINE MANUAL YELLOW (YELLOW)
[2022-06-26 13:41] LABS: BILIRUBIN, URINE MANUAL NEGATIVE (NEGATIVE); BLOOD URINE MANUAL POSITIVE (NEGATIVE); GLUCOSE, URINE (UA) MANUAL NEGATIVE (NEGATIVE); KETONE, URINE MANUAL NEGATIVE (NEGATIVE); LEUKOCYTE ESTERASE, URINE MAN POSITIVE (NEGATIVE); NITRITE, URINE MANUAL NEGATIVE (NEGATIVE); PROTEIN, URINE MANUAL 2+ mg/dL (NEGATIVE); UROBILINOGEN, URINE MANUAL NORMAL (NORMAL)
[2022-06-26 14:00] LABS: BACTERIA, URINE LARGE AMOUNT; HYALINE CAST, URINE NONE SEEN /lpf (0-1); SQUAMOUS EPITHELIAL CELL URINE SMALL AMOUNT /hpf (SMALL AMT)
[2022-06-26 14:01] LABS: AMORPHOUS SEDIMENT, URINE LARGE AMOUNT (NEGATIVE); MUCUS, URINE MOD AMOUNT (NEGATIVE); TRIPLE PHOSPHATE CRYSTAL,URINE LARGE AMOUNT /hpf
[2022-06-26 14:10] LABS: BLOOD UREA NITROGEN 53 MG/DL (9-23); CARBON DIOXIDE LEVEL 26 MMOL/L (20-31); CHLORIDE LEVEL 103 MMOL/L (98-107); CREATININE FOR GFR 1.06 MG/DL (0.70-1.30); GLOMERULAR FILTRATION RATE > 60.0 (>35); GLUCOSE, FASTING 62 MG/DL (74-106); POTASSIUM SERUM 4.4 MMOL/L (3.5-5.1); SODIUM LEVEL 139 MMOL/L (136-145)
== END ==
PROVIDERS: ATTEND Internal Medicine
DX: R50.9 Fever, unspecified (principal)

== ENCOUNTER → 2022-06-27 | Outpatient (REF) | payer MEDICARE, MEDICAID | PROVIDERS: ATTEND Nurse Practitioner Family | DX: U07.1 COVID-19 (principal); R06.02 Shortness of breath ==

== ENCOUNTER → 2022-06-27 | Outpatient (REF) | payer MEDICARE, MEDICAID ==
[2022-06-27 12:31] LABS: HEMATOCRIT 41.7 % (42.0-52.0); HEMOGLOBIN 13.1 g/dl (13.5-17.5); MEAN CORPUSCULAR HEMOGLOBIN 29.4 pg (27.0-33.0); MEAN CORPUSCULAR HGB CONC 31.4 g/dl (32.0-36.5); MEAN CORPUSCULAR VOLUME 93.5 fl (80.0-96.0); PLATELET COUNT, AUTOMATED 351 10^3/uL (150-450); RED BLOOD COUNT 4.46 10^6/uL (4.30-6.10); WHITE BLOOD COUNT 12.6 10^3/uL (4.0-10.0)
[2022-06-27 13:02] LABS: BLOOD UREA NITROGEN 54 MG/DL (9-23); CALCIUM LEVEL 9.3 MG/DL (8.3-10.6); CARBON DIOXIDE LEVEL 26 MMOL/L (20-31); CHLORIDE LEVEL 104 MMOL/L (98-107); CREATININE FOR GFR 1.14 MG/DL (0.70-1.30); GLOMERULAR FILTRATION RATE > 60.0 (>35); GLUCOSE, FASTING 82 MG/DL (74-106); POTASSIUM SERUM 4.1 MMOL/L (3.5-5.1); SODIUM LEVEL 141 MMOL/L (136-145)
== END ==
PROVIDERS: ATTEND Nurse Practitioner Family
DX: U07.1 COVID-19 (principal); Z79.899 Other long term (current) drug therapy

== ENCOUNTER → 2022-06-29 | Outpatient (REF) ==
[2022-06-29 09:49] LABS: BASO # 0.1 10^3/uL (0.0-0.2); BASO % 0.4 % (0.0-1.0); EOS # 0.2 10^3/uL (0.0-0.5); EOS % 1.5 % (0.0-3.0); HEMATOCRIT 37.2 % (42.0-52.0); HEMOGLOBIN 11.6 g/dl (13.5-17.5); LYMPH # 1.7 10^3/uL (1.5-5.0); LYMPH % 13.9 % (24.0-44.0); MEAN CORPUSCULAR HEMOGLOBIN 29.3 pg (27.0-33.0); MEAN CORPUSCULAR HGB CONC 31.2 g/dl (32.0-36.5); MEAN CORPUSCULAR VOLUME 93.9 fl (80.0-96.0); MONO # 1.5 10^3/uL (0.0-0.8); MONO % 11.8 % (2.0-8.0); NEUTROPHILS # 8.9 10^3/uL (1.5-8.5); PLATELET COUNT, AUTOMATED 338 10^3/uL (150-450); RED BLOOD COUNT 3.96 10^6/uL (4.30-6.10); WHITE BLOOD COUNT 12.3 10^3/uL (4.0-10.0)
[2022-06-29 10:28] LABS: ALKALINE PHOSPHATASE 84 U/L (46-116); ALT/SGPT 18 U/L (7.0-40); AST/SGOT 21 U/L (<34); BILIRUBIN,TOTAL 0.4 MG/DL (0.3-1.2); BLOOD UREA NITROGEN 55 MG/DL (9-23); CALCIUM LEVEL 8.5 MG/DL (8.3-10.6); CARBON DIOXIDE LEVEL 26 MMOL/L (20-31); CHLORIDE LEVEL 105 MMOL/L (98-107); CREATININE FOR GFR 1.18 MG/DL (0.70-1.30); GLOMERULAR FILTRATION RATE > 60.0 (>35); GLUCOSE, FASTING 75 MG/DL (74-106); POTASSIUM SERUM 3.8 MMOL/L (3.5-5.1); SODIUM LEVEL 141 MMOL/L (136-145); TOTAL PROTEIN 6.1 G/DL (5.7-8.2)
== END ==
PROVIDERS: ATTEND Nurse Practitioner Family
DX: U07.1 COVID-19 (principal)

== ENCOUNTER → 2022-06-30 | Outpatient (CLI) | payer MEDICARE, MEDICAID | PROVIDERS: ATTEND Internal Medicine | DX: R05.9 Cough, unspecified (principal) ==

== ENCOUNTER → 2022-07-04 | Outpatient (REF) ==
[2022-07-04 10:58] LABS: BASO # 0.1 10^3/uL (0.0-0.2); BASO % 0.4 % (0.0-1.0); EOS # 0.2 10^3/uL (0.0-0.5); EOS % 1.1 % (0.0-3.0); HEMATOCRIT 44.3 % (42.0-52.0); HEMOGLOBIN 13.6 g/dl (13.5-17.5); LYMPH # 2.7 10^3/uL (1.5-5.0); LYMPH % 19.4 % (24.0-44.0); MEAN CORPUSCULAR HEMOGLOBIN 29.4 pg (27.0-33.0); MEAN CORPUSCULAR HGB CONC 30.7 g/dl (32.0-36.5); MEAN CORPUSCULAR VOLUME 95.7 fl (80.0-96.0); MONO # 0.8 10^3/uL (0.0-0.8); MONO % 5.6 % (2.0-8.0); NEUTROPHILS # 9.9 10^3/uL (1.5-8.5); NEUTROPHILS % 72.5 % (36.0-66.0); PLATELET COUNT, AUTOMATED 486 10^3/uL (150-450); RED BLOOD COUNT 4.63 10^6/uL (4.30-6.10); WHITE BLOOD COUNT 13.6 10^3/uL (4.0-10.0)
[2022-07-04 11:21] LABS: ALBUMIN 3.3 G/DL (3.2-5.2); ALKALINE PHOSPHATASE 86 U/L (46-116); ALT/SGPT 17 U/L (7.0-40); AST/SGOT 21 U/L (<34); BILIRUBIN,TOTAL 0.4 MG/DL (0.3-1.2); BLOOD UREA NITROGEN 46 MG/DL (9-23); CALCIUM LEVEL 9.4 MG/DL (8.3-10.6); CARBON DIOXIDE LEVEL 28 MMOL/L (20-31); CHLORIDE LEVEL 106 MMOL/L (98-107); CREATININE FOR GFR 1.19 MG/DL (0.70-1.30); GLOMERULAR FILTRATION RATE > 60.0 (>35); GLUCOSE, FASTING 99 MG/DL (74-106); POTASSIUM SERUM 4.4 MMOL/L (3.5-5.1); SODIUM LEVEL 143 MMOL/L (136-145); TOTAL PROTEIN 6.6 G/DL (5.7-8.2)
== END ==
PROVIDERS: ATTEND Nurse Practitioner Family
DX: U07.1 COVID-19 (principal)

== ENCOUNTER → 2022-07-06 | Outpatient (REF) ==
[2022-07-06 11:37] LABS: BASO # 0.1 10^3/uL (0.0-0.2); BASO % 0.5 % (0.0-1.0); EOS # 0.2 10^3/uL (0.0-0.5); HEMATOCRIT 40.1 % (42.0-52.0); HEMOGLOBIN 12.4 g/dl (13.5-17.5); LYMPH # 2.5 10^3/uL (1.5-5.0); LYMPH % 16.7 % (24.0-44.0); MEAN CORPUSCULAR HEMOGLOBIN 29.5 pg (27.0-33.0); MEAN CORPUSCULAR HGB CONC 30.9 g/dl (32.0-36.5); MEAN CORPUSCULAR VOLUME 95.2 fl (80.0-96.0); MONO # 1.1 10^3/uL (0.0-0.8); MONO % 7.5 % (2.0-8.0); NEUTROPHILS # 10.7 10^3/uL (1.5-8.5); NEUTROPHILS % 73.4 % (36.0-66.0); PLATELET COUNT, AUTOMATED 493 10^3/uL (150-450); RED BLOOD COUNT 4.21 10^6/uL (4.30-6.10); WHITE BLOOD COUNT 14.6 10^3/uL (4.0-10.0)
[2022-07-06 12:12] LABS: ALBUMIN 3.3 G/DL (3.2-5.2); ALKALINE PHOSPHATASE 80 U/L (46-116); ALT/SGPT 15 U/L (7.0-40); AST/SGOT 18 U/L (<34); BILIRUBIN,TOTAL 0.5 MG/DL (0.3-1.2); BLOOD UREA NITROGEN 55 MG/DL (9-23); CARBON DIOXIDE LEVEL 27 MMOL/L (20-31); CHLORIDE LEVEL 106 MMOL/L (98-107); CREATININE FOR GFR 1.18 MG/DL (0.70-1.30); GLOMERULAR FILTRATION RATE > 60.0 (>35); GLUCOSE, FASTING 75 MG/DL (74-106); POTASSIUM SERUM 4.1 MMOL/L (3.5-5.1); SODIUM LEVEL 142 MMOL/L (136-145); TOTAL PROTEIN 6.1 G/DL (5.7-8.2)
== END ==
PROVIDERS: ATTEND Nurse Practitioner Family
DX: U07.1 COVID-19 (principal)

== ENCOUNTER → 2022-07-11 | Outpatient (REF) | payer MEDICARE, MEDICAID ==
[2022-07-11 10:35] LABS: HEMATOCRIT 39.4 % (42.0-52.0); HEMOGLOBIN 12.4 g/dl (13.5-17.5); MEAN CORPUSCULAR HEMOGLOBIN 29.7 pg (27.0-33.0); MEAN CORPUSCULAR HGB CONC 31.5 g/dl (32.0-36.5); MEAN CORPUSCULAR VOLUME 94.5 fl (80.0-96.0); PLATELET COUNT, AUTOMATED 473 10^3/uL (150-450); RED BLOOD COUNT 4.17 10^6/uL (4.30-6.10); WHITE BLOOD COUNT 12.3 10^3/uL (4.0-10.0)
== END ==
PROVIDERS: ATTEND Internal Medicine
DX: D72.829 Elevated white blood cell count, unspecified (principal)

== ENCOUNTER → 2022-09-07 | Outpatient (REF) | payer MEDICARE, MEDICAID | PROVIDERS: ATTEND Internal Medicine | DX: E55.9 Vitamin D deficiency, unspecified (principal); Z79.899 Other long term (current) drug therapy ==

== ENCOUNTER 2022-10-27 12:27 | Inpatient (IN) | payer MEDICARE, MEDICAID ==
[~2022-10-27] VITALS: Ht 172.7 cm; Wt 56.1 kg
[~2022-10-27 12:27] MED LIST changes: -ASPECRE TOP; -CALM1OIN TP; -CARB15DR33 OU; -CLOT1CRE56 TOP; -CLOT1CRE71 TOP; -COLA100C5 PO; -DEBR6.5S4 OTIC; -DEPA500T2 PO; -ELIQ2.5T PO; -ESOM1CAP5 PO; -EUCECRE12 TOP; -LIDOPOW TOP; -MIRT-62 PO; -MIRT1TAB15 PO; -RISATAB3 PO; -VITA500045 PO
[2022-10-27] MEDS ORDERED: NS 500 ML IV ONE (12:50)
[2022-10-27] MEDS ORDERED: LIDOCAINE 2% 5ML JELLY UROJET TOP ONE (13:05)
[2022-10-27 13:59] LABS: ALBUMIN 3.5 G/DL (3.2-5.2); BILIRUBIN,DIRECT 0.2 MG/DL (<0.4); BILIRUBIN,TOTAL 0.5 MG/DL (0.3-1.2); CALCIUM LEVEL 9.6 MG/DL (8.3-10.6); CREATININE FOR GFR 2.51 MG/DL (0.70-1.30); GLOMERULAR FILTRATION RATE 26.1 (>35); POTASSIUM SERUM 5.3 MMOL/L (3.5-5.1); TOTAL PROTEIN 6.1 G/DL (5.7-8.2)
[2022-10-27] MEDS ORDERED: ELIQ2.5T PO (14:29)
[2022-10-27] MEDS ORDERED: CALM1OIN TP (14:29)
[2022-10-27] MEDS ORDERED: VITA500045 PO (14:29)
[2022-10-27] MEDS ORDERED: BREO1INH INH (14:29)
[2022-10-27] MEDS ORDERED: CARB15DR33 OU (14:29)
[2022-10-27] MEDS ORDERED: MIRT1TAB15 PO (14:29)
[2022-10-27] MEDS ORDERED: GABA-1171 PO (14:29)
[2022-10-27] MEDS ORDERED: TRAM50TA2 PO ×2 (14:29→14:45)
[2022-10-27] MEDS ORDERED: CLOT1CRE56 TOP (14:29)
[2022-10-27] MEDS ORDERED: LIDOPOW TOP (14:40)
[2022-10-27] MEDS ORDERED: MIRT-62 PO (14:45)
[2022-10-27] MEDS ORDERED: HOME MED LIST COMPLETE! XX SCH (14:55)
[2022-10-27] MEDS ORDERED: LevoFLOXacin IV 500 MG in IV 1 EA IV ONE (17:05)
[2022-10-27] MEDS ORDERED: ALBUTEROL SULFATE 2.5MG/0.5ML INH NEB SOLN NEB PRN (17:50)
[2022-10-27] MEDS ORDERED: NS 1,000 ML IV ONE (18:00)
[2022-10-27 18:49] VITALS: BP 114/56
[2022-10-27] MEDS ORDERED: ASPECRE TOP (18:49)
[2022-10-27] MEDS ORDERED: DEBR6.5S4 OTIC (18:57)
[2022-10-27] MEDS ORDERED: CLOT1CRE71 TOP (18:57)
[2022-10-27] MEDS ORDERED: COLA100C5 PO (19:04)
[2022-10-27] MEDS ORDERED: ESOM1CAP5 PO (19:04)
[2022-10-27] MEDS ORDERED: EUCECRE12 TOP (19:04)
[2022-10-27] MEDS ORDERED: DEPA500T2 PO (19:04)
[2022-10-27] MEDS: PIPERACILLIN/TAZOBACTAM SOD 2.25 GM in D5W MINI-BAG PLUS 50 ML IV SCH (19:19)
[2022-10-27] MEDS: FORMOTEROL FUMARATE 20 MCG/2 ML INHALATION SOLUTION (PERFOROMIST) INH SCH (20:00)
[2022-10-27] MEDS: BUDESONIDE 0.5 MG/2 ML INHALATION SUSPENSION INH SCH (20:00)
[2022-10-27 20:02] VITALS: BP 122/58
[2022-10-27] MEDS ORDERED: VANCOMYCIN HCL 1,000 MG, VIAL MATE ADAPTER 1 EACH in NS 250 ML IV ONE (21:00)
[2022-10-27 23:54] VITALS: BP 125/59
[2022-10-28] MEDS: PIPERACILLIN/TAZOBACTAM SOD 2.25 GM in D5W MINI-BAG PLUS 50 ML IV SCH ×4 (02:43→23:00)
[2022-10-28 05:11] VITALS: BP 117/56
[2022-10-28 06:14] LABS: BASO % 0.2 % (0.0-1.0); EOS % 0.2 % (0.0-3.0); HEMATOCRIT 33.4 % (42.0-52.0); LYMPH # 1.1 10^3/uL (1.5-5.0); LYMPH % 4.8 % (24.0-44.0); MEAN CORPUSCULAR HGB CONC 31.1 g/dl (32.0-36.5); MEAN CORPUSCULAR VOLUME 96.3 fl (80.0-96.0); MONO # 1.2 10^3/uL (0.0-0.8); MONO % 5.4 % (2.0-8.0); NEUTROPHILS # 20.2 10^3/uL (1.5-8.5); NEUTROPHILS % 88.6 % (36.0-66.0); PLATELET COUNT, AUTOMATED 251 10^3/uL (150-450); RED BLOOD COUNT 3.47 10^6/uL (4.30-6.10); WHITE BLOOD COUNT 22.8 10^3/uL (4.0-10.0)
[2022-10-28 06:27] LABS: HEMOGLOBIN 10.4 g/dl (13.5-17.5)
[2022-10-28 06:38] LABS: CALCIUM LEVEL 8.8 MG/DL (8.3-10.6); CREATININE FOR GFR 2.12 MG/DL (0.70-1.30); GLOMERULAR FILTRATION RATE 31.7 (>35); POTASSIUM SERUM 4.7 MMOL/L (3.5-5.1)
[2022-10-28 07:24] LABS: VANCOMYCIN RANDOM 14.8 UG/ML
[2022-10-28 07:45] VITALS: BP 130/63
[2022-10-28] MEDS: D5W 1,000 ML IV SCH (07:50)
[2022-10-28] MEDS ORDERED: VANCOMYCIN HCL 750 MG, VIAL MATE ADAPTER 1 EACH in D5W 250 ML IV SCH (08:00)
[2022-10-28] MEDS ORDERED: VANCOMYCIN HCL 500 MG in D5W MINI-BAG PLUS 100 ML IV SCH (08:00)
[2022-10-28] MEDS: BUDESONIDE 0.5 MG/2 ML INHALATION SUSPENSION INH SCH ×2 (08:30→19:22)
[2022-10-28] MEDS: FORMOTEROL FUMARATE 20 MCG/2 ML INHALATION SOLUTION (PERFOROMIST) INH SCH ×2 (08:30→19:22)
[2022-10-28 12:00] VITALS: BP 116/54
[2022-10-28] MEDS: GASTROGRAFIN SOLUTION 30ML PO SCH ×2 (13:15→13:45)
[2022-10-28 15:52] VITALS: BP 132/56
[2022-10-28] MEDS ORDERED: LevoFLOXacin IV 250 MG in IV 1 EA IV SCH (17:05)
[2022-10-28 20:00] VITALS: BP 118/58
[2022-10-29] VITALS (8 sets, daily range): BP systolic 111–174; BP diastolic 52–79
[2022-10-29] MEDS: D5W 1,000 ML IV SCH (04:55)
[2022-10-29] MEDS: PIPERACILLIN/TAZOBACTAM SOD 2.25 GM in D5W MINI-BAG PLUS 50 ML IV SCH ×3 (05:26→17:19)
[2022-10-29 07:15] LABS: BASO % 0.2 % (0.0-1.0); EOS # 0.4 10^3/uL (0.0-0.5); EOS % 2.6 % (0.0-3.0); HEMATOCRIT 31.6 % (42.0-52.0); LYMPH # 1.3 10^3/uL (1.5-5.0); LYMPH % 8.5 % (24.0-44.0); MEAN CORPUSCULAR HGB CONC 31.6 g/dl (32.0-36.5); MEAN CORPUSCULAR VOLUME 94.9 fl (80.0-96.0); MONO % 6.6 % (2.0-8.0); NEUTROPHILS # 12.2 10^3/uL (1.5-8.5); NEUTROPHILS % 81.6 % (36.0-66.0); PLATELET COUNT, AUTOMATED 260 10^3/uL (150-450); RED BLOOD COUNT 3.33 10^6/uL (4.30-6.10); WHITE BLOOD COUNT 14.9 10^3/uL (4.0-10.0)
[2022-10-29] MEDS: FORMOTEROL FUMARATE 20 MCG/2 ML INHALATION SOLUTION (PERFOROMIST) INH SCH ×2 (07:24→19:20)
[2022-10-29] MEDS: BUDESONIDE 0.5 MG/2 ML INHALATION SUSPENSION INH SCH ×2 (07:24→19:20)
[2022-10-29 07:49] LABS: CALCIUM LEVEL 7.9 MG/DL (8.3-10.6); CREATININE FOR GFR 1.56 MG/DL (0.70-1.30); GLOMERULAR FILTRATION RATE 45.1 (>35); POTASSIUM SERUM 3.7 MMOL/L (3.5-5.1)
[2022-10-29] MEDS: SUCRALFATE 1 GM TAB PO SCH ×2 (12:39→17:19)
[2022-10-29] MEDS: APIXABAN 2.5 MG TAB (ELIQUIS) PO SCH ×2 (12:39→20:49)
[2022-10-29] MEDS: D5W/0.45% SODIUM CHLORIDE 1,000 ML IV SCH (12:39)
[2022-10-29] MEDS: OMEPRAZOLE 20MG CAP PO SCH (12:39)
[2022-10-29] MEDS: predniSONE 2.5 MG TAB PO SCH (12:39)
[2022-10-29] MEDS: GASTROGRAFIN SOLUTION 30ML PO SCH ×2 (12:40→13:20)
[2022-10-29] MEDS ORDERED: ACETAMINOPHEN TAB 650MG DOSE (2X325MG) PO PRN (14:20)
[2022-10-29] MEDS: GABAPENTIN 100 MG CAP PO SCH ×2 (15:57→20:49)
[2022-10-29] MEDS: MIRTAZAPINE 15 MG TAB PO SCH (17:19)
[2022-10-29] MEDS: MAG SULF 1GM/100ML (MAG RUN) 1 GM in IV 1 EA IV SCH ×2 (18:59→20:07)
[2022-10-29] MEDS: TIOTROPIUM INHALER/CAPSULE (SPIRIVA) INH SCH (19:20)
[2022-10-29] MEDS: MAGNESIUM OXIDE 400MG TAB (MAG-OX) PO SCH (20:49)
[2022-10-29] MEDS: CLOTRIMAZOLE 1% TOPICAL CREAM 30GM TOP SCH (21:00)
[2022-10-30] MEDS: PIPERACILLIN/TAZOBACTAM SOD 2.25 GM in D5W MINI-BAG PLUS 50 ML IV SCH ×3 (00:16→12:08)
[2022-10-30] MEDS: D5W/0.45% SODIUM CHLORIDE 1,000 ML IV SCH ×2 (04:50→19:36)
[2022-10-30 05:29] VITALS: BP 141/70
[2022-10-30 06:13] LABS: BASO % 0.2 % (0.0-1.0); EOS # 0.4 10^3/uL (0.0-0.5); HEMATOCRIT 33.4 % (42.0-52.0); HEMOGLOBIN 10.7 g/dl (13.5-17.5); LYMPH # 1.2 10^3/uL (1.5-5.0); LYMPH % 8.7 % (24.0-44.0); MEAN CORPUSCULAR HEMOGLOBIN 30.4 pg (27.0-33.0); MEAN CORPUSCULAR VOLUME 94.9 fl (80.0-96.0); MONO # 1.1 10^3/uL (0.0-0.8); MONO % 8.1 % (2.0-8.0); NEUTROPHILS # 10.5 10^3/uL (1.5-8.5); NEUTROPHILS % 79.5 % (36.0-66.0); PLATELET COUNT, AUTOMATED 265 10^3/uL (150-450); RED BLOOD COUNT 3.52 10^6/uL (4.30-6.10); WHITE BLOOD COUNT 13.2 10^3/uL (4.0-10.0)
[2022-10-30 06:37] LABS: CALCIUM LEVEL 8.4 MG/DL (8.3-10.6); CREATININE FOR GFR 1.31 MG/DL (0.70-1.30); GLOMERULAR FILTRATION RATE 55.2 (>35); MAGNESIUM LEVEL 2.3 MG/DL (1.8-2.4); POTASSIUM SERUM 3.2 MMOL/L (3.5-5.1)
[2022-10-30] MEDS: FORMOTEROL FUMARATE 20 MCG/2 ML INHALATION SOLUTION (PERFOROMIST) INH SCH ×2 (07:15→19:25)
[2022-10-30] MEDS: BUDESONIDE 0.5 MG/2 ML INHALATION SUSPENSION INH SCH ×2 (07:15→19:26)
[2022-10-30] MEDS ORDERED: POTASSIUM CHLORIDE 10MEQ SR TABLET PO ONE (08:00)
[2022-10-30] MEDS: CLOTRIMAZOLE 1% TOPICAL CREAM 30GM TOP SCH ×2 (08:17→21:09)
[2022-10-30] MEDS: OMEPRAZOLE 20MG CAP PO SCH (08:18)
[2022-10-30] MEDS: SUCRALFATE 1 GM TAB PO SCH ×3 (08:18→17:06)
[2022-10-30] MEDS: predniSONE 2.5 MG TAB PO SCH (08:18)
[2022-10-30] MEDS: APIXABAN 2.5 MG TAB (ELIQUIS) PO SCH ×2 (08:18→21:00)
[2022-10-30] MEDS: MAGNESIUM OXIDE 400MG TAB (MAG-OX) PO SCH ×3 (08:18→21:09)
[2022-10-30] MEDS: GABAPENTIN 100 MG CAP PO SCH ×3 (08:18→21:09)
[2022-10-30] MEDS: traMADol 50 MG TAB PO PRN ×2 (08:20→18:23)
[2022-10-30 14:00] VITALS: BP 141/69
[2022-10-30] MEDS: PIPERACILLIN/TAZOBACTAM SOD 3.375 GM in D5W MINI-BAG PLUS 50 ML IV SCH ×2 (17:06→22:41)
[2022-10-30] MEDS: MIRTAZAPINE 15 MG TAB PO SCH (17:06)
[2022-10-30] MEDS ORDERED: MORPHINE 2 MG/ML 1ML VIAL IV ONE (19:15)
[2022-10-30] MEDS ORDERED: QUEtiapine FUMARATE 12.5 MG HALF-TAB PO ONE (19:15)
[2022-10-30] MEDS: TIOTROPIUM INHALER/CAPSULE (SPIRIVA) INH SCH (19:27)
[2022-10-30 21:00] VITALS: BP 150/66
[2022-10-31 05:10] LABS: BASO # 0.1 10^3/uL (0.0-0.2); BASO % 0.4 % (0.0-1.0); EOS # 0.5 10^3/uL (0.0-0.5); EOS % 3.3 % (0.0-3.0); HEMATOCRIT 34.6 % (42.0-52.0); HEMOGLOBIN 10.9 g/dl (13.5-17.5); LYMPH # 1.8 10^3/uL (1.5-5.0); LYMPH % 11.7 % (24.0-44.0); MEAN CORPUSCULAR HEMOGLOBIN 29.6 pg (27.0-33.0); MEAN CORPUSCULAR HGB CONC 31.5 g/dl (32.0-36.5); MONO % 11.2 % (2.0-8.0); NEUTROPHILS # 11.3 10^3/uL (1.5-8.5); NEUTROPHILS % 72.9 % (36.0-66.0); PLATELET COUNT, AUTOMATED 287 10^3/uL (150-450); RED BLOOD COUNT 3.68 10^6/uL (4.30-6.10); WHITE BLOOD COUNT 15.5 10^3/uL (4.0-10.0)
[2022-10-31] MEDS: PIPERACILLIN/TAZOBACTAM SOD 3.375 GM in D5W MINI-BAG PLUS 50 ML IV SCH ×2 (05:13→10:14)
[2022-10-31] MEDS: D5W/0.45% SODIUM CHLORIDE 1,000 ML IV SCH (05:14)
[2022-10-31 05:41] LABS: BLOOD UREA NITROGEN 24 MG/DL (9-23); CALCIUM LEVEL 8.1 MG/DL (8.3-10.6); CARBON DIOXIDE LEVEL 23 MMOL/L (20-31); CHLORIDE LEVEL 113 MMOL/L (98-107); GLOMERULAR FILTRATION RATE > 60.0 (>35); GLUCOSE, FASTING 100 MG/DL (74-106); SODIUM LEVEL 145 MMOL/L (136-145)
[2022-10-31 05:50] LABS: MONO # 1.7 10^3/uL (0.0-0.8)
[2022-10-31 06:00] VITALS: BP 123/86
[2022-10-31] MEDS: FORMOTEROL FUMARATE 20 MCG/2 ML INHALATION SOLUTION (PERFOROMIST) INH SCH ×2 (07:04→19:09)
[2022-10-31] MEDS: BUDESONIDE 0.5 MG/2 ML INHALATION SUSPENSION INH SCH ×2 (07:05→19:09)
[2022-10-31] MEDS: CLOTRIMAZOLE 1% TOPICAL CREAM 30GM TOP SCH ×2 (07:37→20:28)
[2022-10-31] MEDS: OMEPRAZOLE 20MG CAP PO SCH (07:44)
[2022-10-31] MEDS: GABAPENTIN 100 MG CAP PO SCH ×3 (07:44→20:27)
[2022-10-31] MEDS: APIXABAN 2.5 MG TAB (ELIQUIS) PO SCH ×2 (07:44→20:27)
[2022-10-31] MEDS: predniSONE 2.5 MG TAB PO SCH (07:44)
[2022-10-31] MEDS: MAGNESIUM OXIDE 400MG TAB (MAG-OX) PO SCH ×3 (07:44→20:27)
[2022-10-31] MEDS: SUCRALFATE 1 GM TAB PO SCH ×3 (07:44→17:20)
[2022-10-31] MEDS: traMADol 50 MG TAB PO PRN (07:45)
[2022-10-31] MEDS: LACTOBACILLUS ACIDOPHILUS CAP (BACID) PO SCH ×2 (07:48→17:20)
[2022-10-31] MEDS: POTASSIUM CHLORIDE 10MEQ SR TABLET PO SCH (07:48)
[2022-10-31] MEDS ORDERED: OLANZapine ORAL DISINTEGRATING TAB 5MG PO PRN (09:50)
[2022-10-31] MEDS ORDERED: POTASSIUM CHLORIDE 10MEQ SR TABLET PO ONE (13:00)
[2022-10-31 14:00] VITALS: BP 127/84
[2022-10-31] MEDS: MIRTAZAPINE 15 MG TAB PO SCH (17:20)
[2022-10-31] MEDS: TIOTROPIUM INHALER/CAPSULE (SPIRIVA) INH SCH (19:21)
[2022-10-31 20:00] VITALS: BP 112/60
[2022-10-31] MEDS: TAMSULOSIN 0.4 MG CAP PO SCH (20:28)
[2022-10-31] MEDS: CEFDINIR 300 MG CAP (OMNICEF) PO SCH (20:28)
[2022-11-01 06:00] VITALS: BP 108/51
[2022-11-01] MEDS: FORMOTEROL FUMARATE 20 MCG/2 ML INHALATION SOLUTION (PERFOROMIST) INH SCH ×2 (07:13→23:14)
[2022-11-01] MEDS: BUDESONIDE 0.5 MG/2 ML INHALATION SUSPENSION INH SCH ×2 (07:13→19:10)
[2022-11-01 07:35] LABS: BASO # 0.1 10^3/uL (0.0-0.2); BASO % 0.4 % (0.0-1.0); EOS # 0.5 10^3/uL (0.0-0.5); EOS % 3.9 % (0.0-3.0); HEMATOCRIT 32.9 % (42.0-52.0); HEMOGLOBIN 10.4 g/dl (13.5-17.5); LYMPH # 1.8 10^3/uL (1.5-5.0); LYMPH % 13.4 % (24.0-44.0); MEAN CORPUSCULAR HEMOGLOBIN 29.9 pg (27.0-33.0); MEAN CORPUSCULAR HGB CONC 31.6 g/dl (32.0-36.5); MEAN CORPUSCULAR VOLUME 94.5 fl (80.0-96.0); MONO # 1.5 10^3/uL (0.0-0.8); MONO % 10.8 % (2.0-8.0); NEUTROPHILS # 9.7 10^3/uL (1.5-8.5); NEUTROPHILS % 70.6 % (36.0-66.0); PLATELET COUNT, AUTOMATED 277 10^3/uL (150-450); RED BLOOD COUNT 3.48 10^6/uL (4.30-6.10); WHITE BLOOD COUNT 13.8 10^3/uL (4.0-10.0)
[2022-11-01] MEDS ORDERED: FLOM0.4C39 PO (08:03)
[2022-11-01] MEDS ORDERED: RISATAB3 PO (08:03)
[2022-11-01] MEDS ORDERED: CEFD300CAP PO (08:03)
[2022-11-01 08:10] LABS: BLOOD UREA NITROGEN 20 MG/DL (9-23); CALCIUM LEVEL 7.9 MG/DL (8.3-10.6); CARBON DIOXIDE LEVEL 26 MMOL/L (20-31); CHLORIDE LEVEL 114 MMOL/L (98-107); CREATININE FOR GFR 1.04 MG/DL (0.70-1.30); GLOMERULAR FILTRATION RATE > 60.0 (>35); GLUCOSE, FASTING 81 MG/DL (74-106); POTASSIUM SERUM 3.6 MMOL/L (3.5-5.1); SODIUM LEVEL 148 MMOL/L (136-145)
[2022-11-01] MEDS: CEFDINIR 300 MG CAP (OMNICEF) PO SCH ×2 (08:16→20:35)
[2022-11-01] MEDS: OMEPRAZOLE 20MG CAP PO SCH (08:16)
[2022-11-01] MEDS: LACTOBACILLUS ACIDOPHILUS CAP (BACID) PO SCH ×2 (08:16→17:19)
[2022-11-01] MEDS: APIXABAN 2.5 MG TAB (ELIQUIS) PO SCH ×2 (08:17→20:35)
[2022-11-01] MEDS: predniSONE 2.5 MG TAB PO SCH (08:17)
[2022-11-01] MEDS: SUCRALFATE 1 GM TAB PO SCH ×3 (08:17→17:20)
[2022-11-01] MEDS: POTASSIUM CHLORIDE 10MEQ SR TABLET PO SCH (08:17)
[2022-11-01] MEDS: MAGNESIUM OXIDE 400MG TAB (MAG-OX) PO SCH ×3 (08:17→20:34)
[2022-11-01] MEDS: GABAPENTIN 100 MG CAP PO SCH ×3 (08:17→20:35)
[2022-11-01] MEDS: CLOTRIMAZOLE 1% TOPICAL CREAM 30GM TOP SCH ×2 (08:18→20:35)
[2022-11-01] MEDS ORDERED: D5W 1,000 ML IV ONE (10:45)
[2022-11-01 14:00] VITALS: BP 108/51
[2022-11-01] MEDS: MIRTAZAPINE 15 MG TAB PO SCH (17:20)
[2022-11-01] MEDS: TIOTROPIUM INHALER/CAPSULE (SPIRIVA) INH SCH (19:10)
[2022-11-01 19:34] VITALS: BP 109/51
[2022-11-01] MEDS: TAMSULOSIN 0.4 MG CAP PO SCH (20:34)
[2022-11-02 06:21] VITALS: BP 103/52
[2022-11-02 06:24] LABS: BASO # 0.1 10^3/uL (0.0-0.2); BASO % 0.5 % (0.0-1.0); EOS # 0.6 10^3/uL (0.0-0.5); HEMATOCRIT 31.8 % (42.0-52.0); HEMOGLOBIN 10.2 g/dl (13.5-17.5); LYMPH # 2.4 10^3/uL (1.5-5.0); LYMPH % 17.4 % (24.0-44.0); MEAN CORPUSCULAR HEMOGLOBIN 30.1 pg (27.0-33.0); MEAN CORPUSCULAR HGB CONC 32.1 g/dl (32.0-36.5); MEAN CORPUSCULAR VOLUME 93.8 fl (80.0-96.0); MONO # 1.3 10^3/uL (0.0-0.8); MONO % 9.5 % (2.0-8.0); NEUTROPHILS # 9.3 10^3/uL (1.5-8.5); NEUTROPHILS % 67.4 % (36.0-66.0); PLATELET COUNT, AUTOMATED 287 10^3/uL (150-450); RED BLOOD COUNT 3.39 10^6/uL (4.30-6.10); WHITE BLOOD COUNT 13.8 10^3/uL (4.0-10.0)
[2022-11-02 07:07] LABS: BLOOD UREA NITROGEN 21 MG/DL (9-23); CARBON DIOXIDE LEVEL 25 MMOL/L (20-31); CHLORIDE LEVEL 112 MMOL/L (98-107); GLOMERULAR FILTRATION RATE > 60.0 (>35); GLUCOSE, FASTING 81 MG/DL (74-106); POTASSIUM SERUM 3.9 MMOL/L (3.5-5.1); SODIUM LEVEL 145 MMOL/L (136-145)
[2022-11-02] MEDS: FORMOTEROL FUMARATE 20 MCG/2 ML INHALATION SOLUTION (PERFOROMIST) INH SCH ×2 (07:22→19:21)
[2022-11-02] MEDS: BUDESONIDE 0.5 MG/2 ML INHALATION SUSPENSION INH SCH ×2 (07:22→19:21)
[2022-11-02] MEDS: OMEPRAZOLE 20MG CAP PO SCH (08:48)
[2022-11-02] MEDS: LACTOBACILLUS ACIDOPHILUS CAP (BACID) PO SCH ×2 (08:48→17:03)
[2022-11-02] MEDS: POTASSIUM CHLORIDE 10MEQ SR TABLET PO SCH (08:48)
[2022-11-02] MEDS: GABAPENTIN 100 MG CAP PO SCH ×3 (08:48→20:30)
[2022-11-02] MEDS: CEFDINIR 300 MG CAP (OMNICEF) PO SCH ×2 (08:48→20:30)
[2022-11-02] MEDS: APIXABAN 2.5 MG TAB (ELIQUIS) PO SCH ×2 (08:49→20:30)
[2022-11-02] MEDS: MAGNESIUM OXIDE 400MG TAB (MAG-OX) PO SCH ×3 (08:49→20:30)
[2022-11-02] MEDS: predniSONE 2.5 MG TAB PO SCH (08:49)
[2022-11-02] MEDS: SUCRALFATE 1 GM TAB PO SCH ×3 (08:49→17:04)
[2022-11-02] MEDS: CLOTRIMAZOLE 1% TOPICAL CREAM 30GM TOP SCH ×2 (08:57→20:31)
[2022-11-02 14:00] VITALS: BP 114/50
[2022-11-02] MEDS: MIRTAZAPINE 15 MG TAB PO SCH (17:03)
[2022-11-02] MEDS: TIOTROPIUM INHALER/CAPSULE (SPIRIVA) INH SCH (19:21)
[2022-11-02 20:30] VITALS: BP 116/59
[2022-11-02] MEDS: TAMSULOSIN 0.4 MG CAP PO SCH (20:30)
[2022-11-03 06:01] LABS: BASO # 0.1 10^3/uL (0.0-0.2); BASO % 0.5 % (0.0-1.0); EOS # 0.5 10^3/uL (0.0-0.5); EOS % 3.9 % (0.0-3.0); HEMATOCRIT 31.7 % (42.0-52.0); HEMOGLOBIN 9.9 g/dl (13.5-17.5); LYMPH # 2.3 10^3/uL (1.5-5.0); LYMPH % 18.1 % (24.0-44.0); MEAN CORPUSCULAR HEMOGLOBIN 29.5 pg (27.0-33.0); MEAN CORPUSCULAR HGB CONC 31.2 g/dl (32.0-36.5); MEAN CORPUSCULAR VOLUME 94.3 fl (80.0-96.0); MONO # 1.4 10^3/uL (0.0-0.8); MONO % 11.1 % (2.0-8.0); NEUTROPHILS # 8.3 10^3/uL (1.5-8.5); NEUTROPHILS % 65.4 % (36.0-66.0); PLATELET COUNT, AUTOMATED 308 10^3/uL (150-450); RED BLOOD COUNT 3.36 10^6/uL (4.30-6.10); WHITE BLOOD COUNT 12.7 10^3/uL (4.0-10.0)
[2022-11-03 06:08] VITALS: BP 115/57
[2022-11-03 06:18] LABS: BLOOD UREA NITROGEN 30 MG/DL (9-23); CALCIUM LEVEL 7.7 MG/DL (8.3-10.6); CARBON DIOXIDE LEVEL 28 MMOL/L (20-31); CHLORIDE LEVEL 112 MMOL/L (98-107); CREATININE FOR GFR 1.11 MG/DL (0.70-1.30); GLOMERULAR FILTRATION RATE > 60.0 (>35); GLUCOSE, FASTING 93 MG/DL (74-106); POTASSIUM SERUM 5.3 MMOL/L (3.5-5.1); SODIUM LEVEL 144 MMOL/L (136-145)
[2022-11-03] MEDS: BUDESONIDE 0.5 MG/2 ML INHALATION SUSPENSION INH SCH (07:07)
[2022-11-03] MEDS: FORMOTEROL FUMARATE 20 MCG/2 ML INHALATION SOLUTION (PERFOROMIST) INH SCH (07:07)
[2022-11-03 07:51] LABS: MAGNESIUM LEVEL 1.9 MG/DL (1.8-2.4)
[2022-11-03] MEDS: LACTOBACILLUS ACIDOPHILUS CAP (BACID) PO SCH (08:40)
[2022-11-03] MEDS: MAGNESIUM OXIDE 400MG TAB (MAG-OX) PO SCH (08:40)
[2022-11-03] MEDS: GABAPENTIN 100 MG CAP PO SCH (08:40)
[2022-11-03] MEDS: OMEPRAZOLE 20MG CAP PO SCH (08:40)
[2022-11-03] MEDS: CEFDINIR 300 MG CAP (OMNICEF) PO SCH (08:40)
[2022-11-03] MEDS: predniSONE 2.5 MG TAB PO SCH (08:41)
[2022-11-03] MEDS: SUCRALFATE 1 GM TAB PO SCH ×2 (08:41→12:25)
[2022-11-03] MEDS: CLOTRIMAZOLE 1% TOPICAL CREAM 30GM TOP SCH (08:41)
[2022-11-03] MEDS: APIXABAN 2.5 MG TAB (ELIQUIS) PO SCH (08:41)
== END 2022-11-03 12:45 | DRG 698 ==
LOC: M ED 12:27 → M ED INP 17:04 → M PCU 18:28 → M MSPAV 10-29 20:17
PROVIDERS: ADMIT Internal Medicine Nephrology; ATTEND Internal Medicine Nephrology
DX: T83.511A Infection and inflammatory reaction due to indwelling urethral catheter, initial encounter (principal); A41.9 Sepsis, unspecified organism; G93.41 Metabolic encephalopathy; I26.99 Other pulmonary embolism without acute cor pulmonale; N17.9 Acute kidney failure, unspecified; J96.11 Chronic respiratory failure with hypoxia; J90 Pleural effusion, not elsewhere classified; E87.0 Hyperosmolality and hypernatremia; N13.2 Hydronephrosis with renal and ureteral calculous obstruction; R53.1 Weakness; N39.0 Urinary tract infection, site not specified; K21.9 Gastro-esophageal reflux disease without esophagitis; B96.4 Proteus (mirabilis) (morganii) as the cause of diseases classified elsewhere; J44.9 Chronic obstructive pulmonary disease, unspecified; N30.90 Cystitis, unspecified without hematuria; M54.59 Other low back pain; N18.30 Chronic kidney disease, stage 3 unspecified; E87.5 Hyperkalemia; Z99.81 Dependence on supplemental oxygen; Z88.8 Allergy status to other drugs, medicaments and biological substances; Z79.899 Other long term (current) drug therapy; Y84.6 Urinary catheterization as the cause of abnormal reaction of the patient, or of later complication, without mention of misadventure at the time of the procedure; Z95.2 Presence of prosthetic heart valve; Z87.891 Personal history of nicotine dependence

== ENCOUNTER → 2022-10-27 | Outpatient (REF) | payer MEDICARE, MEDICAID ==
[~2022-10-27] MED LIST changes: +ASPECRE TOP; +CALM1OIN TP; +CARB15DR33 OU; +CLOT1CRE56 TOP; +CLOT1CRE71 TOP; +COLA100C5 PO; +DEBR6.5S4 OTIC; +DEPA500T2 PO; +ELIQ2.5T PO; +ESOM1CAP5 PO; +EUCECRE12 TOP; +LIDOPOW TOP; +MIRT-62 PO; +MIRT1TAB15 PO; +RISATAB3 PO; +VITA500045 PO
[2022-10-27 11:56] LABS: BASO # 0.1 10^3/uL (0.0-0.2); BASO % 0.2 % (0.0-1.0); HEMATOCRIT 40.5 % (42.0-52.0); HEMOGLOBIN 12.5 g/dl (13.5-17.5); LYMPH # 0.7 10^3/uL (1.5-5.0); LYMPH % 2.4 % (24.0-44.0); MEAN CORPUSCULAR HEMOGLOBIN 30.6 pg (27.0-33.0); MEAN CORPUSCULAR HGB CONC 30.9 g/dl (32.0-36.5); MEAN CORPUSCULAR VOLUME 99.3 fl (80.0-96.0); MONO % 8.5 % (2.0-8.0); NEUTROPHILS # 26.3 10^3/uL (1.5-8.5); NEUTROPHILS % 88.1 % (36.0-66.0); PLATELET COUNT, AUTOMATED 305 10^3/uL (150-450); RED BLOOD COUNT 4.08 10^6/uL (4.30-6.10); WHITE BLOOD COUNT 29.8 10^3/uL (4.0-10.0)
[2022-10-27 12:36] LABS: MONO # 2.5 10^3/uL (0.0-0.8)
[2022-10-27 13:04] LABS: CALCIUM LEVEL 9.5 MG/DL (8.3-10.6); CREATININE FOR GFR 2.15 MG/DL (0.70-1.30); GLOMERULAR FILTRATION RATE 31.2 (>35); POTASSIUM SERUM 6.3 MMOL/L (3.5-5.1)
== END ==
PROVIDERS: ATTEND Internal Medicine
DX: R53.1 Weakness (principal)

== ENCOUNTER → 2022-11-18 | Outpatient (REF) | payer MEDICARE, MEDICAID ==
[~2022-11-18] MED LIST changes: +ASPECRE TOP; +CALM1OIN TP; +CARB15DR33 OU; +CLOT1CRE56 TOP; +CLOT1CRE71 TOP; +COLA100C5 PO; +DEBR6.5S4 OTIC; +DEPA500T2 PO; +ELIQ2.5T PO; +ESOM1CAP5 PO; +EUCECRE12 TOP; +LIDOPOW TOP; +MIRT-62 PO; +MIRT1TAB15 PO; +RISATAB3 PO; +VITA500045 PO
[2022-11-18 09:33] LABS: HEMATOCRIT 34.2 % (42.0-52.0); HEMOGLOBIN 10.9 g/dl (13.5-17.5); MEAN CORPUSCULAR HEMOGLOBIN 30.1 pg (27.0-33.0); MEAN CORPUSCULAR HGB CONC 31.9 g/dl (32.0-36.5); MEAN CORPUSCULAR VOLUME 94.5 fl (80.0-96.0); PLATELET COUNT, AUTOMATED 551 10^3/uL (150-450); RED BLOOD COUNT 3.62 10^6/uL (4.30-6.10); WHITE BLOOD COUNT 17.4 10^3/uL (4.0-10.0)
[2022-11-18 09:59] LABS: ALBUMIN 3.2 G/DL (3.2-5.2); BLOOD UREA NITROGEN 46 MG/DL (9-23); CALCIUM LEVEL 9.5 MG/DL (8.3-10.6); CARBON DIOXIDE LEVEL 27 MMOL/L (20-31); CHLORIDE LEVEL 106 MMOL/L (98-107); CREATININE FOR GFR 1.17 MG/DL (0.70-1.30); GLOMERULAR FILTRATION RATE > 60.0 (>35); GLUCOSE, FASTING 94 MG/DL (74-106); PHOSPHORUS LEVEL 3.3 MG/DL (2.4-5.1); POTASSIUM SERUM 4.8 MMOL/L (3.5-5.1); SODIUM LEVEL 142 MMOL/L (136-145)
[2022-11-18 10:21] LABS: ATYPICAL LYMPH 2 % (0-5); BASOPHILS 2 % (0-1); EOSINOPHILS 1 % (0-3); LYMPHOCYTES 14 % (16-44); MONOCYTES 10 % (0-5); NEUTROPHILS 71 % (28-66)
[2022-11-18 10:22] LABS: PLATELET ESTIMATE INCREASED (NORMAL)
[2022-11-18 10:24] LABS: POIKILOCYTOSIS 1+; SCHISTOCYTES 1+
== END ==
PROVIDERS: ATTEND Nurse Practitioner Family
DX: N39.0 Urinary tract infection, site not specified (principal)

== ENCOUNTER → 2022-11-28 | Outpatient (REF) | payer MEDICARE, MEDICAID | PROVIDERS: ATTEND Nurse Practitioner Family | DX: R74.9 Abnormal serum enzyme level, unspecified (principal) ==

== ENCOUNTER → 2022-12-07 | Outpatient (REF) | payer MEDICARE, MEDICAID ==
[2022-12-07 08:41] LABS: BASO # 0.1 10^3/uL (0.0-0.2); BASO % 0.6 % (0.0-1.0); EOS # 0.3 10^3/uL (0.0-0.5); EOS % 2.3 % (0.0-3.0); HEMATOCRIT 38.1 % (42.0-52.0); HEMOGLOBIN 11.9 g/dl (13.5-17.5); LYMPH # 2.8 10^3/uL (1.5-5.0); LYMPH % 24.5 % (24.0-44.0); MEAN CORPUSCULAR HEMOGLOBIN 29.9 pg (27.0-33.0); MEAN CORPUSCULAR HGB CONC 31.2 g/dl (32.0-36.5); MEAN CORPUSCULAR VOLUME 95.7 fl (80.0-96.0); MONO # 1.3 10^3/uL (0.0-0.8); MONO % 10.8 % (2.0-8.0); NEUTROPHILS # 7.1 10^3/uL (1.5-8.5); NEUTROPHILS % 61.5 % (36.0-66.0); PLATELET COUNT, AUTOMATED 319 10^3/uL (150-450); RED BLOOD COUNT 3.98 10^6/uL (4.30-6.10); WHITE BLOOD COUNT 11.5 10^3/uL (4.0-10.0)
[2022-12-07 09:07] LABS: BLOOD UREA NITROGEN 57 MG/DL (9-23); CALCIUM LEVEL 9.3 MG/DL (8.3-10.6); CARBON DIOXIDE LEVEL 27 MMOL/L (20-31); CHLORIDE LEVEL 107 MMOL/L (98-107); CREATININE FOR GFR 1.08 MG/DL (0.70-1.30); GLOMERULAR FILTRATION RATE > 60.0 (>35); GLUCOSE, FASTING 77 MG/DL (74-106); POTASSIUM SERUM 4.2 MMOL/L (3.5-5.1); SODIUM LEVEL 140 MMOL/L (136-145)
== END ==
PROVIDERS: ATTEND Internal Medicine
DX: I10 Essential (primary) hypertension (principal)

== ENCOUNTER → 2023-02-08 | Outpatient (REF) | payer MEDICARE, MEDICAID ==
[~2023-02-08] MED LIST changes: +DICL100G10 TOP; -DICL1GEL3 TOP; -GABA-283 PO; +GABA-284 PO; -MIRT-62 PO; +MIRT-88 PO
[2023-02-08 09:25] LABS: BASO # 0.1 10^3/uL (0.0-0.2); BASO % 0.5 % (0.0-1.0); EOS # 0.4 10^3/uL (0.0-0.5); EOS % 2.6 % (0.0-3.0); HEMATOCRIT 36.4 % (42.0-52.0); HEMOGLOBIN 11.2 g/dl (13.5-17.5); LYMPH # 3.1 10^3/uL (1.5-5.0); LYMPH % 19.5 % (24.0-44.0); MEAN CORPUSCULAR HEMOGLOBIN 28.4 pg (27.0-33.0); MEAN CORPUSCULAR HGB CONC 30.8 g/dl (32.0-36.5); MEAN CORPUSCULAR VOLUME 92.4 fl (80.0-96.0); MONO # 1.4 10^3/uL (0.0-0.8); NEUTROPHILS # 10.9 10^3/uL (1.5-8.5); NEUTROPHILS % 67.6 % (36.0-66.0); PLATELET COUNT, AUTOMATED 447 10^3/uL (150-450); RED BLOOD COUNT 3.94 10^6/uL (4.30-6.10); WHITE BLOOD COUNT 16.1 10^3/uL (4.0-10.0)
[2023-02-08 09:42] LABS: BLOOD UREA NITROGEN 53 MG/DL (9-23); CALCIUM LEVEL 8.9 MG/DL (8.3-10.6); CARBON DIOXIDE LEVEL 26 MMOL/L (20-31); CHLORIDE LEVEL 108 MMOL/L (98-107); CREATININE FOR GFR 1.18 MG/DL (0.70-1.30); GLOMERULAR FILTRATION RATE > 60.0 (>35); GLUCOSE, FASTING 78 MG/DL (74-106); POTASSIUM SERUM 4.3 MMOL/L (3.5-5.1); SODIUM LEVEL 142 MMOL/L (136-145)
[2023-02-08 09:44] LABS: TOTAL 25(OH) VITAMIN D 46.3 NG/ML (20.0-100.0)
== END ==
PROVIDERS: ATTEND Nurse Practitioner Family
DX: N18.9 Chronic kidney disease, unspecified (principal); Z79.899 Other long term (current) drug therapy

== ENCOUNTER 2023-03-13 18:08 | Inpatient (IN) | payer MEDICARE ==
[~2023-03-13] VITALS: Ht 152.4 cm; Wt 55.8 kg
[~2023-03-13 18:08] MED LIST changes: -ALBU2.5V10 INH; -BACI1CAP PO; -CEFT1INJ5 IM; -LOTR1CRE12 TOP; -OMEP-173 PO
[2023-03-13 18:53] LABS: BASO # 0.1 10^3/uL (0.0-0.2); BASO % 0.2 % (0.0-1.0); HEMOGLOBIN 12.1 g/dl (13.5-17.5); LYMPH % 1.8 % (24.0-44.0); MEAN CORPUSCULAR HEMOGLOBIN 28.7 pg (27.0-33.0); MEAN CORPUSCULAR HGB CONC 31.8 g/dl (32.0-36.5); MEAN CORPUSCULAR VOLUME 90.3 fl (80.0-96.0); MONO % 3.9 % (2.0-8.0); NEUTROPHILS % 91.7 % (36.0-66.0); PLATELET COUNT, AUTOMATED 464 10^3/uL (150-450); RED BLOOD COUNT 4.21 10^6/uL (4.30-6.10)
[2023-03-13 18:54] LABS: MONO # 2.1 10^3/uL (0.0-0.8)
[2023-03-13 18:55] LABS: WHITE BLOOD COUNT 53.4 10^3/uL (4.0-10.0)
[2023-03-13 19:05] LABS: INR 1.62; PROTHROMBIN TIME 18.8 SECONDS (12.5-14.5)
[2023-03-13 19:06] LABS: PARTIAL THROMBOPLASTIN TIME 36.9 SECONDS (24.8-34.2)
[2023-03-13] MEDS ORDERED: NS 1,000 ML IV SCH ×2 (19:10→23:50)
[2023-03-13 19:28] LABS: APPEARANCE, URINE CLOUDY (CLEAR); BACTERIA, URINE AUTO 3+ (NEGATIVE); BILIRUBIN, URINE AUTO NEGATIVE (NEGATIVE); BLOOD, URINE BLOOD NEGATIVE (NEGATIVE); COLOR, URINE AMBER (YELLOW); GLUCOSE, URINE (UA) AUTO NEGATIVE (NEGATIVE); KETONE, URINE AUTO TRACE mg/dL (NEGATIVE); LEUKOCYTE ESTERASE, URINE AUTO 3+ (NEGATIVE); NITRITE, URINE AUTO NEGATIVE (NEGATIVE); PROTEIN, URINE AUTO 3+ mg/dL (NEGATIVE); RBC, URINE AUTO 29 /HPF (0-3); SPECIFIC GRAVITY URINE AUTO 1.014 (1.002-1.035); SQUAMOUS EPITHELIAL CELL UR AU 0 /HPF (0-6); UROBILINOGEN, URINE AUTO 0.2 mg/dL (0.0-2.0); WBC, URINE AUTO 16 /HPF (0-3)
[2023-03-13] MEDS ORDERED: CEFEPIME HCL 2 GM in D5W MINI-BAG PLUS 50 ML IV ONE (19:35)
[2023-03-13 20:28] LABS: CK-MB VALUE MASS 46.8 NG/ML (<3.6)
[2023-03-13 20:31] LABS: ALBUMIN 2.9 G/DL (3.2-5.2); BILIRUBIN,DIRECT 0.1 MG/DL (<0.4); BILIRUBIN,TOTAL 0.2 MG/DL (0.3-1.2); CALCIUM LEVEL 8.8 MG/DL (8.3-10.6); CREATININE FOR GFR 2.81 MG/DL (0.70-1.30); GLOMERULAR FILTRATION RATE 22.9 (>35); POTASSIUM SERUM 5.5 MMOL/L (3.5-5.1); TOTAL PROTEIN 6.2 G/DL (5.7-8.2)
[2023-03-13 20:32] LABS: THYROID STIMULATING HORMONE 4.538 uIU/ML (0.55-4.78)
[2023-03-13 20:33] LABS: FREE T4 1.1 NG/DL (0.89-1.76)
[2023-03-13 20:49] LABS: MB/CK RELATIVE INDEX 3.36 (< OR =4)
[2023-03-13] MEDS ORDERED: NS 1,000 ML IV ONE ×2 (20:55→23:50)
[2023-03-13 21:44] LABS: CK-MB VALUE MASS 44.1 NG/ML (<3.6)
[2023-03-13 22:00] LABS: MB/CK RELATIVE INDEX 2.63 (< OR =4)
[2023-03-13] MEDS ORDERED: NS IV ONE (22:10)
[2023-03-13] MEDS ORDERED: CEFT1INJ5 IM (23:06)
[2023-03-13] MEDS ORDERED: ALBU2.5V10 INH (23:06)
[2023-03-13] MEDS ORDERED: BACI1CAP PO (23:06)
[2023-03-13] MEDS ORDERED: IPRA0.00 INH (23:06)
[2023-03-13] MEDS ORDERED: OMEP-173 PO (23:06)
[2023-03-13] MEDS ORDERED: LOTR1CRE12 TOP (23:06)
[2023-03-13] MEDS ORDERED: HOME MED LIST COMPLETE! XX SCH (23:10)
[2023-03-13 23:20] VITALS: BP 111/59; O2SAT 91
[2023-03-13 23:49] VITALS: BP 82/50; TEMP 97.4; O2SAT 88
[2023-03-13] MEDS ORDERED: NOREPINEPHRINE 4MG IN D5 250ML 4 MG in IV 1 EA IV SCH ×2 (23:50)
[2023-03-13] MEDS ORDERED: ALBUTEROL SULFATE 2.5MG/0.5ML INH NEB SOLN NEB PRN (23:50)
[2023-03-14] VITALS (54 sets, daily range): BP systolic 76–135; BP diastolic 48–65; TEMP 96.7–98.7; O2SAT 92–100
[2023-03-14] MEDS ORDERED: HYDROCORTISONE 100MG/2ML VIAL IV ONE (00:05)
[2023-03-14] MEDS: DOXYCYCLINE HYCLATE 100 MG in D5W MINI-BAG PLUS 100 ML IV SCH ×3 (00:31→23:12)
[2023-03-14] MEDS: IPRATROPIUM 0.5MG/ALBUTEROL 2.5MG INH SOL UD 3ML (DUONEB) NEB SCH ×4 (01:10→19:12)
[2023-03-14 05:42] LABS: HEMATOCRIT 29.8 % (42.0-52.0); HEMOGLOBIN 9.3 g/dl (13.5-17.5); MEAN CORPUSCULAR HEMOGLOBIN 28.7 pg (27.0-33.0); MEAN CORPUSCULAR HGB CONC 31.2 g/dl (32.0-36.5); PLATELET COUNT, AUTOMATED 386 10^3/uL (150-450); RED BLOOD COUNT 3.24 10^6/uL (4.30-6.10)
[2023-03-14 05:43] LABS: WHITE BLOOD COUNT 37.4 10^3/uL (4.0-10.0)
[2023-03-14] MEDS ORDERED: HEPARIN SOD (PORCINE) 5000UNITS/ML 1ML VIAL/SYRINGE SC SCH (06:00)
[2023-03-14 06:19] LABS: ALBUMIN 2.3 G/DL (3.2-5.2); BILIRUBIN,TOTAL 0.2 MG/DL (0.3-1.2); CALCIUM LEVEL 7.8 MG/DL (8.3-10.6); CREATININE FOR GFR 2.2 MG/DL (0.70-1.30); GLOMERULAR FILTRATION RATE 30.4 (>35); POTASSIUM SERUM 4.7 MMOL/L (3.5-5.1); TOTAL PROTEIN 5.2 G/DL (5.7-8.2)
[2023-03-14] MEDS ORDERED: CEFEPIME HCL 1 GM in D5W 50 ML IV SCH (08:00)
[2023-03-14] MEDS: PANTOPRAZOLE 40MG VIAL IV SCH (08:21)
[2023-03-14] MEDS: D5W/0.45% SODIUM CHLORIDE 1,000 ML IV SCH ×2 (08:22→18:47)
[2023-03-14] MEDS: ASPIRIN 300 MG SUPP PR SCH (08:22)
[2023-03-14] MEDS: ENOXAPARIN 60MG/0.6ML SYRINGE (J1650 PER 10MG) SC SCH (15:22)
[2023-03-14] MEDS: HYDROCORTISONE 100MG/2ML VIAL IV SCH (15:29)
[2023-03-14] MEDS: SODIUM CHLORIDE HYPERTONIC 3% 4ML NEB SOL INH SCH ×2 (17:53→19:12)
[2023-03-14] MEDS ORDERED: SODIUM CHLORIDE 0.9% 1000ML IV ONE (18:05)
[2023-03-15] VITALS (11 sets, daily range): BP systolic 100–144; BP diastolic 57–72; TEMP 97.4–98.3; O2SAT 91–98
[2023-03-15] MEDS: IPRATROPIUM 0.5MG/ALBUTEROL 2.5MG INH SOL UD 3ML (DUONEB) NEB SCH ×4 (01:07→19:07)
[2023-03-15] MEDS: SODIUM CHLORIDE HYPERTONIC 3% 4ML NEB SOL INH SCH ×4 (01:07→19:07)
[2023-03-15] MEDS: HYDROCORTISONE 100MG/2ML VIAL IV SCH (03:22)
[2023-03-15] MEDS: D5W/0.45% SODIUM CHLORIDE 1,000 ML IV SCH (04:22)
[2023-03-15 07:24] LABS: ALBUMIN 2.1 G/DL (3.2-5.2); ALKALINE PHOSPHATASE 70 U/L (46-116); ALT/SGPT 22 U/L (7.0-40); AST/SGOT 46 U/L (<34); BILIRUBIN,TOTAL < 0.2 MG/DL (0.3-1.2); BLOOD UREA NITROGEN 53 MG/DL (9-23); CALCIUM LEVEL 7.6 MG/DL (8.3-10.6); CARBON DIOXIDE LEVEL 15 MMOL/L (20-31); CHLORIDE LEVEL 116 MMOL/L (98-107); CREATININE FOR GFR 1.52 MG/DL (0.70-1.30); GLOMERULAR FILTRATION RATE 46.5 (>35); GLUCOSE, FASTING 142 MG/DL (74-106); MAGNESIUM LEVEL 1.7 MG/DL (1.8-2.4); POTASSIUM SERUM 3.4 MMOL/L (3.5-5.1); SODIUM LEVEL 143 MMOL/L (136-145); TOTAL PROTEIN 4.9 G/DL (5.7-8.2)
[2023-03-15 07:53] LABS: BASO % 0.1 % (0.0-1.0); EOS % 0.2 % (0.0-3.0); HEMOGLOBIN 8.5 g/dl (13.5-17.5); LYMPH # 0.5 10^3/uL (1.5-5.0); LYMPH % 3.1 % (24.0-44.0); MEAN CORPUSCULAR HEMOGLOBIN 28.8 pg (27.0-33.0); MEAN CORPUSCULAR HGB CONC 31.5 g/dl (32.0-36.5); MEAN CORPUSCULAR VOLUME 91.5 fl (80.0-96.0); MONO # 0.8 10^3/uL (0.0-0.8); MONO % 4.7 % (2.0-8.0); NEUTROPHILS # 14.9 10^3/uL (1.5-8.5); NEUTROPHILS % 91.3 % (36.0-66.0); PLATELET COUNT, AUTOMATED 307 10^3/uL (150-450); RED BLOOD COUNT 2.95 10^6/uL (4.30-6.10); WHITE BLOOD COUNT 16.3 10^3/uL (4.0-10.0)
[2023-03-15] MEDS: PANTOPRAZOLE 40MG VIAL IV SCH (08:46)
[2023-03-15] MEDS: ENOXAPARIN 60MG/0.6ML SYRINGE (J1650 PER 10MG) SC SCH (08:46)
[2023-03-15] MEDS: ASPIRIN 300 MG SUPP PR SCH (08:47)
[2023-03-15] MEDS: CEFEPIME HCL 1 GM in D5W MINI-BAG PLUS 50 ML IV SCH ×2 (08:47→19:39)
[2023-03-15] MEDS: MAG SULF 1GM/100ML (MAG RUN) 1 GM in IV 1 EA IV SCH ×2 (10:59→14:04)
[2023-03-15] MEDS: DOXYCYCLINE HYCLATE 100 MG in D5W MINI-BAG PLUS 100 ML IV SCH ×2 (12:10→23:20)
[2023-03-15] MEDS: KCL 10MEQ/100ML SWI (KRUN) 10 MEQ in IV 1 EA IV SCH ×2 (12:53→15:57)
[2023-03-15] MEDS ORDERED: VARIBAR PUDDING 40% w/v 230ML TUBE As Ordered ONE (14:37)
[2023-03-15] MEDS ORDERED: E-Z-PAQUE 96% w/w SUSP 176GM BTL As Ordered ONE (14:37)
[2023-03-15] MEDS ORDERED: VARIBAR NECTAR 40% w/v 240ML SUSP BTL As Ordered ONE (14:37)
[2023-03-15] MEDS ORDERED: BARIUM SULFATE 700 MG TABLET (E-Z-DISK) As Ordered ONE (14:37)
[2023-03-15] MEDS: APIXABAN 2.5 MG TAB (ELIQUIS) PO SCH (20:35)
[2023-03-16] MEDS: IPRATROPIUM 0.5MG/ALBUTEROL 2.5MG INH SOL UD 3ML (DUONEB) NEB SCH ×4 (02:00→20:10)
[2023-03-16] MEDS: SODIUM CHLORIDE HYPERTONIC 3% 4ML NEB SOL INH SCH ×4 (02:00→20:10)
[2023-03-16 05:56] VITALS: BP 133/66; TEMP 98.2; O2SAT 96
[2023-03-16] MEDS: PANTOPRAZOLE 40MG VIAL IV SCH (08:56)
[2023-03-16] MEDS: APIXABAN 2.5 MG TAB (ELIQUIS) PO SCH ×2 (08:57→19:49)
[2023-03-16] MEDS: predniSONE 2.5 MG TAB PO SCH (08:57)
[2023-03-16] MEDS: ASPIRIN 81MG CHEW TABLET PO SCH (08:57)
[2023-03-16] MEDS: CEFEPIME HCL 1 GM in D5W MINI-BAG PLUS 50 ML IV SCH ×2 (09:02→19:46)
[2023-03-16 09:07] LABS: BASO % 0.1 % (0.0-1.0); EOS # 0.3 10^3/uL (0.0-0.5); EOS % 2.5 % (0.0-3.0); HEMOGLOBIN 9.6 g/dl (13.5-17.5); LYMPH # 1.3 10^3/uL (1.5-5.0); LYMPH % 9.7 % (24.0-44.0); MEAN CORPUSCULAR VOLUME 90.4 fl (80.0-96.0); MONO # 0.9 10^3/uL (0.0-0.8); MONO % 6.6 % (2.0-8.0); NEUTROPHILS # 10.9 10^3/uL (1.5-8.5); NEUTROPHILS % 80.6 % (36.0-66.0); PLATELET COUNT, AUTOMATED 348 10^3/uL (150-450); RED BLOOD COUNT 3.43 10^6/uL (4.30-6.10); WHITE BLOOD COUNT 13.6 10^3/uL (4.0-10.0)
[2023-03-16] MEDS ORDERED: QUEtiapine FUMARATE 25 MG TAB PO ONE (09:20)
[2023-03-16 09:34] LABS: CALCIUM LEVEL 8.5 MG/DL (8.3-10.6); CREATININE FOR GFR 1.29 MG/DL (0.70-1.30); GLOMERULAR FILTRATION RATE 56.2 (>35); POTASSIUM SERUM 3.4 MMOL/L (3.5-5.1)
[2023-03-16] MEDS ORDERED: POTASSIUM CHLORIDE 10MEQ SR TABLET PO ONE (09:45)
[2023-03-16] MEDS ORDERED: SODIUM CHLORIDE 0.45% 1000 ML IV ONE (09:45)
[2023-03-16] MEDS ORDERED: POTASSIUM CHL PWD 20MEQ PACKET PO ONE (13:00)
[2023-03-16 14:00] VITALS: BP 134/76; TEMP 98.1; O2SAT 100
[2023-03-16] MEDS: HALOPERIDOL 5MG/ML 1ML VIAL IV PRN ×2 (15:29→23:48)
[2023-03-16] MEDS: QUEtiapine FUMARATE 25 MG TAB PO SCH (19:48)
[2023-03-16 20:07] VITALS: BP 122/74; TEMP 98.2; O2SAT 91
[2023-03-16] MEDS: SYMBICORT 80/4.5MCG INHALER 6GM INH SCH (20:11)
[2023-03-17 04:05] VITALS: BP 122/80; TEMP 98.2; O2SAT 91
[2023-03-17] MEDS: HALOPERIDOL 5MG/ML 1ML VIAL IV PRN (05:56)
[2023-03-17 06:16] LABS: BASO % 0.2 % (0.0-1.0); EOS # 0.5 10^3/uL (0.0-0.5); EOS % 3.4 % (0.0-3.0); HEMATOCRIT 30.2 % (42.0-52.0); HEMOGLOBIN 9.8 g/dl (13.5-17.5); LYMPH # 1.9 10^3/uL (1.5-5.0); LYMPH % 13.9 % (24.0-44.0); MEAN CORPUSCULAR HEMOGLOBIN 28.7 pg (27.0-33.0); MEAN CORPUSCULAR HGB CONC 32.5 g/dl (32.0-36.5); MEAN CORPUSCULAR VOLUME 88.6 fl (80.0-96.0); MONO # 1.3 10^3/uL (0.0-0.8); MONO % 9.6 % (2.0-8.0); NEUTROPHILS # 9.8 10^3/uL (1.5-8.5); NEUTROPHILS % 72.4 % (36.0-66.0); PLATELET COUNT, AUTOMATED 349 10^3/uL (150-450); RED BLOOD COUNT 3.41 10^6/uL (4.30-6.10); WHITE BLOOD COUNT 13.5 10^3/uL (4.0-10.0)
[2023-03-17 06:43] LABS: BLOOD UREA NITROGEN 32 MG/DL (9-23); CALCIUM LEVEL 8.6 MG/DL (8.3-10.6); CARBON DIOXIDE LEVEL 20 MMOL/L (20-31); CHLORIDE LEVEL 116 MMOL/L (98-107); CREATININE FOR GFR 1.18 MG/DL (0.70-1.30); GLOMERULAR FILTRATION RATE > 60.0 (>35); GLUCOSE, FASTING 81 MG/DL (74-106); POTASSIUM SERUM 3.8 MMOL/L (3.5-5.1); SODIUM LEVEL 148 MMOL/L (136-145)
[2023-03-17] MEDS ORDERED: D5W 1000ML IV ONE (07:00)
[2023-03-17] MEDS: ASPIRIN 81MG CHEW TABLET PO SCH (07:33)
[2023-03-17] MEDS: APIXABAN 2.5 MG TAB (ELIQUIS) PO SCH ×2 (07:33→20:28)
[2023-03-17] MEDS: predniSONE 2.5 MG TAB PO SCH (07:33)
[2023-03-17] MEDS: PANTOPRAZOLE 40MG VIAL IV SCH (07:34)
[2023-03-17] MEDS: SYMBICORT 80/4.5MCG INHALER 6GM INH SCH ×2 (08:14→19:59)
[2023-03-17] MEDS: IPRATROPIUM 0.5MG/ALBUTEROL 2.5MG INH SOL UD 3ML (DUONEB) NEB SCH ×3 (08:14→19:57)
[2023-03-17] MEDS: SODIUM CHLORIDE HYPERTONIC 3% 4ML NEB SOL INH SCH ×3 (08:14→19:57)
[2023-03-17] MEDS ORDERED: ACETAMINOPHEN TAB 650MG DOSE (2X325MG) PO PRN (09:55)
[2023-03-17] MEDS: QUEtiapine FUMARATE 25 MG TAB PO SCH ×2 (10:52→20:28)
[2023-03-17 14:00] VITALS: BP 121/64; TEMP 98.4; O2SAT 97
[2023-03-17] MEDS: cefTRIAXone SOD 2 GM in D5W MINI-BAG PLUS 50 ML IV SCH (20:28)
[2023-03-17 21:11] VITALS: BP 125/65; TEMP 98.1; O2SAT 96
[2023-03-18 05:52] VITALS: BP 126/76; TEMP 98; O2SAT 96
[2023-03-18 06:17] LABS: BASO % 0.4 % (0.0-1.0); EOS # 0.5 10^3/uL (0.0-0.5); EOS % 4.4 % (0.0-3.0); HEMOGLOBIN 9.7 g/dl (13.5-17.5); LYMPH # 1.9 10^3/uL (1.5-5.0); LYMPH % 17.1 % (24.0-44.0); MEAN CORPUSCULAR HEMOGLOBIN 27.6 pg (27.0-33.0); MEAN CORPUSCULAR HGB CONC 31.3 g/dl (32.0-36.5); MEAN CORPUSCULAR VOLUME 88.3 fl (80.0-96.0); MONO # 1.3 10^3/uL (0.0-0.8); MONO % 11.2 % (2.0-8.0); NEUTROPHILS # 7.4 10^3/uL (1.5-8.5); NEUTROPHILS % 66.2 % (36.0-66.0); PLATELET COUNT, AUTOMATED 370 10^3/uL (150-450); RED BLOOD COUNT 3.51 10^6/uL (4.30-6.10); WHITE BLOOD COUNT 11.2 10^3/uL (4.0-10.0)
[2023-03-18 06:36] LABS: BLOOD UREA NITROGEN 27 MG/DL (9-23); CALCIUM LEVEL 8.1 MG/DL (8.3-10.6); CARBON DIOXIDE LEVEL 23 MMOL/L (20-31); CHLORIDE LEVEL 113 MMOL/L (98-107); CREATININE FOR GFR 1.13 MG/DL (0.70-1.30); GLOMERULAR FILTRATION RATE > 60.0 (>35); GLUCOSE, FASTING 90 MG/DL (74-106); POTASSIUM SERUM 3.4 MMOL/L (3.5-5.1); SODIUM LEVEL 147 MMOL/L (136-145)
[2023-03-18] MEDS ORDERED: D5W 1,000 ML IV ONE (07:25)
[2023-03-18] MEDS: IPRATROPIUM 0.5MG/ALBUTEROL 2.5MG INH SOL UD 3ML (DUONEB) NEB SCH ×3 (07:43→19:42)
[2023-03-18] MEDS: SYMBICORT 80/4.5MCG INHALER 6GM INH SCH ×2 (07:43→19:42)
[2023-03-18] MEDS: SODIUM CHLORIDE HYPERTONIC 3% 4ML NEB SOL INH SCH ×3 (07:43→19:42)
[2023-03-18] MEDS: ASPIRIN 81MG CHEW TABLET PO SCH (08:09)
[2023-03-18] MEDS: PANTOPRAZOLE 40MG VIAL IV SCH (08:09)
[2023-03-18] MEDS: predniSONE 2.5 MG TAB PO SCH (08:09)
[2023-03-18] MEDS: QUEtiapine FUMARATE 25 MG TAB PO SCH ×2 (08:10→20:56)
[2023-03-18] MEDS: APIXABAN 2.5 MG TAB (ELIQUIS) PO SCH ×2 (08:10→20:56)
[2023-03-18] MEDS ORDERED: POTASSIUM CHL PWD 20MEQ PACKET PO ONE (09:00)
[2023-03-18 19:59] VITALS: BP 133/73; TEMP 98.6; O2SAT 96
[2023-03-18] MEDS: cefTRIAXone SOD 2 GM in D5W MINI-BAG PLUS 50 ML IV SCH (20:56)
[2023-03-19 05:52] VITALS: BP 109/57; TEMP 97.9; O2SAT 97
[2023-03-19 05:57] LABS: BASO % 0.3 % (0.0-1.0); EOS # 0.5 10^3/uL (0.0-0.5); EOS % 3.9 % (0.0-3.0); HEMATOCRIT 33.1 % (42.0-52.0); HEMOGLOBIN 10.4 g/dl (13.5-17.5); LYMPH # 2.6 10^3/uL (1.5-5.0); LYMPH % 18.6 % (24.0-44.0); MEAN CORPUSCULAR HEMOGLOBIN 28.1 pg (27.0-33.0); MEAN CORPUSCULAR HGB CONC 31.4 g/dl (32.0-36.5); MEAN CORPUSCULAR VOLUME 89.5 fl (80.0-96.0); MONO # 1.4 10^3/uL (0.0-0.8); MONO % 10.3 % (2.0-8.0); NEUTROPHILS # 9.2 10^3/uL (1.5-8.5); NEUTROPHILS % 65.5 % (36.0-66.0); PLATELET COUNT, AUTOMATED 374 10^3/uL (150-450)
[2023-03-19 06:23] LABS: BLOOD UREA NITROGEN 22 MG/DL (9-23); CALCIUM LEVEL 8.3 MG/DL (8.3-10.6); CARBON DIOXIDE LEVEL 24 MMOL/L (20-31); CHLORIDE LEVEL 111 MMOL/L (98-107); CREATININE FOR GFR 1.03 MG/DL (0.70-1.30); GLOMERULAR FILTRATION RATE > 60.0 (>35); GLUCOSE, FASTING 85 MG/DL (74-106); POTASSIUM SERUM 3.6 MMOL/L (3.5-5.1); SODIUM LEVEL 143 MMOL/L (136-145)
[2023-03-19 07:02] LABS: MAGNESIUM LEVEL 1.5 MG/DL (1.8-2.4)
[2023-03-19] MEDS: IPRATROPIUM 0.5MG/ALBUTEROL 2.5MG INH SOL UD 3ML (DUONEB) NEB SCH ×3 (07:36→19:07)
[2023-03-19] MEDS: SODIUM CHLORIDE HYPERTONIC 3% 4ML NEB SOL INH SCH ×3 (07:36→19:07)
[2023-03-19] MEDS: SYMBICORT 80/4.5MCG INHALER 6GM INH SCH ×2 (07:37→19:07)
[2023-03-19] MEDS ORDERED: MAG SULF 1GM/100ML (MAG RUN) 1 GM in IV 1 EA IV SCH (08:00)
[2023-03-19] MEDS: PANTOPRAZOLE 40MG VIAL IV SCH (10:15)
[2023-03-19] MEDS: MAG SULF 1GM/100ML (MAG RUN) 1 GM in IV 1 EA IV SCH ×3 (10:15→12:32)
[2023-03-19] MEDS: ASPIRIN 81MG CHEW TABLET PO SCH (10:15)
[2023-03-19] MEDS: APIXABAN 2.5 MG TAB (ELIQUIS) PO SCH ×2 (10:15→20:35)
[2023-03-19] MEDS: predniSONE 2.5 MG TAB PO SCH (10:19)
[2023-03-19 14:00] VITALS: BP 132/72; TEMP 97.9; O2SAT 95
[2023-03-19] MEDS: QUEtiapine FUMARATE 25 MG TAB PO SCH (20:35)
[2023-03-19] MEDS: cefTRIAXone SOD 2 GM in D5W MINI-BAG PLUS 50 ML IV SCH (20:35)
[2023-03-19 20:52] VITALS: BP 125/64; TEMP 97.9; O2SAT 94
[2023-03-20 05:44] LABS: BASO % 0.2 % (0.0-1.0); EOS # 0.5 10^3/uL (0.0-0.5); EOS % 3.8 % (0.0-3.0); HEMOGLOBIN 10.4 g/dl (13.5-17.5); LYMPH # 2.8 10^3/uL (1.5-5.0); LYMPH % 19.2 % (24.0-44.0); MEAN CORPUSCULAR HEMOGLOBIN 27.8 pg (27.0-33.0); MEAN CORPUSCULAR HGB CONC 31.5 g/dl (32.0-36.5); MEAN CORPUSCULAR VOLUME 88.2 fl (80.0-96.0); MONO # 1.5 10^3/uL (0.0-0.8); MONO % 10.2 % (2.0-8.0); NEUTROPHILS # 9.4 10^3/uL (1.5-8.5); NEUTROPHILS % 65.5 % (36.0-66.0); PLATELET COUNT, AUTOMATED 377 10^3/uL (150-450); RED BLOOD COUNT 3.74 10^6/uL (4.30-6.10); WHITE BLOOD COUNT 14.4 10^3/uL (4.0-10.0)
[2023-03-20 05:57] VITALS: BP 126/64; TEMP 97.9
[2023-03-20 06:17] LABS: BLOOD UREA NITROGEN 25 MG/DL (9-23); CALCIUM LEVEL 8.2 MG/DL (8.3-10.6); CARBON DIOXIDE LEVEL 28 MMOL/L (20-31); CHLORIDE LEVEL 110 MMOL/L (98-107); CREATININE FOR GFR 1.14 MG/DL (0.70-1.30); GLOMERULAR FILTRATION RATE > 60.0 (>35); GLUCOSE, FASTING 94 MG/DL (74-106); MAGNESIUM LEVEL 2.1 MG/DL (1.8-2.4); POTASSIUM SERUM 4.1 MMOL/L (3.5-5.1); SODIUM LEVEL 145 MMOL/L (136-145)
[2023-03-20] MEDS: IPRATROPIUM 0.5MG/ALBUTEROL 2.5MG INH SOL UD 3ML (DUONEB) NEB SCH (07:34)
[2023-03-20] MEDS: SYMBICORT 80/4.5MCG INHALER 6GM INH SCH (07:34)
[2023-03-20] MEDS: SODIUM CHLORIDE HYPERTONIC 3% 4ML NEB SOL INH SCH (07:35)
[2023-03-20] MEDS: APIXABAN 2.5 MG TAB (ELIQUIS) PO SCH (07:59)
[2023-03-20] MEDS: PANTOPRAZOLE 40MG VIAL IV SCH (07:59)
[2023-03-20] MEDS: predniSONE 2.5 MG TAB PO SCH (07:59)
[2023-03-20] MEDS: ASPIRIN 81MG CHEW TABLET PO SCH (07:59)
[2023-03-20] MEDS ORDERED: FLEET ENEMA PR ONE (09:00)
== END 2023-03-20 12:07 | DRG 871 ==
LOC: M ED 18:08 → M ED INP 22:14 → M ICU 23:13 → M MSPAV 03-15 17:10
PROVIDERS: ADMIT Internal Medicine; ATTEND Internal Medicine Nephrology
DX: A41.9 Sepsis, unspecified organism (principal); I21.A1 Myocardial infarction type 2; J96.01 Acute respiratory failure with hypoxia; R65.21 Severe sepsis with septic shock; G93.41 Metabolic encephalopathy; J18.9 Pneumonia, unspecified organism; N17.9 Acute kidney failure, unspecified; M62.82 Rhabdomyolysis; E87.0 Hyperosmolality and hypernatremia; N20.1 Calculus of ureter; I50.22 Chronic systolic (congestive) heart failure; T83.511A Infection and inflammatory reaction due to indwelling urethral catheter, initial encounter; N39.0 Urinary tract infection, site not specified; J44.9 Chronic obstructive pulmonary disease, unspecified; N18.30 Chronic kidney disease, stage 3 unspecified; I48.91 Unspecified atrial fibrillation; K21.9 Gastro-esophageal reflux disease without esophagitis; N20.0 Calculus of kidney; E87.6 Hypokalemia; I27.20 Pulmonary hypertension, unspecified; E83.42 Hypomagnesemia; R13.10 Dysphagia, unspecified; Z79.52 Long term (current) use of systemic steroids; I08.0 Rheumatic disorders of both mitral and aortic valves; I71.40 Abdominal aortic aneurysm, without rupture, unspecified; Z88.8 Allergy status to other drugs, medicaments and biological substances; Z79.899 Other long term (current) drug therapy; Z86.711 Personal history of pulmonary embolism; Z95.2 Presence of prosthetic heart valve; Z99.81 Dependence on supplemental oxygen; Y84.6 Urinary catheterization as the cause of abnormal reaction of the patient, or of later complication, without mention of misadventure at the time of the procedure

== ENCOUNTER → 2023-03-13 | Outpatient (REF) | payer MEDICAID, MEDICARE ==
[~2023-03-13] MED LIST changes: +ALBU2.5V10 INH; +BACI1CAP PO; +CALM1OIN TOP; -CALM1OIN TP; +CEFT1INJ5 IM; +LOTR1CRE12 TOP; +OMEP-173 PO
== END ==
PROVIDERS: ATTEND Internal Medicine
DX: R05.9 Cough, unspecified (principal)

== ENCOUNTER → 2023-03-13 | Outpatient (REF) | payer MEDICARE, MEDICAID ==
[2023-03-13 16:25] LABS: HEMATOCRIT 37.7 % (42.0-52.0); HEMOGLOBIN 11.7 g/dl (13.5-17.5); MEAN CORPUSCULAR HEMOGLOBIN 28.9 pg (27.0-33.0); MEAN CORPUSCULAR VOLUME 93.1 fl (80.0-96.0); PLATELET COUNT, AUTOMATED 498 10^3/uL (150-450); RED BLOOD COUNT 4.05 10^6/uL (4.30-6.10)
[2023-03-13 16:35] LABS: WHITE BLOOD COUNT 57.9 10^3/uL (4.0-10.0)
[2023-03-13 16:57] LABS: ALBUMIN 3.3 G/DL (3.2-5.2); BILIRUBIN,TOTAL 0.5 MG/DL (0.3-1.2); CALCIUM LEVEL 9.2 MG/DL (8.3-10.6); CREATININE FOR GFR 2.28 MG/DL (0.70-1.30); GLOMERULAR FILTRATION RATE 29.1 (>35); POTASSIUM SERUM 5.8 MMOL/L (3.5-5.1); TOTAL PROTEIN 6.8 G/DL (5.7-8.2)
[2023-03-13 17:11] LABS: LYMPHOCYTES 2 % (16-44); MONOCYTES 5 % (0-5); NEUTROPHILS 84 % (28-66); PLATELET ESTIMATE INCREASED (NORMAL)
== END ==
PROVIDERS: ATTEND Nurse Practitioner Family
DX: R41.82 Altered mental status, unspecified (principal)

== ENCOUNTER → 2023-03-22 | Outpatient (REF) ==
[~2023-03-22] MED LIST changes: +ALBU2.5V10 INH; +BACI1CAP PO; +CEFT1INJ5 IM; +LOTR1CRE12 TOP; +OMEP-173 PO
[2023-03-22 10:53] LABS: BASO # 0.1 10^3/uL (0.0-0.2); BASO % 0.5 % (0.0-1.0); EOS # 0.4 10^3/uL (0.0-0.5); EOS % 2.9 % (0.0-3.0); HEMATOCRIT 36.8 % (42.0-52.0); HEMOGLOBIN 11.5 g/dl (13.5-17.5); LYMPH # 2.4 10^3/uL (1.5-5.0); LYMPH % 17.4 % (24.0-44.0); MEAN CORPUSCULAR HEMOGLOBIN 28.4 pg (27.0-33.0); MEAN CORPUSCULAR HGB CONC 31.3 g/dl (32.0-36.5); MEAN CORPUSCULAR VOLUME 90.9 fl (80.0-96.0); MONO # 1.3 10^3/uL (0.0-0.8); MONO % 9.4 % (2.0-8.0); NEUTROPHILS # 9.4 10^3/uL (1.5-8.5); NEUTROPHILS % 68.8 % (36.0-66.0); PLATELET COUNT, AUTOMATED 456 10^3/uL (150-450); RED BLOOD COUNT 4.05 10^6/uL (4.30-6.10); WHITE BLOOD COUNT 13.6 10^3/uL (4.0-10.0)
[2023-03-22 11:16] LABS: BLOOD UREA NITROGEN 24 MG/DL (9-23); CALCIUM LEVEL 8.6 MG/DL (8.3-10.6); CARBON DIOXIDE LEVEL 28 MMOL/L (20-31); CHLORIDE LEVEL 105 MMOL/L (98-107); CREATININE FOR GFR 1.09 MG/DL (0.70-1.30); GLOMERULAR FILTRATION RATE > 60.0 (>35); GLUCOSE, FASTING 105 MG/DL (74-106); POTASSIUM SERUM 3.8 MMOL/L (3.5-5.1); SODIUM LEVEL 142 MMOL/L (136-145)
== END ==
PROVIDERS: ATTEND Nurse Practitioner Family
DX: N18.9 Chronic kidney disease, unspecified (principal)

== ENCOUNTER → 2023-03-29 | Outpatient (REF) ==
[2023-03-29 11:47] LABS: BASO # 0.1 10^3/uL (0.0-0.2); BASO % 0.6 % (0.0-1.0); EOS # 0.2 10^3/uL (0.0-0.5); HEMATOCRIT 34.2 % (42.0-52.0); HEMOGLOBIN 10.6 g/dl (13.5-17.5); LYMPH # 1.4 10^3/uL (1.5-5.0); LYMPH % 13.5 % (24.0-44.0); MEAN CORPUSCULAR HEMOGLOBIN 28.3 pg (27.0-33.0); MEAN CORPUSCULAR VOLUME 91.4 fl (80.0-96.0); MONO # 1.1 10^3/uL (0.0-0.8); MONO % 11.3 % (2.0-8.0); NEUTROPHILS # 7.3 10^3/uL (1.5-8.5); PLATELET COUNT, AUTOMATED 406 10^3/uL (150-450); RED BLOOD COUNT 3.74 10^6/uL (4.30-6.10); WHITE BLOOD COUNT 10.1 10^3/uL (4.0-10.0)
[2023-03-29 12:07] LABS: BLOOD UREA NITROGEN 45 MG/DL (9-23); CALCIUM LEVEL 8.6 MG/DL (8.3-10.6); CARBON DIOXIDE LEVEL 30 MMOL/L (20-31); CHLORIDE LEVEL 103 MMOL/L (98-107); CREATININE FOR GFR 1.09 MG/DL (0.70-1.30); GLOMERULAR FILTRATION RATE > 60.0 (>35); GLUCOSE, FASTING 100 MG/DL (74-106); POTASSIUM SERUM 4.6 MMOL/L (3.5-5.1); SODIUM LEVEL 143 MMOL/L (136-145)
== END ==
PROVIDERS: ATTEND Nurse Practitioner Family
DX: N18.9 Chronic kidney disease, unspecified (principal)

== ENCOUNTER → 2023-04-05 | Outpatient (REF) ==
[2023-04-05 11:24] LABS: BASO # 0.1 10^3/uL (0.0-0.2); BASO % 0.6 % (0.0-1.0); EOS # 0.3 10^3/uL (0.0-0.5); EOS % 2.7 % (0.0-3.0); HEMATOCRIT 33.3 % (42.0-52.0); HEMOGLOBIN 10.6 g/dl (13.5-17.5); LYMPH # 1.8 10^3/uL (1.5-5.0); LYMPH % 17.9 % (24.0-44.0); MEAN CORPUSCULAR HEMOGLOBIN 29.4 pg (27.0-33.0); MEAN CORPUSCULAR HGB CONC 31.8 g/dl (32.0-36.5); MEAN CORPUSCULAR VOLUME 92.2 fl (80.0-96.0); MONO % 9.8 % (2.0-8.0); NEUTROPHILS # 6.9 10^3/uL (1.5-8.5); NEUTROPHILS % 68.5 % (36.0-66.0); PLATELET COUNT, AUTOMATED 390 10^3/uL (150-450); RED BLOOD COUNT 3.61 10^6/uL (4.30-6.10)
[2023-04-05 11:39] LABS: BLOOD UREA NITROGEN 45 MG/DL (9-23); CALCIUM LEVEL 8.8 MG/DL (8.3-10.6); CARBON DIOXIDE LEVEL 29 MMOL/L (20-31); CHLORIDE LEVEL 104 MMOL/L (98-107); CREATININE FOR GFR 1.12 MG/DL (0.70-1.30); GLOMERULAR FILTRATION RATE > 60.0 (>35); GLUCOSE, FASTING 90 MG/DL (74-106); POTASSIUM SERUM 3.9 MMOL/L (3.5-5.1); SODIUM LEVEL 141 MMOL/L (136-145)
== END ==
PROVIDERS: ATTEND Nurse Practitioner Family
DX: N18.6 End stage renal disease (principal)

== ENCOUNTER 2023-05-10 12:46 | Inpatient (IN) | payer MEDICARE, MEDICAID ==
[~2023-05-10] VITALS: Ht 167.6 cm; Wt 54.7 kg
[~2023-05-10 12:46] MED LIST changes: -CALM1OIN TP
[2023-05-10 13:17] LABS: ABG BASE EXCESS 2.9 (-2.0-2.0); ABG HCO3 25.1 MMOL/L (22.0-26.0); ABG O2 SATURATION 99.7 % (95.0-99.0); ABG PARTIAL PRESSURE CO2 30.7 mmHg (35.0-45.0); ABG PARTIAL PRESSURE O2 232.1 mmHg (75.0-100.0); ABG STANDARD HCO3 27.1 MMOL/L. (22.0-26.0)
[2023-05-10 13:29] LABS: BASO # 0.1 10^3/uL (0.0-0.2); BASO % 0.3 % (0.0-1.0); EOS # 0.1 10^3/uL (0.0-0.5); EOS % 0.3 % (0.0-3.0); HEMATOCRIT 38.9 % (42.0-52.0); HEMOGLOBIN 11.9 g/dl (13.5-17.5); LYMPH # 1.2 10^3/uL (1.5-5.0); LYMPH % 5.9 % (24.0-44.0); MEAN CORPUSCULAR HEMOGLOBIN 28.2 pg (27.0-33.0); MEAN CORPUSCULAR HGB CONC 30.6 g/dl (32.0-36.5); MEAN CORPUSCULAR VOLUME 92.2 fl (80.0-96.0); MONO # 1.1 10^3/uL (0.0-0.8); MONO % 5.6 % (2.0-8.0); NEUTROPHILS # 17.1 10^3/uL (1.5-8.5); NEUTROPHILS % 87.3 % (36.0-66.0); RED BLOOD COUNT 4.22 10^6/uL (4.30-6.10); WHITE BLOOD COUNT 19.6 10^3/uL (4.0-10.0)
[2023-05-10] MEDS ORDERED: NS 1,000 ML IV ONE (13:35)
[2023-05-10 13:40] LABS: PLATELET COUNT, AUTOMATED 513 10^3/uL (150-450)
[2023-05-10] MEDS: MORPHINE 2 MG/ML 1ML VIAL IV PRN ×2 (13:42→15:29)
[2023-05-10 13:43] LABS: INR 1.19; PROTHROMBIN TIME 14.7 SECONDS (12.5-14.5)
[2023-05-10 13:48] LABS: CPK CREATINE PHOSPHOKINASE 35 U/L (46-171)
[2023-05-10 14:05] LABS: ALBUMIN 3.1 G/DL (3.2-5.2); ALKALINE PHOSPHATASE 111 U/L (46-116); ALT/SGPT 29 U/L (7.0-40); AST/SGOT 17 U/L (<34); BILIRUBIN,DIRECT 0.1 MG/DL (<0.4); BILIRUBIN,TOTAL 0.4 MG/DL (0.3-1.2); BLOOD UREA NITROGEN 62 MG/DL (9-23); CALCIUM LEVEL 9.3 MG/DL (8.3-10.6); CARBON DIOXIDE LEVEL 28 MMOL/L (20-31); CHLORIDE LEVEL 107 MMOL/L (98-107); CK-MB VALUE MASS < 1.0 NG/ML (<3.6); CREATININE FOR GFR 1.18 MG/DL (0.70-1.30); GLOMERULAR FILTRATION RATE > 60.0 (>35); GLUCOSE, FASTING 91 MG/DL (74-106); MB/CK RELATIVE INDEX 2.85 (< OR =4); POTASSIUM SERUM 5.7 MMOL/L (3.5-5.1); SODIUM LEVEL 144 MMOL/L (136-145); TOTAL PROTEIN 7.2 G/DL (5.7-8.2)
[2023-05-10] MEDS ORDERED: ISOVUE-370 76% 100ML VIAL As Ordered ONE (14:19)
[2023-05-10] MEDS ORDERED: PIPERACILLIN/TAZOBACTAM SOD 3.375 GM in D5W MINI-BAG PLUS 50 ML IV ONE (14:20)
[2023-05-10 14:36] LABS: CPK CREATINE PHOSPHOKINASE 24 U/L (46-171)
[2023-05-10 14:37] LABS: CK-MB VALUE MASS < 1.0 NG/ML (<3.6); MB/CK RELATIVE INDEX 4.16 (< OR =4)
[2023-05-10] MEDS ORDERED: NS 500 ML IV ONE ×2 (15:35→16:55)
[2023-05-10] MEDS ORDERED: MED REC IN PROGRESS XX SCH (15:45)
[2023-05-10] MEDS ORDERED: ACETAMINOPHEN 650MG SUPP PR ONE (15:45)
[2023-05-10] MEDS ORDERED: HOME MED LIST COMPLETE! XX SCH (16:40)
[2023-05-10] MEDS ORDERED: PIPERACILLIN/TAZOBACTAM SOD 4.5 GM in D5W MINI-BAG PLUS 50 ML IV SCH (17:10)
[2023-05-10] MEDS ORDERED: DEXTROSE 50% 50ML SYRINGE IV STA (17:17)
[2023-05-10] MEDS ORDERED: HumuLIN R (REGULAR) INSULIN (NovoLIN R) **100U/ML** PER UNIT IV STA (17:17)
[2023-05-10] MEDS ORDERED: NS 1,000 ML IV SCH (18:00)
[2023-05-10] MEDS ORDERED: HYDROCORTISONE 100MG/2ML VIAL IV ONE (18:00)
[2023-05-10] MEDS ORDERED: BISACODYL 10MG SUPP PR PRN (18:10)
[2023-05-10] MEDS ORDERED: GABA-1171 PO (18:14)
[2023-05-10] MEDS ORDERED: BREO1INH INH (18:16)
[2023-05-10] MEDS ORDERED: DALI1TAB2 PO (18:17)
[2023-05-10] MEDS ORDERED: CALM1OIN TP (18:21)
[2023-05-10 18:33] LABS: BLOOD UREA NITROGEN 52 MG/DL (9-23); CALCIUM LEVEL 7.3 MG/DL (8.3-10.6); CARBON DIOXIDE LEVEL 26 MMOL/L (20-31); CHLORIDE LEVEL 111 MMOL/L (98-107); CREATININE FOR GFR 1.04 MG/DL (0.70-1.30); GLOMERULAR FILTRATION RATE > 60.0 (>35); GLUCOSE, FASTING 201 MG/DL (74-106); POTASSIUM SERUM 3.9 MMOL/L (3.5-5.1); SODIUM LEVEL 142 MMOL/L (136-145)
[2023-05-10] MEDS ORDERED: DEXTROSE 50% 50ML SYRINGE IV PRN (18:55)
[2023-05-10] MEDS ORDERED: GLUCOSE 4GM CHEW TABLET PO PRN (18:55)
[2023-05-10] MEDS ORDERED: D5W/0.9% SODIUM CHLORIDE 1,000 ML IV SCH (18:55)
[2023-05-10] MEDS ORDERED: GLUCAGON INJ 1MG VIAL SC PRN (18:55)
[2023-05-10] MEDS: methylPREDNISolone 40MG 1ML VIAL IV SCH (18:57)
[2023-05-10] MEDS ORDERED: VANCOMYCIN HCL 1,000 MG, VIAL MATE ADAPTER 1 EACH in D5W 250 ML IV ONE (20:00)
[2023-05-10] MEDS ORDERED: HEPARIN SOD (PORCINE) 5000UNITS/ML 1ML VIAL/SYRINGE SC SCH (21:00)
[2023-05-10 21:48] VITALS: BP 138/58; TEMP 98.2; O2SAT 97
[2023-05-10] MEDS: PIPERACILLIN/TAZOBACTAM SOD 3.375 GM in D5W MINI-BAG PLUS 50 ML IV SCH (22:13)
[2023-05-10] MEDS: HEPARIN SOD (PORCINE) 5000UNITS/ML 1ML VIAL/SYRINGE SC SCH (22:13)
[2023-05-10] MEDS: BUDESONIDE 0.25 MG/2 ML INHALATION SUSPENSION INH SCH (22:29)
[2023-05-10] MEDS: IPRATROPIUM 0.5MG/ALBUTEROL 2.5MG INH SOL UD 3ML (DUONEB) NEB SCH (22:29)
[2023-05-10] MEDS: ACETYLCYSTEINE 20% 4 ML VIAL (200MG/ML) INH SCH (22:29)
[2023-05-10 23:00] VITALS: O2SAT 99
[2023-05-10 23:46] VITALS: BP 110/59; TEMP 97.6; O2SAT 92
[2023-05-11] VITALS (26 sets, daily range): BP systolic 100–119; BP diastolic 56–66; TEMP 97.2–98.1; O2SAT 89–99
[2023-05-11] MEDS: PIPERACILLIN/TAZOBACTAM SOD 3.375 GM in D5W MINI-BAG PLUS 50 ML IV SCH ×4 (03:22→20:34)
[2023-05-11] MEDS ORDERED: HYDROCORTISONE 100MG/2ML VIAL IV SCH (06:00)
[2023-05-11] MEDS: HEPARIN SOD (PORCINE) 5000UNITS/ML 1ML VIAL/SYRINGE SC SCH ×3 (06:18→22:32)
[2023-05-11 06:59] LABS: BASO % 0.1 % (0.0-1.0); LYMPH % 5.7 % (24.0-44.0); MEAN CORPUSCULAR HEMOGLOBIN 28.4 pg (27.0-33.0); MEAN CORPUSCULAR HGB CONC 30.9 g/dl (32.0-36.5); MEAN CORPUSCULAR VOLUME 91.8 fl (80.0-96.0); MONO # 0.3 10^3/uL (0.0-0.8); MONO % 1.6 % (2.0-8.0); NEUTROPHILS # 15.7 10^3/uL (1.5-8.5); NEUTROPHILS % 91.6 % (36.0-66.0); RED BLOOD COUNT 3.17 10^6/uL (4.30-6.10); WHITE BLOOD COUNT 17.1 10^3/uL (4.0-10.0)
[2023-05-11 07:14] LABS: BLOOD UREA NITROGEN 46 MG/DL (9-23); CALCIUM LEVEL 7.9 MG/DL (8.3-10.6); CARBON DIOXIDE LEVEL 23 MMOL/L (20-31); CHLORIDE LEVEL 111 MMOL/L (98-107); CREATININE FOR GFR 1.06 MG/DL (0.70-1.30); GLOMERULAR FILTRATION RATE > 60.0 (>35); GLUCOSE, FASTING 136 MG/DL (74-106); MAGNESIUM LEVEL 1.6 MG/DL (1.8-2.4); POTASSIUM SERUM 3.8 MMOL/L (3.5-5.1); SODIUM LEVEL 145 MMOL/L (136-145)
[2023-05-11 07:25] LABS: HEMATOCRIT 29.1 % (42.0-52.0); PLATELET COUNT, AUTOMATED 364 10^3/uL (150-450)
[2023-05-11] MEDS: SUCRALFATE 1 GM TAB PO SCH ×2 (07:30→18:08)
[2023-05-11] MEDS ORDERED: VANCOMYCIN HCL 750 MG, VIAL MATE ADAPTER 1 EACH in D5W 250 ML IV SCH (08:00)
[2023-05-11] MEDS: ACETYLCYSTEINE 20% 4 ML VIAL (200MG/ML) INH SCH ×2 (08:25→21:26)
[2023-05-11] MEDS: BUDESONIDE 0.25 MG/2 ML INHALATION SUSPENSION INH SCH ×2 (08:25→20:00)
[2023-05-11] MEDS: IPRATROPIUM 0.5MG/ALBUTEROL 2.5MG INH SOL UD 3ML (DUONEB) NEB SCH ×2 (08:25→21:25)
[2023-05-11] MEDS ORDERED: ENOXAPARIN 30MG/0.3ML SYRINGE (J1650 PER 10MG) SC SCH (09:00)
[2023-05-11] MEDS ORDERED: MORPHINE 2 MG/ML 1ML VIAL IV PRN (10:55)
[2023-05-11] MEDS: PERCOCET 5MG/325MG TAB PO PRN (11:10)
[2023-05-11] MEDS: MAG SULF 1GM/100ML (MAG RUN) 1 GM in IV 1 EA IV SCH ×2 (16:48→18:07)
[2023-05-11] MEDS: methylPREDNISolone 40MG 1ML VIAL IV SCH (18:08)
[2023-05-11] MEDS: RAMELTEON 8 MG TAB (ROZEREM) PO SCH (20:28)
[2023-05-11] MEDS: GABAPENTIN 100 MG CAP PO SCH (20:28)
[2023-05-11] MEDS: SENOKOT S TAB PO SCH (20:28)
[2023-05-11] MEDS ORDERED: guaiFENesin 200 MG TAB PO PRN (20:50)
[2023-05-12] VITALS (12 sets, daily range): BP systolic 118–136; BP diastolic 62–81; TEMP 96.6–97.5; O2SAT 90–98
[2023-05-12] MEDS: IPRATROPIUM 0.5MG/ALBUTEROL 2.5MG INH SOL UD 3ML (DUONEB) NEB SCH ×4 (01:12→21:55)
[2023-05-12] MEDS: PIPERACILLIN/TAZOBACTAM SOD 3.375 GM in D5W MINI-BAG PLUS 50 ML IV SCH ×4 (04:08→20:35)
[2023-05-12 05:19] LABS: BASO % 0.1 % (0.0-1.0); HEMATOCRIT 29.9 % (42.0-52.0); HEMOGLOBIN 9.1 g/dl (13.5-17.5); LYMPH # 0.9 10^3/uL (1.5-5.0); LYMPH % 3.6 % (24.0-44.0); MEAN CORPUSCULAR HEMOGLOBIN 27.8 pg (27.0-33.0); MEAN CORPUSCULAR HGB CONC 30.4 g/dl (32.0-36.5); MEAN CORPUSCULAR VOLUME 91.4 fl (80.0-96.0); MONO # 0.6 10^3/uL (0.0-0.8); MONO % 2.3 % (2.0-8.0); NEUTROPHILS # 22.5 10^3/uL (1.5-8.5); NEUTROPHILS % 93.2 % (36.0-66.0); PLATELET COUNT, AUTOMATED 369 10^3/uL (150-450); RED BLOOD COUNT 3.27 10^6/uL (4.30-6.10); WHITE BLOOD COUNT 24.1 10^3/uL (4.0-10.0)
[2023-05-12 05:32] LABS: BLOOD UREA NITROGEN 41 MG/DL (9-23); CALCIUM LEVEL 8.1 MG/DL (8.3-10.6); CARBON DIOXIDE LEVEL 22 MMOL/L (20-31); CHLORIDE LEVEL 108 MMOL/L (98-107); CREATININE FOR GFR 1.12 MG/DL (0.70-1.30); GLOMERULAR FILTRATION RATE > 60.0 (>35); GLUCOSE, FASTING 137 MG/DL (74-106); MAGNESIUM LEVEL 2.4 MG/DL (1.8-2.4); SODIUM LEVEL 142 MMOL/L (136-145)
[2023-05-12] MEDS: HEPARIN SOD (PORCINE) 5000UNITS/ML 1ML VIAL/SYRINGE SC SCH ×3 (06:41→20:36)
[2023-05-12] MEDS: SUCRALFATE 1 GM TAB PO SCH ×2 (07:30→17:56)
[2023-05-12 08:19] LABS: PROCALCITONIN 0.59 ng/ml
[2023-05-12] MEDS: BUDESONIDE 0.25 MG/2 ML INHALATION SUSPENSION INH SCH ×2 (08:48→21:55)
[2023-05-12] MEDS: ACETYLCYSTEINE 20% 4 ML VIAL (200MG/ML) INH SCH ×2 (08:48→21:55)
[2023-05-12] MEDS: SENOKOT S TAB PO SCH ×2 (10:24→20:20)
[2023-05-12] MEDS: BISACODYL 10MG SUPP PR SCH ×2 (10:26→20:20)
[2023-05-12 16:08] LABS: MYCOPLASMA PNEUMONIAE IgG 370 U/mL (0-99); MYCOPLASMA PNEUMONIAE IgM <770 U/mL (0-769)
[2023-05-12] MEDS: RAMELTEON 8 MG TAB (ROZEREM) PO SCH (20:35)
[2023-05-12] MEDS: GABAPENTIN 100 MG CAP PO SCH (20:35)
[2023-05-12] MEDS: DOXYCYCLINE HYCLATE 100 MG in D5W MINI-BAG PLUS 100 ML IV SCH (21:54)
[2023-05-13] VITALS: BP 118/71; TEMP 98.3; O2SAT 92
[2023-05-13] MEDS: IPRATROPIUM 0.5MG/ALBUTEROL 2.5MG INH SOL UD 3ML (DUONEB) NEB SCH ×4 (02:05→19:37)
[2023-05-13] MEDS: PIPERACILLIN/TAZOBACTAM SOD 3.375 GM in D5W MINI-BAG PLUS 50 ML IV SCH ×4 (03:21→20:08)
[2023-05-13 04:00] VITALS: BP 137/81; TEMP 98.3; O2SAT 96
[2023-05-13] MEDS: HEPARIN SOD (PORCINE) 5000UNITS/ML 1ML VIAL/SYRINGE SC SCH (05:25)
[2023-05-13 07:13] LABS: BASO % 0.1 % (0.0-1.0); EOS # 0.1 10^3/uL (0.0-0.5); EOS % 0.4 % (0.0-3.0); HEMATOCRIT 26.7 % (42.0-52.0); HEMOGLOBIN 8.4 g/dl (13.5-17.5); LYMPH # 1.7 10^3/uL (1.5-5.0); LYMPH % 10.2 % (24.0-44.0); MEAN CORPUSCULAR HEMOGLOBIN 28.7 pg (27.0-33.0); MEAN CORPUSCULAR HGB CONC 31.5 g/dl (32.0-36.5); MEAN CORPUSCULAR VOLUME 91.1 fl (80.0-96.0); MONO # 1.2 10^3/uL (0.0-0.8); MONO % 7.1 % (2.0-8.0); NEUTROPHILS # 13.6 10^3/uL (1.5-8.5); NEUTROPHILS % 81.5 % (36.0-66.0); PLATELET COUNT, AUTOMATED 370 10^3/uL (150-450); RED BLOOD COUNT 2.93 10^6/uL (4.30-6.10); WHITE BLOOD COUNT 16.6 10^3/uL (4.0-10.0)
[2023-05-13 07:34] LABS: BLOOD UREA NITROGEN 33 MG/DL (9-23); CALCIUM LEVEL 8.4 MG/DL (8.3-10.6); CARBON DIOXIDE LEVEL 24 MMOL/L (20-31); CHLORIDE LEVEL 111 MMOL/L (98-107); CREATININE FOR GFR 1.14 MG/DL (0.70-1.30); GLOMERULAR FILTRATION RATE > 60.0 (>35); GLUCOSE, FASTING 84 MG/DL (74-106); MAGNESIUM LEVEL 2.1 MG/DL (1.8-2.4); SODIUM LEVEL 146 MMOL/L (136-145)
[2023-05-13 08:36] VITALS: BP 126/61; TEMP 97.4; O2SAT 95
[2023-05-13] MEDS: BISACODYL 10MG SUPP PR SCH ×2 (08:47→20:08)
[2023-05-13] MEDS: SUCRALFATE 1 GM TAB PO SCH ×2 (08:47→17:08)
[2023-05-13] MEDS: SENOKOT S TAB PO SCH ×2 (08:47→20:07)
[2023-05-13] MEDS: DOXYCYCLINE HYCLATE 100 MG in D5W MINI-BAG PLUS 100 ML IV SCH (08:48)
[2023-05-13] MEDS: ACETYLCYSTEINE 20% 4 ML VIAL (200MG/ML) INH SCH ×2 (09:28→19:37)
[2023-05-13] MEDS: BUDESONIDE 0.25 MG/2 ML INHALATION SUSPENSION INH SCH ×2 (09:28→19:37)
[2023-05-13] MEDS: OMEPRAZOLE 20MG CAP PO SCH (11:31)
[2023-05-13 12:12] LABS: HEMATOCRIT 30.9 % (42.0-52.0); HEMOGLOBIN 9.4 g/dl (13.5-17.5)
[2023-05-13 20:00] VITALS: BP 136/69; TEMP 96.6; O2SAT 98
[2023-05-13] MEDS: RAMELTEON 8 MG TAB (ROZEREM) PO SCH (20:07)
[2023-05-13] MEDS: DOXYCYCLINE HYCLATE 100MG TABLET PO SCH (20:07)
[2023-05-13] MEDS: GABAPENTIN 100 MG CAP PO SCH (20:08)
[2023-05-14] MEDS: IPRATROPIUM 0.5MG/ALBUTEROL 2.5MG INH SOL UD 3ML (DUONEB) NEB SCH ×4 (01:48→19:40)
[2023-05-14 03:07] VITALS: BP 114/64; TEMP 97.7; O2SAT 95
[2023-05-14] MEDS: PIPERACILLIN/TAZOBACTAM SOD 3.375 GM in D5W MINI-BAG PLUS 50 ML IV SCH ×4 (03:12→20:26)
[2023-05-14] MEDS: BUDESONIDE 0.25 MG/2 ML INHALATION SUSPENSION INH SCH ×2 (07:27→19:40)
[2023-05-14] MEDS: ACETYLCYSTEINE 20% 4 ML VIAL (200MG/ML) INH SCH ×2 (07:27→19:40)
[2023-05-14 08:27] LABS: BASO % 0.1 % (0.0-1.0); EOS # 0.2 10^3/uL (0.0-0.5); EOS % 1.3 % (0.0-3.0); HEMOGLOBIN 8.9 g/dl (13.5-17.5); LYMPH # 1.8 10^3/uL (1.5-5.0); LYMPH % 13.5 % (24.0-44.0); MEAN CORPUSCULAR HEMOGLOBIN 28.4 pg (27.0-33.0); MEAN CORPUSCULAR HGB CONC 31.8 g/dl (32.0-36.5); MEAN CORPUSCULAR VOLUME 89.5 fl (80.0-96.0); MONO % 7.6 % (2.0-8.0); NEUTROPHILS # 10.3 10^3/uL (1.5-8.5); NEUTROPHILS % 76.8 % (36.0-66.0); PLATELET COUNT, AUTOMATED 395 10^3/uL (150-450); RED BLOOD COUNT 3.13 10^6/uL (4.30-6.10); WHITE BLOOD COUNT 13.4 10^3/uL (4.0-10.0)
[2023-05-14] MEDS: SENOKOT S TAB PO SCH ×2 (08:49→20:27)
[2023-05-14] MEDS: SUCRALFATE 1 GM TAB PO SCH ×2 (08:49→17:54)
[2023-05-14] MEDS: OMEPRAZOLE 20MG CAP PO SCH (08:49)
[2023-05-14] MEDS: DOXYCYCLINE HYCLATE 100MG TABLET PO SCH ×2 (08:49→20:26)
[2023-05-14 08:52] LABS: BLOOD UREA NITROGEN 26 MG/DL (9-23); CALCIUM LEVEL 8.4 MG/DL (8.3-10.6); CARBON DIOXIDE LEVEL 23 MMOL/L (20-31); CHLORIDE LEVEL 112 MMOL/L (98-107); CREATININE FOR GFR 1.12 MG/DL (0.70-1.30); GLOMERULAR FILTRATION RATE > 60.0 (>35); GLUCOSE, FASTING 87 MG/DL (74-106); POTASSIUM SERUM 3.7 MMOL/L (3.5-5.1); SODIUM LEVEL 146 MMOL/L (136-145)
[2023-05-14] MEDS: BISACODYL 10MG SUPP PR SCH ×2 (09:00→20:27)
[2023-05-14] MEDS: GABAPENTIN 100 MG CAP PO SCH (20:26)
[2023-05-14] MEDS: RAMELTEON 8 MG TAB (ROZEREM) PO SCH (20:26)
[2023-05-14 22:02] VITALS: BP 117/64; TEMP 97.3; O2SAT 95
[2023-05-14] MEDS: ACETAMINOPHEN TAB 650MG DOSE (2X325MG) PO PRN (22:23)
[2023-05-15] MEDS: PERCOCET 5MG/325MG TAB PO PRN (01:56)
[2023-05-15] MEDS: IPRATROPIUM 0.5MG/ALBUTEROL 2.5MG INH SOL UD 3ML (DUONEB) NEB SCH ×5 (02:00→20:00)
[2023-05-15] MEDS: PIPERACILLIN/TAZOBACTAM SOD 3.375 GM in D5W MINI-BAG PLUS 50 ML IV SCH ×4 (03:34→21:33)
[2023-05-15 06:28] VITALS: BP 149/69; TEMP 96.8; O2SAT 94
[2023-05-15] MEDS: ACETYLCYSTEINE 20% 4 ML VIAL (200MG/ML) INH SCH ×3 (08:14→20:00)
[2023-05-15] MEDS: BUDESONIDE 0.25 MG/2 ML INHALATION SUSPENSION INH SCH ×2 (08:15→20:00)
[2023-05-15] MEDS: DOXYCYCLINE HYCLATE 100MG TABLET PO SCH ×2 (09:07→21:34)
[2023-05-15] MEDS: SUCRALFATE 1 GM TAB PO SCH ×2 (09:07→17:55)
[2023-05-15] MEDS: SENOKOT S TAB PO SCH ×2 (09:07→21:34)
[2023-05-15] MEDS: OMEPRAZOLE 20MG CAP PO SCH (09:08)
[2023-05-15 09:31] LABS: BASO % 0.4 % (0.0-1.0); EOS # 0.3 10^3/uL (0.0-0.5); EOS % 3.1 % (0.0-3.0); HEMATOCRIT 27.5 % (42.0-52.0); HEMOGLOBIN 8.7 g/dl (13.5-17.5); LYMPH # 2.2 10^3/uL (1.5-5.0); LYMPH % 19.5 % (24.0-44.0); MEAN CORPUSCULAR HEMOGLOBIN 28.5 pg (27.0-33.0); MEAN CORPUSCULAR HGB CONC 31.6 g/dl (32.0-36.5); MEAN CORPUSCULAR VOLUME 90.2 fl (80.0-96.0); MONO # 0.9 10^3/uL (0.0-0.8); MONO % 8.5 % (2.0-8.0); NEUTROPHILS # 7.5 10^3/uL (1.5-8.5); NEUTROPHILS % 67.8 % (36.0-66.0); PLATELET COUNT, AUTOMATED 380 10^3/uL (150-450); RED BLOOD COUNT 3.05 10^6/uL (4.30-6.10); WHITE BLOOD COUNT 11.1 10^3/uL (4.0-10.0)
[2023-05-15 10:06] LABS: CALCIUM LEVEL 8.4 MG/DL (8.3-10.6); CREATININE FOR GFR 1.26 MG/DL (0.70-1.30); GLOMERULAR FILTRATION RATE 57.8 (>35); MAGNESIUM LEVEL 1.8 MG/DL (1.8-2.4); POTASSIUM SERUM 4.1 MMOL/L (3.5-5.1)
[2023-05-15] MEDS: BISACODYL 10MG SUPP PR SCH ×2 (10:18→21:00)
[2023-05-15 14:00] VITALS: BP 145/69; TEMP 97.7; O2SAT 100
[2023-05-15 16:08] LABS: BODY FLUID CULTURE Not indicated. (.); LEGIONELLA ANTIGEN URINE Negative (Negative); ORGANISM ID Not indicated. (.); SPECIMEN SOURCE Urine (.); URINE STREP PNEUMONIAE ANTIGEN Negative (Negative)
[2023-05-15] MEDS: ACETAMINOPHEN TAB 650MG DOSE (2X325MG) PO PRN (21:33)
[2023-05-15] MEDS: RAMELTEON 8 MG TAB (ROZEREM) PO SCH (21:34)
[2023-05-15] MEDS: GABAPENTIN 100 MG CAP PO SCH (21:34)
[2023-05-16] MEDS: IPRATROPIUM 0.5MG/ALBUTEROL 2.5MG INH SOL UD 3ML (DUONEB) NEB SCH ×2 (01:47→07:12)
[2023-05-16] MEDS: PIPERACILLIN/TAZOBACTAM SOD 3.375 GM in D5W MINI-BAG PLUS 50 ML IV SCH ×3 (04:19→15:30)
[2023-05-16 06:26] LABS: BASO % 0.4 % (0.0-1.0); EOS # 0.5 10^3/uL (0.0-0.5); EOS % 4.1 % (0.0-3.0); HEMATOCRIT 28.6 % (42.0-52.0); HEMOGLOBIN 9.1 g/dl (13.5-17.5); LYMPH # 2.1 10^3/uL (1.5-5.0); LYMPH % 18.4 % (24.0-44.0); MEAN CORPUSCULAR HEMOGLOBIN 28.4 pg (27.0-33.0); MEAN CORPUSCULAR HGB CONC 31.8 g/dl (32.0-36.5); MEAN CORPUSCULAR VOLUME 89.4 fl (80.0-96.0); MONO # 1.1 10^3/uL (0.0-0.8); MONO % 9.3 % (2.0-8.0); NEUTROPHILS # 7.6 10^3/uL (1.5-8.5); PLATELET COUNT, AUTOMATED 440 10^3/uL (150-450); WHITE BLOOD COUNT 11.4 10^3/uL (4.0-10.0)
[2023-05-16 06:52] LABS: BLOOD UREA NITROGEN 21 MG/DL (9-23); CALCIUM LEVEL 8.5 MG/DL (8.3-10.6); CARBON DIOXIDE LEVEL 23 MMOL/L (20-31); CHLORIDE LEVEL 111 MMOL/L (98-107); CREATININE FOR GFR 1.15 MG/DL (0.70-1.30); GLOMERULAR FILTRATION RATE > 60.0 (>35); GLUCOSE, FASTING 80 MG/DL (74-106); MAGNESIUM LEVEL 1.9 MG/DL (1.8-2.4); SODIUM LEVEL 143 MMOL/L (136-145)
[2023-05-16] MEDS: BUDESONIDE 0.25 MG/2 ML INHALATION SUSPENSION INH SCH (07:12)
[2023-05-16] MEDS: ACETYLCYSTEINE 20% 4 ML VIAL (200MG/ML) INH SCH (07:13)
[2023-05-16] MEDS: SENOKOT S TAB PO SCH ×2 (09:00→21:46)
[2023-05-16] MEDS: BISACODYL 10MG SUPP PR SCH ×2 (09:00→21:00)
[2023-05-16] MEDS ORDERED: DOXY100T PO (10:25)
[2023-05-16] MEDS ORDERED: BACI1CAP PO (10:25)
[2023-05-16] MEDS: SUCRALFATE 1 GM TAB PO SCH ×2 (10:37→17:43)
[2023-05-16] MEDS: OMEPRAZOLE 20MG CAP PO SCH (10:37)
[2023-05-16] MEDS: DOXYCYCLINE HYCLATE 100MG TABLET PO SCH ×2 (10:37→21:47)
[2023-05-16] MEDS ORDERED: ALBUTEROL 90 MCG/ACT 8GM HFA INHALER INH PRN (10:40)
[2023-05-16] MEDS: HEPARIN SOD (PORCINE) 5000UNITS/ML 1ML VIAL/SYRINGE SC SCH ×2 (14:00→21:46)
[2023-05-16 14:45] VITALS: BP 133/67; TEMP 97.6; O2SAT 98
[2023-05-16] MEDS: SYMBICORT 160/4.5MCG INHALER 6GM INH SCH (21:14)
[2023-05-16 21:39] VITALS: BP 140/70; TEMP 97.7; O2SAT 98
[2023-05-16] MEDS: cefTRIAXone SOD 1 GM in D5W MINI-BAG PLUS 50 ML IV SCH (21:46)
[2023-05-16] MEDS: RAMELTEON 8 MG TAB (ROZEREM) PO SCH (21:47)
[2023-05-16] MEDS: ACETAMINOPHEN TAB 650MG DOSE (2X325MG) PO PRN (21:47)
[2023-05-16] MEDS: GABAPENTIN 100 MG CAP PO SCH (21:48)
[2023-05-17] MEDS: HEPARIN SOD (PORCINE) 5000UNITS/ML 1ML VIAL/SYRINGE SC SCH (05:45)
[2023-05-17 05:47] LABS: BASO # 0.1 10^3/uL (0.0-0.2); BASO % 0.5 % (0.0-1.0); EOS # 0.5 10^3/uL (0.0-0.5); EOS % 4.4 % (0.0-3.0); HEMATOCRIT 32.2 % (42.0-52.0); HEMOGLOBIN 10.3 g/dl (13.5-17.5); LYMPH # 2.4 10^3/uL (1.5-5.0); LYMPH % 19.6 % (24.0-44.0); MEAN CORPUSCULAR HEMOGLOBIN 28.6 pg (27.0-33.0); MEAN CORPUSCULAR VOLUME 89.4 fl (80.0-96.0); MONO # 1.2 10^3/uL (0.0-0.8); NEUTROPHILS # 7.9 10^3/uL (1.5-8.5); NEUTROPHILS % 64.4 % (36.0-66.0); PLATELET COUNT, AUTOMATED 499 10^3/uL (150-450); WHITE BLOOD COUNT 12.3 10^3/uL (4.0-10.0)
[2023-05-17 06:02] VITALS: BP 139/70; TEMP 97.8; O2SAT 97
[2023-05-17 06:13] LABS: BLOOD UREA NITROGEN 22 MG/DL (9-23); CALCIUM LEVEL 8.5 MG/DL (8.3-10.6); CARBON DIOXIDE LEVEL 24 MMOL/L (20-31); CHLORIDE LEVEL 108 MMOL/L (98-107); CREATININE FOR GFR 1.12 MG/DL (0.70-1.30); GLOMERULAR FILTRATION RATE > 60.0 (>35); GLUCOSE, FASTING 89 MG/DL (74-106); MAGNESIUM LEVEL 1.8 MG/DL (1.8-2.4); POTASSIUM SERUM 4.1 MMOL/L (3.5-5.1); SODIUM LEVEL 142 MMOL/L (136-145)
[2023-05-17] MEDS: SYMBICORT 160/4.5MCG INHALER 6GM INH SCH (07:58)
[2023-05-17] MEDS ORDERED: TIOTROPIUM INHALER/CAPSULE (SPIRIVA) INH SCH (08:00)
[2023-05-17] MEDS: SENOKOT S TAB PO SCH (09:00)
[2023-05-17] MEDS: BISACODYL 10MG SUPP PR SCH (09:00)
[2023-05-17] MEDS: OMEPRAZOLE 20MG CAP PO SCH (09:57)
[2023-05-17] MEDS: SUCRALFATE 1 GM TAB PO SCH (09:57)
[2023-05-17] MEDS: DOXYCYCLINE HYCLATE 100MG TABLET PO SCH (09:57)
[2023-05-17] MEDS: cefTRIAXone SOD 1 GM in D5W MINI-BAG PLUS 50 ML IV SCH (09:58)
[2023-05-17] MEDS ORDERED: LIDOCAINE 1% SDV 5ML VIAL DILUENT ONE (11:00)
[2023-05-17] MEDS ORDERED: cefTRIAXone SOD 2GM VIAL IM ONE (11:00)
[2023-05-17] MEDS ORDERED: LIDOCAINE 1% MDV 20ML VIAL IM ONE (11:05)
== END 2023-05-17 13:10 | DRG 698 ==
LOC: M ED 12:46 → EDBD 12:46 → M ED INP 17:00 → ENRESERV 19:55 → M PCU 21:38 → M MS5PR 05-14 02:37
PROVIDERS: ADMIT Student in an Organized Health Care Education/Training Program; ATTEND General Practice
DX: T83.511A Infection and inflammatory reaction due to indwelling urethral catheter, initial encounter (principal); A41.9 Sepsis, unspecified organism; J96.01 Acute respiratory failure with hypoxia; G92.8 Other toxic encephalopathy; J15.7 Pneumonia due to Mycoplasma pneumoniae; J44.0 Chronic obstructive pulmonary disease with (acute) lower respiratory infection; E87.3 Alkalosis; E87.20 Acidosis, unspecified; N39.0 Urinary tract infection, site not specified; F03.90 Unspecified dementia, unspecified severity, without behavioral disturbance, psychotic disturbance, mood disturbance, and anxiety; N18.30 Chronic kidney disease, stage 3 unspecified; E83.42 Hypomagnesemia; E87.5 Hyperkalemia; Z79.52 Long term (current) use of systemic steroids; Y84.6 Urinary catheterization as the cause of abnormal reaction of the patient, or of later complication, without mention of misadventure at the time of the procedure; Z79.899 Other long term (current) drug therapy; Z88.8 Allergy status to other drugs, medicaments and biological substances; Z87.891 Personal history of nicotine dependence; Z95.2 Presence of prosthetic heart valve; Z66 Do not resuscitate

== ENCOUNTER → 2023-05-10 | Outpatient (REF) | payer MEDICARE, MEDICAID ==
[~2023-05-10] MED LIST changes: +CALM1OIN TP
[2023-05-10 11:41] LABS: BASO # 0.1 10^3/uL (0.0-0.2); BASO % 0.3 % (0.0-1.0); EOS # 0.2 10^3/uL (0.0-0.5); EOS % 1.2 % (0.0-3.0); HEMATOCRIT 38.9 % (42.0-52.0); HEMOGLOBIN 11.9 g/dl (13.5-17.5); LYMPH # 0.9 10^3/uL (1.5-5.0); LYMPH % 5.3 % (24.0-44.0); MEAN CORPUSCULAR HEMOGLOBIN 28.1 pg (27.0-33.0); MEAN CORPUSCULAR HGB CONC 30.6 g/dl (32.0-36.5); MONO # 1.3 10^3/uL (0.0-0.8); MONO % 7.2 % (2.0-8.0); NEUTROPHILS # 14.9 10^3/uL (1.5-8.5); NEUTROPHILS % 85.4 % (36.0-66.0); PLATELET COUNT, AUTOMATED 345 10^3/uL (150-450); RED BLOOD COUNT 4.23 10^6/uL (4.30-6.10); WHITE BLOOD COUNT 17.4 10^3/uL (4.0-10.0)
[2023-05-10 12:13] LABS: BLOOD UREA NITROGEN 49 MG/DL (9-23); CALCIUM LEVEL 9.3 MG/DL (8.3-10.6); CARBON DIOXIDE LEVEL 25 MMOL/L (20-31); CHLORIDE LEVEL 106 MMOL/L (98-107); CREATININE FOR GFR 1.06 MG/DL (0.70-1.30); GLOMERULAR FILTRATION RATE > 60.0 (>35); GLUCOSE, FASTING 83 MG/DL (74-106); POTASSIUM SERUM 4.3 MMOL/L (3.5-5.1); SODIUM LEVEL 143 MMOL/L (136-145)
== END ==
PROVIDERS: ATTEND Internal Medicine
DX: I10 Essential (primary) hypertension (principal)

== ENCOUNTER → 2023-07-12 | Outpatient (REF) | payer MEDICARE, MEDICAID ==
[~2023-07-12] MED LIST changes: +CALM1OIN TP
[2023-07-12 12:15] LABS: HEMATOCRIT 37.7 % (42.0-52.0); HEMOGLOBIN 11.6 g/dl (13.5-17.5); MEAN CORPUSCULAR HEMOGLOBIN 28.6 pg (27.0-33.0); MEAN CORPUSCULAR HGB CONC 30.8 g/dl (32.0-36.5); MEAN CORPUSCULAR VOLUME 93.1 fl (80.0-96.0); PLATELET COUNT, AUTOMATED 316 10^3/uL (150-450); RED BLOOD COUNT 4.05 10^6/uL (4.30-6.10); WHITE BLOOD COUNT 13.1 10^3/uL (4.0-10.0)
[2023-07-12 12:41] LABS: BLOOD UREA NITROGEN 41 MG/DL (9-23); CARBON DIOXIDE LEVEL 26 MMOL/L (20-31); CHLORIDE LEVEL 110 MMOL/L (98-107); CREATININE FOR GFR 0.97 MG/DL (0.70-1.30); GLOMERULAR FILTRATION RATE > 60.0 (>35); GLUCOSE, FASTING 83 MG/DL (74-106); POTASSIUM SERUM 3.6 MMOL/L (3.5-5.1); SODIUM LEVEL 145 MMOL/L (136-145)
== END ==
PROVIDERS: ATTEND Internal Medicine
DX: I10 Essential (primary) hypertension (principal)

== ENCOUNTER 2023-07-24 14:20 | Inpatient (IN) | payer MEDICARE, MEDICAID ==
[~2023-07-24] VITALS: Ht 167.6 cm; Wt 52.6 kg
[2023-07-24 15:10] VITALS: BP 99/51
[2023-07-24] MEDS: METOPROLOL 5 MG/5 ML VIAL IV STA (15:10)
[2023-07-24] MEDS: NS 1,000 ML IV ONE ×3 (15:10→17:05)
[2023-07-24] MEDS ORDERED: METOPROLOL TART 25 MG TABLET PO ONE (15:15)
[2023-07-24 15:18] LABS: VENOUS BASE EXCESS -3.1 (-2.0-2.0); VENOUS HCO3 22.2 MMOL/L (23.0-27.0); VENOUS O2 SATURATION 58.4 % (60.0-80.0); VENOUS PARTIAL PRESSURE CO2 40.8 mmHg (38.0-50.0); VENOUS PARTIAL PRESSURE O2 29.8 mmHg (30.0-50.0); VENOUS PH 7.354 UNITS (7.330-7.430); VENOUS TOTAL CO2 23.5 MMOL/L (24.0-28.0)
[2023-07-24] MEDS ORDERED: DIGOXIN INJ 0.5 MG/2 ML AMP IV STA (15:19)
[2023-07-24 15:29] LABS: BASO # 0.1 10^3/uL (0.0-0.2); BASO % 0.2 % (0.0-1.0); HEMATOCRIT 42.4 % (42.0-52.0); HEMOGLOBIN 13.1 g/dl (13.5-17.5); LYMPH # 1.4 10^3/uL (1.5-5.0); LYMPH % 3.3 % (24.0-44.0); MEAN CORPUSCULAR HEMOGLOBIN 28.4 pg (27.0-33.0); MEAN CORPUSCULAR HGB CONC 30.9 g/dl (32.0-36.5); MONO % 7.7 % (2.0-8.0); NEUTROPHILS # 36.4 10^3/uL (1.5-8.5); NEUTROPHILS % 86.6 % (36.0-66.0); PLATELET COUNT, AUTOMATED 414 10^3/uL (150-450); RED BLOOD COUNT 4.61 10^6/uL (4.30-6.10)
[2023-07-24 15:44] LABS: MONO # 3.2 10^3/uL (0.0-0.8)
[2023-07-24 15:47] LABS: INR 1.21; PROTHROMBIN TIME 14.9 SECONDS (12.5-14.5)
[2023-07-24 15:48] LABS: PARTIAL THROMBOPLASTIN TIME 36.3 SECONDS (24.8-34.2)
[2023-07-24 15:49] LABS: CK-MB VALUE MASS 2.5 NG/ML (<3.6); FREE T4 1.15 NG/DL (0.89-1.76); THYROID STIMULATING HORMONE 2.109 uIU/ML (0.55-4.78)
[2023-07-24 15:53] LABS: PROCALCITONIN 4.64 ng/ml
[2023-07-24 15:57] LABS: ALBUMIN 3.5 G/DL (3.2-5.2); BILIRUBIN,DIRECT 0.2 MG/DL (<0.4); BILIRUBIN,TOTAL 0.6 MG/DL (0.3-1.2); CALCIUM LEVEL 9.6 MG/DL (8.3-10.6); CREATININE FOR GFR 3.26 MG/DL (0.70-1.30); GLOMERULAR FILTRATION RATE 19.3 (>35); MAGNESIUM LEVEL 2.2 MG/DL (1.8-2.4); POTASSIUM SERUM 5.9 MMOL/L (3.5-5.1); TOTAL PROTEIN 7.1 G/DL (5.7-8.2)
[2023-07-24] MEDS: PIPERACILLIN/TAZOBACTAM SOD 3.375 GM in D5W MINI-BAG PLUS 50 ML IV ONE (15:58)
[2023-07-24] MEDS: HYDROCORTISONE 100MG/2ML VIAL IV ONE (15:58)
[2023-07-24 15:59] LABS: MB/CK RELATIVE INDEX 1.19 (< OR =4)
[2023-07-24 16:00] LABS: RSV AMPLIFICATION NEGATIVE (NEGATIVE)
[2023-07-24 16:48] LABS: CK-MB VALUE MASS 2.3 NG/ML (<3.6)
[2023-07-24 16:49] LABS: MB/CK RELATIVE INDEX 1.27 (< OR =4)
[2023-07-24 16:53] LABS: C REACTIVE PROTEIN QUANTITATIV 25.2 MG/DL (<1.0)
[2023-07-24] MEDS: VANCOMYCIN HCL 1,000 MG, VIAL MATE ADAPTER 1 EACH in D5W 250 ML IV ONE (17:14)
[2023-07-24 17:21] LABS: TOTAL PROTEIN,RANDOM URINE 105.5 MG/DL (0.0-14.0)
[2023-07-24 17:26] LABS: CREATININE,RANDOM URINE 53.7 MG/DL
[2023-07-24] MEDS ORDERED: AMLO2.5T3 PO (18:48)
[2023-07-24] MEDS ORDERED: HOME MED LIST COMPLETE! XX SCH (18:50)
[2023-07-24 19:38] LABS: PROCALCITONIN 3.28 ng/ml
[2023-07-24] MEDS ORDERED: MOM 30ML SUSPENSION UDC PO PRN (19:40)
[2023-07-24] MEDS ORDERED: BISACODYL 10MG SUPP PR PRN (19:40)
[2023-07-24] MEDS ORDERED: SODIUM CHLORIDE 0.9% 1000ML IV SCH (19:45)
[2023-07-24 20:11] LABS: CREATININE FOR GFR 3.03 MG/DL (0.70-1.30); POTASSIUM SERUM 4.7 MMOL/L (3.5-5.1)
[2023-07-24] MEDS: NS 1,000 ML IV SCH (21:08)
[2023-07-24 22:12] VITALS: BP 104/70; TEMP 97.8; O2SAT 100
[2023-07-24] MEDS: MEROPENEM INJ 1 GM in IV 1 EA IV SCH (22:51)
[2023-07-24] MEDS: HYDROCORTISONE 100MG/2ML VIAL IV SCH (22:57)
[2023-07-24 23:21] VITALS: BP 96/53; TEMP 97.6; O2SAT 94
[2023-07-24] MEDS: GABAPENTIN 100 MG CAP PO SCH (23:28)
[2023-07-24] MEDS: APIXABAN 2.5 MG TAB (ELIQUIS) PO SCH (23:28)
[2023-07-25 03:17] VITALS: BP 100/64; TEMP 97.2; O2SAT 97
[2023-07-25 05:45] LABS: HEMATOCRIT 30.8 % (42.0-52.0); MEAN CORPUSCULAR HEMOGLOBIN 29.1 pg (27.0-33.0); MEAN CORPUSCULAR HGB CONC 31.5 g/dl (32.0-36.5); MEAN CORPUSCULAR VOLUME 92.5 fl (80.0-96.0); RED BLOOD COUNT 3.33 10^6/uL (4.30-6.10)
[2023-07-25 05:46] LABS: WHITE BLOOD COUNT 31.5 10^3/uL (4.0-10.0)
[2023-07-25 05:47] LABS: HEMOGLOBIN 9.7 g/dl (13.5-17.5); PLATELET COUNT, AUTOMATED 302 10^3/uL (150-450)
[2023-07-25 06:14] LABS: CALCIUM LEVEL 8.2 MG/DL (8.3-10.6); CREATININE FOR GFR 2.67 MG/DL (0.70-1.30); GLOMERULAR FILTRATION RATE 24.3 (>35); POTASSIUM SERUM 5.2 MMOL/L (3.5-5.1)
[2023-07-25] MEDS: SUCRALFATE 1 GM TAB PO SCH (07:30)
[2023-07-25 08:00] VITALS: BP 106/71; TEMP 98.5; O2SAT 98
[2023-07-25] MEDS: ADVAIR HFA 115/21MCG INHALER INH SCH (08:00)
[2023-07-25] MEDS ORDERED: ADVAIR HFA 115/21MCG INHALER INH SCH (08:00)
[2023-07-25] MEDS: D5W/0.45% SODIUM CHLORIDE 1,000 ML IV SCH (08:01)
[2023-07-25] MEDS: OMEPRAZOLE 20MG CAP PO SCH (09:00)
[2023-07-25] MEDS: PATIROMER SORBITEX CALCIUM 8.4 GM POWDER PACKET (VELTASSA) PO ONE (10:13)
[2023-07-25 10:29] LABS: MAGNESIUM LEVEL 1.9 MG/DL (1.8-2.4)
[2023-07-25 11:39] VITALS: BP 138/60; TEMP 98.3; O2SAT 97
[2023-07-25 14:37] LABS: CREATININE FOR GFR 2.24 MG/DL (0.70-1.30); GLOMERULAR FILTRATION RATE 29.7 (>35); POTASSIUM SERUM 3.7 MMOL/L (3.5-5.1)
[2023-07-25 15:47] VITALS: BP 121/66; TEMP 97.4; O2SAT 96
[2023-07-25] MEDS: HYDROCORTISONE 100MG/2ML VIAL IV SCH (17:42)
[2023-07-25 19:14] VITALS: BP 136/64; TEMP 97.6; O2SAT 97
[2023-07-25] MEDS: TIOTROPIUM INHALER/CAPSULE (SPIRIVA) INH SCH (20:58)
[2023-07-25] MEDS: ACETAMINOPHEN 500 MG TAB PO ONE (22:08)
[2023-07-25 23:00] VITALS: BP 121/57; TEMP 97.4; O2SAT 96
[2023-07-26] VITALS (7 sets, daily range): BP systolic 109–162; BP diastolic 56–69; TEMP 97.3–99.3; O2SAT 93–100
[2023-07-26 06:07] LABS: HEMATOCRIT 30.5 % (42.0-52.0); HEMOGLOBIN 9.5 g/dl (13.5-17.5); LYMPH # 0.5 10^3/uL (1.5-5.0); LYMPH % 2.6 % (24.0-44.0); MEAN CORPUSCULAR HEMOGLOBIN 28.9 pg (27.0-33.0); MEAN CORPUSCULAR HGB CONC 31.1 g/dl (32.0-36.5); MEAN CORPUSCULAR VOLUME 92.7 fl (80.0-96.0); MONO # 0.8 10^3/uL (0.0-0.8); MONO % 3.9 % (2.0-8.0); NEUTROPHILS % 92.3 % (36.0-66.0); PLATELET COUNT, AUTOMATED 278 10^3/uL (150-450); RED BLOOD COUNT 3.29 10^6/uL (4.30-6.10); WHITE BLOOD COUNT 20.5 10^3/uL (4.0-10.0)
[2023-07-26 06:32] LABS: ALBUMIN 2.3 G/DL (3.2-5.2); CALCIUM LEVEL 7.9 MG/DL (8.3-10.6); CREATININE FOR GFR 1.79 MG/DL (0.70-1.30); GLOMERULAR FILTRATION RATE 38.5 (>35); MAGNESIUM LEVEL 1.7 MG/DL (1.8-2.4); PHOSPHORUS LEVEL 2.3 MG/DL (2.4-5.1); POTASSIUM SERUM 3.3 MMOL/L (3.5-5.1)
[2023-07-26] MEDS ORDERED: POTASSIUM CHLORIDE 10MEQ SR TABLET PO ONE (08:00)
[2023-07-26] MEDS: MAG SULF 1GM/100ML (MAG RUN) 1 GM in IV 1 EA IV SCH (09:24)
[2023-07-26] MEDS: POTASSIUM CHL PWD 20MEQ PACKET PO ONE (09:24)
[2023-07-26] MEDS ORDERED: ERTAPENEM SODIUM 1 GM in NS MINI-BAG PLUS 50 ML IV SCH (14:00)
[2023-07-26] MEDS ORDERED: LIDOCAINE 1% MDV 20ML VIAL As Ordered ONE (14:25)
[2023-07-26] MEDS ORDERED: SODIUM BICARBONATE 50 MEQ in KCL 20MEQ IN D5W 1000ML 1,000 ML IV SCH (15:00)
[2023-07-26] MEDS: SODIUM BICARBONATE 50 MEQ in KCL 20MEQ IN D5W 1000ML 1,000 ML IV SCH (16:53)
[2023-07-26] MEDS ORDERED: SODIUM CHLORIDE 0.9% INJ 10 ML SYR IV PRN (19:35)
[2023-07-26] MEDS: ERTAPENEM SODIUM 500 MG in NS 50 ML IV SCH (21:15)
[2023-07-26] MEDS: SODIUM CHLORIDE 0.9% INJ 10 ML SYR IV SCH (21:16)
[2023-07-27 04:00] VITALS: BP 126/76; TEMP 97.9; O2SAT 95
[2023-07-27 06:16] LABS: BASO % 0.1 % (0.0-1.0); EOS # 0.2 10^3/uL (0.0-0.5); EOS % 1.1 % (0.0-3.0); HEMATOCRIT 29.7 % (42.0-52.0); HEMOGLOBIN 9.4 g/dl (13.5-17.5); LYMPH # 2.2 10^3/uL (1.5-5.0); LYMPH % 12.8 % (24.0-44.0); MEAN CORPUSCULAR HEMOGLOBIN 28.4 pg (27.0-33.0); MEAN CORPUSCULAR HGB CONC 31.6 g/dl (32.0-36.5); MEAN CORPUSCULAR VOLUME 89.7 fl (80.0-96.0); MONO # 1.2 10^3/uL (0.0-0.8); MONO % 7.3 % (2.0-8.0); NEUTROPHILS # 13.1 10^3/uL (1.5-8.5); NEUTROPHILS % 77.8 % (36.0-66.0); PLATELET COUNT, AUTOMATED 278 10^3/uL (150-450); RED BLOOD COUNT 3.31 10^6/uL (4.30-6.10); WHITE BLOOD COUNT 16.8 10^3/uL (4.0-10.0)
[2023-07-27 06:49] LABS: ALBUMIN 2.3 G/DL (3.2-5.2); BLOOD UREA NITROGEN 49 MG/DL (9-23); CALCIUM LEVEL 8.1 MG/DL (8.3-10.6); CARBON DIOXIDE LEVEL 26 MMOL/L (20-31); CHLORIDE LEVEL 112 MMOL/L (98-107); CREATININE FOR GFR 1.14 MG/DL (0.70-1.30); GLOMERULAR FILTRATION RATE > 60.0 (>35); GLUCOSE, FASTING 85 MG/DL (74-106); MAGNESIUM LEVEL 2.1 MG/DL (1.8-2.4); PHOSPHORUS LEVEL 1.7 MG/DL (2.4-5.1); POTASSIUM SERUM 3.6 MMOL/L (3.5-5.1); SODIUM LEVEL 145 MMOL/L (136-145)
[2023-07-27 07:50] VITALS: BP 121/87; TEMP 97.8; O2SAT 96
[2023-07-27] MEDS: predniSONE 2.5 MG TAB PO SCH (09:10)
[2023-07-27] MEDS: NEUTRA-PHOS 1.5 GM PACKET PO SCH (09:10)
[2023-07-27] MEDS: SODIUM PHOSPHATE INJ 20 MMOL in D5W 250 ML IV ONE (09:22)
[2023-07-27] MEDS ORDERED: ELIQ2.5T PO (10:04)
[2023-07-27] MEDS ORDERED: CVS1CAP2 PO (10:25)
[2023-07-27] MEDS: MEROPENEM INJ 1 GM in IV 1 EA IV SCH (11:29)
== END 2023-07-27 13:22 | DRG 698 ==
LOC: M ED 14:20 → M ED INP 18:15 → M PCU 22:14
PROVIDERS: ADMIT Internal Medicine; ATTEND Internal Medicine
PROC: 05HB33Z Insertion of Infusion Device into Right Basilic Vein, Percutaneous Approach (ICD-10-PCS; principal; 2023-07-26 16:00)
DX: T83.511A Infection and inflammatory reaction due to indwelling urethral catheter, initial encounter (principal); G93.41 Metabolic encephalopathy; J18.9 Pneumonia, unspecified organism; N17.0 Acute kidney failure with tubular necrosis; R65.20 Severe sepsis without septic shock; A41.51 Sepsis due to Escherichia coli [E. coli]; I50.22 Chronic systolic (congestive) heart failure; I24.89 Other forms of acute ischemic heart disease; E87.1 Hypo-osmolality and hyponatremia; E87.0 Hyperosmolality and hypernatremia; I11.0 Hypertensive heart disease with heart failure; K21.9 Gastro-esophageal reflux disease without esophagitis; D64.9 Anemia, unspecified; F03.90 Unspecified dementia, unspecified severity, without behavioral disturbance, psychotic disturbance, mood disturbance, and anxiety; I48.91 Unspecified atrial fibrillation; I95.89 Other hypotension; N39.0 Urinary tract infection, site not specified; E87.6 Hypokalemia; R13.10 Dysphagia, unspecified; E83.42 Hypomagnesemia; E83.39 Other disorders of phosphorus metabolism; G62.9 Polyneuropathy, unspecified; I08.0 Rheumatic disorders of both mitral and aortic valves; M54.59 Other low back pain; Z88.8 Allergy status to other drugs, medicaments and biological substances; Z79.899 Other long term (current) drug therapy; Z66 Do not resuscitate; Z79.52 Long term (current) use of systemic steroids; Z95.2 Presence of prosthetic heart valve; Z86.711 Personal history of pulmonary embolism; Y84.6 Urinary catheterization as the cause of abnormal reaction of the patient, or of later complication, without mention of misadventure at the time of the procedure

== ENCOUNTER → 2023-07-30 | Outpatient (REF) | payer MEDICARE, MEDICAID ==
[~2023-07-30] MED LIST changes: +AMLO2.5T3 PO; +CVS1CAP2 PO
== END ==
PROVIDERS: ATTEND Internal Medicine
DX: R05.9 Cough, unspecified (principal)

== ENCOUNTER → 2023-07-31 | Outpatient (REF) | payer MEDICARE, MEDICAID | PROVIDERS: ATTEND Internal Medicine | DX: A41.9 Sepsis, unspecified organism (principal); Z53.8 Procedure and treatment not carried out for other reasons ==

== ENCOUNTER → 2023-08-01 | Outpatient (REF) | payer MEDICARE, MEDICAID ==
[2023-08-01 14:20] LABS: BASO # 0.1 10^3/uL (0.0-0.2); BASO % 0.3 % (0.0-1.0); EOS # 0.5 10^3/uL (0.0-0.5); EOS % 3.6 % (0.0-3.0); HEMATOCRIT 35.5 % (42.0-52.0); LYMPH # 2.8 10^3/uL (1.5-5.0); LYMPH % 19.1 % (24.0-44.0); MEAN CORPUSCULAR HEMOGLOBIN 28.7 pg (27.0-33.0); MEAN CORPUSCULAR VOLUME 92.7 fl (80.0-96.0); MONO # 1.3 10^3/uL (0.0-0.8); NEUTROPHILS # 9.7 10^3/uL (1.5-8.5); NEUTROPHILS % 66.6 % (36.0-66.0); PLATELET COUNT, AUTOMATED 329 10^3/uL (150-450); RED BLOOD COUNT 3.83 10^6/uL (4.30-6.10); WHITE BLOOD COUNT 14.6 10^3/uL (4.0-10.0)
[2023-08-01 15:06] LABS: BLOOD UREA NITROGEN 37 MG/DL (9-23); CALCIUM LEVEL 8.2 MG/DL (8.3-10.6); CARBON DIOXIDE LEVEL 24 MMOL/L (20-31); CHLORIDE LEVEL 111 MMOL/L (98-107); CREATININE FOR GFR 0.81 MG/DL (0.70-1.30); GLOMERULAR FILTRATION RATE > 60.0 (>35); GLUCOSE, FASTING 41 MG/DL (74-106); POTASSIUM SERUM 5.2 MMOL/L (3.5-5.1); SODIUM LEVEL 142 MMOL/L (136-145)
== END ==
PROVIDERS: ATTEND Internal Medicine
DX: R41.82 Altered mental status, unspecified (principal)

== ENCOUNTER → 2023-08-03 | Outpatient (REF) | payer MEDICARE, MEDICAID | PROVIDERS: ATTEND Internal Medicine | DX: Z53.8 Procedure and treatment not carried out for other reasons (principal) ==

== ENCOUNTER → 2023-08-04 | Outpatient (REF) | payer MEDICARE, MEDICAID ==
[2023-08-04 09:33] LABS: BASO # 0.1 10^3/uL (0.0-0.2); BASO % 0.3 % (0.0-1.0); EOS # 0.6 10^3/uL (0.0-0.5); EOS % 3.6 % (0.0-3.0); HEMATOCRIT 33.9 % (42.0-52.0); HEMOGLOBIN 10.6 g/dl (13.5-17.5); LYMPH # 2.1 10^3/uL (1.5-5.0); LYMPH % 12.7 % (24.0-44.0); MEAN CORPUSCULAR HEMOGLOBIN 28.3 pg (27.0-33.0); MEAN CORPUSCULAR HGB CONC 31.3 g/dl (32.0-36.5); MEAN CORPUSCULAR VOLUME 90.4 fl (80.0-96.0); MONO # 1.3 10^3/uL (0.0-0.8); MONO % 7.8 % (2.0-8.0); NEUTROPHILS # 12.1 10^3/uL (1.5-8.5); PLATELET COUNT, AUTOMATED 350 10^3/uL (150-450); RED BLOOD COUNT 3.75 10^6/uL (4.30-6.10); WHITE BLOOD COUNT 16.1 10^3/uL (4.0-10.0)
[2023-08-04 09:59] LABS: ALBUMIN 2.3 G/DL (3.2-5.2); ALKALINE PHOSPHATASE 92 U/L (46-116); ALT/SGPT 21 U/L (7.0-40); AST/SGOT 23 U/L (<34); BILIRUBIN,TOTAL 0.3 MG/DL (0.3-1.2); BLOOD UREA NITROGEN 45 MG/DL (9-23); CALCIUM LEVEL 8.3 MG/DL (8.3-10.6); CARBON DIOXIDE LEVEL 28 MMOL/L (20-31); CHLORIDE LEVEL 110 MMOL/L (98-107); CREATININE FOR GFR 0.87 MG/DL (0.70-1.30); GLOMERULAR FILTRATION RATE > 60.0 (>35); GLUCOSE, FASTING 99 MG/DL (74-106); POTASSIUM SERUM 4.4 MMOL/L (3.5-5.1); SODIUM LEVEL 143 MMOL/L (136-145); TOTAL PROTEIN 5.1 G/DL (5.7-8.2)
== END ==
PROVIDERS: ATTEND Internal Medicine
DX: A41.51 Sepsis due to Escherichia coli [E. coli] (principal); N39.0 Urinary tract infection, site not specified

== ENCOUNTER 2023-09-25 21:21 | Inpatient (IN) | payer MEDICARE, MEDICAID ==
[~2023-09-25] VITALS: Ht 167.6 cm; Wt 50.9 kg
[2023-09-25] MEDS: NS 500 ML IV ONE (21:45)
[2023-09-25 22:04] LABS: ABG BASE EXCESS 0.3 (-2.0-2.0); ABG HCO3 23.8 MMOL/L (22.0-26.0); ABG O2 SATURATION 92.1 % (95.0-99.0); ABG PARTIAL PRESSURE CO2 34.7 mmHg (35.0-45.0); ABG PARTIAL PRESSURE O2 57.4 mmHg (75.0-100.0); ABG STANDARD HCO3 24.7 MMOL/L. (22.0-26.0); ABG TOTAL CO2 24.9 MMOL/L (23.0-31.0); ABG pH (ARTERIAL) 7.455 UNITS (7.350-7.450)
[2023-09-25 22:11] LABS: BASO % 0.2 % (0.0-1.0); HEMATOCRIT 37.8 % (42.0-52.0); LYMPH # 0.7 10^3/uL (1.5-5.0); LYMPH % 3.4 % (24.0-44.0); MEAN CORPUSCULAR HEMOGLOBIN 29.1 pg (27.0-33.0); MEAN CORPUSCULAR HGB CONC 31.7 g/dl (32.0-36.5); MEAN CORPUSCULAR VOLUME 91.7 fl (80.0-96.0); MONO # 1.8 10^3/uL (0.0-0.8); MONO % 9.1 % (2.0-8.0); NEUTROPHILS # 17.5 10^3/uL (1.5-8.5); NEUTROPHILS % 86.9 % (36.0-66.0); PLATELET COUNT, AUTOMATED 365 10^3/uL (150-450); RED BLOOD COUNT 4.12 10^6/uL (4.30-6.10); WHITE BLOOD COUNT 20.1 10^3/uL (4.0-10.0)
[2023-09-25 22:30] LABS: CPK CREATINE PHOSPHOKINASE 24 U/L (46-171)
[2023-09-25 22:31] LABS: ALBUMIN 3.1 G/DL (3.2-5.2); ALKALINE PHOSPHATASE 88 U/L (46-116); ALT/SGPT 37 U/L (7.0-40); AST/SGOT 19 U/L (<34); BILIRUBIN,DIRECT 0.3 MG/DL (<0.4); BILIRUBIN,TOTAL 0.6 MG/DL (0.3-1.2); BLOOD UREA NITROGEN 51 MG/DL (9-23); CALCIUM LEVEL 9.7 MG/DL (8.3-10.6); CARBON DIOXIDE LEVEL 28 MMOL/L (20-31); CHLORIDE LEVEL 104 MMOL/L (98-107); CREATININE FOR GFR 1.37 MG/DL (0.70-1.30); GLOMERULAR FILTRATION RATE 52.4 (>35); GLUCOSE, FASTING 81 MG/DL (74-106); POTASSIUM SERUM 4.2 MMOL/L (3.5-5.1); SODIUM LEVEL 141 MMOL/L (136-145); TOTAL PROTEIN 6.1 G/DL (5.7-8.2)
[2023-09-25] MEDS: cefTRIAXone SOD 2 GM in D5W MINI-BAG PLUS 50 ML IV ONE (22:40)
[2023-09-25 22:44] LABS: CK-MB VALUE MASS < 1.0 NG/ML (<3.6); MB/CK RELATIVE INDEX 4.16 (< OR =4)
[2023-09-25 22:48] LABS: THYROID STIMULATING HORMONE 1.255 uIU/ML (0.55-4.78)
[2023-09-25] MEDS: NS IV STA (23:17)
[2023-09-26] VITALS (8 sets, daily range): BP systolic 101–127; BP diastolic 49–73; TEMP 97.2–98.6; O2SAT 94–98
[2023-09-26] MEDS ORDERED: VANCOMYCIN HCL 760 MG in IV FLUID PLACE HOLDER 1 EA IV SCH (01:05)
[2023-09-26] MEDS ORDERED: ALBUTEROL SULFATE 2.5MG/0.5ML INH NEB SOLN NEB PRN (01:45)
[2023-09-26] MEDS ORDERED: BISACODYL 10MG SUPP PR PRN (01:50)
[2023-09-26] MEDS ORDERED: PIPERACILLIN/TAZOBACTAM SOD 2.25 GM in D5W MINI-BAG PLUS 50 ML IV SCH (02:00)
[2023-09-26] MEDS: IPRATROPIUM 0.5MG/ALBUTEROL 2.5MG INH SOL UD 3ML (DUONEB) NEB SCH (02:29)
[2023-09-26] MEDS: VANCOMYCIN HCL 1,000 MG, VIAL MATE ADAPTER 1 EACH in D5W 250 ML IV ONE (03:28)
[2023-09-26] MEDS: PIPERACILLIN/TAZOBACTAM SOD 2.25 GM in D5W MINI-BAG PLUS 50 ML IV SCH (06:15)
[2023-09-26] MEDS: NS 1,000 ML IV ONE (07:00)
[2023-09-26 07:55] LABS: BASO % 0.2 % (0.0-1.0); HEMATOCRIT 32.1 % (42.0-52.0); HEMOGLOBIN 10.1 g/dl (13.5-17.5); LYMPH # 1.4 10^3/uL (1.5-5.0); LYMPH % 6.8 % (24.0-44.0); MEAN CORPUSCULAR HGB CONC 31.5 g/dl (32.0-36.5); MEAN CORPUSCULAR VOLUME 92.2 fl (80.0-96.0); MONO # 1.7 10^3/uL (0.0-0.8); MONO % 8.3 % (2.0-8.0); NEUTROPHILS # 17.5 10^3/uL (1.5-8.5); NEUTROPHILS % 84.2 % (36.0-66.0); PLATELET COUNT, AUTOMATED 290 10^3/uL (150-450); RED BLOOD COUNT 3.48 10^6/uL (4.30-6.10); WHITE BLOOD COUNT 20.8 10^3/uL (4.0-10.0)
[2023-09-26] MEDS: NS 1,000 ML IV SCH (08:09)
[2023-09-26 08:39] LABS: ALBUMIN 2.5 G/DL (3.2-5.2); ALKALINE PHOSPHATASE 72 U/L (46-116); ALT/SGPT 22 U/L (7.0-40); AST/SGOT 13 U/L (<34); BILIRUBIN,TOTAL 0.3 MG/DL (0.3-1.2); BLOOD UREA NITROGEN 48 MG/DL (9-23); CALCIUM LEVEL 8.7 MG/DL (8.3-10.6); CARBON DIOXIDE LEVEL 26 MMOL/L (20-31); CHLORIDE LEVEL 106 MMOL/L (98-107); GLOMERULAR FILTRATION RATE > 60.0 (>35); GLUCOSE, FASTING 103 MG/DL (74-106); MAGNESIUM LEVEL 1.8 MG/DL (1.8-2.4); POTASSIUM SERUM 3.7 MMOL/L (3.5-5.1); SODIUM LEVEL 140 MMOL/L (136-145); TOTAL PROTEIN 5.1 G/DL (5.7-8.2)
[2023-09-26] MEDS ORDERED: NITR0.4S14 SL (08:49)
[2023-09-26] MEDS ORDERED: LEXA1TAB PO (08:49)
[2023-09-26] MEDS ORDERED: LORA1TAB23 PO (08:49)
[2023-09-26] MEDS ORDERED: GABA-1171 PO (08:49)
[2023-09-26] MEDS ORDERED: ISOVUE-370 76% 100ML VIAL As Ordered ONE (08:53)
[2023-09-26] MEDS ORDERED: HOME MED LIST COMPLETE! XX SCH (08:55)
[2023-09-26] MEDS: PANTOPRAZOLE 40MG VIAL IV SCH (10:41)
[2023-09-26] MEDS: APIXABAN 2.5 MG TAB (ELIQUIS) PO SCH (10:42)
[2023-09-26] MEDS: SUCRALFATE 1 GM TAB PO SCH (10:42)
[2023-09-26] MEDS ORDERED: MOM 30ML SUSPENSION UDC PO PRN (10:50)
[2023-09-26] MEDS ORDERED: NITROGLYCERIN 0.4MG SUBL TABLET SL PRN (10:50)
[2023-09-26] MEDS: predniSONE 2.5 MG TAB PO SCH (12:51)
[2023-09-26] MEDS: ESCITALOPRAM OXALATE 10 MG TAB (LEXAPRO) PO SCH (12:51)
[2023-09-26] MEDS ORDERED: VANCOMYCIN HCL 750 MG, VIAL MATE ADAPTER 1 EACH in D5W 250 ML IV SCH (13:00)
[2023-09-26] MEDS: ADVAIR HFA 115/21MCG INHALER INH SCH (13:18)
[2023-09-26] MEDS: PIPERACILLIN/TAZOBACTAM SOD 3.375 GM in D5W MINI-BAG PLUS 50 ML IV SCH (14:41)
[2023-09-26] MEDS: LORazepam 0.5 MG TAB PO PRN (14:41)
[2023-09-26] MEDS: TIOTROPIUM INHALER/CAPSULE (SPIRIVA) INH SCH (19:15)
[2023-09-26] MEDS: ACETAMINOPHEN TAB 650MG DOSE (2X325MG) PO PRN (20:35)
[2023-09-26] MEDS: diphenhydrAMINE 50MG/ML VIAL IM ONE (20:35)
[2023-09-26] MEDS: GABAPENTIN 100 MG CAP PO SCH (20:35)
[2023-09-26] MEDS: guaiFENesin ER TABLET 600 MG TAB PO SCH (20:36)
[2023-09-26] MEDS ORDERED: VANCOMYCIN HCL 500 MG in D5W MINI-BAG PLUS 100 ML IV SCH (21:00)
[2023-09-26] MEDS ORDERED: LORazepam 2 MG/ML 1ML VIAL IM STA (23:07)
[2023-09-26] MEDS: LORazepam 2 MG/ML 1ML VIAL IV STA (23:16)
[2023-09-27 03:17] VITALS: BP 132/62; TEMP 98; O2SAT 98
[2023-09-27 05:14] LABS: BASO % 0.2 % (0.0-1.0); EOS # 0.1 10^3/uL (0.0-0.5); EOS % 0.5 % (0.0-3.0); HEMATOCRIT 29.8 % (42.0-52.0); HEMOGLOBIN 9.2 g/dl (13.5-17.5); LYMPH # 1.6 10^3/uL (1.5-5.0); LYMPH % 8.5 % (24.0-44.0); MEAN CORPUSCULAR HEMOGLOBIN 28.8 pg (27.0-33.0); MEAN CORPUSCULAR HGB CONC 30.9 g/dl (32.0-36.5); MEAN CORPUSCULAR VOLUME 93.4 fl (80.0-96.0); MONO # 1.4 10^3/uL (0.0-0.8); MONO % 7.5 % (2.0-8.0); NEUTROPHILS # 15.1 10^3/uL (1.5-8.5); NEUTROPHILS % 82.6 % (36.0-66.0); PLATELET COUNT, AUTOMATED 280 10^3/uL (150-450); RED BLOOD COUNT 3.19 10^6/uL (4.30-6.10); WHITE BLOOD COUNT 18.3 10^3/uL (4.0-10.0)
[2023-09-27 05:40] LABS: BLOOD UREA NITROGEN 39 MG/DL (9-23); CALCIUM LEVEL 8.8 MG/DL (8.3-10.6); CARBON DIOXIDE LEVEL 24 MMOL/L (20-31); CHLORIDE LEVEL 107 MMOL/L (98-107); GLOMERULAR FILTRATION RATE > 60.0 (>35); GLUCOSE, FASTING 68 MG/DL (74-106); MAGNESIUM LEVEL 1.7 MG/DL (1.8-2.4); POTASSIUM SERUM 4.5 MMOL/L (3.5-5.1); SODIUM LEVEL 140 MMOL/L (136-145)
[2023-09-27] MEDS: OLANZapine INTRAMUSCULAR 10MG VIAL IM SCH (07:51)
[2023-09-27] MEDS: MAG SULF 1GM/100ML (MAG RUN) 1 GM in IV 1 EA IV ONE (07:51)
[2023-09-27 08:00] VITALS: BP 157/70; TEMP 97.7; O2SAT 97
[2023-09-27] MEDS: METOPROLOL 5 MG/5 ML VIAL IV STA (09:35)
[2023-09-27] MEDS: LORazepam 2 MG/ML 1ML VIAL IV PRN (09:54)
[2023-09-27 10:38] LABS: CK-MB VALUE MASS 3.5 NG/ML (<3.6)
[2023-09-27 10:44] LABS: C REACTIVE PROTEIN QUANTITATIV 24.9 MG/DL (<1.0)
[2023-09-27 10:51] LABS: MB/CK RELATIVE INDEX 3.76 (< OR =4)
[2023-09-27 12:00] VITALS: BP 139/60; TEMP 98.1; O2SAT 97
[2023-09-27] MEDS: METOPROLOL TART 12.5 MG PER 1/2 TAB PO SCH (13:26)
[2023-09-27] MEDS: DIGOXIN INJ 0.5 MG/2 ML AMP IV ONE (14:44)
[2023-09-27 16:00] VITALS: BP 126/77; TEMP 97.8; O2SAT 97
[2023-09-27 20:00] VITALS: BP 148/72; TEMP 98; O2SAT 95
[2023-09-27 20:43] VITALS: BP 139/73; TEMP 97.8; O2SAT 95
[2023-09-28] VITALS (7 sets, daily range): BP systolic 139–181; BP diastolic 64–91; TEMP 97.6–98.2; O2SAT 95–99
[2023-09-28 05:11] LABS: BASO # 0.1 10^3/uL (0.0-0.2); BASO % 0.4 % (0.0-1.0); EOS # 0.3 10^3/uL (0.0-0.5); EOS % 2.1 % (0.0-3.0); HEMATOCRIT 32.6 % (42.0-52.0); HEMOGLOBIN 10.3 g/dl (13.5-17.5); LYMPH # 1.2 10^3/uL (1.5-5.0); LYMPH % 7.4 % (24.0-44.0); MEAN CORPUSCULAR HEMOGLOBIN 28.7 pg (27.0-33.0); MEAN CORPUSCULAR HGB CONC 31.6 g/dl (32.0-36.5); MEAN CORPUSCULAR VOLUME 90.8 fl (80.0-96.0); MONO % 6.6 % (2.0-8.0); NEUTROPHILS # 12.9 10^3/uL (1.5-8.5); NEUTROPHILS % 82.9 % (36.0-66.0); PLATELET COUNT, AUTOMATED 325 10^3/uL (150-450); RED BLOOD COUNT 3.59 10^6/uL (4.30-6.10); WHITE BLOOD COUNT 15.6 10^3/uL (4.0-10.0)
[2023-09-28 05:23] LABS: BLOOD UREA NITROGEN 30 MG/DL (9-23); CALCIUM LEVEL 8.9 MG/DL (8.3-10.6); CARBON DIOXIDE LEVEL 24 MMOL/L (20-31); CHLORIDE LEVEL 109 MMOL/L (98-107); GLOMERULAR FILTRATION RATE > 60.0 (>35); GLUCOSE, FASTING 62 MG/DL (74-106); POTASSIUM SERUM 3.9 MMOL/L (3.5-5.1); SODIUM LEVEL 143 MMOL/L (136-145)
[2023-09-28] MEDS: DEXTROSE 50% 50ML SYRINGE IV STA (06:05)
[2023-09-28 07:35] LABS: PROCALCITONIN 4.96 ng/ml
[2023-09-28] MEDS: D5W/0.9% SODIUM CHLORIDE 1,000 ML IV SCH (08:52)
[2023-09-28] MEDS ORDERED: LORazepam 2 MG/ML 1ML VIAL IV PRN (10:55)
[2023-09-28] MEDS: ACETAMINOPHEN *IV* 500 MG in IV 1 EA IV STA (18:41)
[2023-09-29] VITALS: BP 125/58
[2023-09-29 00:03] VITALS: BP 125/58; TEMP 98; O2SAT 96
[2023-09-29 04:02] VITALS: BP 119/86; TEMP 97.9; O2SAT 95
[2023-09-29 05:05] LABS: BASO # 0.1 10^3/uL (0.0-0.2); BASO % 0.4 % (0.0-1.0); EOS # 0.4 10^3/uL (0.0-0.5); EOS % 3.2 % (0.0-3.0); HEMATOCRIT 29.5 % (42.0-52.0); HEMOGLOBIN 9.5 g/dl (13.5-17.5); LYMPH # 1.2 10^3/uL (1.5-5.0); LYMPH % 10.2 % (24.0-44.0); MEAN CORPUSCULAR HEMOGLOBIN 29.1 pg (27.0-33.0); MEAN CORPUSCULAR HGB CONC 32.2 g/dl (32.0-36.5); MEAN CORPUSCULAR VOLUME 90.2 fl (80.0-96.0); MONO # 0.9 10^3/uL (0.0-0.8); MONO % 7.8 % (2.0-8.0); NEUTROPHILS # 9.2 10^3/uL (1.5-8.5); PLATELET COUNT, AUTOMATED 315 10^3/uL (150-450); RED BLOOD COUNT 3.27 10^6/uL (4.30-6.10); WHITE BLOOD COUNT 11.7 10^3/uL (4.0-10.0)
[2023-09-29 05:37] LABS: BLOOD UREA NITROGEN 21 MG/DL (9-23); CALCIUM LEVEL 8.5 MG/DL (8.3-10.6); CARBON DIOXIDE LEVEL 24 MMOL/L (20-31); CHLORIDE LEVEL 112 MMOL/L (98-107); CREATININE FOR GFR 0.92 MG/DL (0.70-1.30); GLOMERULAR FILTRATION RATE > 60.0 (>35); GLUCOSE, FASTING 109 MG/DL (74-106); MAGNESIUM LEVEL 1.9 MG/DL (1.8-2.4); POTASSIUM SERUM 3.4 MMOL/L (3.5-5.1); SODIUM LEVEL 145 MMOL/L (136-145)
[2023-09-29 08:00] VITALS: BP 155/70; TEMP 99.3; O2SAT 98
[2023-09-29 08:08] LABS: ABG BASE EXCESS -0.9 (-2.0-2.0); ABG HCO3 22.8 MMOL/L (22.0-26.0); ABG O2 SATURATION 95.3 % (95.0-99.0); ABG PARTIAL PRESSURE CO2 34.4 mmHg (35.0-45.0); ABG PARTIAL PRESSURE O2 70.1 mmHg (75.0-100.0); ABG STANDARD HCO3 23.7 MMOL/L. (22.0-26.0); ABG TOTAL CO2 23.9 MMOL/L (23.0-31.0)
[2023-09-29] MEDS: cefTRIAXone SOD 1 GM in D5W MINI-BAG PLUS 50 ML IV SCH (09:34)
[2023-09-29] MEDS: KCL 10MEQ/100ML SWI (KRUN) 10 MEQ in IV 1 EA IV ONE (09:35)
[2023-09-29] MEDS ORDERED: ATROPINE SULFATE 1% OPHTH SOLN 2ML BTL SL PRN (10:45)
[2023-09-29] MEDS ORDERED: ONDANSETRON 4MG 2ML VIAL IV PRN (10:50)
[2023-09-29] MEDS ORDERED: FLEET ENEMA PR PRN (10:50)
[2023-09-29] MEDS: LORazepam 2 MG/ML 1ML VIAL IV STA (10:55)
[2023-09-29] MEDS: SCOPOLAMINE 1MG TRANSDERMAL PATCH TOP SCH (11:00)
[2023-09-29 11:23] VITALS: O2SAT 95
[2023-09-29] MEDS: MORPHINE 4 MG/ML 1ML VIAL IV ONE (11:23)
[2023-09-29] MEDS: KETOROLAC 30 MG/ML 1ML VIAL IV ONE (11:23)
[2023-09-29] MEDS: LORazepam 2 MG/ML 1ML VIAL IV PRN (11:40)
[2023-09-29] MEDS: MORPHINE 2 MG/ML 1ML VIAL IV PRN (14:19)
[2023-09-29 15:08] LABS: BODY FLUID CULTURE Not indicated. (.); LEGIONELLA ANTIGEN URINE Negative (Negative); ORGANISM ID Not indicated. (.); SPECIMEN SOURCE Urine (.); URINE STREP PNEUMONIAE ANTIGEN Negative (Negative)
[2023-09-30] MEDS: LORazepam 2 MG/ML 1ML VIAL IV SCH (10:00)
[2023-09-30] MEDS ORDERED: ONDANSETRON 4MG ORAL DISINTEGRATING TAB SL PRN (12:25)
[2023-09-30] MEDS: LORazepam 2 MG TAB PO PRN (12:54)
[2023-09-30] MEDS: MORPHINE 10MG/0.5ML ORAL CONCENTRATE SOLUTION U/D SL PRN (13:31)
[2023-10-01] MEDS: GABAPENTIN 100 MG CAP PO SCH ×2 (10:30→21:22)
[2023-10-02] MEDS ORDERED: ATIV1TAB10 PO (07:32)
[2023-10-02] MEDS ORDERED: HYOS125TA PO (07:32)
[2023-10-02] MEDS ORDERED: TRAN1DIS4 TOP (07:32)
[2023-10-02] MEDS ORDERED: MORP1SOL5 PO (07:32)
[2023-10-02] MEDS ORDERED: LORazepam 2 MG/ML 1ML VIAL IV PRN (09:00)
[2023-10-02] MEDS ORDERED: SCOPOLAMINE 1MG TRANSDERMAL PATCH TOP PRN (11:47)
== END 2023-10-03 02:45 | disposition expired | DRG 871 ==
LOC: M ED 21:21 → M ED INP 09-26 01:04 → M ICU 09-26 09:27 → M MSPAV 09-29 14:31
PROVIDERS: ADMIT Internal Medicine; ATTEND General Practice
DX: A41.9 Sepsis, unspecified organism (principal); J15.69 Pneumonia due to other Gram-negative bacteria; J96.01 Acute respiratory failure with hypoxia; G93.41 Metabolic encephalopathy; I50.22 Chronic systolic (congestive) heart failure; J44.1 Chronic obstructive pulmonary disease with (acute) exacerbation; N17.9 Acute kidney failure, unspecified; E87.20 Acidosis, unspecified; R65.20 Severe sepsis without septic shock; N18.30 Chronic kidney disease, stage 3 unspecified; R13.10 Dysphagia, unspecified; I25.10 Atherosclerotic heart disease of native coronary artery without angina pectoris; I48.0 Paroxysmal atrial fibrillation; J44.9 Chronic obstructive pulmonary disease, unspecified; F03.90 Unspecified dementia, unspecified severity, without behavioral disturbance, psychotic disturbance, mood disturbance, and anxiety; N40.1 Benign prostatic hyperplasia with lower urinary tract symptoms; K21.9 Gastro-esophageal reflux disease without esophagitis; E16.2 Hypoglycemia, unspecified; L89.92 Pressure ulcer of unspecified site, stage 2; Z51.5 Encounter for palliative care; Z86.711 Personal history of pulmonary embolism; Z79.52 Long term (current) use of systemic steroids; I08.0 Rheumatic disorders of both mitral and aortic valves; Z87.891 Personal history of nicotine dependence; F41.9 Anxiety disorder, unspecified; F39 Unspecified mood [affective] disorder; Z88.8 Allergy status to other drugs, medicaments and biological substances; Z79.899 Other long term (current) drug therapy; Z66 Do not resuscitate